=== PATIENT | male | born 1960 | race Caucasian/White ===

== ENCOUNTER → 2023-12-20 12:34 | Outpatient (REF) | payer OTHER, SELFPAY | LOC: WOUND 12:34 | PROVIDERS: ATTENDING PHYSICIAN Surgery | DX: S71.102A Unspecified open wound, left thigh, initial encounter (principal); T81.41XA Infection following a procedure, superficial incisional surgical site, initial encounter; E11.9 Type 2 diabetes mellitus without complications; I73.9 Peripheral vascular disease, unspecified; I25.10 Atherosclerotic heart disease of native coronary artery without angina pectoris; I50.9 Heart failure, unspecified; I42.9 Cardiomyopathy, unspecified; K75.81 Nonalcoholic steatohepatitis (NASH); Z95.1 Presence of aortocoronary bypass graft; Z79.4 Long term (current) use of insulin; X58.XXXA Exposure to other specified factors, initial encounter | CPT/HCPCS: 99204 ==

== ENCOUNTER → 2023-12-23 11:30 | Outpatient (REF) | payer OTHER, SELFPAY | LOC: WOUND 11:30 | PROVIDERS: ATTENDING PHYSICIAN Surgery; REFERRING PHYSICIAN Nurse Practitioner Family | DX: S71.102A Unspecified open wound, left thigh, initial encounter (principal); T81.41XA Infection following a procedure, superficial incisional surgical site, initial encounter; E11.9 Type 2 diabetes mellitus without complications; I73.9 Peripheral vascular disease, unspecified; I25.10 Atherosclerotic heart disease of native coronary artery without angina pectoris; I50.9 Heart failure, unspecified; I42.9 Cardiomyopathy, unspecified; K75.81 Nonalcoholic steatohepatitis (NASH); Z95.1 Presence of aortocoronary bypass graft; Z79.4 Long term (current) use of insulin; Z95.5 Presence of coronary angioplasty implant and graft; X58.XXXA Exposure to other specified factors, initial encounter | CPT/HCPCS: 97605 ==

== ENCOUNTER → 2023-12-25 12:41 | Outpatient (REF) | payer OTHER, SELFPAY ==
[2023-12-25 15:37] LABS: % Basophils 0.4 % (0-2); % Eosinophils 4.1 % (0-6); % Immature Granulocytes 0.7 % (0-0.5); % Lymphocytes 23.4 % (20.5-51.1); % Neutrophils 63.4 % (42.2-75.2); Absolute Eosinophils 0.4 10^3/uL (0-0.7); Absolute Immature Granulocytes 0.1 10^3/uL (0-0.05); Absolute Lymphocytes 2.2 10^3/uL (1.2-3.4); Absolute Monocytes 0.8 10^3/uL (0.1-0.6); Absolute Neutrophils 6.1 10^3/uL (1.4-6.5); Hematocrit 31.5 % (39.0-52.0); Hemoglobin 10.1 g/dL (13.0-18.0); Mean Corp Hgb Conc. 32.1 g/dL (33.0-37.0); Mean Corpuscular Hgb 28.9 pg (27.0-31.0); Nucleated Red Blood Cells % 0 % (-); Platelet Count 231 10^3/uL (130-400); Red Cell Dist. Width 13.9 % (11.5-14.5); White Blood Cell Count 9.6 10^3/uL (4.8-10.8)
[2023-12-25 15:39] LABS: ALT (SGPT) 18 U/L (0-50); AST (SGOT) 28 U/L (17-59); Albumin 4.4 g/dl (3.5-5.0); Alkaline Phosphatase 57 U/L (38-126); Blood Urea Nitrogen 29 mg/dl (9-20); Calcium 9.8 mg/dl (8.4-10.2); Carbon Dioxide 28 mmol/L (22-30); Chloride 98 mmol/L (98-107); Glucose 137 mg/dl (70-99); Magnesium 1.7 mg/dl (1.6-2.3); Potassium 3.9 mmol/L (3.5-5.1); Sodium 136 mmol/L (135-145); Total Bilirubin 0.7 mg/dl (0.2-1.3); Total Protein 7.2 g/dl (6.3-8.2)
== END ==
LOC: HWLAB 12:41
PROVIDERS: ATTENDING PHYSICIAN Nurse Practitioner; FAMILY PHYSICIAN Nurse Practitioner Family; REFERRING PHYSICIAN Specialist
DX: T81.41XA Infection following a procedure, superficial incisional surgical site, initial encounter (principal); I50.20 Unspecified systolic (congestive) heart failure; Y83.8 Other surgical procedures as the cause of abnormal reaction of the patient, or of later complication, without mention of misadventure at the time of the procedure; S71.102A Unspecified open wound, left thigh, initial encounter
CPT/HCPCS: 36415; 80053; 83735; 85025; 97605

== ENCOUNTER → 2023-12-27 10:57 | Outpatient (REF) | payer OTHER, SELFPAY | LOC: WOUND 10:57 | PROVIDERS: ATTENDING PHYSICIAN Surgery; REFERRING PHYSICIAN Nurse Practitioner Family | DX: T81.41XA Infection following a procedure, superficial incisional surgical site, initial encounter (principal); S71.102A Unspecified open wound, left thigh, initial encounter; Z95.5 Presence of coronary angioplasty implant and graft; E11.9 Type 2 diabetes mellitus without complications; I73.9 Peripheral vascular disease, unspecified; I25.10 Atherosclerotic heart disease of native coronary artery without angina pectoris; I50.9 Heart failure, unspecified; I42.9 Cardiomyopathy, unspecified; K75.81 Nonalcoholic steatohepatitis (NASH); Z95.1 Presence of aortocoronary bypass graft; Z79.4 Long term (current) use of insulin; X58.XXXA Exposure to other specified factors, initial encounter | CPT/HCPCS: 97605; 99213 ==

== ENCOUNTER → 2023-12-30 11:13 | Outpatient (REF) | payer OTHER, SELFPAY | LOC: WOUND 11:13 | PROVIDERS: ATTENDING PHYSICIAN Surgery; FAMILY PHYSICIAN Nurse Practitioner Family | DX: S71.102A Unspecified open wound, left thigh, initial encounter (principal); Z95.5 Presence of coronary angioplasty implant and graft; E11.9 Type 2 diabetes mellitus without complications; I73.9 Peripheral vascular disease, unspecified; I25.10 Atherosclerotic heart disease of native coronary artery without angina pectoris; T81.41XA Infection following a procedure, superficial incisional surgical site, initial encounter; I50.9 Heart failure, unspecified; I42.9 Cardiomyopathy, unspecified; K75.81 Nonalcoholic steatohepatitis (NASH); Z79.4 Long term (current) use of insulin; Z95.1 Presence of aortocoronary bypass graft; X58.XXXA Exposure to other specified factors, initial encounter | CPT/HCPCS: 97605; 99213 ==

== ENCOUNTER → 2024-01-01 11:59 | Outpatient (REF) | payer OTHER, SELFPAY | LOC: WOUND 11:59 | PROVIDERS: ATTENDING PHYSICIAN Surgery; FAMILY PHYSICIAN Nurse Practitioner Family | DX: T81.41XA Infection following a procedure, superficial incisional surgical site, initial encounter (principal); S71.102A Unspecified open wound, left thigh, initial encounter; Z95.5 Presence of coronary angioplasty implant and graft; E11.9 Type 2 diabetes mellitus without complications; I73.9 Peripheral vascular disease, unspecified; I25.10 Atherosclerotic heart disease of native coronary artery without angina pectoris; I50.9 Heart failure, unspecified; I42.9 Cardiomyopathy, unspecified; K75.81 Nonalcoholic steatohepatitis (NASH); Z95.1 Presence of aortocoronary bypass graft; Z79.4 Long term (current) use of insulin; X58.XXXA Exposure to other specified factors, initial encounter | CPT/HCPCS: 97605 ==

== ENCOUNTER → 2024-01-03 11:21 | Outpatient (REF) | payer OTHER, SELFPAY | LOC: WOUND 11:21 | PROVIDERS: ATTENDING PHYSICIAN Surgery; FAMILY PHYSICIAN Nurse Practitioner Family | DX: S71.102A Unspecified open wound, left thigh, initial encounter (principal); T81.41XA Infection following a procedure, superficial incisional surgical site, initial encounter; Z95.5 Presence of coronary angioplasty implant and graft; E11.9 Type 2 diabetes mellitus without complications; I73.9 Peripheral vascular disease, unspecified; I25.10 Atherosclerotic heart disease of native coronary artery without angina pectoris; I50.9 Heart failure, unspecified; I42.9 Cardiomyopathy, unspecified; K75.81 Nonalcoholic steatohepatitis (NASH); Z95.1 Presence of aortocoronary bypass graft; Z79.4 Long term (current) use of insulin; X58.XXXA Exposure to other specified factors, initial encounter | CPT/HCPCS: 99213 ==

== ENCOUNTER → 2024-01-07 10:11 | Outpatient (REF) | payer OTHER, SELFPAY | LOC: RAD 10:11 | PROVIDERS: ATTENDING PHYSICIAN Physician Assistant; FAMILY PHYSICIAN Nurse Practitioner Family; REFERRING PHYSICIAN Internal Medicine Cardiovascular Disease | DX: I77.9 Disorder of arteries and arterioles, unspecified (principal) | CPT/HCPCS: 93922; 93925; 93978 ==

== ENCOUNTER → 2024-01-10 11:16 | Outpatient (REF) | payer OTHER, SELFPAY | LOC: WOUND 11:16 | PROVIDERS: ATTENDING PHYSICIAN Surgery; FAMILY PHYSICIAN Nurse Practitioner Family | DX: T81.41XA Infection following a procedure, superficial incisional surgical site, initial encounter (principal); S71.102A Unspecified open wound, left thigh, initial encounter; Z95.5 Presence of coronary angioplasty implant and graft; E11.9 Type 2 diabetes mellitus without complications; I73.9 Peripheral vascular disease, unspecified; I25.10 Atherosclerotic heart disease of native coronary artery without angina pectoris; I50.9 Heart failure, unspecified; I42.9 Cardiomyopathy, unspecified; K75.81 Nonalcoholic steatohepatitis (NASH); Z95.1 Presence of aortocoronary bypass graft; Z79.4 Long term (current) use of insulin; X58.XXXA Exposure to other specified factors, initial encounter | CPT/HCPCS: 99213 ==

== ENCOUNTER → 2024-01-13 14:06 | Outpatient (REF) | payer OTHER, SELFPAY ==
[2024-01-13 15:18] LABS: Blood Urea Nitrogen 23 mg/dl (9-20); Calcium 9.7 mg/dl (8.4-10.2); Carbon Dioxide 25 mmol/L (22-30); Chloride 99 mmol/L (98-107); Glucose 149 mg/dl (70-99); Potassium 3.4 mmol/L (3.5-5.1); Sodium 136 mmol/L (135-145); eGFR 57.18
[2024-01-13 16:14] LABS: Urine Albumin Trace (Neg - Trace); Urine Bilirubin Negative (Negative); Urine Character Slightly Cloudy (Clear); Urine Color Yellow; Urine Glucose Negative (Negative); Urine Ketone Negative (Negative); Urine Leukocyte Trace (Negative); Urine Nitrite Negative (Negative); Urine Occult Blood Negative (Negative); Urine Specific Gravity 1.015 (<1.030); Urine Urobilinogen Negative (Neg - 1+)
[2024-01-13 16:54] LABS: Urine Red Blood Cell None Seen /HPF (0-2)
== END ==
LOC: REG 14:06
PROVIDERS: ATTENDING PHYSICIAN Specialist; FAMILY PHYSICIAN Nurse Practitioner Family
DX: I10 Essential (primary) hypertension (principal); E87.1 Hypo-osmolality and hyponatremia; N17.9 Acute kidney failure, unspecified
CPT/HCPCS: 36415; 80048; 81003; 81015

== ENCOUNTER 2024-01-13 14:39 | Outpatient (RCR) | payer OTHER, SELFPAY | END 2024-01-13 23:59 | disposition home or self-care (01) | LOC: RST 14:39 | PROVIDERS: ATTENDING PHYSICIAN Physical Medicine & Rehabilitation; FAMILY PHYSICIAN Nurse Practitioner Family | DX: G93.1 Anoxic brain damage, not elsewhere classified (principal); I46.9 Cardiac arrest, cause unspecified; N17.9 Acute kidney failure, unspecified; R41.841 Cognitive communication deficit; R41.89 Other symptoms and signs involving cognitive functions and awareness | CPT/HCPCS: 96125; 97110; 97112; 97129; 97130; 97163; 97167; 97530 ==

== ENCOUNTER → 2024-01-17 11:11 | Outpatient (REF) | payer OTHER, SELFPAY | LOC: WOUND 11:11 | PROVIDERS: ATTENDING PHYSICIAN Surgery; FAMILY PHYSICIAN Nurse Practitioner Family | DX: T81.41XA Infection following a procedure, superficial incisional surgical site, initial encounter (principal); S71.102A Unspecified open wound, left thigh, initial encounter; Z95.5 Presence of coronary angioplasty implant and graft; E11.9 Type 2 diabetes mellitus without complications; I73.9 Peripheral vascular disease, unspecified; I25.10 Atherosclerotic heart disease of native coronary artery without angina pectoris; I50.9 Heart failure, unspecified; I42.9 Cardiomyopathy, unspecified; K75.81 Nonalcoholic steatohepatitis (NASH); Z95.1 Presence of aortocoronary bypass graft; Z79.4 Long term (current) use of insulin; X58.XXXA Exposure to other specified factors, initial encounter | CPT/HCPCS: 99213 ==

== ENCOUNTER → 2024-01-31 11:05 | Outpatient (REF) | payer OTHER, SELFPAY | LOC: WOUND 11:05 | PROVIDERS: ATTENDING PHYSICIAN Surgery; FAMILY PHYSICIAN Nurse Practitioner Family | DX: T81.41XA Infection following a procedure, superficial incisional surgical site, initial encounter (principal); S71.102A Unspecified open wound, left thigh, initial encounter; Z95.5 Presence of coronary angioplasty implant and graft; E11.9 Type 2 diabetes mellitus without complications; I73.9 Peripheral vascular disease, unspecified; I25.10 Atherosclerotic heart disease of native coronary artery without angina pectoris; I50.9 Heart failure, unspecified; I42.9 Cardiomyopathy, unspecified; K75.81 Nonalcoholic steatohepatitis (NASH); Z95.1 Presence of aortocoronary bypass graft; Z79.4 Long term (current) use of insulin; X58.XXXA Exposure to other specified factors, initial encounter | CPT/HCPCS: 99212 ==

== ENCOUNTER → 2024-01-31 11:25 | Outpatient (REF) | payer OTHER, SELFPAY ==
[2024-01-31 12:36] LABS: Urine Protein 51 mg/dl (0-12)
[2024-01-31 12:46] LABS: Blood Urea Nitrogen 11 mg/dl (9-20); Calcium 9.4 mg/dl (8.4-10.2); Carbon Dioxide 26 mmol/L (22-30); Chloride 102 mmol/L (98-107); Glucose 117 mg/dl (70-99); Magnesium 1.4 mg/dl (1.6-2.3); Phosphorus 4.6 mg/dl (2.5-4.5); Potassium 3.7 mmol/L (3.5-5.1); Sodium 139 mmol/L (135-145); eGFR > 60.00
[2024-01-31 12:56] LABS: NT-proBNP 5070 pg/ml
== END ==
LOC: REG 11:25
PROVIDERS: ATTENDING PHYSICIAN Specialist; FAMILY PHYSICIAN Nurse Practitioner Family
DX: I10 Essential (primary) hypertension (principal); E87.1 Hypo-osmolality and hyponatremia; N17.9 Acute kidney failure, unspecified; I25.5 Ischemic cardiomyopathy
CPT/HCPCS: 36415; 80048; 82570; 83735; 83880; 84100; 84156

== ENCOUNTER 2024-02-05 13:50 | Outpatient (RCR) | payer OTHER, SELFPAY | END 2024-02-05 23:59 | disposition home or self-care (01) | LOC: RST 13:50 | PROVIDERS: ATTENDING PHYSICIAN Physical Medicine & Rehabilitation; FAMILY PHYSICIAN Nurse Practitioner Family | DX: I46.9 Cardiac arrest, cause unspecified (principal); N17.9 Acute kidney failure, unspecified; G93.1 Anoxic brain damage, not elsewhere classified; R41.841 Cognitive communication deficit; R41.89 Other symptoms and signs involving cognitive functions and awareness | CPT/HCPCS: 97110; 97112; 97116; 97129; 97130; 97530; 97535 ==

== ENCOUNTER → 2024-02-10 10:17 | Outpatient (REF) | payer OTHER, SELFPAY | LOC: HWRAD 10:17 | PROVIDERS: ATTENDING PHYSICIAN Internal Medicine Gastroenterology; FAMILY PHYSICIAN Nurse Practitioner Family | DX: K74.60 Unspecified cirrhosis of liver (principal) | CPT/HCPCS: 76700 ==

== ENCOUNTER 2024-02-10 17:27 | Inpatient (IN) | payer OTHER, SELFPAY ==
[2024-02-10] VITALS (10 sets, daily range): BP systolic 101–130; BP diastolic 50–82; BMI 42.6
[2024-02-10 14:03] LABS: % Basophils 0.5 % (0-2); % Eosinophils 3.4 % (0-6); % Immature Granulocytes 0.5 % (0-0.5); % Neutrophils 61.6 % (42.2-75.2); Absolute Eosinophils 0.3 10^3/uL (0-0.7); Absolute Neutrophils 5.4 10^3/uL (1.4-6.5); Hematocrit 31.2 % (39.0-52.0); Hemoglobin 9.7 g/dL (13.0-18.0); Mean Corp Hgb Conc. 31.1 g/dL (33.0-37.0); Mean Corpuscular Hgb 25.5 pg (27.0-31.0); Mean Corpuscular Volume 82.1 fL (80.0-94.0); Mean Platelet Volume 10.7 fL (7.4-10.4); Nucleated Red Blood Cells % 0 % (-); Platelet Count 205 10^3/uL (130-400); White Blood Cell Count 8.8 10^3/uL (4.8-10.8)
[2024-02-10 14:14] LABS: ALT (SGPT) < 10 U/L (0-50); AST (SGOT) 16 U/L (17-59); Alkaline Phosphatase 51 U/L (38-126); Blood Urea Nitrogen 25 mg/dl (9-20); Calcium 9.6 mg/dl (8.4-10.2); Carbon Dioxide 29 mmol/L (22-30); Chloride 100 mmol/L (98-107); Glucose 107 mg/dl (70-99); Potassium 3.5 mmol/L (3.5-5.1); Sodium 141 mmol/L (135-145); Total Bilirubin 0.7 mg/dl (0.2-1.3); Total Protein 6.7 g/dl (6.3-8.2); eGFR > 60.00
--- NOTE | 2024-02-10 14:17 | ED.GENMED ---
History of Present Illness
<Yong Gaines PA-C - Last Filed: 02/10/24 16:11>
General
Chief Complaint: Breathing Problem
Source: patient, records and spouse
Time Seen by Provider: 02/10/24 13:53
Travel History
Have you had any contact with someone who has COVID-19?: No
Do you have any symptoms of coronavirus? Fever > 100 degrees, chills, cough, shortness of breath, sore throat, loss of taste or smell, muscle aches, or headache?: No
History of Present Illness
History of Present Illness:
63-year-old male with extensive past medical history including admission to this facility in September for severe sepsis resulting in very complicated extended hospital stay with patient going into cardiac arrest and needing continuous dialysis,
continues with his outpatient physical therapy and Occupational Therapy, presenting to the emergency department today with an approximate 16 pound weight gain and gradually worsening shortness of breath at rest as well as with exertion and generally
feeling unwell since this past Saturday. In consultation with his elevator repair mechanic and limited radiology technician patient was advised to increase his Lasix from 80 mg once daily to twice daily and potassium supplements from 10 mEq to 20 mill equivalents but he states
he has not had any relief. Patient states that he was advised to come to the hospital earlier but given his extended and complicated state the last time he was hesitant to do so as he is fearful with getting sicker. At rest, patient states he only
has the shortness of breath but denies any chest pain, palpitations, diaphoresis, nausea, vomiting. Patient states that he followed up with his guitar instructor about 3 weeks ago for his follow-up visit postoperatively and patient and spouse note that
they were very happy with how the wound was healing. They also note patient has a wound to his left upper thigh that they have been following with the wound care center for and will hopefully be getting the wound VAC off in a short period of time.
Past History
<Yong Gaines PA-C - Last Filed: 02/10/24 16:11>
Past History
ED Past Medical History: CAD, CHF, GERD, HTN, Hypercholesterolemia, IDDM, Renal failure and Hypothyroidism
ED Past Surgical History: Cardiac (CABG, pericardial window)
Social History
Tobacco: Non-smoker
Alcohol: None
Drug: None
Personal:
Living: with family
Employment: Employed
Family History
Family History: CAD
Review of Systems
<Yong Gaines PA-C - Last Filed: 02/10/24 16:11>
Review of Systems
All Other Systems: ROS reviewed and negative except as documented in HPI and ROS
Phy Exam
<LEANNE Padilla Last Filed: 02/10/24 16:11>
Physical Exam
Physical Exam:
GENERAL: Alert , in no apparent distress
EYE: Clear conjunctiva
NECK: Supple
ENT: o/p clr, mmm.
CARDIAC: Regular rate and rhythm, occasional ectopic beats seen on telemetry.
LUNGS: Clear breath sounds bilaterally, no acute respiratory distress, no wheezes/rales/rhonchi
ABDOMEN: Soft, without focal tenderness, no r/g, no cvat 3 small areas of ecchymosis to the left flank are nontender and measure approximately 1 cm in size
NEUROLOGICAL: Alert and oriented, no focal neuro deficits
SKIN: Warm and dry, well-healed surgical incision to the distal first metatarsal without any overlying erythema or skin changes
MUSCULOSKELETAL: 1+ pitting edema bilateral lower extremities to the mid tibia, well perfused.
PSYCH: Normal and appropriate interaction.
Scores
<Yong Gaines PA-C - Last Filed: 02/10/24 16:11>
Heart Failure Risk
Heart Failure Risk Score: Yes
History of Stroke or TIA: No
History of intubation for respiratory distress: Yes
Heart rate on ED arrival >/= 110: No
SaO2 <90% on arrival on room air: No
HR >/=110 during 3min walk test (or too ill to perform test): Yes
ECG has acute ischemic changes: No
Urea >/=12mmol/L (BUN 33.6mg/dL): No
Serum CO2>/=35mmol/L: No
Troponin I or T elevated to NE Level (0.4mg/dL): No
NT-proBNP >/=5,000ng/L (5,000pg/ml): No
HF Risk Score: 4
Admission Status: HIGH RISK 26.1% Consider SNF treatment or admission to hospital
Heart Score for Chest Pain Patients
STEMI patient?: Not applicable
Withdrawal Assessment of Alcohol
Withdrawal Assessment Completed?: Not applicable
<Hossein Smith MD - Last Filed: 02/10/24 21:13>
Heart Failure Risk
HF Risk Score: 4
Admission Status: HIGH RISK 26.1% Consider SNF treatment or admission to hospital
Course
<Yong Gaines PA-C - Last Filed: 02/10/24 16:11>
Orders/Labs/Results
Orders:
Orders
02/10/24 13:42
IV Insert/Care/Rem.- Treatment PRN
Chest [CR Chest - 2 Views ] Urgent
Comment:
Reason For Exam: GERBER
02/10/24 13:50
BNP [NT-proBNP] Urgent
Complete Blood Count/With Diff Urgent
Comprehensive Metabolic Panel Urgent
Troponin I Urgent
Comment: ADD ON
02/10/24 14:08
Add On- LAB Urgent
Tests Added?: troponin I
Electrocardiogram (*1) Urgent
Reason for Study: Shortness of Breath
EKG- Treatment ONCE
02/10/24 14:33
Furosemide [Lasix] 80 mg IV NOW STA
02/10/24 14:41
Furosemide [Lasix] 40 mg .ROUTE .STK-MED ONE
Furosemide [Lasix] 40 mg IV NOW STA
02/10/24 14:57
Furosemide [Lasix] 40 mg IV NOW STA
02/10/24 Dinner
Cholesterol Lowering
At Your Request: Full Participation
Fluid Restriction: 1500 mL/day (50 oz)
Cholesterol Lowering: Sodium, 2 Gram
02/10/24 16:36
Admit/Transfer Patient As Directed
Co-Sign Provider:
Level of Care: Inpatient admission
Assign to:: Telemetry
Physician / Group: eleazar gonzalez
Diagnosis: acute on chronic chf , cardiomyopathy
Reason for Telemetry: Subacute Heart Failure
Date to Stop Telemetry: 02/12/24
Time to Stop Telemetry: 11:00
Reason for Hospitalization: acute on chronic chf , cardiomyopathy
Expected length of stay greater than two midnights?: Yes
ELOS- Estimated Length of Stay in days: 4
I certify the patient meets the requirements for IP care: Yes
Code Status As Directed
Resuscitation Status: Full Code
02/10/24 16:41
CARDIOLOGY CONSULT Routine
Consulting Provider: Jono Yadav
Was physician already notified: Yes
Reason for consult: acute on chronic chf
02/10/24 18:21
Bisacodyl [Dulcolax] 10 mg PO DAILYPRN PRN
Rosuvastatin Calcium [Crestor] 20 mg PO QPM
02/10/24 18:21
WOUND/OSTOMY CONSULT Routine
Reason for Consult: left upper groin open wound
Activity As Directed
Activity Level: As Tolerated
Intake/ Output As Directed
Frequency: Per unit guidelines
Vital Signs As Directed
Frequency: Per unit guidelines
Weight As Directed
Frequency: Daily
Cpap [RESP] Routine
Patient to use own unit?: No
Set Pressure (cm H2O): 4
Instructions: variable nasal cpap
Pulse Ox/spot Check [RESP] Routine
Quantity: 1
Ot Eval And Treat Routine
Pt Eval And Treat Routine
Activity Level: With Assistance
DX Deep Vein Thrombosis Video Routine
02/10/24 19:00
Metoprolol Xl [Toprol Xl] 25 mg PO QPM
02/10/24 20:00
Docusate Sodium [Colace] 100 mg PO BID
Gabapentin [Neurontin] 100 mg PO BID
Heparin 5,000 units SC Q12
Pantoprazole [Protonix] 40 mg PO BID
02/10/24 22:00
Melatonin 5 mg PO HS
Oxycodone/Acetaminophen [Percocet 5/325] 1 tablet PO Q8H
02/11/24 06:00
Complete Blood Count/With Diff IN AM
Comprehensive Metabolic Panel IN AM
02/11/24 07:00
Levothyroxine [Synthroid] 300 mcg PO DAILY AT 0700
02/11/24 08:00
Aspirin Low Dose EC [Aspir Low (Enteric Coated)] 81 mg PO DAILY
Clopidogrel Bisulfate [Plavix] 75 mg PO DAILY
Potassium Chloride [KCl] 10 meq PO DAILY
methylnaltrexone [Relistor] 0 mg PO DAILY
02/12/24 06:00
Complete Blood Count/With Diff IN AM
Comprehensive Metabolic Panel IN AM
02/12/24 11:00
DC Protocol for Telemetry ONCE
02/13/24 06:00
Complete Blood Count/With Diff IN AM
Comprehensive Metabolic Panel IN AM
02/14/24 06:00
Complete Blood Count/With Diff IN AM
Comprehensive Metabolic Panel IN AM
Abnormal Lab Results
02/10/24
13:50
RBC 3.80 L 10^6/uL
(4.70-6.10)
Hgb 9.7 L g/dL
(13.0-18.0)
Hct 31.2 L %
(39.0-52.0)
MCH 25.5 L pg
(27.0-31.0)
MCHC 31.1 L g/dL
(33.0-37.0)
RDW 15.0 H %
(11.5-14.5)
MPV 10.7 H fL
(7.4-10.4)
Absolute Monos (auto) 1.0 H 10^3/uL
(0.1-0.6)
Monocytes % 11.0 H %
(1.7-9.3)
BUN 25 H mg/dl
(9-20)
Glucose 107 H mg/dl
(70-99)
AST 16 L U/L
(17-59)
02/10/24 13:50
02/10/24 13:50
Vital Signs
Initial and Last Documented VS:
Initial Vital Signs
Temp Pulse Resp BP Pulse Ox
37.1 C 82 18 109/66 95
02/10/24 13:18 02/10/24 13:18 02/10/24 13:18 02/10/24 13:18 02/10/24 13:18
Last Documented Vital Signs
Temp Pulse Resp BP Pulse Ox
37.2 C 96 16 130/77 94
02/10/24 19:17 02/10/24 19:17 02/10/24 19:17 02/10/24 19:17 02/10/24 19:17
Gun Stock Checker consulted with Physician
Gun Stock Checker consulted with physician?: Yes
Name of Physician Consulted: Sarah
<Hossein Smith MD - Last Filed: 02/10/24 21:13>
Orders/Labs/Results
Orders:
Orders
02/10/24 13:42
IV Insert/Care/Rem.- Treatment PRN
Chest [CR Chest - 2 Views ] Urgent
Comment:
Reason For Exam: GERBER
02/10/24 13:50
BNP [NT-proBNP] Urgent
Complete Blood Count/With Diff Urgent
Comprehensive Metabolic Panel Urgent
Troponin I Urgent
Comment: ADD ON
02/10/24 14:08
Add On- LAB Urgent
Tests Added?: troponin I
Electrocardiogram (*1) Urgent
Reason for Study: Shortness of Breath
EKG- Treatment ONCE
02/10/24 14:33
Furosemide [Lasix] 80 mg IV NOW STA
02/10/24 14:41
Furosemide [Lasix] 40 mg .ROUTE .STK-MED ONE
Furosemide [Lasix] 40 mg IV NOW STA
02/10/24 14:57
Furosemide [Lasix] 40 mg IV NOW STA
02/10/24 Dinner
Cholesterol Lowering
At Your Request: Full Participation
Fluid Restriction: 1500 mL/day (50 oz)
Cholesterol Lowering: Sodium, 2 Gram
02/10/24 16:36
Admit/Transfer Patient As Directed
Co-Sign Provider:
Level of Care: Inpatient admission
Assign to:: Telemetry
Physician / Group: eleazar gonzalez
Diagnosis: acute on chronic chf , cardiomyopathy
Reason for Telemetry: Subacute Heart Failure
Date to Stop Telemetry: 02/12/24
Time to Stop Telemetry: 11:00
Reason for Hospitalization: acute on chronic chf , cardiomyopathy
Expected length of stay greater than two midnights?: Yes
ELOS- Estimated Length of Stay in days: 4
I certify the patient meets the requirements for IP care: Yes
Code Status As Directed
Resuscitation Status: Full Code
02/10/24 16:41
CARDIOLOGY CONSULT Routine
Consulting Provider: Jono Yadav
Was physician already notified: Yes
Reason for consult: acute on chronic chf
02/10/24 18:21
Bisacodyl [Dulcolax] 10 mg PO DAILYPRN PRN
Rosuvastatin Calcium [Crestor] 20 mg PO QPM
02/10/24 18:21
WOUND/OSTOMY CONSULT Routine
Reason for Consult: left upper groin open wound
Activity As Directed
Activity Level: As Tolerated
Intake/ Output As Directed
Frequency: Per unit guidelines
Vital Signs As Directed
Frequency: Per unit guidelines
Weight As Directed
Frequency: Daily
Cpap [RESP] Routine
Patient to use own unit?: No
Set Pressure (cm H2O): 4
Instructions: variable nasal cpap
Pulse Ox/spot Check [RESP] Routine
Quantity: 1
Ot Eval And Treat Routine
Pt Eval And Treat Routine
Activity Level: With Assistance
DX Deep Vein Thrombosis Video Routine
02/10/24 19:00
Metoprolol Xl [Toprol Xl] 25 mg PO QPM
02/10/24 20:00
Docusate Sodium [Colace] 100 mg PO BID
Gabapentin [Neurontin] 100 mg PO BID
Heparin 5,000 units SC Q12
Pantoprazole [Protonix] 40 mg PO BID
02/10/24 22:00
Melatonin 5 mg PO HS
Oxycodone/Acetaminophen [Percocet 5/325] 1 tablet PO Q8H
02/11/24 06:00
Complete Blood Count/With Diff IN AM
Comprehensive Metabolic Panel IN AM
02/11/24 07:00
Levothyroxine [Synthroid] 300 mcg PO DAILY AT 0700
02/11/24 08:00
Aspirin Low Dose EC [Aspir Low (Enteric Coated)] 81 mg PO DAILY
Clopidogrel Bisulfate [Plavix] 75 mg PO DAILY
Potassium Chloride [KCl] 10 meq PO DAILY
methylnaltrexone [Relistor] 0 mg PO DAILY
02/12/24 06:00
Complete Blood Count/With Diff IN AM
Comprehensive Metabolic Panel IN AM
02/12/24 11:00
DC Protocol for Telemetry ONCE
02/13/24 06:00
Complete Blood Count/With Diff IN AM
Comprehensive Metabolic Panel IN AM
02/14/24 06:00
Complete Blood Count/With Diff IN AM
Comprehensive Metabolic Panel IN AM
Abnormal Lab Results
02/10/24
13:50
RBC 3.80 L 10^6/uL
(4.70-6.10)
Hgb 9.7 L g/dL
(13.0-18.0)
Hct 31.2 L %
(39.0-52.0)
MCH 25.5 L pg
(27.0-31.0)
MCHC 31.1 L g/dL
(33.0-37.0)
RDW 15.0 H %
(11.5-14.5)
MPV 10.7 H fL
(7.4-10.4)
Absolute Monos (auto) 1.0 H 10^3/uL
(0.1-0.6)
Monocytes % 11.0 H %
(1.7-9.3)
BUN 25 H mg/dl
(9-20)
Glucose 107 H mg/dl
(70-99)
AST 16 L U/L
(17-59)
02/10/24 13:50
02/10/24 13:50
Vital Signs
Initial and Last Documented VS:
Initial Vital Signs
Temp Pulse Resp BP Pulse Ox
37.1 C 82 18 109/66 95
02/10/24 13:18 02/10/24 13:18 02/10/24 13:18 02/10/24 13:18 02/10/24 13:18
Last Documented Vital Signs
Temp Pulse Resp BP Pulse Ox
37.2 C 96 16 130/77 94
02/10/24 19:17 02/10/24 19:17 02/10/24 19:17 02/10/24 19:17 02/10/24 19:17
<Yogn Gaines PA-C - Last Filed: 02/10/24 16:11>
MDM/Problems Addressed
Differential Diagnosis Includes:
CHF exacerbation, anemia, acute kidney injury, question retroperitoneal bleed given the flank ecchymosis
MDM/Problems Addressed:
63-year-old male presenting the emergency department for evaluation at the request of his elevator repair mechanic and limited radiology technician for gradually worsening shortness of breath despite doubling up on his Lasix. He has had an approximate 16 pound weight gain in
about a week and a half with no clear etiology given his inability to eat larger quantities as well as his fluid restriction. No signs of hemodynamic instability on exam today. No clear signs of infection either. Lab work had been initiated in
triage. I did add on an EKG and troponin to patient's workup. Considering CT imaging. Case was discussed with Dr. Smith who will evaluate the patient and help determine imaging with plan for ultimately to admit patient.
Chronic conditions affecting care: Cardiomyopathy and Kidney disease
Acute Exacerbation and/or Progression of Chronic Illness: Cardiomyopathy and Kidney disease
<Yong Gaines PA-C - Last Filed: 02/10/24 16:11>
*Radiology
Radiology exam reviewed: preliminary read by ED provider (cardiomegaly)
*Pulse Oximetry
Patient hypoxic: no
*EKG
Interpreted by ED Provider?: Yes
Comparison EKG: no changes
Heart Rate: 82
Rate: normal
Rhythm: av sequential
*Key Ringer Interpretation
Rate: normal
Rhythm: PVC's and av sequential
*Critical Care Note
Total Time (30-74mins, 75-104mins- exclusive of procedures): Not Applicable
Data Reviewed
Review of Other/Old Records Reveals: Labs, Records, Radiology Studies and Discharge Summary
Source: patient, records and spouse
<Yong Gaines PA-C - Last Filed: 02/10/24 16:11>
Patient Management
Discussion with other providers: Hospitalist and Manufacturing Quality Technician
Escalation/DeEscalation of care consider admission/obs:
Patient's cardiology team as well as hospitalist team were notified. Hospitalist accepts for continued evaluation and treatment. Initially I did order 80 mg of Lasix IV however given patient's soft blood pressure will treat with 40 mg of IV and
reassess and if blood pressure is maintained we will add on an additional 40mg IV
ED Attending Note
<Yong Gaines PA-C - Last Filed: 02/10/24 16:11>
-
Portions of this chart may have been created with voice recognition software.� Occasional wrong word or��sound alike� substitutions may have occurred due to the inherent limitations of voice recognition software.
<Hossein Smith MD - Last Filed: 02/10/24 21:13>
ED Attending Note
Patient seen and examined by attending physician: Yes
ED Attending Note:
I have seen and evaluated the patient with a [id number] encounter. I have spoken to the advance practicer provider and involved in the medical history, the physical exam, medical decision making.
Evaluation and management service: agree unless noted differently below.
Results interpretation: agree unless noted differently below.
Focused HPI: 63-year-old male with extensive medical history as documented including CHF, recent complicated hospitalization and poor renal function�previously on dialysis but fortunately has been weaned off�presents with his for evaluation of
20 pound weight gain in the past month and a half, increasing lower extremity edema, increasing dyspnea despite increase Lasix to 80 mg twice daily. He is known to Dr. Yadav as well as the Dr. Agudelo.
Physical exam: Awake and alert not in distress. Vital signs normal. He has crackles on auscultation of the lungs at the bases. He has bilateral +3 pitting edema in the lower extremities.
Medical Decision Makin-year-old male with history as above presents with symptoms of worsening heart failure despite increased outpatient diuretic. Will admit for IV diuresis. PA discussed with cardiology for consultation.
Discharge Plan
Departure
Patient Disposition: Admit
Date of Disposition: 02/10/24
Time of Disposition: 14:36
Presentation/result/management discussed w/ accepting MD/DO: Hospitalist
Discharge Problem:
Acute exacerbation of congestive heart failure, Anemia
Interventions
Interventions:
*Risk Screen - Suicide Last Done: 02/10/24 13:39
*General Assessment Last Done: 02/10/24 13:39
*Neglect/Abuse Screening Last Done: 02/10/24 13:39
ED- Fall Risk Assessment Last Done: 02/10/24 13:39
*ED COVID-19 Vaccine History Last Done: 02/10/24 13:39
*Nursing Disposition Last Done: 02/10/24 18:08
ED- Cardiac Assessment Last Done: 02/10/24 13:39
ED- Pulmonary Assessment Last Done: 02/10/24 13:39
ED-Skin Assessment Last Done: 02/10/24 13:39
Discharge Date and Time
Discharge Date/Time: 02/10/24 18:09
[2024-02-10 14:23] LABS: NT-proBNP 4360 pg/ml
--- NOTE | 2024-02-10 14:38 | CON.CAR ---
Addendum entered and electronically signed by Jono Yadav MD 02/10/24 16:26:
I saw and examined the patient.
The BRIDAL GOWN FITTER's note was reviewed and I agree with the note.
63-year-old male with complex cardiac history coronary artery disease/coronary artery bypass grafting prior history of PCI, distant history of recurrent pericarditis and pericardial window revealed severely reduced left ventricular function
peripheral arterial disease and diabetes who recent complex and prolonged hospitalization at [place] issues including sepsis. He underwent lower extremity revascularization Left femoral endarterectomy, left TECHNICAL SALES SPECIALIST to TP trunk and bypass of
sartorius flap 10/21/23. Course was complicated by PEA arrest, AMILCAR requiring HD and GI bleeding. Despite all those issues recovered and was discharged to rehab and is now home. He is no longer requiring dialysis. He was just seen in the office
and was noted to have increased lower extremity edema as an outpatient last week's visit twice daily has had some exertional shortness of breath the weekend he had no further improvement in his edema. Due to increasing edema despite outpatient
medical therapy went to the ER.
-Diuresis with IV Lasix
-Close monitoring of renal function
-Monitor weights and blood pressures
-Previously additional guideline directed medical therapy for cardiomyopathy was limited due to low blood pressure as well as AMILCAR. May reconsider medical therapy options depending on stability of blood pressure with diuresis
Original Note:
Consultation
Consultation Request
Date/Time Consultation Requested: 02/10/24 14:20
Date/Time Consultation Performed: 02/10/24 14:35
Requesting Provider: Yong High PA-C
Performing Provider: MARQUIS Hooper for Dr. Yadav
Reason for Consultation: Acute heart failure
Medical History
-
Chief Complaint: Shortness of breath
History of Present Illness:
Oliver Rodriguez is a 63 year old male (known to Dr. Yadav, his primary enrollment specialist) with a complex cardiac history including, CAD, CABG, history PCI, pericarditis/recurrent pericardial effusion/pericardial window, ischemic cardiomyopathy, BiVICD,
PAD, right lower extremity revascularization surgery, DM, neuropathy, elevated LFT, Hyponatremia, ETOH abuse and obesity who presented to the ER with a chief complaint of shortness of breath. He has associated weight gain. He endorses worsening
lower extremity edema. He believes he has gained around 15-20 pounds. He has been following his weight on different providers scales. He reports medication and dietary adherance.
Mr. Rodriguez had a complex/prolonged hospitalization 10/15/2023 through 12/04/2023 then stayed at [facility] until 12/17/2023. Those records were reviewed.
Past Medical History
Past Medical History: CAD, CHF, Hypercholesterolemia, NIDDM and Renal Failure
Past Surgical History: Cardiac
Social History
Tobacco: Former Smoker
Alcohol: None
Drug: None
Personal: (Catrina [])
Living: With Family
Family History
Family History: Reviewed & Not Pertinent
Allergies / Home Medications
Allergy/AdvReac Type Severity Reaction Status Date / Time
clarithromycin [From Biaxin] Allergy Rash Verified 02/10/24 13:17
doxycycline Allergy severe Verified 02/10/24 13:17
diarrhea
and
vomiting
lisinopril Allergy Itching/jeronimo Verified 02/10/24 13:17
h
pregabalin [From Lyrica] Allergy Hives Verified 02/10/24 13:17
Medication Instructions Recorded Confirmed Type
aspirin 81 mg tablet,delayed 81 mg PO DAILY Blood clot 03/08/17 12/04/23 History
release prevention/tx
acetaminophen 325 mg tablet 650 mg PO Q4HPRN PRN mild pain, 11/29/23 12/04/23 Rx
CARRERA, fever #10 tabs
magnesium L-lactate 84 mg 84 mg PO BID #10 tabs 11/29/23 12/04/23 Rx
tablet,extended release
bisacodyl 5 mg tablet,delayed 10 mg PO DAILY #60 tabs 12/16/23 Rx
release
clopidogrel 75 mg tablet 75 mg PO DAILY Blood clot 12/16/23 Rx
prevention/tx #30 tabs
furosemide 40 mg tablet 40 mg PO DAILY #30 tabs 12/16/23 Rx
levothyroxine 300 mcg tablet 300 mcg PO DAILY Thyroid #30 tabs 12/16/23 Rx
(Synthroid)
lorazepam 0.5 mg tablet (Ativan) 0.5 mg PO BID PRN anxiety #15 tabs 12/16/23 Rx
melatonin 5 mg tablet 5 mg PO HS #30 tabs 12/16/23 Rx
metoprolol succinate 25 mg 25 mg PO DAILY blood pressure #30 12/16/23 12/04/23 Rx
tablet,extended release 24 hr tabs
ondansetron HCl 4 mg tablet 4 mg PO Q8HPRN PRN nausea #30 tabs 12/16/23 Rx
oxycodone 5 mg tablet 10 mg PO Q4HPRN PRN mod sev pain 12/16/23 Rx
#45 tabs
pantoprazole 40 mg tablet,delayed 40 mg PO BID #60 tabs 12/16/23 Rx
release (Protonix)
Non-Formulary Item 18 unit SC HS Diabetes #1 applic 12/17/23 Rx
rosuvastatin 10 mg tablet 10 mg PO QPM cholesterol #30 tabs 12/17/23 Rx
Review of Systems
-
History Source: Patient
All other systems: Negative unless noted
Constitutional: Weight Gain and Fatigue
Respiratory: Trouble Breathing
Musculoskeletal: Edema
Physical Exam
Vital Signs
Temp Pulse Resp BP Pulse Ox
98.7 F 79 16 110/70 97
02/10/24 13:18 02/10/24 14:15 02/10/24 14:15 02/10/24 14:00 02/10/24 14:15
Lab Results
02/10/24 13:50
02/10/24 13:50
Wff-M-Xxxdadlzqis Pept 4360 pg/ml 03/25/24 13:50
Physical Exam
General: Well Developed, Well Nourished, No Apparent Distress and Comfortable
HEENT: Normocephalic, Anicteric and Moist Mucous Membranes
Respiratory: Crackles and Non Labored Respirations
Cardiac: S1/S2, Regular Rhythm and Peripheral Edema (+3 pitting edema)
Breast: Deferred by me
GI: Soft, Non Tender, Non Distended and Normal Bowel Sounds
Genito-urinary: No Costovertebral Tender
Musculoskeletal: No Clubbing and No Cyanosis
Skin: Warm and Dry
Neuro: AO x 3
Hematologic/Lymphatic: No Lymphadenopathy
Psych: Calm
Impression / Plan
-
HFrEF (30-35%), acute on chronic, severe requiring hospitalization
-Weight gain, LE, edema, orthopnea, and GERBER
-Diuresis with furosemide 80mg IV BID
-He may need to transition to torsemide after he has been diuresed
-GDMT is limited by blood pressure & renal function
-Heart failure education
-Trend daily weight, I/Os, and BMP with diuresis
Coronary artery disease
-Stable without chest pain
-CABG (2016)
-Continue medical mgmt with aspirin, BB and statin.
CKD, briefly on HD, follows with Dr. Agudelo
Gastroparesis, decrease in caloric intake recently
�
MDT BiV ICD implant 08/03/2019
Left femoral endarterectomy, left TECHNICAL SALES SPECIALIST to TP trunk and bypass of sartorius flap 10/21/23
Bilat iliac stents 10/18/2023
PAD s/p endovascular procedure, primary repair of left brachial artery 10/18/23
History of pericarditis/recurrent pericardial effusion and pericardial window (2015)
Type II DM, controlled, Hgba1c 5.5% 09/2023
Obesity, he would benefit from weight loss
History of alcohol use
Data Reviewed
-
EKG: Report Reviewed by me (Atrial sensed ventricular paced, rate 82)
Radiology: Report Reviewed by me (CXR: Mild cardiomegaly. Pulmonary vascularity at least top normal. Cannot exclude mild CHF.)
Medical Tests (Nuc Med, Echo etc): Report Reviewed by me (Echo as above)
Labs: Labs Reviewed by me
Old Records: Reviewed
[2024-02-10] MEDS: LASIX 40 MG IV ×2 (14:42→15:21)
--- NOTE | 2024-02-10 14:46 | EDRN ---
Confirmed with PA Jorje regarding lasix dose. Dose changed and pt medicated per MAR. pt updated on POC.
[2024-02-10 14:49] LABS: Troponin I 0.022 ng/ml
--- NOTE | 2024-02-10 15:28 | EDRN ---
cards [email or web address]. per cards ok to give 2nd dose of 40 mg IV lasix. pt medicated per jan. remains on monitor.aware to inform this rn of output.
--- NOTE | 2024-02-10 15:40 | HPS.HSE ---
Addendum entered and electronically signed by Saul Aceves MD 02/10/24 21:06:
I saw and examined the patient.
The ONLINE ADVERTISING ANALYST's note was reviewed and I agree with the note.
Comment:
63-year-old male with past medical history of sepsis in September with PEA arrest 11/03/2023, needing intubation, continuous dialysis (his dialysis catheter was removed on December 09, 2023 when his creat improved to 2.3), CHF, CAD/CABG, pericardial
window, chronic systolic heart failure GERD/GI bleed/peptic ulcer disease requiring clipping, hemorrhoids, COVID-19 infection October 2023 HTN, HLD, DM2/diabetic neuropathy, hypothyroidism, ischemic left lower limb requiring stent, angioplasty and
wound VAC 10/21/2023, MSSA bacteremia with Enterococcus faecalis /MSSA thigh wound, chronic normocytic anemia, epistaxis secondary to heparin, Plavix October 2023, insomnia, alcohol abuse, hepatic steatosis, anxiety, morbid obesity, TRISTA/CPAP, gout
who reports being in 20 pounds from December 17 -02/03/24. He reports he was seen on January 15, 2024 by nephrology then Lasix increased from 40 to 80 mg had been on that until this past 02/07/2024 where it was increased to 80 mg twice daily
by cardiology. He reports his main symptoms are increased shortness of breath and GERBER along with increase in his leg edema bilaterally. He was advised to come to the hospital by his cloth piecer and research pharmacist but was fearful. He has a chronic
wound to his left upper thigh and has been following with podiatry whom he saw 3 weeks ago and his wound VAC to his left upper groin was removed.
Vital Signs Stable
Physical Exam
General: Comfortable, Conversant and Morbidly Obese
HEENT: Normocephalic
Respiratory: Clear and Wheezes; No Rales or Rhonchi
Cardiac: S1/S2, Regular Rhythm, Peripheral Edema (+2 bilateral lower legs) and JVD
GI: Soft, Non Tender, Non Distended, Normal Bowel Sounds
Musculoskeletal: Edema, Left Lower Extremity (+2) and Edema, Right Lower Extremity (+2); No Edema, Left Upper Extremity or Edema, Right Upper Extremity
Skin: Warm, Dry and Other (+2 edema below knees, open left groin wound healing well, longitudinal incision left medial aspect leg intact)
Neuro: AO x 3
Psych: Calm
Assessment/Plan
#Acute on chronic systolic heart failure/ EF 30% cardiomyopathy/PEA arrest September 2023 EF 30%
BNP 4360
I/O, daily weights
-IV Lasix 80 mg twice daily
-Continue 50 ounce fluid restrict diet
- Consult cardiology� CBC cards, recommendations appreciated
-Echocardiogram
�� � ���� CXR:�Mild cardiomegaly.� Pulmonary vascularity top normal cannot exclude mild CHF
�� � � ��EKG:�Atrial sensed ventricular paced rhythm, 82 bpm, QTc 532 MS
#Coronary artery disease status post CABG s/p ICD
#History of pericardial effusion
-Continue aspirin 81 mg daily, Plavix 75 mg daily, metoprolol succinate 25 mg every afternoon
#AMILCAR needing dialysis 10/24/2023 from sepsis
#Status post HD placement 11/19/2023 with removal 12/09/2023
Recent appointment with nephrology 01/15/2024
Creat 1.1 currently
-Follow BMP
-Patient requested medical team to notify nephrology
#DM2/diabetic neuropathy
-Accu-Cheks with SSI
-Continue Tresiba 18 units subcu daily
-Continue gabapentin 100 mg twice daily
#Essential HTN
-Continue metoprolol succinate 25 mg every afternoon
#Chronic anemia-normocytic
Hgb 9.7 appears near baseline
#GERD/gastroparesis(new Dx 01/22/2024)
#Hx GI bleed secondary to bleeding gastric ulcer required clipping 11/15/2023 and 2 units of PRBC
#Hx GI bleed through rectal pouch October 2023 required additional blood transfusion with octreotide drip PPI drip
-Continue Protonix 40 mg twice daily
#Hx hemorrhoids
#PAD status post left lower extremity bypass due to critical limb ischemia
#Hx critical limb ischemia left lower extremity
#Hx angioplasty with common iliac artery stent
#Hx MSSA bacturemia secondary to gangrene/left lower extremity cellulitis MSSA�E faecalis 11/06/2023(blood culture grew MSSA, wound culture grew MSSA and Enterococcus faecalis)
#10/21/2023 status post left common femoral artery endarterectomy with patch angioplasty using bovine pericardium, left common femoral artery to tibioperoneal trunk bypass with 6 mm ringed reinforced graft and left groin rotational muscle flap using
sartorius muscle
-Follows with wound care
-Wound VAC to left upper thigh removed approximately 1 month ago in December 2023
-Continue Plavix
-Consult wound care
-Continue Percocet 1 tab p.o. every 8 hours
#Alcohol use disorder
-Patient drinks 3-4 drinks every day stopped September 2024
#Obstructive sleep apnea
-Uses nasal pillow at HS
#Hyperlipidemia
Hepatic steatosis
-Continue Crestor 20 mg every afternoon
#Insomnia
-Continue melatonin 5 mg at bedtime
#Anxiety
No meds reported
#Hypothyroidism
-Continue Synthroid 300 mcg p.o. daily
#Chronic constipation
-Continue Relistor 150 mg daily
#Morbid obesity due to excess calorie consumption�BMI
Healthy heart, low-fat diabetic diet
Other PMH:
Acute Balanitis -resolved , Got single dose of fluconazole 150mg in ER October 2023
COVID-19 infection October 2023�resolved
History of epistaxis exacerbated by heparin and Plavix October 2023-Resolved with nasal packing
Gout
DVT prophylaxis
Subcu heparin
FULL CODE
Original Note:
Family Physician
-
Family Physician:
Chief Complaint
-
sob gerber
History of Present Illness
63-year-old male who reports being in 20 pounds from December 17 -02/03/24. He reports he was seen on January 15 by nephrology hide Lasix increased from 40 to 80 mg had been on that until this past 02/07/2024 where it was increased to 80 mg
twice daily by cardiology. He reports his main symptoms are increased shortness of breath and GERBER along with a 30% increase in his leg edema bilaterally. He was advised to come to the hospital by his cloth piecer and research pharmacist but was fearful.
He has a chronic wound to his left upper thigh and has been following with podiatry whom he saw 3 weeks ago and his wound VAC to his left upper groin was removed.. He has extensive past medical history including sepsis in September with PEA arrest
11/03/2023, needing intubation, continuous dialysis. His dialysis catheter was removed on December 09 when his creat normalized to 2.3. His states it was 1.3 approximately 1 week ago other past medical history includes CHF, CAD/CABG,
pericardial window, chronic systolic heart failure GERD/GI bleed/peptic ulcer disease requiring clipping, hemorrhoids, COVID-19 infection October 2023 HTN, HLD, DM2/diabetic neuropathy, hypothyroidism, ischemic left lower limb requiring stent,
angioplasty and wound VAC 10/21/2023, MSSA bacteremia with Enterococcus faecalis /MSSA thigh wound, chronic normocytic anemia, epistaxis secondary to heparin, Plavix October 2023, insomnia, alcohol abuse, hepatic steatosis, anxiety, morbid obesity,
TRISTA/CPAP, gout
Medical History
Past Medical History
Past Medical History: Reports Other
Additional Past Medical History:
September with PEA arrest 11/03/2023,- needing intubation
AMILCAR sepsis needing continuous dialysis
Ischemic left lower limb requiring stent, angioplasty and wound VAC 10/21/2023 with removal December 2023, MSSA bacteremia with Enterococcus faecalis /MSSA thigh wound
Chronic systolic CHF
CAD/CABG
pericardial window
GERD/GI bleed/peptic ulcer disease requiring clipping, hemorrhoids
gastroparesis(new Dx 01/22/2024)
Alcohol abuse
Hepatic steatosis
COVID-19 infection October 2023
HTN
HLD
DM2/diabetic neuropathy
hypothyroidism
chronic normocytic anemia
epistaxis secondary to heparin, Plavix October 2023
insomnia
anxiety
morbid obesity
TRISTA/CPAP gout
Past Surgical History: Reports Other
Additional Past Surgical History:
CABG
Ischemic left lower limb requiring stent, angioplasty and wound VAC 10/21/2023, MSSA bacteremia with Enterococcus faecalis /MSSA thigh wound
MDT BiV ICD implant 08/03/2019
Left femoral endarterectomy, left ICE CREAM SHOP ASSOCIATE to TP trunk and bypass of sartorius flap 10/21/23
Bilat iliac stents 10/18/2023
PAD s/p endovascular procedure, primary repair of left brachial artery 10/18/23
History of pericarditis/recurrent pericardial effusion and pericardial window (2015)
Social History
Tobacco: Non-smoker
Alcohol: Former (3-4 drinks a day stopped September 2023)
Drug: None
Personal:
Living: With Family ()
Employment: Disabled
Family History
Family History: Not pertinent
Allergies / Home Medications
Allergies reflects when Allergies were last updated in [facility].
Home Medications with original date entered in [facility]
Allergy/Medication List:
Allergies
Allergy/AdvReac Type Severity Reaction Status Date / Time
clarithromycin [From Biaxin] Allergy Rash Verified 02/10/24 13:17
doxycycline Allergy severe Verified 02/10/24 13:17
diarrhea
and
vomiting
lisinopril Allergy Itching/jeronimo Verified 02/10/24 13:17
h
pregabalin [From Lyrica] Allergy Hives Verified 02/10/24 13:17
Home Medications
aspirin 81 mg tablet,delayed release 81 mg PO DAILY Blood clot prevention/tx 03/08/17
clopidogrel 75 mg tablet 75 mg PO DAILY Blood clot prevention/tx #30 tabs 12/16/23
levothyroxine 300 mcg tablet (Synthroid) 300 mcg PO DAILY Thyroid #30 tabs 12/16/23
melatonin 5 mg tablet 5 mg PO HS #30 tabs 12/16/23
pantoprazole 40 mg tablet,delayed release (Protonix) 40 mg PO BID #60 tabs 12/16/23
bisacodyl 5 mg tablet,delayed release 10 mg PO DAILY PRN constipation 02/10/24
docusate sodium 100 mg capsule (Colace) 100 mg PO BID 02/10/24
furosemide 40 mg tablet 80 mg PO BID 02/10/24
gabapentin 100 mg capsule 100 mg PO BID 02/10/24
insulin degludec 200 unit/mL (3 mL) subcutaneous pen (Tresiba FlexTouch U-200 insulin) 18 unit SC DAILY 02/10/24
methylnaltrexone 150 mg tablet (Relistor) 150 mg PO DAILY 02/10/24
metoprolol succinate 50 mg tablet,extended release 24 hr 25 mg PO QPM 02/10/24
oxycodone-acetaminophen 5 mg-325 mg tablet 1 tab PO Q8H 02/10/24
potassium chloride 10 mEq tablet,extended release 10 meq PO BID 02/10/24
rosuvastatin 20 mg tablet 20 mg PO QPM 02/10/24
Review of Systems
-
History Source: Patient and Family ()
A 12 point ROS was completed and negative except as noted: Yes
Constitutional: Reports Weight Gain (20 pounds past 2 months); Denies Fever
EENT: Denies Sore Throat or Runny Nose
Respiratory: Reports Trouble Breathing (gerber); Denies Cough
Cardiac: Denies Chest Pain, Diaphoresis, Palpitations or Syncope
Abdomen/GI: Denies Abdominal Pain, Nausea, Vomiting, Diarrhea or Constipated
: Denies Dysuria, Frequency, Flank Pain, Incontinence or Difficulty Voiding
Musculoskeletal: Reports Edema (+2 edema below knees, open left groin wound healing well, longitudinal incision left medial aspect leg intact); Denies Joint Pain
Skin: Denies Itching or Rash
Neurological: Denies Dizzy, Headache or Weakness
Endocrine: Reports No Symptoms
Hematologic/Lymphatic: Reports No Symptoms
Psych: Reports Calm
Physical Exam
Vital Signs
Vital Signs
Temp Pulse Resp BP Pulse Ox
98.7 F 83 20 115/82 97
02/10/24 13:18 02/10/24 15:00 02/10/24 15:00 02/10/24 15:00 02/10/24 15:00
Physical Exam
General: Comfortable, Conversant and Morbidly Obese
HEENT: NormoCephalic, Anicteric, [place] Conjunctivae and No Ptosis
Respiratory: Clear and Wheezes; No Rales or Rhonchi
Cardiac: S1/S2, Regular Rhythm, Peripheral Edema (+2 bilateral lower legs) and JVD; No Murmur, Rub or Gallop
Breast: Deferred by me
GI: Soft, Non Tender, Non Distended, Normal Bowel Sounds and No Hepatosplenomegaly
Rectal: Deferred by Provider
Genito-urinary: Deferred by me
Musculoskeletal: Edema, Left Lower Extremity (+2) and Edema, Right Lower Extremity (+2); No Edema, Left Upper Extremity or Edema, Right Upper Extremity
Skin: Warm, Dry and Other (+2 edema below knees, open left groin wound healing well, longitudinal incision left medial aspect leg intact); No Rash
Neuro: AO x 3
Psych: Calm
Laboratory Results
-
02/10/24 13:50
02/10/24 13:50
Laboratory Results
Total Bilirubin 0.7 mg/dl (0.2-1.3) 02/10/24 13:50
AST 16 U/L (17-59) L 02/10/24 13:50
ALT < 10 U/L (0-50) 02/10/24 13:50
Alkaline Phosphatase 51 U/L (38-126) 02/10/24 13:50
Troponin I 0.022 ng/ml 02/10/24 13:50
Impression/Plan
-
Impression/plan:
Admit to telemetry
#Acute on chronic systolic heart failure/ EF 30% cardiomyopathy/PEA arrest September 2023 EF 30%
BNP 4360
I/O, daily weights
-IV Lasix 80 mg twice daily
-Continue 50 ounce fluid restrict diet
- Consult cardiology CBC cards
-Will need echo cardiology once to eval post diuresis
CXR: Mild cardiomegaly. Pulmonary vascularity top normal cannot exclude mild CHF
EKG: Atrial sensed ventricular paced rhythm, 82 bpm, QTc 532 MS
#Coronary artery disease status post CABG s/p ICD
#History of pericardial effusion
-Continue aspirin 81 mg daily, Plavix 75 mg daily, metoprolol succinate 25 mg every afternoon
#AMILCAR needing dialysis 10/24/2023 from sepsis
#Status post HD placement 11/19/2023 with removal 12/09/2023
Recent appointment with nephrology 01/15/2024
Creat 1.1 currently
-Follow BMP
#DM2/diabetic neuropathy
-Accu-Cheks with SSI
-Continue Tresiba 18 units subcu daily
-Continue gabapentin 100 mg twice daily
#Essential HTN
-Continue metoprolol succinate 25 mg every afternoon
#Chronic anemia-normocytic
Hgb 9.7 appears near baseline
#GERD/gastroparesis(new Dx 01/22/2024)
#Hx GI bleed secondary to bleeding gastric ulcer required clipping 11/15/2023 and 2 units of PRBC
#Hx GI bleed through rectal pouch October 2023 required additional blood transfusion with octreotide drip PPI drip
-Continue Protonix 40 mg twice daily
#Hx hemorrhoids
#PAD status post left lower extremity bypass due to critical limb ischemia
#Hx critical limb ischemia left lower extremity
#Hx angioplasty with common iliac artery stent
#Hx MSSA bacturemia secondary to gangrene/left lower extremity cellulitis MSSA�E faecalis 11/06/2023(blood culture grew MSSA, wound culture grew MSSA and Enterococcus faecalis)
#10/21/2023 status post left common femoral artery endarterectomy with patch angioplasty using bovine pericardium, left common femoral artery to tibioperoneal trunk bypass with 6 mm ringed reinforced graft and left groin rotational muscle flap using
sartorius muscle
-Follows with wound care
-Wound VAC to left upper thigh removed approximately 1 month ago in December
-Continue Plavix
-Consult wound care
-Continue Percocet 1 tab p.o. every 8 hours
#Alcohol use disorder
-Patient drinks 3-4 drinks every day stopped September 2024
#Obstructive sleep apnea
-Uses nasal pillow at HS
#Hyperlipidemia
Hepatic steatosis
-Continue Crestor 20 mg every afternoon
#Insomnia
-Continue melatonin 5 mg at bedtime
#Anxiety
No meds reported
#Hypothyroidism
-Continue Synthroid 300 mcg p.o. daily
#Chronic constipation
-Continue Relistor 150 mg daily
#Morbid obesity due to excess calorie consumption�BMI
Healthy heart, low-fat diabetic diet
Other PMH:
Acute Balanitis -resolved , Got single dose of fluconazole 150mg in ER October 2023
COVID-19 infection October 2023�resolved
History of epistaxis exacerbated by heparin and Plavix October 2023-Resolved with nasal packing
Gout
DVT prophylaxis
Subcu heparin
Full code
--- NOTE | 2024-02-10 17:29 | EDRN ---
pt and very anxious regarding pts hospital stay. and pt want senior oracle soa developer consulted during their stay as well as the pts Echo to be ordered with '[facility]inity' as they state that is the only way to get an accurate EF on this pt. This RN went
over the plan for admission as noted in both cards and hospitalist note and reached out to Sayda Cho in regards to pt and wifes concerns. pt voided 510ml into urinal. documented in chart.
[2024-02-10 18:22] LABS: Glucose - Point of Care 106 mg/dl (70-99)
[2024-02-10] MEDS: MELATONIN 5 MG PO (21:08)
[2024-02-10] MEDS: TOPROL XL 25 MG PO (21:09)
[2024-02-10] MEDS: COLACE 100 MG PO (21:09)
[2024-02-10] MEDS: PROTONIX 40 MG PO (21:09)
[2024-02-10] MEDS: PERCOCET 5/325 1 TABLET PO (21:09)
[2024-02-10] MEDS: NEURONTIN 100 MG PO (21:09)
[2024-02-10] MEDS: CRESTOR 20 MG PO (21:10)
[2024-02-10 22:11] LABS: Glucose - Point of Care 185 mg/dl (70-99)
[2024-02-11] VITALS (7 sets, daily range): BP systolic 107–149; BP diastolic 54–76; PULSE 78; O2SAT 96–97; BMI 42.4
--- NOTE | 2024-02-11 04:59 | PTCARENOTE ---
Pt complained of increased shortness of breathe, pulse ox=93-94% on room air. FREQUENCY CHECKER made aware, FREQUENCY CHECKER instructed this RN to administer morning dose of IV lasix. Will continue to monitor.
[2024-02-11] MEDS: LASIX 80 MG IV ×2 (05:05→15:34)
[2024-02-11] MEDS: SYNTHROID 300 MCG PO (05:05)
[2024-02-11] MEDS: PERCOCET 5/325 1 TABLET PO ×3 (05:05→21:28)
[2024-02-11] MEDS: FLUSH (NSS) 2 FLUSH IV (05:07)
[2024-02-11 05:47] LABS: % Basophils 0.6 % (0-2); % Eosinophils 3.6 % (0-6); % Immature Granulocytes 0.4 % (0-0.5); % Lymphocytes 20.4 % (20.5-51.1); % Monocytes 10.8 % (1.7-9.3); % Neutrophils 64.2 % (42.2-75.2); Absolute Eosinophils 0.3 10^3/uL (0-0.7); Absolute Lymphocytes 1.5 10^3/uL (1.2-3.4); Absolute Monocytes 0.8 10^3/uL (0.1-0.6); Absolute Neutrophils 4.6 10^3/uL (1.4-6.5); Hematocrit 30.2 % (39.0-52.0); Hemoglobin 9.5 g/dL (13.0-18.0); Mean Corp Hgb Conc. 31.5 g/dL (33.0-37.0); Mean Corpuscular Volume 82.7 fL (80.0-94.0); Mean Platelet Volume 10.9 fL (7.4-10.4); Nucleated Red Blood Cells % 0 % (-); Platelet Count 186 10^3/uL (130-400); Red Blood Cell Count 3.65 10^6/uL (4.70-6.10); Red Cell Dist. Width 15.2 % (11.5-14.5); White Blood Cell Count 7.2 10^3/uL (4.8-10.8)
[2024-02-11 06:04] LABS: ALT (SGPT) < 10 U/L (0-50); AST (SGOT) 19 U/L (17-59); Albumin 4.1 g/dl (3.5-5.0); Alkaline Phosphatase 48 U/L (38-126); Blood Urea Nitrogen 23 mg/dl (9-20); Calcium 9.3 mg/dl (8.4-10.2); Carbon Dioxide 26 mmol/L (22-30); Chloride 106 mmol/L (98-107); Estimated Creatinine Clearance 98 ml/min; Glucose 130 mg/dl (70-99); Potassium 3.2 mmol/L (3.5-5.1); Sodium 140 mmol/L (135-145); Total Bilirubin 0.8 mg/dl (0.2-1.3); Total Protein 6.7 g/dl (6.3-8.2); eGFR > 60.00
[2024-02-11 07:38] LABS: Glucose - Point of Care 136 mg/dl (70-99)
[2024-02-11] MEDS: PROTONIX 40 MG PO ×2 (08:34→21:28)
[2024-02-11] MEDS: KCL 10 MEQ PO (08:34)
[2024-02-11] MEDS: COLACE 100 MG PO ×2 (08:34→21:28)
[2024-02-11] MEDS: NEURONTIN 100 MG PO ×2 (08:34→21:28)
[2024-02-11] MEDS: ASPIR LOW (ENTERIC COATED) 81 MG PO (08:34)
[2024-02-11] MEDS: PLAVIX 75 MG PO (08:34)
[2024-02-11] MEDS: LANTUS 0.179999999999999993 UNITS SC (08:39)
[2024-02-11] MEDS: DESENEX/MITRAZOL/ZEASORB 1 APPLIC TOPICAL ×2 (08:44→21:25)
--- NOTE | 2024-02-11 08:56 | W.PN.CD ---
Addendum entered and electronically signed by Jono Yadav MD 02/11/24 10:58:
Patient had been on Entresto prior to his last hospitalization. He developed AMILCAR and transient need for hemodialysis. Creatinine has now normalized. Unclear that his blood pressure will tolerate Entresto. Will start out by resuming low-dose
valsartan
Addendum entered and electronically signed by Jono Yadav MD 02/11/24 10:50:
I saw and examined the patient.
The [facility] MANAGER's note was reviewed and I agree with the note.
Patient had some issues with shortness of breath currently feels better. Patient says he feels better after additional diuresis. Will continue with IV Lasix with close monitoring of renal function. Patient was on Lasix 80 mg a day at discharge
and then was put on Lasix 80 mg twice daily over the weekend. May consider trying torsemide when transitioning to oral diuretic.
Original Note:
Today's Communication / Plan
-
Continue diuresis
Impression / Plan
-
BACKGROUND: 63M (known to Dr. Yadav, his primary registered nurse midwife) with a complex cardiac history including, CAD, CABG, history PCI, pericarditis/recurrent pericardial effusion/pericardial window, ischemic cardiomyopathy, BiVICD, PAD, right lower
extremity revascularization surgery, DM, neuropathy, elevated LFT, Hyponatremia, ETOH abuse and obesity who presented to the ER with a chief complaint of shortness of breath.
HFrEF (30-35%), acute on chronic, severe requiring hospitalization
-Weight gain, LE, edema, orthopnea, and GERBER -- improving
-Diuresis with furosemide 80mg IV BID
-He may need to transition to torsemide after he has been diuresed
-GDMT is limited by blood pressure & renal function
-Heart failure education
-Trend daily weight, I/Os, and BMP with diuresis
-TTE tomorrow with Definity if his orthopnea improves
Coronary artery disease
-Stable without chest pain
-CABG (2017)
-Continue medical mgmt with aspirin, BB and statin.
CKD, briefly on HD, follows with Dr. Agudelo
Gastroparesis, decrease in caloric intake recently, per primary
�
MDT BiV ICD implant 08/03/2019
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
Bilat iliac stents 10/18/2023
PAD s/p endovascular procedure, primary repair of left brachial artery 10/18/23
History of pericarditis/recurrent pericardial effusion and pericardial window (2015)
Type II DM, controlled, Hgba1c 5.5% 09/2023
Obesity, BMI 42, he would benefit from weight loss
History of alcohol use
SUBJECTIVE:
Shortness of breath improving
Physical Exam
Vital Signs/Labs
Vital Signs
Temp Pulse Resp BP Pulse Ox
98.5 F 85 19 114/76 93
02/11/24 07:25 02/11/24 07:25 02/11/24 07:25 02/11/24 07:25 02/11/24 07:25
02/10/24 02/11/24 02/12/24
06:59 06:59 06:59
Actual Weight 122.725 kg
02/11/24 05:25
02/11/24 05:25
02/10/24
13:50
Gbg-P-Iteczkydrcl Pept 4360
LAB Results
02/10/24
13:50
Troponin I 0.022
Physical Exam
Constitutional: No acute distress and Comfortable
EENT: Anicteric and Moist mucous membranes
Cardiovascular: Rhythm & rate is regular, Pedal edema present and S1S2 is normal
Respiratory: Respiratory effort normal and Lungs clear to auscul.
GI: Soft, Distention absent, Flat, Non tender and Normal bowel sounds
Neuro/Psych: AO x 3
Other: Skin (warm and dry)
Data Reviewed
-
Date of Service: February 11, 2024
Medical Decision Making: Tests Ordered
Labs: Labs Reviewed by me
Old Records: Reviewed
[2024-02-11 09:53] LABS: Magnesium 1.5 mg/dl (1.6-2.3)
--- NOTE | 2024-02-11 10:05 | WOUNDNOTE ---
L GREAT TOE AMP SITE
--- NOTE | 2024-02-11 10:06 | WOUNDNOTE ---
MARGAUX RN note: Patient admitted with exacerbation of CHF and anemia.
See H&P for complete history.
PMH: IDDM,Obesity, CAD,CHF,HTN,RI,CABG 2012,Pericardial effusion,PM,L great toe amputation 10/2023, L groin washout/vac by vascular 11/22/23,follows regularly at [facility] for L groin healing wound.
Wound Location and type/assessment: Patient admitted with: L groin with healing surgical site, pink base, shallow, has infante stain in center suspect from silver alginate use. Reviewed current wound care being done at wound center, patient states
changes dressing twice a day. Using fungal powder to lateral groin creases for mild MASD. L great toe amp site with stable scab at closed suture line. Heels and sacrum are intact.
Appetite: good.
Pressure redistribution devices in place: On versa care air, can be on Accumax, is ad vincenzo.
Plan: Will continue silver alginate dressing to groin wound twice a day, fungal powder to creases.
Will confirm orders with hospitalist and update nurse. Updated care plan and will follow as needed.
Note to case management of equipment requested for discharge: None.
Recommend follow up at wound care center upon discharge.
[2024-02-11] MEDS: KCL 40 MEQ PO (10:11)
[2024-02-11] MEDS: MAGNESIUM SULFATE 100 IV (11:50)
[2024-02-11 12:11] LABS: Glucose - Point of Care 125 mg/dl (70-99)
[2024-02-11] MEDS: DIOVAN 20 MG PO (12:58)
[2024-02-11] MEDS: NON-FORMULARY ITEM 150 MG PO (13:51)
--- NOTE | 2024-02-11 15:51 | CM ---
Alert awake oriented patient who lives with his Catrina who lives in a 2 story home with 2 step to enter and 18 steps to bed and bathroom.. He is assisted in all activities of daily living.He was offered VN he declined need.He said he will
resume out pt PT and wound care center visits.
[facility] and [place]
Pharmacy Elieser Robles
PCP Shellie Honeycutt
PLAN Home he will set up out pt PT and resume seeing wound care center
--- NOTE | 2024-02-11 16:08 | W.PN.HOSP.TC ---
Today's Communication/Plan
-
Continue IV diuresis
Monitor response to Valsartan
Monitor hypokalemia and hypomagnesemia
Continue to monitor on cardiac telemetry monitoring
Assessment / Plan
Assessment / Plan
Physical Exam
General: Comfortable, Conversant and Morbidly Obese
HEENT: Normocephalic
Respiratory: Clear to Auscultation Bilaterally
Cardiac: S1/S2, Regular Rhythm, Peripheral Edema (+2 bilateral lower legs) and JVD
GI: Soft, Non Tender, Non Distended, Normal Bowel Sounds
Musculoskeletal: Edema, Left Lower Extremity (+2) and Edema, Right Lower Extremity (+2)
Skin: Warm, Dry and Other (+2 edema below knees, open left groin wound healing well, longitudinal incision left medial aspect leg intact)
Neuro: AO x 3
Psych: Calm
Assessment/Plan
#Acute on chronic systolic heart failure/ EF 30% cardiomyopathy/PEA arrest September 2023 EF 30%
#Heart Failure with Reduced Ejection Fraction
-I/O and daily weights
-Continue IV Lasix 80 mg twice daily
-Continue 50 ounce fluid restrict diet
- Consult cardiology� CBC cards, recommendations appreciated
-Echocardiogram
-May need to transition to torsemide after he has been diuresed
-Goal-directed medical therapy is limited by blood pressure & renal function -- ARB being started by cardiology to see how well patient can tolerate this
#Coronary artery disease status post CABG s/p ICD
#History of pericardial effusion
-Continue aspirin 81 mg daily, Plavix 75 mg daily, metoprolol succinate 25 mg every afternoon
#AMILCAR needing dialysis 10/24/2023 from sepsis
#Status post HD placement 11/19/2023 with removal 12/09/2023
Recent appointment with nephrology 01/15/2024
Creat 1.1 currently
-Follow BMP
-Patient requested medical team to notify nephrology
#Hypokalemia
#Hypomagnesemia
-Replaced
-Recheck labs
#DM2/diabetic neuropathy
-Accu-Cheks with SSI
-Continue Tresiba 18 units subcu daily
-Continue gabapentin 100 mg twice daily
#Essential HTN
-Continue metoprolol succinate 25 mg every afternoon
#Chronic anemia-normocytic
Hgb stable
#GERD/gastroparesis(new Dx 01/22/2024)
#Hx GI bleed secondary to bleeding gastric ulcer required clipping 11/15/2023 and 2 units of PRBC
#Hx GI bleed through rectal pouch October 2023 required additional blood transfusion with octreotide drip PPI drip
-Continue Protonix 40 mg twice daily
#Hx hemorrhoids
#PAD status post left lower extremity bypass due to critical limb ischemia
#Hx critical limb ischemia left lower extremity
#Hx angioplasty with common iliac artery stent
#Hx MSSA bacturemia secondary to gangrene/left lower extremity cellulitis MSSA�E faecalis 11/06/2023(blood culture grew MSSA, wound culture grew MSSA and Enterococcus faecalis)
#10/21/2023 status post left common femoral artery endarterectomy with patch angioplasty using bovine pericardium, left common femoral artery to tibioperoneal trunk bypass with 6 mm ringed reinforced graft and left groin rotational muscle flap using
sartorius muscle
-Follows with wound care
-Wound VAC to left upper thigh removed approximately 1 month ago in December 2023
-Continue Plavix
-Consult wound care
-Continue Percocet 1 tab p.o. every 8 hours
#Alcohol use disorder
-Patient drinks 3-4 drinks every day stopped September 2024
#Obstructive sleep apnea
-Uses nasal pillow at HS
#Hyperlipidemia
Hepatic steatosis
-Continue Crestor 20 mg every afternoon
#Insomnia
-Continue melatonin 5 mg at bedtime
#Anxiety
No meds reported
#Hypothyroidism
-Continue Synthroid 300 mcg p.o. daily
#Chronic constipation
-Continue Relistor 150 mg daily
#Morbid obesity due to excess calorie consumption�BMI
Healthy heart, low-fat diabetic diet
Other Past Medical History:
Acute Balanitis -resolved , Got single dose of fluconazole 150mg in ER October 2023
COVID-19 infection October 2023�resolved
History of epistaxis exacerbated by heparin and Plavix October 2023-Resolved with nasal packing
Gout
DVT prophylaxis
Subcu heparin
FULL CODE
Anticipated Discharge: > 48 hours
Subjective/Interval History
-
Date of Service: February 11, 2024
Patient was seen and examined. He reported that he had shortness of breath early this morning, intravenous Lasix was given earlier than his normal scheduled morning time, and he felt much better.
Objective Data
-
Labs:
Laboratory Results
02/11/24
05:25
WBC 7.2
Hgb 9.5 L
Hct 30.2 L
Plt Count 186
Sodium 140
Potassium 3.2 L
Chloride 106
Carbon Dioxide 26
BUN 23 H
Creatinine 1.0
Glucose 130 H
Calcium 9.3
Total Bilirubin 0.8
AST 19
ALT < 10
Alkaline Phosphatase 48
Vital Signs:
Vital Signs
Temp Pulse Resp BP Pulse Ox
98.8 F 83 19 110/76 93
02/11/24 11:22 02/11/24 15:34 02/11/24 11:22 02/11/24 15:34 02/11/24 11:22
I&O
02/10/24 02/11/24 02/12/24
06:59 06:59 06:59
Output Total 975 / 975 500 / 500
Balance -975 / -975 -500 / -500
[2024-02-11] MEDS: CRESTOR 20 MG PO (17:02)
[2024-02-11] MEDS: TOPROL XL 25 MG PO (17:02)
[2024-02-11 17:12] LABS: Glucose - Point of Care 127 mg/dl (70-99)
[2024-02-11 20:33] LABS: Blood Urea Nitrogen 20 mg/dl (9-20); Calcium 9.3 mg/dl (8.4-10.2); Carbon Dioxide 29 mmol/L (22-30); Chloride 101 mmol/L (98-107); Estimated Creatinine Clearance 89 ml/min; Glucose 176 mg/dl (70-99); Magnesium 1.7 mg/dl (1.6-2.3); Sodium 140 mmol/L (135-145); eGFR > 60.00
[2024-02-11] MEDS: MELATONIN 5 MG PO (21:28)
[2024-02-11 21:34] LABS: Glucose - Point of Care 164 mg/dl (70-99)
[2024-02-12] VITALS (7 sets, daily range): BP systolic 95–118; BP diastolic 53–70; BMI 42.5
--- NOTE | 2024-02-12 02:35 | PTCARENOTE ---
cardiac monitor alarmed and displayed 12 beat run of VTACH. Pt resting comfortably in bed, asymptomatic. TIPPLE BOSS made aware, no new orders provided. Will continue to monitor.
--- NOTE | 2024-02-12 04:03 | DOWNTIME ---
There was a [employer] Client [employer] Downtime on 02/12/2024 from 0100 to 02/12/2024 at 0322. Downtime documentation of patient's care, including medication administrations, has been reconciled in the electronic record per guidelines. Refer to the
patient's paper chart under the miscellaneous tab to see printed paper medication records and downtime forms.
[2024-02-12] MEDS: SYNTHROID 300 MCG PO (05:56)
[2024-02-12] MEDS: PERCOCET 5/325 1 TABLET PO ×3 (05:56→21:48)
[2024-02-12 05:58] LABS: % Basophils 0.4 % (0-2); % Eosinophils 4.1 % (0-6); % Immature Granulocytes 0.4 % (0-0.5); % Lymphocytes 24.1 % (20.5-51.1); % Monocytes 10.6 % (1.7-9.3); % Neutrophils 60.4 % (42.2-75.2); Absolute Eosinophils 0.3 10^3/uL (0-0.7); Absolute Lymphocytes 1.7 10^3/uL (1.2-3.4); Absolute Monocytes 0.7 10^3/uL (0.1-0.6); Absolute Neutrophils 4.2 10^3/uL (1.4-6.5); Hematocrit 30.4 % (39.0-52.0); Hemoglobin 9.6 g/dL (13.0-18.0); Mean Corp Hgb Conc. 31.6 g/dL (33.0-37.0); Mean Corpuscular Hgb 25.7 pg (27.0-31.0); Mean Corpuscular Volume 81.5 fL (80.0-94.0); Mean Platelet Volume 11.1 fL (7.4-10.4); Nucleated Red Blood Cells % 0 % (-); Platelet Count 187 10^3/uL (130-400); Red Blood Cell Count 3.73 10^6/uL (4.70-6.10); Red Cell Dist. Width 15.2 % (11.5-14.5); White Blood Cell Count 6.9 10^3/uL (4.8-10.8)
[2024-02-12 06:25] LABS: ALT (SGPT) < 10 U/L (0-50); AST (SGOT) 18 U/L (17-59); Alkaline Phosphatase 53 U/L (38-126); Blood Urea Nitrogen 19 mg/dl (9-20); Calcium 9.5 mg/dl (8.4-10.2); Carbon Dioxide 28 mmol/L (22-30); Chloride 106 mmol/L (98-107); Estimated Creatinine Clearance 97 ml/min; Glucose 100 mg/dl (70-99); Magnesium 1.7 mg/dl (1.6-2.3); Potassium 3.2 mmol/L (3.5-5.1); Sodium 140 mmol/L (135-145); Total Bilirubin 0.8 mg/dl (0.2-1.3); Total Protein 6.7 g/dl (6.3-8.2); eGFR > 60.00
[2024-02-12] MEDS: KCL 10 MEQ PO (07:31)
[2024-02-12] MEDS: DIOVAN 20 MG PO ×2 (07:31→21:51)
[2024-02-12] MEDS: COLACE 100 MG PO ×2 (07:31→21:47)
[2024-02-12] MEDS: ASPIR LOW (ENTERIC COATED) 81 MG PO (07:31)
[2024-02-12] MEDS: PROTONIX 40 MG PO ×2 (07:31→21:49)
[2024-02-12] MEDS: LASIX 80 MG IV ×2 (07:33→17:06)
[2024-02-12] MEDS: LANTUS 0.179999999999999993 UNITS SC (07:33)
[2024-02-12] MEDS: PLAVIX 75 MG PO (07:34)
[2024-02-12] MEDS: NEURONTIN 100 MG PO ×2 (07:34→21:50)
[2024-02-12] MEDS: NON-FORMULARY ITEM 150 MG PO (07:34)
[2024-02-12] MEDS: DESENEX/MITRAZOL/ZEASORB 1 APPLIC TOPICAL ×2 (07:36→21:46)
[2024-02-12] MEDS: MAGNESIUM SULFATE 50 IV (07:49)
--- NOTE | 2024-02-12 08:25 | W.PN.CD ---
Today's Communication / Plan
-
- continue diuresis
- for NSVT: replete K more aggressively. Replete Mag
Impression / Plan
-
BACKGROUND: 63M (known to Dr. Yadav, his primary fowl blood tester) with a complex cardiac history including, CAD, CABG, history PCI, pericarditis/recurrent pericardial effusion/pericardial window, ischemic cardiomyopathy, BiVICD, PAD, right lower
extremity revascularization surgery, DM, neuropathy, elevated LFT, Hyponatremia, ETOH abuse and obesity who presented to the ER with a chief complaint of shortness of breath.
HFrEF (30-35%), acute on chronic, severe requiring hospitalization
-Weight gain, LE, edema, orthopnea, and GERBER
-Diuresis with furosemide 80mg IV BID -> weight is unchanged but he reports diuresis. Will continue and recheck weight in AM
-He may need to transition to torsemide after he has been diuresed
-GDMT is limited by blood pressure & renal function
-Heart failure education
-Trend daily weight, I/Os, and BMP with diuresis
-TTE now
NSVT
- replete K more aggressively. Replete Mag
- BB & ICD on board
Coronary artery disease
-Stable without chest pain
-CABG (2016)
-Continue medical mgmt with aspirin, BB and statin.
CKD, briefly on HD, follows with Dr. Agudelo
Gastroparesis, decrease in caloric intake recently, per primary
�
MDT BiV ICD implant 08/03/2019
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
Bilat iliac stents 10/18/2023
PAD s/p endovascular procedure, primary repair of left brachial artery 10/18/23
History of pericarditis/recurrent pericardial effusion and pericardial window (2015)
Type II DM, controlled, Hgba1c 5.5% 09/2023
Obesity, BMI 42, he would benefit from weight loss
History of alcohol use
SUBJECTIVE:
Shortness of breath improved. He is laying relatively flat at echo, which he couldn't do before.
Laboratory Data
11/06/23 11/08/23 02/11/24
03:41 04:21 05:25
Hgb 9.1 L 9.1 L
Potassium 3.2 L
Creatinine 4.5 H* 3.5 H
Magnesium
02/11/24 02/12/24
20:06 05:35
Hgb 9.6 L
Potassium 3.0 L 3.2 L
Creatinine
Magnesium 1.7
Selected Entries
12/16/23
05:54 02/10/24
13:39 02/12/24
06:00
Actual Weight 265 lb 10.512
oz 274 lb 14.663
oz 271 lb 2 oz
Generic Name Dose Route Start Last Admin
Trade Name Freq PRN Reason Stop Dose Admin
Vasopressin 20 units in 100 mls @ 0 mls/hr 11/04/23 13:00
Pitressin IV
PER PROTOCOL NOEMÍ
Protocol
Per Protocol
Norepinephrine Bitartrate 8 mg 258 mls @ 0 mls/hr 11/04/23 13:00
/ Dextrose IV
PER PROTOCOL NOEMÍ
Protocol
Per Protocol
Metoprolol Succinate 25 mg 10/15/23 22:00
Metoprolol 25 Mg Extended Release Tablet PO 11/12/23 21:59
HS NOEMÍ
Rosuvastatin Calcium 20 mg 10/16/23 08:00
Rosuvastatin (Crestor) 20 Mg Tablet PO 11/13/23 07:59
DAILY NOEMÍ
Sacubitril/Valsartan 1 tab 10/15/23 20:00
Sacubitril 49 Mg/Valsartan 51 Mg (Entresto) Tab PO 11/12/23 19:59
BID NOEMÍ
Aspirin 81 mg 10/16/23 08:00
Aspirin 81 Mg (Enteric Coated) Tablet PO 11/13/23 07:59
DAILY NOEMÍ
Clopidogrel Bisulfate 75 mg 10/16/23 08:00
Clopidogrel 75 Mg Tablet PO 11/13/23 07:59
DAILY NOEMÍ
Heparin Sodium 25,000 units in 250 mls @ 5 mls/hr 11/06/23 16:00
Heparin 83992 Units/250 Ml CRRT-ART
ORDERED RATE NOEMÍ
500 UNITS/HR
Norepinephrine Bitartrate 8 mg 258 mls @ 0 mls/hr 11/04/23 13:00
/ Dextrose IV
PER PROTOCOL NOEMÍ
Protocol
Per Protocol
Aspirin 81 mg 11/07/23 08:00
Aspirin 81 Mg Chewable Tablet TUBE 12/05/23 07:59
DAILY NOEMÍ
Clopidogrel Bisulfate 75 mg 11/07/23 11:00
Clopidogrel 75 Mg Tablet TUBE 12/05/23 10:59
DAILY NOEMÍ
Aspirin 81 mg 11/07/23 08:00
Aspirin 81 Mg Chewable Tablet TUBE 12/05/23 07:59
DAILY NOEMÍ
Rosuvastatin Calcium 10 mg 11/08/23 18:00
Rosuvastatin (Crestor) 10 Mg Tablet PO 12/06/23 17:59
QPM NOEMÍ
Clopidogrel Bisulfate 75 mg 02/11/24 08:00 02/12/24 07:34
Clopidogrel 75 Mg Tablet PO 03/10/24 07:59 75 mg
DAILY NOEMÍ
Metoprolol Succinate 25 mg 02/10/24 19:00 02/11/24 17:02
Metoprolol 25 Mg Extended Release Tablet PO 03/09/24 18:59 25 mg
QPM NOEMÍ
Valsartan 20 mg 02/12/24 08:00 02/12/24 07:31
Valsartan 40 Mg Tablet PO 03/11/24 07:59 20 mg
BID NOEMÍ
Potassium Chloride 20 meq 02/12/24 20:00
Potassium Chloride 20 Meq Extended Release Tablet PO 03/11/24 19:59
BID NOEMÍ
Rosuvastatin Calcium 20 mg 02/10/24 18:21 02/11/24 17:02
Rosuvastatin (Crestor) 20 Mg Tablet PO 03/09/24 18:20 20 mg
QPM NOEMÍ
Aspirin 81 mg 02/11/24 08:00 02/12/24 07:31
Aspirin 81 Mg (Enteric Coated) Tablet PO 03/10/24 07:59 81 mg
DAILY NOEMÍ
Furosemide 80 mg 02/11/24 08:00 02/12/24 07:33
Furosemide 100 Mg (10 Mg/Ml) 10 Ml Vial IV 03/10/24 07:59 80 mg
BID AT 0800,1600 NOEMÍ
Physical Exam
Vital Signs/Labs
Vital Signs
Temp Pulse Resp BP Pulse Ox
36.9 C 85 20 112/63 98
02/12/24 04:02 02/12/24 04:02 02/12/24 04:02 02/12/24 04:02 02/12/24 04:02
02/11/24 02/12/24 02/13/24
06:59 06:59 06:59
Actual Weight 270 lb 9 oz 271 lb 2 oz
02/12/24 05:35
02/12/24 05:35
Magnesium 1.7 mg/dl (1.6-2.3) 02/12/24 05:35
02/10/24
13:50
Cid-Z-Ncmmbaivgfd Pept 4360
LAB Results
02/10/24
13:50
Troponin I 0.022
Physical Exam
Constitutional: No acute distress and Comfortable
EENT: Anicteric and Moist mucous membranes
Cardiovascular: Rhythm & rate is regular, Systolic murmur absent, Diastolic murmur absent and Pedal edema present
Respiratory: Respiratory effort normal and Lungs clear to auscul.
GI: Soft, Distention absent and Normal bowel sounds
Neuro/Psych: Alert
Data Reviewed
-
Date of Service: February 12, 2024
EKG: Other (NSVT)
[2024-02-12] MEDS: KCL 40 MEQ PO ×3 (09:12→21:49)
[2024-02-12] MEDS: MAGNESIUM OXIDE 500 MG PO ×2 (09:14→21:49)
[2024-02-12 09:18] LABS: Glucose - Point of Care 119 mg/dl (70-99)
[2024-02-12 14:08] LABS: Glucose - Point of Care 144 mg/dl (70-99)
--- NOTE | 2024-02-12 16:10 | W.PN.HOSP.TC ---
Today's Communication/Plan
-
Continue IV diuresis
Monitor K and Mag and replace K more aggressively and replace mag
Assessment / Plan
Assessment / Plan
Physical Exam
General: Comfortable, Conversant and Morbidly Obese
HEENT: Normocephalic
Respiratory: Clear to Auscultation Bilaterally
Cardiac: S1/S2, Regular Rhythm, Peripheral Edema (+2 bilateral lower legs) and JVD
GI: Soft, Non Tender, Non Distended, Normal Bowel Sounds
Musculoskeletal: Edema, Left Lower Extremity (+2) and Edema, Right Lower Extremity (+2)
Skin: Warm, Dry and Other (+2 edema below knees, open left groin wound healing well, longitudinal incision left medial aspect leg intact)
Neuro: AO x 3
Psych: Calm
Assessment/Plan
#Acute on chronic systolic heart failure/ EF 30% cardiomyopathy/PEA arrest September 2023 EF 30%
#Heart Failure with Reduced Ejection Fraction
-I/O and daily weights
-Continue IV Lasix 80 mg twice daily
-Continue 50 ounce fluid restrict diet
-Consulted cardiology, recommendations appreciated
-Echocardiogram
-May need to transition to torsemide after he has been diuresed
-Goal-directed medical therapy is limited by blood pressure & renal function -- ARB started by cardiology to see how well patient can tolerate this
#Non-Sustained Ventricular tachycardia
-Monitor potassium and magnesium
-Replace more aggressively as per cards
#Coronary artery disease status post CABG s/p ICD
#History of pericardial effusion
-Continue aspirin 81 mg daily, Plavix 75 mg daily, metoprolol succinate 25 mg every evening
#AMILCAR needing dialysis 10/24/2023 from sepsis
#Status post HD placement 11/19/2023 with removal 12/09/2023
Recent appointment with nephrology 01/15/2024
Creat 1.1 currently
-Follow BMP
-Patient requested medical team to notify nephrology
#Hypokalemia
#Hypomagnesemia
-Replaced
-Recheck labs and replace as above
#DM2/diabetic neuropathy
-Accu-Cheks with SSI
-Continue Tresiba 18 units subcu daily
-Continue gabapentin 100 mg twice daily
#Essential Hypertension
-Continue metoprolol succinate 25 mg evenings
#Chronic anemia-normocytic
Hgb stable
#GERD/gastroparesis(new Dx 01/22/2024)
#Hx GI bleed secondary to bleeding gastric ulcer required clipping 11/15/2023 and 2 units of PRBC
#Hx GI bleed through rectal pouch October 2023 required additional blood transfusion with octreotide drip PPI drip
-Continue Protonix 40 mg twice daily
#Hx hemorrhoids
#PAD status post left lower extremity bypass due to critical limb ischemia
#Hx critical limb ischemia left lower extremity
#Hx angioplasty with common iliac artery stent
#Hx MSSA bacturemia secondary to gangrene/left lower extremity cellulitis MSSA�E faecalis 11/06/2023(blood culture grew MSSA, wound culture grew MSSA and Enterococcus faecalis)
#10/21/2023 status post left common femoral artery endarterectomy with patch angioplasty using bovine pericardium, left common femoral artery to tibioperoneal trunk bypass with 6 mm ringed reinforced graft and left groin rotational muscle flap using
sartorius muscle
-Follows with wound care
-Wound VAC to left upper thigh removed approximately 1 month ago in December 2023
-Continue Plavix
-Consult wound care
-Continue Percocet 1 tab p.o. every 8 hours
#Alcohol use disorder
-Patient drinks 3-4 drinks every day stopped September 2024
#Obstructive sleep apnea
-Uses nasal pillow at HS
#Hyperlipidemia
Hepatic steatosis
-Continue Crestor 20 mg every afternoon
#Insomnia
-Continue melatonin 5 mg at bedtime
#Anxiety
No meds reported
#Hypothyroidism
-Continue Synthroid 300 mcg p.o. daily
#Chronic constipation
-Continue Relistor 150 mg daily
#Morbid obesity due to excess calorie consumption�BMI
Healthy heart, low-fat diabetic diet
Other Past Medical History:
Acute Balanitis -resolved , Got single dose of fluconazole 150mg in ER October 2023
COVID-19 infection October 2023�resolved
History of epistaxis exacerbated by heparin and Plavix October 2023-Resolved with nasal packing
Gout
DVT prophylaxis
Subcu heparin
FULL CODE
Anticipated Discharge: 24 - 48 hours
Subjective/Interval History
-
Date of Service: February 12, 2024
Patient was seen and examined. He reports no shortness of breath overnight, he walked yesterday in the unit and had some exertional shortness of breath.
Objective Data
-
Labs:
Laboratory Results
02/12/24
05:35
WBC 6.9
Hgb 9.6 L
Hct 30.4 L
Plt Count 187
Sodium 140
Potassium 3.2 L
Chloride 106
Carbon Dioxide 28
BUN 19
Creatinine 1.0
Glucose 100 H
Calcium 9.5
Total Bilirubin 0.8
AST 18
ALT < 10
Alkaline Phosphatase 53
Vital Signs:
Vital Signs
Temp Pulse Resp BP Pulse Ox
99.3 F 79 18 95/59 96
02/12/24 11:00 02/12/24 11:00 02/12/24 11:00 02/12/24 11:00 02/12/24 11:00
I&O
02/11/24 02/12/24 02/13/24
06:59 06:59 06:59
Intake Total 1380 / 1380
Output Total 975 / 975 1600 / 1600
Balance -975 / -975 -220 / -220
[2024-02-12] MEDS: TOPROL XL 25 MG PO (17:07)
[2024-02-12] MEDS: CRESTOR 20 MG PO (17:07)
[2024-02-12 17:14] LABS: Glucose - Point of Care 131 mg/dl (70-99)
[2024-02-12 21:43] LABS: Glucose - Point of Care 169 mg/dl (70-99)
[2024-02-12] MEDS: MELATONIN 5 MG PO (21:48)
[2024-02-13] VITALS (7 sets, daily range): BP systolic 100–115; BP diastolic 57–71; PULSE 91; BMI 43.3; BMI 42.8
[2024-02-13 05:53] LABS: % Basophils 0.8 % (0-2); % Eosinophils 4.1 % (0-6); % Immature Granulocytes 1.1 % (0-0.5); % Lymphocytes 25.5 % (20.5-51.1); % Monocytes 9.7 % (1.7-9.3); % Neutrophils 58.8 % (42.2-75.2); Absolute Basophils 0.1 10^3/uL (0-0.2); Absolute Eosinophils 0.3 10^3/uL (0-0.7); Absolute Immature Granulocytes 0.1 10^3/uL (0-0.05); Absolute Lymphocytes 1.7 10^3/uL (1.2-3.4); Absolute Monocytes 0.6 10^3/uL (0.1-0.6); Absolute Neutrophils 3.9 10^3/uL (1.4-6.5); Hematocrit 31.2 % (39.0-52.0); Hemoglobin 9.9 g/dL (13.0-18.0); Mean Corp Hgb Conc. 31.7 g/dL (33.0-37.0); Mean Corpuscular Hgb 25.4 pg (27.0-31.0); Mean Platelet Volume 10.6 fL (7.4-10.4); Nucleated Red Blood Cells % 0 % (-); Platelet Count 159 10^3/uL (130-400); Red Cell Dist. Width 15.3 % (11.5-14.5); White Blood Cell Count 6.6 10^3/uL (4.8-10.8)
[2024-02-13 06:01] LABS: ALT (SGPT) < 10 U/L (0-50); AST (SGOT) 20 U/L (17-59); Alkaline Phosphatase 50 U/L (38-126); Blood Urea Nitrogen 18 mg/dl (9-20); Calcium 9.5 mg/dl (8.4-10.2); Carbon Dioxide 27 mmol/L (22-30); Chloride 106 mmol/L (98-107); Estimated Creatinine Clearance 97 ml/min; Glucose 106 mg/dl (70-99); Magnesium 2.1 mg/dl (1.6-2.3); Potassium 4.1 mmol/L (3.5-5.1); Sodium 140 mmol/L (135-145); Total Bilirubin 0.8 mg/dl (0.2-1.3); Total Protein 6.8 g/dl (6.3-8.2); eGFR > 60.00
[2024-02-13] MEDS: SYNTHROID 300 MCG PO (06:26)
[2024-02-13] MEDS: PERCOCET 5/325 1 TABLET PO ×3 (06:27→21:23)
[2024-02-13] MEDS: MAGNESIUM OXIDE 500 MG PO ×2 (08:36→21:22)
[2024-02-13] MEDS: COLACE 100 MG PO ×2 (08:36→21:23)
[2024-02-13] MEDS: PLAVIX 75 MG PO (08:36)
[2024-02-13] MEDS: ASPIR LOW (ENTERIC COATED) 81 MG PO (08:36)
[2024-02-13] MEDS: PROTONIX 40 MG PO (08:36)
[2024-02-13] MEDS: NEURONTIN 100 MG PO ×2 (08:37→21:23)
[2024-02-13] MEDS: DIOVAN 20 MG PO ×2 (08:37→21:23)
[2024-02-13] MEDS: KCL 40 MEQ PO (08:37)
[2024-02-13] MEDS: LASIX 80 MG IV ×2 (08:38→17:16)
[2024-02-13] MEDS: NON-FORMULARY ITEM 150 MG PO (08:38)
[2024-02-13 08:44] LABS: Glucose - Point of Care 122 mg/dl (70-99)
[2024-02-13] MEDS: LANTUS 0.179999999999999993 UNITS SC (08:44)
[2024-02-13] MEDS: DESENEX/MITRAZOL/ZEASORB 1 APPLIC TOPICAL ×2 (08:47→21:19)
--- NOTE | 2024-02-13 09:53 | W.PN.CD ---
Addendum entered and electronically signed by Jono Yadav MD 02/13/24 10:19:
Patient would like to go home for [facility]. Will work to try and transition back to oral diuretic soon. May consider trying torsemide 40 mg twice daily rather than Lasix.
Original Note:
Today's Communication / Plan
-
Continue diuresis with IV Lasix. I suspect there is an issue with the accuracy of today's weight unlikely he is gained 3 kg with ongoing diuresis.
Valsartan low-dose was added this admission.
Start Jardiance which she had tolerated in the past before his admission with AMILCAR
Start spironolactone 12.5 mg today
Impression / Plan
-
BACKGROUND: 63M (known to Dr. Yadav, his primary bushler) with a complex cardiac history including, CAD, CABG, history PCI, pericarditis/recurrent pericardial effusion/pericardial window, ischemic cardiomyopathy, BiVICD, PAD, right lower
extremity revascularization surgery, DM, neuropathy, elevated LFT, Hyponatremia, ETOH abuse and obesity who presented to the ER with a chief complaint of shortness of breath.
HFrEF (30-35%), acute on chronic, severe requiring hospitalization
-Weight gain, LE, edema, orthopnea, and GERBER
-Diuresis with furosemide 80mg IV BID -> weight is unchanged but he reports diuresis.
-He may need to transition to torsemide after he has been diuresed
-GDMT is limited by blood pressure & renal function
-Heart failure education
-Trend daily weight, I/Os, and BMP with diuresis
-Valsartan restarted at low-dose this admission. Prior to last admission he had been on Entresto but due to blood pressure issues restarted with low-dose losartan
Resume Jardiance which he also had been in the past
Spironolactone 12.5 mg a day
NSVT
- replete K more aggressively. Replete Mag
- BB & ICD on board
Coronary artery disease
-Stable without chest pain
-CABG (2017)
-Continue medical mgmt with aspirin, BB and statin.
CKD, briefly on HD, follows with Dr. Agudelo
Gastroparesis, decrease in caloric intake recently, per primary
�
MDT BiV ICD implant 08/03/2019
Left femoral endarterectomy, left WORD PROCESSING SPECIALIST to TP trunk and bypass of sartorius flap 10/21/23
Bilat iliac stents 10/18/2023
PAD s/p endovascular procedure, primary repair of left brachial artery 10/18/23
History of pericarditis/recurrent pericardial effusion and pericardial window (2015)
Type II DM, controlled, Hgba1c 5.5% 09/2023
Obesity, BMI 42, he would benefit from weight loss
History of alcohol use
SUBJECTIVE:
Feels well. Edema has decreased but he feels diuresis has decreased as well
Laboratory Data
11/06/23 11/08/23 02/11/24
03:41 04:21 05:25
Hgb 9.1 L 9.1 L
Potassium 3.2 L
Creatinine 4.5 H* 3.5 H
Magnesium
02/11/24 02/12/24
20:06 05:35
Hgb 9.6 L
Potassium 3.0 L 3.2 L
Creatinine
Magnesium 1.7
Selected Entries
12/16/23
05:54 02/10/24
13:39 02/12/24
06:00
Actual Weight 265 lb 10.512
oz 274 lb 14.663
oz 271 lb 2 oz
Generic Name Dose Route Start Last Admin
Trade Name Freq PRN Reason Stop Dose Admin
Vasopressin 20 units in 100 mls @ 0 mls/hr 11/04/23 13:00
Pitressin IV
PER PROTOCOL NOEMÍ
Protocol
Per Protocol
Norepinephrine Bitartrate 8 mg 258 mls @ 0 mls/hr 11/04/23 13:00
/ Dextrose IV
PER PROTOCOL NOEMÍ
Protocol
Per Protocol
Metoprolol Succinate 25 mg 10/15/23 22:00
Metoprolol 25 Mg Extended Release Tablet PO 11/12/23 21:59
HS NOEMÍ
Rosuvastatin Calcium 20 mg 10/16/23 08:00
Rosuvastatin (Crestor) 20 Mg Tablet PO 11/13/23 07:59
DAILY NOEMÍ
Sacubitril/Valsartan 1 tab 10/15/23 20:00
Sacubitril 49 Mg/Valsartan 51 Mg (Entresto) Tab PO 11/12/23 19:59
BID NOEMÍ
Aspirin 81 mg 10/16/23 08:00
Aspirin 81 Mg (Enteric Coated) Tablet PO 11/13/23 07:59
DAILY NOEMÍ
Clopidogrel Bisulfate 75 mg 10/16/23 08:00
Clopidogrel 75 Mg Tablet PO 11/13/23 07:59
DAILY NOEMÍ
Heparin Sodium 25,000 units in 250 mls @ 5 mls/hr 11/06/23 16:00
Heparin 69397 Units/250 Ml CRRT-ART
ORDERED RATE NOEMÍ
500 UNITS/HR
Norepinephrine Bitartrate 8 mg 258 mls @ 0 mls/hr 11/04/23 13:00
/ Dextrose IV
PER PROTOCOL NOEMÍ
Protocol
Per Protocol
Aspirin 81 mg 11/07/23 08:00
Aspirin 81 Mg Chewable Tablet TUBE 12/05/23 07:59
DAILY NOEMÍ
Clopidogrel Bisulfate 75 mg 11/07/23 11:00
Clopidogrel 75 Mg Tablet TUBE 12/05/23 10:59
DAILY NOEMÍ
Aspirin 81 mg 11/07/23 08:00
Aspirin 81 Mg Chewable Tablet TUBE 12/05/23 07:59
DAILY NOEMÍ
Rosuvastatin Calcium 10 mg 11/08/23 18:00
Rosuvastatin (Crestor) 10 Mg Tablet PO 12/06/23 17:59
QPM NOEMÍ
Clopidogrel Bisulfate 75 mg 02/11/24 08:00 02/12/24 07:34
Clopidogrel 75 Mg Tablet PO 03/10/24 07:59 75 mg
DAILY NOEMÍ
Metoprolol Succinate 25 mg 02/10/24 19:00 02/11/24 17:02
Metoprolol 25 Mg Extended Release Tablet PO 03/09/24 18:59 25 mg
QPM NOEMÍ
Valsartan 20 mg 02/12/24 08:00 02/12/24 07:31
Valsartan 40 Mg Tablet PO 03/11/24 07:59 20 mg
BID NOEMÍ
Potassium Chloride 20 meq 02/12/24 20:00
Potassium Chloride 20 Meq Extended Release Tablet PO 03/11/24 19:59
BID NOEMÍ
Rosuvastatin Calcium 20 mg 02/10/24 18:21 02/11/24 17:02
Rosuvastatin (Crestor) 20 Mg Tablet PO 03/09/24 18:20 20 mg
QPM NOEMÍ
Aspirin 81 mg 02/11/24 08:00 02/12/24 07:31
Aspirin 81 Mg (Enteric Coated) Tablet PO 03/10/24 07:59 81 mg
DAILY NOEMÍ
Furosemide 80 mg 02/11/24 08:00 02/12/24 07:33
Furosemide 100 Mg (10 Mg/Ml) 10 Ml Vial IV 03/10/24 07:59 80 mg
BID AT 0800,1600 NOEMÍ
Physical Exam
Vital Signs/Labs
Vital Signs
Temp Pulse Resp BP Pulse Ox
98.8 F 79 19 114/68 99
02/13/24 07:00 02/13/24 08:37 02/13/24 07:00 02/13/24 08:37 02/13/24 07:00
02/12/24 02/13/24 02/14/24
06:59 06:59 06:59
Actual Weight 122.98 kg 125.277 kg
02/13/24 05:29
02/13/24 05:29
Magnesium 2.1 mg/dl (1.6-2.3) 02/13/24 05:29
02/10/24
13:50
[id number] Pept 4360
LAB Results
02/10/24
13:50
Troponin I 0.022
Physical Exam
Constitutional: No acute distress
Cardiovascular: Rhythm & rate is regular
Respiratory: Respiratory effort normal
GI: Soft
Neuro/Psych: Alert
Other: Other (Mild edema bilaterally)
Data Reviewed
-
Date of Service: February 13, 2024
Medical Tests (PFT, Pathology etc): Image Personally Visualized and interpreted
Labs: Labs Reviewed by me
[2024-02-13] MEDS: ALDACTONE 12.5 MG PO (12:17)
[2024-02-13] MEDS: JARDIANCE 10 MG PO (12:17)
[2024-02-13 13:07] LABS: Glucose - Point of Care 122 mg/dl (70-99)
[2024-02-13 16:50] LABS: Glucose - Point of Care 121 mg/dl (70-99)
[2024-02-13] MEDS: TOPROL XL 25 MG PO (17:16)
[2024-02-13] MEDS: CRESTOR 20 MG PO (17:17)
--- NOTE | 2024-02-13 17:30 | W.PN.HOSP.TC ---
Today's Communication/Plan
-
Great weight today may have been an error
Continue IV diuresis
Hopefully can transition to PO diuresis soon
Assessment / Plan
Assessment / Plan
Physical Exam
General: Comfortable, Conversant and Morbidly Obese
HEENT: Normocephalic
Respiratory: Clear to Auscultation Bilaterally
Cardiac: S1/S2, Regular Rhythm, Peripheral Edema (+2 bilateral lower legs) and JVD
GI: Soft, Non Tender, Non Distended, Normal Bowel Sounds
Musculoskeletal: Edema, Left Lower Extremity (+2) and Edema, Right Lower Extremity (+2)
Skin: Warm, Dry and Other (+2 edema below knees, open left groin wound healing well, longitudinal incision left medial aspect leg intact)
Neuro: AO x 3
Psych: Calm
Assessment/Plan
#Acute on chronic systolic heart failure/ EF 30% cardiomyopathy/PEA arrest September 2023 EF 30%
#Heart Failure with Reduced Ejection Fraction
-I/O and daily weights
-Continue IV Lasix 80 mg twice daily
-Continue 50 ounce fluid restrict diet
-Consulted cardiology, recommendations appreciated
-Echocardiogram
-May need to transition to torsemide after he has been diuresed
-Continue Jardiance
-Goal-directed medical therapy is limited by blood pressure & renal function -- ARB started by cardiology to see how well patient can tolerate this
#Non-Sustained Ventricular tachycardia
-Monitor potassium and magnesium
-Replace more aggressively as per cards
#Coronary artery disease status post CABG s/p ICD
#History of pericardial effusion
-Continue aspirin 81 mg daily, Plavix 75 mg daily, metoprolol succinate 25 mg every evening
#AMILCAR needing dialysis 10/24/2023 from sepsis
#Status post HD placement 11/19/2023 with removal 12/09/2023
Recent appointment with nephrology 01/15/2024
Creat 1.1 currently
-Follow BMP
-Patient requested medical team to notify nephrology
#Hypokalemia
#Hypomagnesemia
-Replaced
-Recheck labs and replace as above
#DM2/diabetic neuropathy
-Accu-Cheks with SSI
-Continue Tresiba 18 units subcu daily
-Continue gabapentin 100 mg twice daily
#Essential Hypertension
-Continue metoprolol succinate 25 mg evenings
#Chronic anemia-normocytic
Hgb stable
#GERD/gastroparesis(new Dx 01/22/2024)
#Hx GI bleed secondary to bleeding gastric ulcer required clipping 11/15/2023 and 2 units of PRBC
#Hx GI bleed through rectal pouch October 2023 required additional blood transfusion with octreotide drip PPI drip
-Continue Protonix 40 mg twice daily
#History of hemorrhoids
#PAD status post left lower extremity bypass due to critical limb ischemia
#Hx critical limb ischemia left lower extremity
#Hx angioplasty with common iliac artery stent
#Hx MSSA bacturemia secondary to gangrene/left lower extremity cellulitis MSSA�E faecalis 11/06/2023(blood culture grew MSSA, wound culture grew MSSA and Enterococcus faecalis)
#10/21/2023 status post left common femoral artery endarterectomy with patch angioplasty using bovine pericardium, left common femoral artery to tibioperoneal trunk bypass with 6 mm ringed reinforced graft and left groin rotational muscle flap using
sartorius muscle
-Follows with wound care
-Wound VAC to left upper thigh removed approximately 1 month ago in December 2023
-Continue Plavix
-Consult wound care
-Continue Percocet 1 tab p.o. every 8 hours
#Alcohol use disorder
-Patient drinks 3-4 drinks every day stopped September 2024
#Obstructive sleep apnea
-Uses nasal pillow at HS
#Hyperlipidemia
Hepatic steatosis
-Continue Crestor 20 mg every evening
#Insomnia
-Continue melatonin 5 mg at bedtime
#Anxiety
No meds reported
#Hypothyroidism
-Continue Synthroid 300 mcg p.o. daily
#Chronic constipation
-Continue Relistor 150 mg daily
#Morbid obesity due to excess calorie consumption�BMI
Healthy heart, low-fat diabetic diet
Other Past Medical History:
Acute Balanitis -resolved , Got single dose of fluconazole 150mg in ER October 2023
COVID-19 infection October 2023�resolved
History of epistaxis exacerbated by heparin and Plavix October 2023-Resolved with nasal packing
Gout
DVT prophylaxis: None - Patient on February 13, 2024 clearly refused SCDs (due to his old wounds on his legs) and he refused Lovenox/Heparin due to concerns over possible bleeding
FULL CODE
Anticipated Discharge: 24 - 48 hours
Subjective/Interval History
-
Date of Service: February 13, 2024
Patient was seen and examined. he denied any shortness of breath, chest pain or any other complaints. He insisted that his SCDs and Heparin/Lovenox for DVT prophylaxis all be held.
Objective Data
-
Labs:
Laboratory Results
02/13/24
05:29
WBC 6.6
Hgb 9.9 L
Hct 31.2 L
Plt Count 159
Sodium 140
Potassium 4.1 D
Chloride 106
Carbon Dioxide 27
BUN 18
Creatinine 1.0
Glucose 106 H
Calcium 9.5
Total Bilirubin 0.8
AST 20
ALT < 10
Alkaline Phosphatase 50
Vital Signs:
Vital Signs
Temp Pulse Resp BP Pulse Ox
98.4 F 84 18 103/58 95
02/13/24 15:00 02/13/24 17:16 02/13/24 15:00 02/13/24 17:16 02/13/24 15:00
I&O
02/12/24 02/13/24 02/14/24
06:59 06:59 06:59
Intake Total 1380 / 1380 480 / 480
Output Total 1600 / 1600 1400 / 1400
Balance -220 / -220 -920 / -920
[2024-02-13] MEDS: MELATONIN 5 MG PO (21:22)
[2024-02-13 21:23] LABS: Glucose - Point of Care 159 mg/dl (70-99)
[2024-02-14] MEDS: LASIX 20 MG IV (02:34)
--- NOTE | 2024-02-14 02:38 | PTCARENOTE ---
Pt ambulated to BR, complained of GERBER. Pt stated, 'I feel like I can't catch my breathe'. Respirations=22-24, pulse ox 96-98% on CPAP. CPAP removed, 96% on room air. Shallow breathing, pt hunched over in chair. Fine scattered crackles auscultated at
L base. WAREHOUSE SHIPPING SUPERVISOR made aware, new order provided, lasix provided, see MAR. Will reassess.
[2024-02-14 03:25] VITALS: BP 110/67
--- NOTE | 2024-02-14 04:32 | PTCARENOTE ---
roller operator displayed 11 beat run of VTACH. Pt resting comfortably in bed. RN CRITICAL CARE made aware, no new orders provided. Will continue to monitor.
[2024-02-14 06:00] VITALS: BMI 42.7
[2024-02-14] MEDS: SYNTHROID 300 MCG PO (06:29)
[2024-02-14] MEDS: PERCOCET 5/325 1 TABLET PO ×3 (06:29→21:39)
[2024-02-14 07:13] VITALS: BP 123/67
[2024-02-14 07:18] LABS: Glucose - Point of Care 126 mg/dl (70-99)
[2024-02-14 07:46] LABS: % Basophils 0.5 % (0-2); % Eosinophils 4.6 % (0-6); % Immature Granulocytes 0.7 % (0-0.5); % Lymphocytes 23.5 % (20.5-51.1); % Monocytes 9.8 % (1.7-9.3); % Neutrophils 60.9 % (42.2-75.2); Absolute Eosinophils 0.4 10^3/uL (0-0.7); Absolute Immature Granulocytes 0.1 10^3/uL (0-0.05); Absolute Lymphocytes 1.8 10^3/uL (1.2-3.4); Absolute Monocytes 0.8 10^3/uL (0.1-0.6); Absolute Neutrophils 4.7 10^3/uL (1.4-6.5); Hematocrit 30.8 % (39.0-52.0); Hemoglobin 9.8 g/dL (13.0-18.0); Mean Corp Hgb Conc. 31.8 g/dL (33.0-37.0); Mean Corpuscular Hgb 25.7 pg (27.0-31.0); Mean Corpuscular Volume 80.6 fL (80.0-94.0); Nucleated Red Blood Cells % 0 % (-); Platelet Count 192 10^3/uL (130-400); Red Blood Cell Count 3.82 10^6/uL (4.70-6.10); Red Cell Dist. Width 15.4 % (11.5-14.5); White Blood Cell Count 7.7 10^3/uL (4.8-10.8)
[2024-02-14 08:16] LABS: ALT (SGPT) < 10 U/L (0-50); AST (SGOT) 17 U/L (17-59); Albumin 4.4 g/dl (3.5-5.0); Alkaline Phosphatase 54 U/L (38-126); Blood Urea Nitrogen 16 mg/dl (9-20); Carbon Dioxide 26 mmol/L (22-30); Chloride 100 mmol/L (98-107); Estimated Creatinine Clearance 98 ml/min; Glucose 110 mg/dl (70-99); Potassium 4.2 mmol/L (3.5-5.1); Sodium 138 mmol/L (135-145); Total Bilirubin 0.8 mg/dl (0.2-1.3); Total Protein 7.1 g/dl (6.3-8.2); eGFR > 60.00
--- NOTE | 2024-02-14 08:58 | W.HF.CON ---
Heart Failure
- LV Function
Left ventricular function study result: LV Ejection fraction >35% - 40%
Ejection Fraction Percentage: 35-40
- ARNI
Patient already on ARNI: No
Heart Failure ARNI Contraindication: Hypotension
- ACEI/ARB
Patient already on ACEI/ARB: Yes
- Beta Bassem
Patient already on Evidence Based Beta Bassem: Yes
- Mineralocorticord Receptor Antagonist
Patient already on MRA: Yes
- SGLT-2 Inhibitor
Patient already on SGLT-2 Inhibitor: Yes
- NYHA CHF Classification
NYHA CHF Classification Level: Class III - Symptoms w/ min exertion, interferes w/ nml daily activity
- ACC/AHA Stage
ACC/AHA Stage: Stage C: Symptomatic Heart Failure
--- NOTE | 2024-02-14 09:02 | W.PN.CD ---
Today's Communication / Plan
-
increased SOB returing from bathroom last night
he had been feeling better. edema appears less and I/O negative but with only small reduction since admit
- continue IV lasix
-will give metolazone thismorning for addtional diuresis
- proBNP
Impression / Plan
-
BACKGROUND: 63M (known to Dr. Yadav, his primary microsoft exchange administrator) with a complex cardiac history including, CAD, CABG, history PCI, pericarditis/recurrent pericardial effusion/pericardial window, ischemic cardiomyopathy, BiVICD, PAD, right lower
extremity revascularization surgery, DM, neuropathy, elevated LFT, Hyponatremia, ETOH abuse and obesity who presented to the ER with a chief complaint of shortness of breath.
HFrEF (30-35%), acute on chronic, severe requiring hospitalization
-Weight gain, LE, edema, orthopnea, and GERBER
-Diuresis with furosemide 80mg IV BID - he appeared to be negative everyday and was feeling better but there did not appear to be much chage in weight. He deines drinking extra fluid. Increased SOB returing from bathroom last night.
- Will give metolazone this morning to achieve additonal diuresis
-He may need to transition to torsemide ( 40mg BID) after he has been diuresed
-GDMT is limited by blood pressure & renal function
-Heart failure education
-Trend daily weight, I/Os, and BMP with diuresis
-Valsartan restarted at low-dose this admission. Prior to last admission he had been on Entresto but due to blood pressure issues restarted with low-dose losartan
Resume Jardiance which he also had been in the past
Spironolactone 12.5 mg a day restarted this admit
NSVT
- replete K more aggressively. Replete Mag
- BB & ICD on board
- patietn with short asymptomat run inearly morning 02/14/24- titrate BB
Coronary artery disease
-Stable without chest pain
-CABG (2017)
-Continue medical mgmt with aspirin, BB and statin.
CKD, briefly on HD, follows with Dr. Agudelo
Gastroparesis, decrease in caloric intake recently, per primary
�
MDT BiV ICD implant 08/03/2019
Left femoral endarterectomy, left SPECIAL EDUCATION SUPERINTENDENT to TP trunk and bypass of sartorius flap 10/21/23
Bilat iliac stents 10/18/2023
PAD s/p endovascular procedure, primary repair of left brachial artery 10/18/23
History of pericarditis/recurrent pericardial effusion and pericardial window (2015)
Type II DM, controlled, Hgba1c 5.5% 09/2023
Obesity, BMI 42, he would benefit from weight loss
History of alcohol use
SUBJECTIVE:
no sob at rest. sob walking back from the bathroom
Laboratory Data
11/06/23 11/08/23 02/11/24
03:41 04:21 05:25
Hgb 9.1 L 9.1 L
Potassium 3.2 L
Creatinine 4.5 H* 3.5 H
Magnesium
02/11/24 02/12/24
20:06 05:35
Hgb 9.6 L
Potassium 3.0 L 3.2 L
Creatinine
Magnesium 1.7
Selected Entries
12/16/23
05:54 02/10/24
13:39 02/12/24
06:00
Actual Weight 265 lb 10.512
oz 274 lb 14.663
oz 271 lb 2 oz
Generic Name Dose Route Start Last Admin
Trade Name Freq PRN Reason Stop Dose Admin
Vasopressin 20 units in 100 mls @ 0 mls/hr 11/04/23 13:00
Pitressin IV
PER PROTOCOL NOEMÍ
Protocol
Per Protocol
Norepinephrine Bitartrate 8 mg 258 mls @ 0 mls/hr 11/04/23 13:00
/ Dextrose IV
PER PROTOCOL NOEMÍ
Protocol
Per Protocol
Metoprolol Succinate 25 mg 10/15/23 22:00
Metoprolol 25 Mg Extended Release Tablet PO 11/12/23 21:59
HS NOEMÍ
Rosuvastatin Calcium 20 mg 10/16/23 08:00
Rosuvastatin (Crestor) 20 Mg Tablet PO 11/13/23 07:59
DAILY NOEMÍ
Sacubitril/Valsartan 1 tab 10/15/23 20:00
Sacubitril 49 Mg/Valsartan 51 Mg (Entresto) Tab PO 11/12/23 19:59
BID NOEMÍ
Aspirin 81 mg 10/16/23 08:00
Aspirin 81 Mg (Enteric Coated) Tablet PO 11/13/23 07:59
DAILY NOEMÍ
Clopidogrel Bisulfate 75 mg 10/16/23 08:00
Clopidogrel 75 Mg Tablet PO 11/13/23 07:59
DAILY NOEMÍ
Heparin Sodium 25,000 units in 250 mls @ 5 mls/hr 11/06/23 16:00
Heparin 38416 Units/250 Ml CRRT-ART
ORDERED RATE NOEMÍ
500 UNITS/HR
Norepinephrine Bitartrate 8 mg 258 mls @ 0 mls/hr 11/04/23 13:00
/ Dextrose IV
PER PROTOCOL NOEMÍ
Protocol
Per Protocol
Aspirin 81 mg 11/07/23 08:00
Aspirin 81 Mg Chewable Tablet TUBE 12/05/23 07:59
DAILY NOEMÍ
Clopidogrel Bisulfate 75 mg 11/07/23 11:00
Clopidogrel 75 Mg Tablet TUBE 12/05/23 10:59
DAILY NOEMÍ
Aspirin 81 mg 11/07/23 08:00
Aspirin 81 Mg Chewable Tablet TUBE 12/05/23 07:59
DAILY NOEMÍ
Rosuvastatin Calcium 10 mg 11/08/23 18:00
Rosuvastatin (Crestor) 10 Mg Tablet PO 12/06/23 17:59
QPM NOEMÍ
Clopidogrel Bisulfate 75 mg 02/11/24 08:00 02/12/24 07:34
Clopidogrel 75 Mg Tablet PO 03/10/24 07:59 75 mg
DAILY NOEMÍ
Metoprolol Succinate 25 mg 02/10/24 19:00 02/11/24 17:02
Metoprolol 25 Mg Extended Release Tablet PO 03/09/24 18:59 25 mg
QPM NOEMÍ
Valsartan 20 mg 02/12/24 08:00 02/12/24 07:31
Valsartan 40 Mg Tablet PO 03/11/24 07:59 20 mg
BID NOEMÍ
Potassium Chloride 20 meq 02/12/24 20:00
Potassium Chloride 20 Meq Extended Release Tablet PO 03/11/24 19:59
BID NOEMÍ
Rosuvastatin Calcium 20 mg 02/10/24 18:21 02/11/24 17:02
Rosuvastatin (Crestor) 20 Mg Tablet PO 03/09/24 18:20 20 mg
QPM NOEMÍ
Aspirin 81 mg 02/11/24 08:00 02/12/24 07:31
Aspirin 81 Mg (Enteric Coated) Tablet PO 03/10/24 07:59 81 mg
DAILY NOEMÍ
Furosemide 80 mg 02/11/24 08:00 02/12/24 07:33
Furosemide 100 Mg (10 Mg/Ml) 10 Ml Vial IV 03/10/24 07:59 80 mg
BID AT 0800,1600 NOEMÍ
Physical Exam
Vital Signs/Labs
Vital Signs
Temp Pulse Resp BP Pulse Ox
97.6 F 87 18 123/67 97
02/14/24 07:13 02/14/24 07:13 02/14/24 07:13 02/14/24 07:13 02/14/24 07:13
02/13/24 02/14/24 02/15/24
06:59 06:59 06:59
Actual Weight 125.277 kg 123.632 kg
02/14/24 07:01
02/14/24 07:01
Magnesium 2.0 mg/dl (1.6-2.3) 02/14/24 07:01
02/10/24
13:50
[id number] Pept 4360
Physical Exam
Constitutional: Comfortable
Cardiovascular: Pedal edema is absent
Respiratory: Lungs clear to auscul.
GI: Soft
Neuro/Psych: Alert and Oriented
Other: Other (edema of extremties)
Data Reviewed
-
Date of Service: February 14, 2024
Medical Tests (PFT, Pathology etc): Report Reviewed by me
Labs: Labs Reviewed by me
[2024-02-14] MEDS: ZAROXOLYN 2.5 MG PO (09:24)
[2024-02-14] MEDS: LANTUS 0.179999999999999993 UNITS SC (09:24)
[2024-02-14] MEDS: NEURONTIN 100 MG PO ×2 (09:25→20:46)
[2024-02-14] MEDS: ALDACTONE 12.5 MG PO (09:25)
[2024-02-14] MEDS: ASPIR LOW (ENTERIC COATED) 81 MG PO (09:25)
[2024-02-14] MEDS: PROTONIX 40 MG PO (09:25)
[2024-02-14] MEDS: JARDIANCE 10 MG PO (09:25)
[2024-02-14] MEDS: MAGNESIUM OXIDE 500 MG PO ×2 (09:25→20:46)
[2024-02-14] MEDS: PLAVIX 75 MG PO (09:26)
[2024-02-14] MEDS: COLACE 100 MG PO ×2 (09:26→20:48)
[2024-02-14] MEDS: NON-FORMULARY ITEM 150 MG PO (09:27)
[2024-02-14] MEDS: DESENEX/MITRAZOL/ZEASORB 1 APPLIC TOPICAL ×2 (09:28→20:48)
[2024-02-14] MEDS: DIOVAN PO (09:37)
[2024-02-14 10:01] LABS: NT-proBNP 4070 pg/ml
[2024-02-14] MEDS: LASIX 80 MG IV ×2 (10:48→17:05)
[2024-02-14 10:53] VITALS: BP 118/61
[2024-02-14 11:42] LABS: Glucose - Point of Care 111 mg/dl (70-99)
--- NOTE | 2024-02-14 15:01 | W.PN.HOSP.TC ---
Today's Communication/Plan
-
Metolazone added
Beta rafael increased
Spoke with cardiology
Assessment / Plan
Assessment / Plan
Physical Exam
General: Comfortable, Conversant and Morbidly Obese
HEENT: Normocephalic
Respiratory: Clear to Auscultation Bilaterally
Cardiac: S1/S2, Regular Rhythm, Peripheral Edema (+2 bilateral lower legs)
GI: Soft, Non Tender, Non Distended, Normal Bowel Sounds
Musculoskeletal: Edema, Left Lower Extremity (+2) and Edema, Right Lower Extremity (+2)
Skin: Warm, Dry and Other (+2 edema below knees, open left groin wound healing well, longitudinal incision left medial aspect leg intact)
Neuro: AO x 3
Psych: Calm
Assessment/Plan
#Acute on chronic systolic heart failure/ EF 30% cardiomyopathy/PEA arrest September 2023 EF 30%
#Heart Failure with Reduced Ejection Fraction
-I/O and daily weights
-Continue IV Lasix 80 mg twice daily
-Continue 50 ounce fluid restrict diet
-Consulted cardiology, recommendations appreciated
-Echocardiogram
-May need to transition to torsemide after he has been diuresed
-Continue Jardiance
-Goal-directed medical therapy is limited by blood pressure & renal function -- ARB started by cardiology to see how well patient can tolerate this -- ARB dose reduced due to hypotension from 20 mg BID to 20 mg QPM
-Continue increased dose Metoprolol Succinate from 25 mg QPM to 37.5 QPM in the setting of VTach episodes
-Metolazone added with increased weight and episode of SOB overnight
#Non-Sustained Ventricular tachycardia
-Monitor potassium and magnesium
-Replace more aggressively as per cards
#Coronary artery disease status post CABG s/p ICD
#History of pericardial effusion
-Continue aspirin 81 mg daily, Plavix 75 mg daily, metoprolol succinate 25 mg every evening
#AMILCAR needing dialysis 10/24/2023 from sepsis
#Status post HD placement 11/19/2023 with removal 12/09/2023
Recent appointment with nephrology 01/15/2024
-Follow BMP
-Patient requested medical team to notify nephrology
#Hypokalemia
#Hypomagnesemia
-Replaced
-Recheck labs and replace as above
#DM2/diabetic neuropathy
-Accu-Cheks with SSI
-Continue Tresiba 18 units subcu daily
-Continue gabapentin 100 mg twice daily
#Essential Hypertension
-Continue metoprolol succinate 25 mg evenings
#Chronic anemia-normocytic
Hgb stable
#GERD/gastroparesis(new Dx 01/22/2024)
#Hx GI bleed secondary to bleeding gastric ulcer required clipping 11/15/2023 and 2 units of PRBC
#Hx GI bleed through rectal pouch October 2023 required additional blood transfusion with octreotide drip PPI drip
-Continue Protonix 40 mg twice daily
#History of hemorrhoids
#PAD status post left lower extremity bypass due to critical limb ischemia
#Hx critical limb ischemia left lower extremity
#Hx angioplasty with common iliac artery stent
#Hx MSSA bacturemia secondary to gangrene/left lower extremity cellulitis MSSA�E faecalis 11/06/2023(blood culture grew MSSA, wound culture grew MSSA and Enterococcus faecalis)
#10/21/2023 status post left common femoral artery endarterectomy with patch angioplasty using bovine pericardium, left common femoral artery to tibioperoneal trunk bypass with 6 mm ringed reinforced graft and left groin rotational muscle flap using
sartorius muscle
-Follows with wound care
-Wound VAC to left upper thigh removed approximately 1 month ago in December 2023
-Continue Plavix
-Consult wound care
-Continue Percocet 1 tab p.o. every 8 hours
#Alcohol use disorder
-Patient drinks 3-4 drinks every day stopped September 2024
#Obstructive sleep apnea
-Uses nasal pillow at HS
#Hyperlipidemia
Hepatic steatosis
-Continue Crestor 20 mg every evening
#Insomnia
-Continue melatonin 5 mg at bedtime
#Anxiety
No meds reported
#Hypothyroidism
-Continue Synthroid 300 mcg p.o. daily
#Chronic constipation
-Continue Relistor 150 mg daily
#Morbid obesity due to excess calorie consumption�BMI
Healthy heart, low-fat diabetic diet
Other Past Medical History:
Acute Balanitis -resolved , Got single dose of fluconazole 150mg in ER October 2023
COVID-19 infection October 2023�resolved
History of epistaxis exacerbated by heparin and Plavix October 2023-Resolved with nasal packing
Gout
DVT prophylaxis: None - Patient on February 13, 2024 clearly refused SCDs (due to his old wounds on his legs) and he refused Lovenox/Heparin due to concerns over possible bleeding
FULL CODE
Anticipated Discharge: > 48 hours
Subjective/Interval History
-
Date of Service: February 14, 2024
Patient was seen and examined. He reported an episode of shortness of breath overnight.
Objective Data
-
Labs:
Laboratory Results
02/14/24
07:01
WBC 7.7
Hgb 9.8 L
Hct 30.8 L
Plt Count 192 D
Sodium 138
Potassium 4.2
Chloride 100
Carbon Dioxide 26
BUN 16
Creatinine 1.0
Glucose 110 H
Calcium 10.0
Total Bilirubin 0.8
AST 17
ALT < 10
Alkaline Phosphatase 54
Vital Signs:
Vital Signs
Temp Pulse Resp BP Pulse Ox
98.4 F 80 17 118/61 95
02/14/24 10:53 02/14/24 10:53 02/14/24 10:53 02/14/24 10:53 02/14/24 10:53
I&O
02/13/24 02/14/24 02/15/24
06:59 06:59 06:59
Intake Total 480 / 480 1200 / 1200
Output Total 1400 / 1400 1550 / 1550
Balance -920 / -920 -350 / -350
[2024-02-14 15:03] VITALS: BP 128/69
--- NOTE | 2024-02-14 15:49 | CM ---
PT OT recommended out pt PT.
told patient he would write script for out pt PT . Pt will set up out pt PT at dc.
will drive him home at dc.
On IV Lasix.
PLAN Home with out pt PT
[2024-02-14 16:41] LABS: Glucose - Point of Care 138 mg/dl (70-99)
[2024-02-14] MEDS: CRESTOR 20 MG PO (17:03)
[2024-02-14] MEDS: TOPROL XL 37.5 MG PO (17:04)
[2024-02-14 19:40] VITALS: BP 99/53
[2024-02-14] MEDS: MELATONIN 5 MG PO (21:39)
[2024-02-14 21:53] LABS: Glucose - Point of Care 177 mg/dl (70-99)
[2024-02-14 22:25] VITALS: BP 110/61
[2024-02-15] VITALS (7 sets, daily range): BP systolic 109–126; BP diastolic 61–79; O2SAT 95; BMI 42.2
[2024-02-15] MEDS: PERCOCET 5/325 1 TABLET PO ×3 (05:29→21:24)
[2024-02-15] MEDS: SYNTHROID 300 MCG PO (05:32)
[2024-02-15 08:13] LABS: Glucose - Point of Care 133 mg/dl (70-99)
[2024-02-15] MEDS: ALDACTONE 12.5 MG PO (08:52)
[2024-02-15] MEDS: PROTONIX 40 MG PO ×2 (08:52→21:59)
[2024-02-15] MEDS: COLACE 100 MG PO ×2 (08:52→21:24)
[2024-02-15] MEDS: ASPIR LOW (ENTERIC COATED) 81 MG PO (08:52)
[2024-02-15] MEDS: NEURONTIN 100 MG PO ×2 (08:52→21:24)
[2024-02-15] MEDS: JARDIANCE 10 MG PO (08:53)
[2024-02-15] MEDS: DESENEX/MITRAZOL/ZEASORB 1 APPLIC TOPICAL ×2 (08:53→21:25)
[2024-02-15] MEDS: PLAVIX 75 MG PO (08:53)
[2024-02-15] MEDS: LASIX 80 MG IV ×2 (08:54→15:59)
[2024-02-15] MEDS: NON-FORMULARY ITEM 150 MG PO (08:54)
[2024-02-15] MEDS: MAGNESIUM OXIDE 500 MG PO (08:54)
[2024-02-15] MEDS: LANTUS 0.179999999999999993 UNITS SC (09:02)
[2024-02-15 09:07] LABS: Hematocrit 29.4 % (39.0-52.0); Mean Corp Hgb Conc. 30.6 g/dL (33.0-37.0); Mean Corpuscular Hgb 25.1 pg (27.0-31.0); Mean Corpuscular Volume 82.1 fL (80.0-94.0); Mean Platelet Volume 10.6 fL (7.4-10.4); Platelet Count 182 10^3/uL (130-400); Red Blood Cell Count 3.58 10^6/uL (4.70-6.10); Red Cell Dist. Width 15.2 % (11.5-14.5); White Blood Cell Count 6.8 10^3/uL (4.8-10.8)
[2024-02-15 09:24] LABS: Blood Urea Nitrogen 16 mg/dl (9-20); Calcium 9.6 mg/dl (8.4-10.2); Carbon Dioxide 31 mmol/L (22-30); Chloride 100 mmol/L (98-107); Estimated Creatinine Clearance 88 ml/min; Glucose 118 mg/dl (70-99); Potassium 3.3 mmol/L (3.5-5.1); Sodium 136 mmol/L (135-145); eGFR > 60.00
[2024-02-15 12:26] LABS: Glucose - Point of Care 179 mg/dl (70-99)
--- NOTE | 2024-02-15 13:14 | W.PN.HOSP.TC ---
Today's Communication/Plan
-
Metolazone was given yesterday with good response
Continue to aggressively replace potassium and magnesium as needed
Appreciate cardiology
Assessment / Plan
Assessment / Plan
Physical Exam
General: Comfortable, Conversant and Morbidly Obese
HEENT: Normocephalic
Respiratory: Clear to Auscultation Bilaterally
Cardiac: S1/S2, Regular Rhythm, Peripheral Edema (+2 bilateral lower legs)
GI: Soft, Non Tender, Non Distended, Normal Bowel Sounds
Musculoskeletal: Edema, Left Lower Extremity (+2) and Edema, Right Lower Extremity (+2)
Skin: Warm, Dry and Other (+2 edema below knees, open left groin wound healing well, longitudinal incision left medial aspect leg intact)
Neuro: AO x 3
Psych: Calm
Assessment/Plan
#Acute on chronic systolic heart failure/ EF 30% cardiomyopathy/PEA arrest September 2023 EF 30%
#Heart Failure with Reduced Ejection Fraction
-I/O and daily weights
-Continue IV Lasix 80 mg twice daily
-Continue 50 ounce fluid restrict diet
-Consulted cardiology, recommendations appreciated
-Echocardiogram
-May need to transition to torsemide after he has been diuresed
-Continue Jardiance
-Goal-directed medical therapy is limited by blood pressure & renal function -- ARB started by cardiology to see how well patient can tolerate this -- ARB dose reduced due to hypotension from 20 mg BID to 20 mg QPM
-Continue increased dose Metoprolol Succinate from 25 mg QPM to 37.5 QPM in the setting of VTach episodes
-Metolazone was given once on February 14, 2024 -- with good response
#Non-Sustained Ventricular tachycardia
-Monitor potassium and magnesium
-Replace more aggressively
#Coronary artery disease status post CABG s/p ICD
#History of pericardial effusion
-Continue aspirin 81 mg daily, Plavix 75 mg daily, metoprolol succinate 37.5 mg every evening
#AMILCAR needing dialysis 10/24/2023 from sepsis
#Status post HD placement 11/19/2023 with removal 12/09/2023
Recent appointment with nephrology 01/15/2024
-Follow BMP
-Patient requested medical team to notify nephrology
#Hypokalemia
#Hypomagnesemia
-Replaced
-Recheck labs and replace as above
#DM2/diabetic neuropathy
-Accu-Cheks with SSI
-Continue Tresiba 18 units subcu daily
-Continue gabapentin 100 mg twice daily
#Essential Hypertension
-Continue metoprolol succinate 37.5 mg evenings
#Chronic anemia-normocytic
Hgb stable
#GERD/gastroparesis(new Dx 01/22/2024)
#Hx GI bleed secondary to bleeding gastric ulcer required clipping 11/15/2023 and 2 units of PRBC
#Hx GI bleed through rectal pouch October 2023 required additional blood transfusion with octreotide drip PPI drip
-Continue Protonix 40 mg twice daily
#History of hemorrhoids
#PAD status post left lower extremity bypass due to critical limb ischemia
#Hx critical limb ischemia left lower extremity
#Hx angioplasty with common iliac artery stent
#Hx MSSA bacturemia secondary to gangrene/left lower extremity cellulitis MSSA�E faecalis 11/06/2023(blood culture grew MSSA, wound culture grew MSSA and Enterococcus faecalis)
#10/21/2023 status post left common femoral artery endarterectomy with patch angioplasty using bovine pericardium, left common femoral artery to tibioperoneal trunk bypass with 6 mm ringed reinforced graft and left groin rotational muscle flap using
sartorius muscle
-Follows with wound care
-Wound VAC to left upper thigh removed approximately 1 month ago in December 2023
-Continue Plavix
-Consult wound care
-Continue Percocet 1 tab p.o. every 8 hours
#Alcohol use disorder
-Patient drinks 3-4 drinks every day stopped September 2024
#Obstructive sleep apnea
-Uses nasal pillow at HS
#Hyperlipidemia
Hepatic steatosis
-Continue Crestor 20 mg every evening
#Insomnia
-Continue melatonin 5 mg at bedtime
#Anxiety
No meds reported
#Hypothyroidism
-Continue Synthroid 300 mcg p.o. daily
#Chronic constipation
-Continue Relistor 150 mg daily
#Morbid obesity due to excess calorie consumption�BMI
Healthy heart, low-fat diabetic diet
Other Past Medical History:
Acute Balanitis -resolved , Got single dose of fluconazole 150mg in ER October 2023
COVID-19 infection October 2023�resolved
History of epistaxis exacerbated by heparin and Plavix October 2023-Resolved with nasal packing
Gout
DVT prophylaxis: None - Patient on February 13, 2024 clearly refused SCDs (due to his old wounds on his legs) and he refused Lovenox/Heparin due to concerns over possible bleeding
FULL CODE
Anticipated Discharge: 24 - 48 hours
Subjective/Interval History
-
Date of Service: February 15, 2024
Patient was seen and examined. He reports urinating a lot more today, and weight is down.
Objective Data
-
Labs:
Laboratory Results
02/15/24 02/15/24
08:26 08:27
WBC 6.8
Hgb 9.0 L
Hct 29.4 L
Plt Count 182
Sodium 136 Cancelled
Potassium 3.3 L Cancelled
Chloride 100 Cancelled
Carbon Dioxide 31 H Cancelled
BUN 16 Cancelled
Creatinine 1.1 Cancelled
Glucose 118 H Cancelled
Calcium 9.6 Cancelled
Vital Signs:
Vital Signs
Temp Pulse Resp BP Pulse Ox
98.9 F 90 16 116/69 93
02/15/24 11:00 02/15/24 11:00 02/15/24 11:00 02/15/24 11:00 02/15/24 11:00
I&O
02/14/24 02/15/24 02/16/24
06:59 06:59 06:59
Intake Total 1200 / 1200 1600 / 1600
Output Total 1550 / 1550 3925 / 3925
Balance -350 / -350 -2325 / -2325
[2024-02-15] MEDS: KCL 40 MEQ PO ×2 (13:32→21:22)
--- NOTE | 2024-02-15 16:10 | W.PN.CD ---
Today's Communication / Plan
-
One more dose of metolazone today
Continue IV BID Lasix
Increase Aldactone from 12.5 to 25 daily
Increase Valsartan from 20 one time daily to 20 mg BID
When move to PO diuretic Dr. Yadav thinking he will try Torsemide 40 mg BID; may well need PRN metolazone at home
with change in meds and recent hx of severe AMILCAR will need BMP in 2 and 4 weeks and then at least q3 months
Impression / Plan
-
Background: 63M (Card Dr. Yadav,) with a complex cardiac history including, CAD, CABG, history PCI, pericarditis/recurrent pericardial effusion/pericardial window, ischemic cardiomyopathy, BiVICD, PAD, right lower extremity revascularization
surgery, DM, neuropathy, elevated LFT, Hyponatremia, ETOH abuse and obesity who presented to the ER with a chief complaint of shortness of breath.
HFrEF (30-35%), acute on chronic, severe requiring hospitalization
- A bit better
- Still with lots of edema
NSVT => ICD is in place
- Keep K+ up
Coronary artery disease, CABG 2016, no angina
CKD, (Dr. Agudelo)
- Has has had AMILCAR requiring HD Nov 2023
Gastroparesis, decrease in caloric intake recently, per primary
MDT BiV ICD implant 08/03/2019
PAD
-Left femoral endarterectomy, left BRAID FOLDER to TP trunk and bypass of sartorius flap 10/21/23
- Bilat iliac stents 10/18/2023
- s/p endovascular procedure, primary repair of left brachial artery 10/18/23
History of pericarditis/recurrent pericardial effusion and pericardial window (2015)
Type II DM, controlled, Hgba1c 5.5% 09/2023
Obesity, BMI 42, he would benefit from weight loss
History of alcohol use
Subjective:
Feels OK
Data:
Echo 02/12/2024: (echos are usually TDS in this patinet): LVEF 35-405, stage III diastolic dysfxn, global hypo, est PASP 54, est RA 15, no pericardial effusion, no signif valve disease, RV OK
Nuc Stress 12/2021: LVEF 28%,LV dilated, large fixed defects, extensive inf, apical
Cath 2018: LVEF 31%, LVEDP 31%, Inferobasal akinesis/aneurysm, Severe [place] triple-vessel CAD/all [place] vessels are occluded, atent LYNNE-LAD, SVG-D2, and SVG-RCA
Physical Exam
Vital Signs/Labs
Vital Signs
Temp Pulse Resp BP Pulse Ox
98.9 F 90 16 116/69 93
02/15/24 11:00 02/15/24 11:00 02/15/24 11:00 02/15/24 15:59 02/15/24 11:00
02/14/24 02/15/24 02/16/24
06:59 06:59 06:59
Actual Weight 123.632 kg 122.107 kg
02/15/24 08:27
02/15/24 08:27
Magnesium 2.0 mg/dl (1.6-2.3) 02/15/24 08:26
02/10/24 02/14/24
13:50 07:01
Khl-N-Kgceblmvztu Pept [id number]
Physical Exam
Constitutional: No acute distress
EENT: Anicteric
Cardiovascular: Rhythm & rate is regular, Pedal edema present (3+), S1S2 is normal and Murmur/rub/gallop absent
Respiratory: Respiratory effort normal and Lungs clear to auscul.
GI: Soft
Neuro/Psych: AO x 3
Data Reviewed
-
Date of Service: February 15, 2024
[2024-02-15] MEDS: TOPROL XL 37.5 MG PO (17:29)
[2024-02-15] MEDS: CRESTOR 20 MG PO (17:29)
[2024-02-15 18:03] LABS: Glucose - Point of Care 139 mg/dl (70-99)
[2024-02-15] MEDS: DIOVAN 20 MG PO (21:23)
[2024-02-15 21:25] LABS: Glucose - Point of Care 142 mg/dl (70-99)
[2024-02-15] MEDS: MELATONIN 5 MG PO (21:25)
[2024-02-16 03:25] VITALS: BP 107/61
[2024-02-16 06:00] VITALS: BMI 41.4
[2024-02-16] MEDS: PERCOCET 5/325 1 TABLET PO ×3 (06:35→21:41)
[2024-02-16] MEDS: SYNTHROID 300 MCG PO (06:36)
[2024-02-16 07:00] VITALS: BP 116/59
[2024-02-16 07:37] LABS: Blood Urea Nitrogen 19 mg/dl (9-20); Calcium 9.4 mg/dl (8.4-10.2); Carbon Dioxide 32 mmol/L (22-30); Chloride 97 mmol/L (98-107); Estimated Creatinine Clearance 74 ml/min; Glucose 120 mg/dl (70-99); Magnesium 1.9 mg/dl (1.6-2.3); Potassium 3.5 mmol/L (3.5-5.1); Sodium 136 mmol/L (135-145); eGFR > 60.00
[2024-02-16 08:37] LABS: Glucose - Point of Care 118 mg/dl (70-99)
[2024-02-16] MEDS: NEURONTIN 100 MG PO ×2 (09:51→20:58)
[2024-02-16] MEDS: COLACE 100 MG PO ×2 (09:51→20:58)
[2024-02-16] MEDS: ALDACTONE 25 MG PO (09:52)
[2024-02-16] MEDS: KCL 40 MEQ PO ×2 (09:52→20:58)
[2024-02-16] MEDS: JARDIANCE 10 MG PO (09:52)
[2024-02-16] MEDS: PROTONIX 40 MG PO ×2 (09:53→20:58)
[2024-02-16] MEDS: PLAVIX 75 MG PO (09:53)
[2024-02-16] MEDS: ASPIR LOW (ENTERIC COATED) 81 MG PO (09:53)
[2024-02-16] MEDS: DIOVAN 20 MG PO ×2 (09:53→20:58)
[2024-02-16] MEDS: LANTUS 0.179999999999999993 UNITS SC (09:54)
[2024-02-16] MEDS: NON-FORMULARY ITEM 150 MG PO (09:55)
[2024-02-16] MEDS: DESENEX/MITRAZOL/ZEASORB 1 APPLIC TOPICAL ×2 (09:56→21:01)
--- NOTE | 2024-02-16 10:00 | W.PN.CD ---
Today's Communication / Plan
-
He did not get the metolazone yesterday
Will give one dose of metolazone today
Continue IV BID Lasix
Continue the increased Aldactone 25 daily
Continue the increased Valsartan from 20 mg BID
Perhaps move to PO after tomorrow mornings IV Lasix
Will need to determine Dry/goal weight at discharge
When move to PO diuretic Dr. Yadav thinking he will try Torsemide 40 mg BID; may well need PRN metolazone at home
With change in meds and recent hx of severe AMILCAR will need BMP in 2 and 4 weeks and then at least q3 months
Impression / Plan
-
Background: 63M (Card Dr. Yadav,) with a complex cardiac history including, CAD, CABG, history PCI, pericarditis/recurrent pericardial effusion/pericardial window, ischemic cardiomyopathy, BiVICD, PAD, right lower extremity revascularization
surgery, DM, neuropathy, elevated LFT, Hyponatremia, ETOH abuse and obesity who presented to the ER with a chief complaint of shortness of breath.
HFrEF (30-35%), acute on chronic, severe requiring hospitalization and IV diuresis
- A bit better
- Still with lots of edema
NSVT => ICD is in place
- Keep K+ up
Coronary artery disease, CABG 2016, no angina
CKD, (Dr. Agudelo)
- Has has had AMILCAR requiring HD Nov 2023
Gastroparesis, decrease in caloric intake recently, per primary
MDT BiV ICD implanted 08/03/2019
PAD
- Left femoral endarterectomy, left SENIOR SVP to TP trunk and bypass of sartorius flap 10/21/23
- Bilat iliac stents 10/18/2023
- s/p endovascular procedure, primary repair of left brachial artery 10/18/23
History of pericarditis/recurrent pericardial effusion and pericardial window (2015). No pericardial effusion on echo 02/12/2024
Type II DM, controlled, Hgba1c 5.5% 09/2023
Obesity, BMI 42, he would benefit from weight loss
History of alcohol use
Subjective:
Feels OK
Data:
Echo 02/12/2024: (echos are usually TDS in this patinet): LVEF 35-405, stage III diastolic dysfxn, global hypo, est PASP 54, est RA 15, no pericardial effusion, no signif valve disease, RV OK
Nuc Stress 12/2021: LVEF 28%,LV dilated, large fixed defects, extensive inf, apical
Cath 2019: LVEF 31%, LVEDP 31%, Inferobasal akinesis/aneurysm, Severe [place] triple-vessel CAD/all [place] vessels are occluded, atent LYNNE-LAD, SVG-D2, and SVG-RCA
Physical Exam
Vital Signs/Labs
Vital Signs
Temp Pulse Resp BP Pulse Ox
98.3 F 83 16 116/59 96
02/16/24 07:00 02/16/24 07:00 02/16/24 07:00 02/16/24 07:00 02/16/24 07:00
02/15/24 02/16/24 02/17/24
06:59 06:59 06:59
Actual Weight 122.107 kg 119.833 kg
02/15/24 08:27
02/16/24 05:53
Magnesium 1.9 mg/dl (1.6-2.3) 02/16/24 05:53
02/10/24 02/14/24
13:50 07:01
Ony-U-Epjtqsyxlgt Pept [id number]
Physical Exam
Constitutional: No acute distress
EENT: Anicteric
Cardiovascular: Rhythm & rate is regular and Pedal edema present (improved, 1-2+ on right and 2-3+ on left (surgery side))
Respiratory: Respiratory effort normal and Crackles Present
GI: Soft and Distention absent
Neuro/Psych: AO x 3
Data Reviewed
-
Date of Service: February 16, 2024
[2024-02-16] MEDS: ZAROXOLYN 5 MG PO (10:05)
[2024-02-16] MEDS: LASIX 80 MG IV (10:48)
[2024-02-16 10:59] VITALS: BP 110/56
[2024-02-16 11:54] LABS: Glucose - Point of Care 179 mg/dl (70-99)
[2024-02-16 15:00] VITALS: BP 104/64
--- NOTE | 2024-02-16 15:09 | W.PN.HOSP.TC ---
Today's Communication/Plan
-
Hold IV Lasix 80 mg twice daily starting February 16, 2024 afternoon due to soft blood pressures -- re-evaluate for restart on a day to day basis
Metolazone is being given with good response
Keep K>4 and Mag>2
Assessment / Plan
Assessment / Plan
Physical Exam
General: Comfortable, Conversant and Morbidly Obese
HEENT: Normocephalic
Respiratory: Clear to Auscultation Bilaterally
Cardiac: S1/S2, Regular Rhythm, Peripheral Edema (+2 bilateral lower legs)
GI: Soft, Non Tender, Non Distended, Normal Bowel Sounds
Musculoskeletal: Edema, Left Lower Extremity (+2) and Edema, Right Lower Extremity (+2)
Skin: Warm, Dry and Other (+2 edema below knees, open left groin wound healing well, longitudinal incision left medial aspect leg intact)
Neuro: AO x 3
Psych: Calm
Assessment/Plan
#Acute on chronic systolic heart failure/ EF 30% cardiomyopathy/PEA arrest September 2023 EF 30%
#Heart Failure with Reduced Ejection Fraction
-I/O and daily weights
-Hold IV Lasix 80 mg twice daily starting February 16, 2024 afternoon due to soft blood pressures -- re-evaluate for restart on a day to day basis
-Continue 50 ounce fluid restrict diet
-Consulted cardiology, recommendations appreciated
-Echocardiogram
-May need to transition to torsemide after he has been diuresed
-Continue Jardiance
-Goal-directed medical therapy is limited by blood pressure & renal function -- ARB started by cardiology to see how well patient can tolerate this -- ARB dose reduced due to hypotension from 20 mg BID to 20 mg QPM
-Continue increased dose Metoprolol Succinate from 25 mg QPM to 37.5 QPM in the setting of VTach episodes
-Metolazone was given once on February 14, 2024 -- with good response -- additional Metolazone was given in the days after that -- with good response
#Non-Sustained Ventricular tachycardia
-Monitor potassium and magnesium
-Replace more aggressively
#Coronary artery disease status post CABG s/p ICD
#History of pericardial effusion
-Continue aspirin 81 mg daily, Plavix 75 mg daily, metoprolol succinate 37.5 mg every evening
#AMILCAR needing dialysis 10/24/2023 from sepsis
#Status post HD placement 11/19/2023 with removal 12/09/2023
Recent appointment with nephrology 01/15/2024
-Follow BMP
-Patient's requested medical team to notify nephrology --> Dr. Agudelo notified via [employer]
#Hypokalemia
#Hypomagnesemia
-Replaced
-Recheck labs and replace as above
#DM2/diabetic neuropathy
-Accu-Cheks with SSI
-Continue Tresiba 18 units subcu daily
-Continue gabapentin 100 mg twice daily
#Essential Hypertension
-Continue metoprolol succinate 37.5 mg evenings
#Chronic anemia-normocytic
Hgb stable
#GERD/gastroparesis(new Dx 01/22/2024)
#Hx GI bleed secondary to bleeding gastric ulcer required clipping 11/15/2023 and 2 units of PRBC
#Hx GI bleed through rectal pouch October 2023 required additional blood transfusion with octreotide drip PPI drip
-Continue Protonix 40 mg twice daily
#History of hemorrhoids
#PAD status post left lower extremity bypass due to critical limb ischemia
#Hx critical limb ischemia left lower extremity
#Hx angioplasty with common iliac artery stent
#Hx MSSA bacturemia secondary to gangrene/left lower extremity cellulitis MSSA�E faecalis 11/06/2023(blood culture grew MSSA, wound culture grew MSSA and Enterococcus faecalis)
#10/21/2023 status post left common femoral artery endarterectomy with patch angioplasty using bovine pericardium, left common femoral artery to tibioperoneal trunk bypass with 6 mm ringed reinforced graft and left groin rotational muscle flap using
sartorius muscle
-Follows with wound care
-Wound VAC to left upper thigh removed approximately 1 month ago in December 2023
-Continue Plavix
-Consult wound care
-Continue Percocet 1 tab p.o. every 8 hours
#Alcohol use disorder
-Patient drank 3-4 drinks every day stopped September 2024
#Obstructive sleep apnea
-Uses nasal pillow at HS
#Hyperlipidemia
Hepatic steatosis
-Continue Crestor 20 mg every evening
#Insomnia
-Continue melatonin 5 mg at bedtime
#Anxiety
No meds reported
#Hypothyroidism
-Continue Synthroid 300 mcg p.o. daily
#Chronic constipation
-Continue Relistor 150 mg daily
#Morbid obesity due to excess calorie consumption�BMI
Healthy heart, low-fat diabetic diet
Other Past Medical History:
Acute Balanitis -resolved , Got single dose of fluconazole 150mg in ER October 2023
COVID-19 infection October 2023�resolved
History of epistaxis exacerbated by heparin and Plavix October 2023-Resolved with nasal packing
Gout
DVT prophylaxis: None - Patient on February 13, 2024 clearly refused SCDs (due to his old wounds on his legs) and he refused Lovenox/Heparin due to concerns over possible bleeding
FULL CODE
Anticipated Discharge: > 48 hours
Subjective/Interval History
-
Date of Service: February 16, 2024
Patient was seen and examined. He reported no new complaints overnight, his weight has come down.
Objective Data
-
Labs:
Laboratory Results
02/16/24
05:53
Sodium 136
Potassium 3.5
Chloride 97 L
Carbon Dioxide 32 H
BUN 19
Creatinine 1.3
Glucose 120 H
Calcium 9.4
Vital Signs:
Vital Signs
Temp Pulse Resp BP Pulse Ox
97.6 F 60 16 110/56 100
02/16/24 10:59 02/16/24 10:59 02/16/24 10:59 02/16/24 10:59 02/16/24 10:59
I&O
02/15/24 02/16/24 02/17/24
06:59 06:59 06:59
Intake Total 1600 / 1600 800 / 800
Output Total 3925 / 3925 3300 / 3300
Balance -2325 / -2325 -2500 / -2500
[2024-02-16] MEDS: LASIX IV (15:10)
[2024-02-16 16:52] LABS: Glucose - Point of Care 166 mg/dl (70-99)
[2024-02-16] MEDS: CRESTOR 20 MG PO (17:15)
[2024-02-16] MEDS: TOPROL XL 37.5 MG PO (17:17)
[2024-02-16] MEDS: MELATONIN 5 MG PO (21:41)
[2024-02-16 22:15] LABS: Glucose - Point of Care 183 mg/dl (70-99)
[2024-02-16 23:51] VITALS: BP 108/60
[2024-02-17 06:00] VITALS: BMI 41.2
[2024-02-17] MEDS: PERCOCET 5/325 1 TABLET PO ×2 (06:06→14:27)
[2024-02-17] MEDS: SYNTHROID 300 MCG PO (06:06)
[2024-02-17 07:00] VITALS: BP 108/68
[2024-02-17 08:03] LABS: Glucose - Point of Care 147 mg/dl (70-99)
[2024-02-17] MEDS: DIOVAN 20 MG PO (08:16)
[2024-02-17] MEDS: NEURONTIN 100 MG PO (08:16)
[2024-02-17] MEDS: JARDIANCE 10 MG PO (08:16)
[2024-02-17] MEDS: ASPIR LOW (ENTERIC COATED) 81 MG PO (08:16)
[2024-02-17] MEDS: ALDACTONE 25 MG PO (08:16)
[2024-02-17] MEDS: COLACE 100 MG PO (08:16)
[2024-02-17] MEDS: PLAVIX 75 MG PO (08:16)
[2024-02-17] MEDS: PROTONIX 40 MG PO (08:16)
[2024-02-17] MEDS: LANTUS 0.179999999999999993 UNITS SC (08:17)
[2024-02-17] MEDS: NON-FORMULARY ITEM 150 MG PO (08:22)
[2024-02-17] MEDS: DESENEX/MITRAZOL/ZEASORB 1 APPLIC TOPICAL (08:24)
--- NOTE | 2024-02-17 08:47 | W.PN.CD ---
Today's Communication / Plan
-
stop IV lasix and transition to oral if renal function stable ( labs pending)
if Creatinine stable then would consider discharge
Plan will be for torsemide 40mg BId
Metolazone 2.5mg PO qday PRN ( weight gain greater than 5 lbs in a week)
will need weekly BMP for the next 3 weeks after discharge
Impression / Plan
-
Background: 63M (Card Dr. Yadav,) with a complex cardiac history including, CAD, CABG, history PCI, pericarditis/recurrent pericardial effusion/pericardial window, ischemic cardiomyopathy, BiVICD, PAD, right lower extremity revascularization
surgery, DM, neuropathy, elevated LFT, Hyponatremia, ETOH abuse and obesity who presented to the ER with a chief complaint of shortness of breath.
HFrEF (30-35%), acute on chronic, severe requiring hospitalization and IV diuresis
- resp status improved.
- crreatinine 1.3 yesterday.
- Still with some edema'
- comprssion
- stop IV lasix and transition to oral if renal function stable ( labs pendng)
NSVT => ICD is in place
- Keep K+ up
Coronary artery disease, CABG 2016, no angina
CKD, (Dr. Agudelo)
- Has has had AMILCAR requiring HD Nov 2023
Gastroparesis, decrease in caloric intake recently, per primary
MDT BiV ICD implanted 08/03/2019
PAD
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
- Bilat iliac stents 10/18/2023
- s/p endovascular procedure, primary repair of left brachial artery 10/18/23
History of pericarditis/recurrent pericardial effusion and pericardial window (2015). No pericardial effusion on echo 02/12/2024
Type II DM, controlled, Hgba1c 5.5% 09/2023
Obesity, BMI 42, he would benefit from weight loss
History of alcohol use
Subjective:
Feels OK
Data:
Echo 02/12/2024: (echos are usually TDS in this patinet): LVEF 35-405, stage III diastolic dysfxn, global hypo, est PASP 54, est RA 15, no pericardial effusion, no signif valve disease, RV OK
Nuc Stress 12/2021: LVEF 28%,LV dilated, large fixed defects, extensive inf, apical
Cath 2019: LVEF 31%, LVEDP 31%, Inferobasal akinesis/aneurysm, Severe [place] triple-vessel CAD/all [place] vessels are occluded, atent LYNNE-LAD, SVG-D2, and SVG-RCA
Physical Exam
Vital Signs/Labs
Vital Signs
Temp Pulse Resp BP Pulse Ox
97.8 F 87 16 108/68 95
02/17/24 07:00 02/17/24 08:16 02/17/24 07:00 02/17/24 08:16 02/17/24 07:00
02/16/24 02/17/24 02/18/24
06:59 06:59 06:59
Actual Weight 119.833 kg 119.113 kg
02/15/24 08:27
Magnesium 1.9 mg/dl (1.6-2.3) 02/16/24 05:53
02/10/24 02/14/24
13:50 07:01
Bxa-R-Odjmkyzlpys Pept [id number]
Physical Exam
Constitutional: No acute distress
Cardiovascular: Rhythm & rate is regular
Respiratory: Respiratory effort normal
Neuro/Psych: Alert
Data Reviewed
-
Date of Service: February 17, 2024
Medical Decision Making: Reviewed Test Results
[2024-02-17 09:48] LABS: Blood Urea Nitrogen 18 mg/dl (9-20); Calcium 10.2 mg/dl (8.4-10.2); Carbon Dioxide 31 mmol/L (22-30); Chloride 98 mmol/L (98-107); Estimated Creatinine Clearance 80 ml/min; Glucose 128 mg/dl (70-99); Magnesium 1.9 mg/dl (1.6-2.3); Potassium 3.8 mmol/L (3.5-5.1); Sodium 137 mmol/L (135-145); eGFR > 60.00
--- NOTE | 2024-02-17 10:47 | W.DS.TRANS ---
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
-
Discharge Instructions:
Discharge Diagnosis/Procedures HFr EF
Diet 2 Gram Sodium,Restrict fluids to 48 oz
Activity As tolerated
Blood Work BMP weekly for the next 3 weeks
Instructions: *CBC Heart Failure Instructions
Stand-Alone Forms:
Changes to Home Medications: No
Discharge Medications:
DC Medications w/original date entered in [employer]
aspirin 81 mg tablet,delayed release 81 mg PO DAILY Blood clot prevention/tx 03/08/17
clopidogrel 75 mg tablet 75 mg PO DAILY Blood clot prevention/tx #30 tabs 12/16/23
levothyroxine 300 mcg tablet (Synthroid) 300 mcg PO DAILY Thyroid #30 tabs 12/16/23
bisacodyl 5 mg tablet,delayed release 10 mg PO DAILY PRN constipation 02/10/24
docusate sodium 100 mg capsule (Colace) 100 mg PO BID Constipation 02/10/24
furosemide 40 mg tablet 80 mg PO BID Fluid Retention/Swelling 02/10/24
gabapentin 100 mg capsule 100 mg PO BID Pain 02/10/24
insulin degludec 200 unit/mL (3 mL) subcutaneous pen (Tresiba FlexTouch U-200 insulin) 18 unit SC DAILY Diabetes 02/10/24
melatonin 5 mg tablet 5 mg PO HS Sleep 02/10/24
methylnaltrexone 150 mg tablet (Relistor) 150 mg PO DAILY constipation 02/10/24
metoprolol succinate 50 mg tablet,extended release 24 hr 25 mg PO QPM Blood Pressure 02/10/24
oxycodone-acetaminophen 5 mg-325 mg tablet 1 tab PO Q8H pain 02/10/24
pantoprazole 40 mg tablet,delayed release (Protonix) 40 mg PO BID Gastrointestinal Issue 02/10/24
potassium chloride 10 mEq tablet,extended release 10 meq PO BID Electrolyte Repletion 02/10/24
rosuvastatin 20 mg tablet 20 mg PO QPM High Cholesterol 02/10/24
empagliflozin 10 mg tablet (Jardiance) 10 mg PO DAILY #30 tabs 02/17/24
metoprolol succinate 25 mg tablet,extended release 24 hr 37.5 mg (1.5 x 25 mg) PO QPM #30 tabs 02/17/24
spironolactone 25 mg tablet 25 mg PO DAILY #30 tabs 02/17/24
torsemide 40 mg tablet 40 mg PO BID AT 0800,1600 Heart disease/condition #60 tabs 02/17/24
valsartan 40 mg tablet 20 mg (1/2 x 40 mg) PO BID #60 tabs 02/17/24
Home Medication Changes
empagliflozin 10 mg tablet (Jardiance) 10 mg PO DAILY #30 tabs 02/17/24
metoprolol succinate 25 mg tablet,extended release 24 hr 37.5 mg (1.5 x 25 mg) PO QPM #30 tabs 02/17/24
spironolactone 25 mg tablet 25 mg PO DAILY #30 tabs 02/17/24
torsemide 40 mg tablet 40 mg PO BID AT 0800,1600 Heart disease/condition #60 tabs 02/17/24
valsartan 40 mg tablet 20 mg (1/2 x 40 mg) PO BID #60 tabs 02/17/24
Pending Results: No
Total time spent discharging patient (in min): 48
--- NOTE | 2024-02-17 11:25 | CM ---
entered order for discharge.
PT OT recommended out pt PT.
MD told patient he would write script for out pt PT . Pt will set up out pt PT at dc.
Catrina [place] drive him [place] at [place].
PLAN Home No needs (He will set up out pt PT )
[2024-02-17 12:10] LABS: Glucose - Point of Care 178 mg/dl (70-99)
--- NOTE | 2024-02-17 13:01 | W.DCSUMMARY ---
Discharge Summary
Discharge Data
Date of Admission: 02/10/24
Date of Discharge: 02/17/24
-
Pending Results: No
Hospital Course
63-year-old male with a complex medical history including coronary artery disease CABG history of pericarditis and recurrent pericardial effusions and a pericardial window in the past. With a history of ischemic cardiomyopathy with a biventricular
ICD also has peripheral vascular disease with revascularization to right lower extremity he is diabetic with underlying neuropathy and also documented prior EtOH abuse presented to the ED on date of admission with shortness of breath found to be in
significant acute on chronic reduced ejection fraction heart failure he thusly required significant dosages of IV diuresis with furosemide initially treating weight gain and peripheral edema. He was seen by the cardiology service Dr. Yadav. He
required intermittent dosing of metolazone with his IV diuresis and Aldactone was increased from 12.5 to 25 mg daily with low valsartan being increased from 20 to 20 mg twice daily aggressive replacement of potassium and magnesium losses throughout
hospitalization he was maintained on a 50 ounce fluid restriction and low-sodium diet
Goal-directed medical therapy was limited by blood pressure and renal function and ARB started by cardiology with increasing of his prior dosing of metoprolol succinate from 25 to 37-1/2 mg daily in the setting of some V. tach episodes that were
noted.
Eventually reaching a goal directed weight of 119 kg patient was transition to oral torsemide 40 mg twice a day and he will take metolazone as needed with his renal status stabilizing and reaching his goal directed weight is felt that the patient
could be discharged he was given a prescription for a basic metabolic profile to be taken once weekly for the next 3 weeks with the results forwarded Dr. Yadav is also given a prescription for outpatient physical therapy for usage of his rolling
walker
Data:
Echo 02/12/2024: (echos are usually TDS in this patinet): LVEF 35-405, stage III diastolic dysfxn, global hypo, est PASP 54, est RA 15, no pericardial effusion, no signif valve disease, RV OK
Nuc Stress 12/2021: LVEF 28%,LV dilated, large fixed defects, extensive inf, apical
Cath 2019: LVEF 31%, LVEDP 31%, Inferobasal akinesis/aneurysm, Severe [place] triple-vessel CAD/all [place] vessels are occluded, atent LYNNE-LAD, SVG-D2, and SVG-RCA
Discharge Plan
-
Patient Disposition: Home (Routine Discharge)
Discharge Diagnosis/Procedures: HFr EF
Diet: 2 Gram Sodium and Restrict fluids to 48 oz
Activity: As tolerated
Blood Work: BMP weekly for the next 3 weeks
Activity Restrictions/Additional Instructions:
Wound Care Instructions
L groin: clean with saline, skin prep periwound, piece of silver alginate to wound, folded ABD pad and secure with paper tape, change bid
fungal powder to lateral groin creases bid
Cotton underwear daily
increase protein in diet to help in wound healing.
Follow up at wound care center call for an appointment.
Instructions: *CBC Heart Failure Instructions
Referrals:
René Guido CRNP [Family Provider] -
Prescriptions:
New
spironolactone 25 mg Tablet
25 mg PO DAILY Qty: 30 0RF
valsartan 40 mg Tablet
20 mg PO BID Qty: 60 0RF
Jardiance 10 mg Tablet
10 mg PO DAILY Qty: 30 0RF
metoprolol succinate 25 mg Tablet Extended Release 24 Hr
37.5 mg PO QPM Qty: 30 0RF
torsemide 40 mg tablet
40 mg PO BID AT 0800,1600 Qty: 60 0RF
Continued
aspirin 81 MG tablet,delayed release (DR/EC)
81 mg PO DAILY
oxycodone-acetaminophen 5-325 mg Tablet
1 tab PO Q8H
docusate sodium [Colace] 100 mg Capsule
100 mg PO BID
gabapentin 100 mg Capsule
100 mg PO BID
rosuvastatin 20 mg Tablet
20 mg PO QPM
insulin degludec [Tresiba FlexTouch U-200] 200 unit/mL (3 mL) Insulin Pen
18 unit SC DAILY
Relistor 150 mg Tablet
150 mg PO DAILY
bisacodyl 5 mg tablet,delayed release (DR/EC)
10 mg PO DAILY PRN (Reason: constipation)
pantoprazole [Protonix] 40 mg tablet,delayed release (DR/EC)
40 mg PO BID
melatonin 5 mg tablet
5 mg PO HS
levothyroxine [Synthroid] 300 mcg tablet
300 mcg PO DAILY Qty: 30 0RF
clopidogrel 75 MG tablet
75 mg PO DAILY Qty: 30 0RF
Discontinued
metoprolol succinate 50 mg Tablet Extended Release 24 Hr
25 mg PO QPM
potassium chloride 10 mEq tablet extended release
10 meq PO BID
Patient Comments:
02/10/2024, per spouse, this dose was recently changed from 10 meq daily to 10 meq BID on Saturday (02/07/2024).
furosemide 40 mg tablet
80 mg PO BID
Patient Comments:
02/10/2024, per spouse, this dose was recently changed from 80 mg daily to 80 mg BID on Saturday (02/07/2024).
Discharge Orders:
Discharge Patient (As Directed); Ordered 02/17/24
Ordered By: Jonathan Morgan
Discharge Date and Time
Print Language: UKRAINIAN
--- NOTE | 2024-03-09 09:26 | HFEDUCATE ---
Pt had F/U appt scheduled for 02/21/24 at 9:[address] Nette Cole.
== END 2024-02-17 15:36 | disposition home or self-care (01) | DRG 291 ==
LOC: 3 WEST ACU 17:27
PROVIDERS: Clinical Nurse Specialist Family Health; ADMITTING PHYSICIAN Hospitalist; ATTENDING PHYSICIAN Internal Medicine; CONSULT PHYSICIAN Internal Medicine Cardiovascular Disease; EMERGENCY PHYSICIAN Emergency Medicine; FAMILY PHYSICIAN Nurse Practitioner Family
PROC: 5A09357 Assistance with Respiratory Ventilation, Less than 24 Consecutive Hours, Continuous Positive Airway Pressure (ICD-10-PCS; 2024-02-16)
DX: I11.0 Hypertensive heart disease with heart failure (principal); I50.23 Acute on chronic systolic (congestive) heart failure; I47.20 Ventricular tachycardia, unspecified; Z68.41 Body mass index [BMI] 40.0-44.9, adult; E03.9 Hypothyroidism, unspecified; E11.43 Type 2 diabetes mellitus with diabetic autonomic (poly)neuropathy; E11.51 Type 2 diabetes mellitus with diabetic peripheral angiopathy without gangrene; E78.00 Pure hypercholesterolemia, unspecified; I25.10 Atherosclerotic heart disease of native coronary artery without angina pectoris; D64.9 Anemia, unspecified; K21.9 Gastro-esophageal reflux disease without esophagitis; I25.5 Ischemic cardiomyopathy; K64.9 Unspecified hemorrhoids; G47.00 Insomnia, unspecified; K76.0 Fatty (change of) liver, not elsewhere classified; G47.33 Obstructive sleep apnea (adult) (pediatric); M10.9 Gout, unspecified; F10.11 Alcohol abuse, in remission; K59.00 Constipation, unspecified; E87.6 Hypokalemia; E83.42 Hypomagnesemia; F41.9 Anxiety disorder, unspecified; E66.01 Morbid (severe) obesity due to excess calories; Z79.02 Long term (current) use of antithrombotics/antiplatelets; Z79.82 Long term (current) use of aspirin; Z86.74 Personal history of sudden cardiac arrest; Z95.1 Presence of aortocoronary bypass graft; Z87.11 Personal history of peptic ulcer disease; Z86.16 Personal history of COVID-19; Z87.19 Personal history of other diseases of the digestive system; Z88.1 Allergy status to other antibiotic agents; Z88.8 Allergy status to other drugs, medicaments and biological substances; Z87.891 Personal history of nicotine dependence; Z95.820 Peripheral vascular angioplasty status with implants and grafts; Z79.4 Long term (current) use of insulin; Z79.890 Hormone replacement therapy
CPT/HCPCS: 71046; 80048; 80053; 82962; 83735; 83880; 84484; 85025; 85027; 93005; 93307; 96374; 96376; 97116; 97163; 97166; 99285; Q9957

== ENCOUNTER 2024-02-19 13:53 | Outpatient (RCR) | payer OTHER, SELFPAY | END 2024-02-19 18:00 | disposition home or self-care (01) | LOC: RST 13:53 | PROVIDERS: ATTENDING PHYSICIAN Physical Medicine & Rehabilitation; FAMILY PHYSICIAN Nurse Practitioner Family | DX: I46.9 Cardiac arrest, cause unspecified (principal); N17.9 Acute kidney failure, unspecified; G93.1 Anoxic brain damage, not elsewhere classified; R41.841 Cognitive communication deficit; R41.89 Other symptoms and signs involving cognitive functions and awareness | CPT/HCPCS: 97110; 97129; 97130; 97164; 97168; 97535 ==

== ENCOUNTER 2024-02-20 20:12 | Inpatient (IN) | payer OTHER, SELFPAY ==
[2024-02-20] VITALS (21 sets, daily range): BP systolic 59–102; BP diastolic 17–63; BMI 42.3; BMI 41.6
[2024-02-20 15:36] LABS: % Basophils 0.3 % (0-2); % Eosinophils 3.2 % (0-6); % Immature Granulocytes 0.5 % (0-0.5); % Lymphocytes 19.5 % (20.5-51.1); % Monocytes 10.8 % (1.7-9.3); % Neutrophils 65.7 % (42.2-75.2); Absolute Eosinophils 0.3 10^3/uL (0-0.7); Absolute Immature Granulocytes 0.1 10^3/uL (0-0.05); Absolute Lymphocytes 1.8 10^3/uL (1.2-3.4); Absolute Neutrophils 6.2 10^3/uL (1.4-6.5); Hematocrit 30.4 % (39.0-52.0); Hemoglobin 9.6 g/dL (13.0-18.0); Mean Corp Hgb Conc. 31.6 g/dL (33.0-37.0); Mean Corpuscular Hgb 25.3 pg (27.0-31.0); Nucleated Red Blood Cells % 0 % (-); Platelet Count 212 10^3/uL (130-400); Red Cell Dist. Width 15.7 % (11.5-14.5); White Blood Cell Count 9.5 10^3/uL (4.8-10.8)
--- NOTE | 2024-02-20 15:36 | ED.GENMED ---
History of Present Illness
General
Chief Complaint: Blood Pressure Problem
Source: patient
Exam Limitations: none
Time Seen by Provider: 02/20/24 15:26
Nursing documentation reviewed up to this point in time: agreed with
Travel History
Have you had any contact with someone who has COVID-19?: No
Do you have any symptoms of coronavirus? Fever > 100 degrees, chills, cough, shortness of breath, sore throat, loss of taste or smell, muscle aches, or headache?: No
History of Present Illness
History of Present Illness:
Patient with history of congestive heart failure on torsemide, discharged in the hospital 3 days ago after being treated for acute CHF exacerbation, presents to ED secondary to increased generalized weakness along with low blood pressure noted at
home. Upon arrival, patient found to be hypotensive with blood pressure below 80 systolic. However, patient denies dizziness or chest pain. Denies nausea. Denies shortness of breath. Patient has had fluid restriction upon discharge from
hospital.
Past History
Past History
ED Past Medical History: CAD, CHF, GERD, HTN, Hypercholesterolemia, IDDM, Renal failure and Hypothyroidism
ED Past Surgical History: Cardiac (CABG, pericardial window)
Social History
Tobacco: Non-smoker
Alcohol: None
Drug: None
Personal:
Living: with family
Employment: Employed
Family History
Family History: CAD
Review of Systems
Review of Systems
Allergies reviewed?: Yes
All Other Systems: ROS reviewed and negative except as documented in HPI and ROS
Constitutional: Reports no symptoms
EENT: Reports no symptoms
Respiratory: Reports no symptoms
Cardiac: Reports no symptoms
ABD/GI: Reports no symptoms
: Reports no symptoms
Musculoskeletal: Reports no symptoms
Skin: Reports no symptoms
Neurological: Reports weakness
Phy Exam
Physical Exam
Physical Exam:
Physical Exam
General: no apparent distress, not acutely ill. afebrile. hypotensive
Head: nc/at. eomi
Neck: supple. no meningeal signs.
Heart: s1/s2 regular rate and rhythm, no murmur. equal radial pulses.
Lungs: no acute respiratory distress. clear bilaterally
Abdomen: normal bowel sounds. not tender.
Neuro: alert and oriented. no focal neurological deficits
Skin: no rash
Psychiatric: well kept. interactive and cooperative
Extremities: no edema. no calf tenderness.
Course
Orders/Labs/Results
Orders:
Orders
02/20/24 Dinner
Sodium, 4 Gram (VANI)
At Your Request: Full Participation
Does patient need a safe tray?: No
Fluid Restriction: 1800 mL/day (60 oz)
02/20/24 15:23
CMP [Comprehensive Metabolic Panel] Urgent
Complete Blood Count/With Diff Urgent
Magnesium Urgent
Comment: ADD
TSH Urgent
Comment: ADD
02/20/24 15:26
Electrocardiogram (*1) Urgent
Reason for Study: Fatigue / Weakness
02/20/24 15:27
EKG- Treatment ONCE
02/20/24 15:28
PT/INR [Prothrombin Time] Urgent
PTT Urgent
Troponin I Urgent
02/20/24 15:34
Add On- LAB Stat
Tests Added?: magnesium, TSH
02/20/24 15:35
0.9% Sodium Chloride 500 ml [Nss] 500 ml IV BOLUS
02/20/24 18:03
0.9% Sodium Chloride 250 ml [Nss] 250 ml IV BOLUS
02/20/24 19:15
Admit/Transfer Patient As Directed
Co-Sign Provider:
Level of Care: Inpatient admission
Assign to:: IMU- Intermediate Care
Physician / Group: [facility]/Hospitalist
Diagnosis: Prerenal Azotemia
Reason for Hospitalization: Prerenal Azotemia
Hypotension
Expected length of stay greater than two midnights?: Yes
ELOS- Estimated Length of Stay in days: 5
I certify the patient meets the requirements for IP care: Yes
02/20/24 19:18
Code Status As Directed
Resuscitation Status: Full Code
02/20/24 20:08
0.9% Sodium Chloride 1000 ml [Nss] 1,000 ml IV 40 mls/hr
02/20/24 20:55
Bisacodyl [Dulcolax] 10 mg PO DAILYPRN PRN
Docusate Sodium [Colace] 100 mg PO BID
Gabapentin [Neurontin] 100 mg PO BID
Heparin 5,000 units SC Q12
Pantoprazole [Protonix] 40 mg PO BID
02/20/24 20:55
Consult Cardiology [CARDIOLOGY CONSULT] Routine
Consulting Provider: Bayron Gardner
Was physician already notified: Yes
Consult Nephrology [NEPHROLOGY CONSULT] Routine
Consulting Provider: Arias Agudelo V.
Was physician already notified: Yes
Accucheck Once [Bedside Glucose Monitoring-ONCE] As Directed
Accucheck [Bedside Glucose Monitoring] As Directed
Frequency: AC&HS
Activity As Directed
Activity Level: Bedrest
Bathroom Privileges
With Assistance
Vital Signs As Directed
Frequency: Per unit guidelines
O2 Therapy [RESP] Routine
Nasal Cannula Liter Flow: 2 LPM
Titrate/Wean O2 to maintain O2 sat greater than (%): 92
DX Deep Vein Thrombosis Video Routine
02/20/24 22:00
Insulin Glargine Lantus [Lantus] 10 units Subcutaneous Insulin Syringe [Syringe-Insulin] 0 unit SC HS
Melatonin 5 mg PO HS
02/21/24 00:00
Oxycodone/Acetaminophen [Percocet 5/325] 1 tablet PO Q8
02/21/24 05:14
Basic Metabolic Panel IN AM
Complete Blood Count/No Diff IN AM
Magnesium IN AM
Troponin I IN AM
02/21/24 06:00
Levothyroxine [Synthroid] 300 mcg PO DAILY @ 0600
02/21/24 06:23
Urinalysis Reflex To Culture IN AM
Date Specimen was Collected: 02/21/24
Time Specimen was Collected: 06:19
02/21/24 07:30
Insulin Aspart Corrective Low [Novolog Flexpen-Low Resistance] See Protocol SC AC
02/21/24 08:00
Aspirin Low Dose EC [Aspir Low (Enteric Coated)] 81 mg PO DAILY
Clopidogrel Bisulfate [Plavix] 75 mg PO DAILY
methylnaltrexone [Relistor] See Dose Instructions PO DAILY
02/21/24 18:00
Metoprolol Xl [Toprol Xl] 37.5 mg PO QPM
Rosuvastatin Calcium [Crestor] 20 mg PO QPM
Abnormal Lab Results
02/20/24 02/20/24
15:23 15:28
RBC 3.80 L 10^6/uL
(4.70-6.10)
Hgb 9.6 L g/dL
(13.0-18.0)
Hct 30.4 L %
(39.0-52.0)
MCH 25.3 L pg
(27.0-31.0)
MCHC 31.6 L g/dL
(33.0-37.0)
RDW 15.7 H %
(11.5-14.5)
MPV 11.0 H fL
(7.4-10.4)
Abs Immat Gran (auto) 0.1 H 10^3/uL
(0-0.05)
Absolute Monos (auto) 1.0 H 10^3/uL
(0.1-0.6)
Lymphocytes % 19.5 L %
(20.5-51.1)
Monocytes % 10.8 H %
(1.7-9.3)
PT 14.7 H Sec
(11.4-14.6)
Sodium 132 L mmol/L
(135-145)
Potassium 3.4 L mmol/L
(3.5-5.1)
Chloride 90 L mmol/L
(98-107)
Carbon Dioxide 33 H mmol/L
(22-30)
BUN 53 H mg/dl
(9-20)
Creatinine 2.1 H mg/dL
(0.7-1.3)
Glucose 162 H mg/dl
(70-99)
TSH < 0.02 L uIU/ml
(0.47-4.68)
02/20/24 15:23
02/20/24 15:23
Vital Signs
Initial and Last Documented VS:
Initial Vital Signs
Temp Pulse Resp BP Pulse Ox
99.4 F 89 16 97/55 93
02/20/24 14:36 02/20/24 14:36 02/20/24 14:36 02/20/24 14:36 02/20/24 14:36
Last Documented Vital Signs
Temp Pulse Resp BP Pulse Ox
98.6 F 73 16 99/60 95
02/21/24 07:42 02/21/24 03:45 02/21/24 03:45 02/21/24 03:00 02/21/24 03:45
MDM/Problems Addressed
MDM/Problems Addressed:
Initial hypotension mildly improved with IV fluid administration in ED. Blood work concerning for acute renal failure, likely secondary to potential overdiuresis. Patient will be admitted for further evaluation and treatment.
Pt remains persistently hypotensive, although with normal mental mentation without any acute distress. May need to start presser support
*Critical Care Note
Total Time (30-74mins, 75-104mins- exclusive of procedures): Not Applicable
ED Attending Note
-
Portions of this chart may have been created with voice recognition software.� Occasional wrong word or��sound alike� substitutions may have occurred due to the inherent limitations of voice recognition software.
Discharge Plan
Departure
Patient Disposition: Admit
Date of Disposition: 02/20/24
Time of Disposition: 17:55
Admit to: Telemetry
Presentation/result/management discussed w/ accepting MD/DO: Hospitalist
Discharge Problem:
Hypotension, Acute renal failure (ARF)
Interventions
Interventions:
*Risk Screen - Suicide Last Done: 02/20/24 14:36
*General Assessment Last Done: 02/20/24 14:36
*Neglect/Abuse Screening Last Done: 02/20/24 14:36
ED- Fall Risk Assessment Last Done: 02/20/24 15:10
*ED COVID-19 Vaccine History Last Done: 02/20/24 14:36
*Nursing Disposition Last Done: 02/20/24 20:58
ED- Cardiac Assessment Last Done: 02/20/24 15:10
ED- Neurological Assessment Last Done: 02/20/24 15:10
ED- Pulmonary Assessment Last Done: 02/20/24 15:10
Discharge Date and Time
Discharge Date/Time: 02/20/24 20:58
[2024-02-20] MEDS: NSS 500 IV (15:38)
[2024-02-20 15:47] LABS: INR 1.15; PT 14.7 Sec (11.4-14.6)
[2024-02-20 15:48] LABS: APTT 28.8 Sec (23.4-35.0)
[2024-02-20 15:57] LABS: ALT (SGPT) 11 U/L (0-50); AST (SGOT) 22 U/L (17-59); Albumin 4.5 g/dl (3.5-5.0); Alkaline Phosphatase 50 U/L (38-126); Blood Urea Nitrogen 53 mg/dl (9-20); Calcium 9.7 mg/dl (8.4-10.2); Carbon Dioxide 33 mmol/L (22-30); Chloride 90 mmol/L (98-107); Estimated Creatinine Clearance 46 ml/min; Glucose 162 mg/dl (70-99); Potassium 3.4 mmol/L (3.5-5.1); Sodium 132 mmol/L (135-145); Total Bilirubin 0.8 mg/dl (0.2-1.3); Total Protein 7.2 g/dl (6.3-8.2); eGFR 35.15
[2024-02-20 16:09] LABS: Troponin I 0.028 ng/ml
[2024-02-20 16:23] LABS: Magnesium 1.6 mg/dl (1.6-2.3)
[2024-02-20 16:59] LABS: TSH < 0.02 uIU/ml (0.47-4.68)
[2024-02-20] MEDS: NSS 250 IV (18:06)
--- NOTE | 2024-02-20 19:23 | W.PN.HOSP.TC ---
Today's Communication/Plan
-
gentle IVF
admit IMU
Assessment / Plan
Assessment / Plan
Prerenal azotemia
Pt received 750 cc IVF, will continue IVF supplement at very cautious, low rate. Hold diuretics. Discussed with Dr Gardner
Ischemic Cardiomyopathy
HFrEF, Echo 02/11 EF 35-40%. s/p biventricular AICD implantation
Hx of dialysis dependent
no longer on dialysis, will consult Dr. Agudelo
Hypokalemia
cautious supplementation
Hyponatremia
IDDM
Hx of Cardiac Arrest
s/p left hallux amputation
P:IVF
hold diuretics
Cardio and Nephro consults
full code
Anticipated Discharge: > 48 hours
Subjective/Interval History
-
Date of Service: February 20, 2024
Denies dizziness, no chest pain
Objective Data
-
Labs:
Laboratory Results
02/20/24 02/20/24
15:23 15:28
WBC 9.5
Hgb 9.6 L
Hct 30.4 L
Plt Count 212
PT 14.7 H
INR 1.15
APTT 28.8
Sodium 132 L
Potassium 3.4 L
Chloride 90 L
Carbon Dioxide 33 H
BUN 53 H
Creatinine 2.1 H
Glucose 162 H
Calcium 9.7
Total Bilirubin 0.8
AST 22
ALT 11
Alkaline Phosphatase 50
Vital Signs:
Vital Signs
Temp Pulse Resp BP Pulse Ox
99.4 F 78 10 90/55 93
02/20/24 14:36 02/20/24 19:00 02/20/24 16:30 02/20/24 19:00 02/20/24 19:00
Review of Systems
-
History Source: Patient and Family ( at bedside)
Constitutional: Denies Fever
Respiratory: Reports No Symptoms; Denies Cough or Trouble Breathing
Cardiac: Reports No Symptoms; Denies Chest Pain
Genitourinary: Reports No Symptoms
Musculoskeletal: Reports No Symptoms; Denies Joint Pain
Neuro: Denies Dizzy or Headache
Physical Exam
-
General: Well Developed, Well Nourished and No Apparent Distress
HEENT: Normocephalic, Atraumatic and Moist Mucous Membranes
Respiratory: Clear to Auscultation; Negative Wheezes, Rales or Rhonchi
Cardiac: Regular Rhythm and S1/S2
GI: Soft, Nontender and Nondistended
Musculoskeletal: No Clubbing, No Cyanosis and No Edema
[2024-02-20] MEDS: NSS 1000 IV (20:12)
[2024-02-20] MEDS: KCL 20 MEQ PO (20:43)
--- NOTE | 2024-02-20 21:24 | PTCARENOTE ---
no delay received. aaox3. v paced. vss. bp 93/63. nss @ 40cc/hr. pt updated on plan of care. call gonzalez within reach. will monitor.
[2024-02-20 22:17] LABS: Glucose - Point of Care 142 mg/dl (70-99)
[2024-02-20] MEDS: COLACE 100 MG PO (22:20)
[2024-02-20] MEDS: MELATONIN 5 MG PO (22:20)
[2024-02-20] MEDS: NEURONTIN 100 MG PO (22:21)
[2024-02-20] MEDS: PROTONIX 40 MG PO (22:21)
[2024-02-20] MEDS: LANTUS 0.100000000000000006 UNITS SC (22:21)
[2024-02-20] MEDS: PERCOCET 5/325 1 TABLET PO (23:16)
[2024-02-21] VITALS (23 sets, daily range): BP systolic 78–112; BP diastolic 48–75; BMI 41.5
--- NOTE | 2024-02-21 | PTCARENOTE ---
pulse ox decreased to 85% while sleeping w/ cpap. 4lc nc applied. pulse ox >92% at this time.
[2024-02-21] MEDS: SYNTHROID 300 MCG PO (05:16)
[2024-02-21 05:29] LABS: Hematocrit 27.9 % (39.0-52.0); Hemoglobin 8.7 g/dL (13.0-18.0); Mean Corp Hgb Conc. 31.2 g/dL (33.0-37.0); Mean Corpuscular Hgb 25.1 pg (27.0-31.0); Mean Corpuscular Volume 80.6 fL (80.0-94.0); Mean Platelet Volume 11.2 fL (7.4-10.4); Platelet Count 172 10^3/uL (130-400); Red Blood Cell Count 3.46 10^6/uL (4.70-6.10); Red Cell Dist. Width 15.7 % (11.5-14.5); White Blood Cell Count 8.3 10^3/uL (4.8-10.8)
[2024-02-21 05:57] LABS: Blood Urea Nitrogen 53 mg/dl (9-20); Calcium 9.4 mg/dl (8.4-10.2); Carbon Dioxide 31 mmol/L (22-30); Chloride 95 mmol/L (98-107); Estimated Creatinine Clearance 48 ml/min; Glucose 111 mg/dl (70-99); Magnesium 1.7 mg/dl (1.6-2.3); Potassium 3.3 mmol/L (3.5-5.1); Sodium 136 mmol/L (135-145); eGFR 37.27
--- NOTE | 2024-02-21 06:05 | RESPNOTE ---
PT has his own home CPAP present in the room and the waiver was signed and scanned. PT is now requiring oxygen @ 4L (36%) and an O2 adapter was added to his BIPAP circuit. Vital are stable and PT is resting comfortably on his CPAP, will continue
to monitor resp status.
[2024-02-21 06:33] LABS: Troponin I 0.036 ng/ml
--- NOTE | 2024-02-21 06:33 | PTCARENOTE ---
pt ambulated from bed to chair w/ assistance. no complaints. vss. o2 decreased to 2lnc. Will monitor.
[2024-02-21 06:36] LABS: Urine Albumin Negative (Neg - Trace); Urine Bilirubin Negative (Negative); Urine Character Clear (Clear); Urine Color Yellow; Urine Glucose Negative (Negative); Urine Ketone Negative (Negative); Urine Leukocyte 1+ (Negative); Urine Nitrite Negative (Negative); Urine Occult Blood Negative (Negative); Urine Urobilinogen Negative (Neg - 1+)
[2024-02-21 06:49] LABS: Urine Bacteria Few (Negative); Urine Red Blood Cell 0-2 /HPF (0-2)
[2024-02-21 07:28] LABS: Glucose - Point of Care 136 mg/dl (70-99)
[2024-02-21] MEDS: NOVOLOG FLEXPEN-LOW RESISTANCE SC ×2 (08:47→18:26)
[2024-02-21] MEDS: PLAVIX 75 MG PO (08:49)
[2024-02-21] MEDS: ASPIR LOW (ENTERIC COATED) 81 MG PO (08:49)
[2024-02-21] MEDS: PERCOCET 5/325 1 TABLET PO ×3 (08:49→22:49)
[2024-02-21] MEDS: PROTONIX 40 MG PO ×2 (08:50→21:12)
[2024-02-21] MEDS: COLACE 100 MG PO ×2 (08:50→21:12)
[2024-02-21] MEDS: NEURONTIN 100 MG PO ×2 (08:50→21:12)
[2024-02-21] MEDS: NON-FORMULARY ITEM 150 MG PO (08:53)
--- NOTE | 2024-02-21 09:35 | CON.CAR ---
Addendum entered and electronically signed by Elmira Vick MD 02/21/24 14:56:
I saw and examined the patient.
The COMMUNICATION MANAGER's note was reviewed and I agree with the note.
Comment: 63 yo male (well known to Dr. Yadav) with a complex cardiac history including, CAD s/p CABG 2017, history PCI, pericarditis/recurrent pericardial effusion/pericardial window 2016, ischemic cardiomyopathy 30-35%, CKD3 (Dr. Agudelo, AMILCAR
required HD 11/2023), MDT BiVICD 2018, PAD with b/l iliac stents 10/2023 and left CSF endarterectomy, left SALON/SPA MANAGER to tibio peroneal trunk bypass and sartorius flat 10/2023, DM, neuropathy, elevated LFT, hyponatremia, ETOH abuse and obesity presents with
hypotension, fatigue and his report being 'slurry'. He is feeling better now. On exam he is clear to auscultation b.l, rrr, legs with 1+ pitting edema bl. Assessment: Acute Kidney Injury in the setting of new GDMT and diuresis. Will hold and
a resume as able. Meanwhile continue DAPT. Nonischemic myocardial injury in the setting of hypotension.
Will follow .
Original Note:
Consultation
Consultation Request
Date/Time Consultation Requested: 02/20/24 9p
Date/Time Consultation Performed: 02/21/24 9:30a
Requesting Provider: Dr. Estrada
Performing Provider: MARQUIS Paulino for Dr. Vick
Reason for Consultation: weakness/hypotension
Medical History
-
Chief Complaint: weakness and hypotension
History of Present Illness:
Mr. Rodriguez is a 63 yo male (well known to Dr. Yadav) with a complex cardiac history including, CAD s/p CABG 2017, history PCI, pericarditis/recurrent pericardial effusion/pericardial window 2016, ischemic cardiomyopathy 30-35%, CKD3 (Dr. Agudelo,
AMILCAR required HD 11/2023), MDT BiVICD 2018, PAD with b/l iliac stents 10/2023 and left CSF endarterectomy, left SALON/SPA MANAGER to tibio peroneal trunk bypass and sartorius flat 10/2023, DM, neuropathy, elevated LFT, hyponatremia, ETOH abuse and obesity who
presented with complaints of weakness and hypotension at home. He was discharged from 02/17/24, admitted for HFrEF exacerbation and GDMT was re-initiated at discharge. Now noted to have creatinine 2.1 on admit. He states low bp at home, 76/53.
Past Medical History
Past Medical History: Other (as above)
Past Surgical History: Other (as above)
Social History
Tobacco: Former Smoker
Alcohol: Former
Living: With Family
Family History
Family History: Reviewed & Not Pertinent
Allergies / Home Medications
Allergy/AdvReac Type Severity Reaction Status Date / Time
clarithromycin [From Biaxin] Allergy Rash Verified 02/10/24 13:17
doxycycline Allergy severe Verified 02/10/24 13:17
diarrhea
and
vomiting
lisinopril Allergy Itching/jeronimo Verified 02/10/24 13:17
h
pregabalin [From Lyrica] Allergy Hives Verified 02/10/24 13:17
�Medication �Instructions �Recorded �Confirmed �Type
aspirin 81 mg tablet,delayed 81 mg PO DAILY Blood clot 03/08/17 02/20/24 History
release prevention/tx
clopidogrel 75 mg tablet 75 mg PO DAILY Blood clot 12/16/23 02/20/24 Rx
prevention/tx #30 tabs
levothyroxine 300 mcg tablet 300 mcg PO DAILY Thyroid #30 tabs 12/16/23 02/20/24 Rx
(Synthroid)
bisacodyl 5 mg tablet,delayed 10 mg PO DAILY PRN constipation 02/10/24 02/20/24 History
release
docusate sodium 100 mg capsule 100 mg PO BID Constipation 02/10/24 02/20/24 History
(Colace)
gabapentin 100 mg capsule 100 mg PO BID Pain 02/10/24 02/20/24 History
insulin degludec 200 unit/mL (3 18 unit SC DAILY Diabetes 02/10/24 02/20/24 History
mL) subcutaneous pen (Tresiba
FlexTouch U-200 insulin)
melatonin 5 mg tablet 5 mg PO HS Sleep 02/10/24 02/20/24 History
methylnaltrexone 150 mg tablet 150 mg PO DAILY constipation 02/10/24 02/20/24 History
(Relistor)
oxycodone-acetaminophen 5 mg-325 1 tab PO Q8H pain 02/10/24 02/20/24 History
mg tablet
pantoprazole 40 mg tablet,delayed 40 mg PO BID Gastrointestinal Issue 02/10/24 02/20/24 History
release (Protonix)
rosuvastatin 20 mg tablet 20 mg PO QPM High Cholesterol 02/10/24 02/20/24 History
metoprolol succinate 25 mg 37.5 mg (1.5 x 25 mg) PO QPM #30 02/17/24 02/20/24 Rx
tablet,extended release 24 hr tabs
spironolactone 25 mg tablet 25 mg PO DAILY #30 tabs 02/17/24 02/20/24 Rx
valsartan 40 mg tablet 20 mg (1/2 x 40 mg) PO BID #60 tabs 02/17/24 02/20/24 Rx
empagliflozin 25 mg tablet 25 mg PO DAILY Diabetes 02/20/24 02/20/24 History
(Jardiance)
torsemide 20 mg tablet 40 mg PO BID Fluid 02/20/24 02/20/24 History
Retention/Swelling
Review of Systems
-
History Source: Patient
All other systems: Negative unless noted
Physical Exam
Vital Signs
Temp Pulse Resp BP Pulse Ox
98.6 F 73 16 99/60 95
02/21/24 07:42 02/21/24 03:45 02/21/24 03:45 02/21/24 03:00 02/21/24 03:45
Lab Results
02/21/24 05:14
02/21/24 05:14
Troponin I 0.036 ng/ml H* 02/21/24 05:14
Physical Exam
General: Well Developed, No Apparent Distress and Other (obese)
HEENT: Normocephalic and Moist Mucous Membranes
Respiratory: Clear
Cardiac: S1/S2 and Regular Rhythm
Breast: Deferred by me
GI: Soft, Non Distended and Normal Bowel Sounds
Rectal: Deferred by Provider
Genito-urinary: No Costovertebral Tender
Musculoskeletal: No Clubbing, No Cyanosis and No Edema
Skin: Warm and Dry
Neuro: AO x 3
Hematologic/Lymphatic: No Lymphadenopathy
Psych: Calm
Impression / Plan
-
63 yo male (well known to Dr. Yadav) with a complex cardiac history including, CAD, CABG, history PCI, pericarditis/recurrent pericardial effusion/pericardial window, ischemic cardiomyopathy, BiVICD, PAD, right lower extremity revascularization
surgery, DM, neuropathy, elevated LFT, Hyponatremia, ETOH abuse and obesity who presented complaints lightheadedness and hypotension at home.
Hypotension - acute.
- symptomatic with lightheadedness.
- gentle IVF and holding meds.
AMILCAR - acute.
- creatinine 2.1 on admit, now 2.0 after IVF.
- holding meds and monitor.
ICM/HFrEF (30-35%) - chronic.
- not overloaded on exam, hypotensive with likely overdiuresis.
- just d/c 02/17/24 with IV diuresis.
CAD - s/p CABG 2016.
- no angina.
CKD - acute AMILCAR now.
- followed Dr. Agudelo.
- had AMILCAR requiring HD Nov 2023, no longer on HD.
MDT BiV ICD implanted 08/03/2019 - stable with normal function.
PAD - chronic, stable.
- b/l iliac stents 10/2023 and left CSF endarterectomy, left SALON/SPA MANAGER to tibio peroneal trunk bypass and sartorius flat 10/2023.
- s/p endovascular procedure, primary repair of left brachial artery 10/18/2023.
History of pericarditis/recurrent pericardial effusion and pericardial window (2016). No pericardial effusion on echo 02/12/2024.
Type II DM - stable, controlled.
- Hgba1c 5.5% 09/2023.
Obesity - BMI 42, he would benefit from weight loss.
History of alcohol use.
Data Reviewed
-
EKG: Tracing Personally Visualized and interpreted (V paced with PVCs)
Medical Tests (Nuc Med, Echo etc): Report Reviewed by me (echo 02/12/24: 35-40%, stage III DD, global hypokinesis, PASP 54 mmHg. )
Labs: Labs Reviewed by me
Old Records: Reviewed
[2024-02-21 11:49] LABS: Glucose - Point of Care 251 mg/dl (70-99)
[2024-02-21] MEDS: KLOR-CON 20 MEQ PO (11:57)
[2024-02-21] MEDS: NOVOLOG FLEXPEN-LOW RESISTANCE 3 UNITS SC (13:21)
--- NOTE | 2024-02-21 13:22 | W.CON.NEPH ---
Consultation
-
Date/Time Consultation Requested: 02/20/242054
Date/Time Consultation Performed: 02/21/24 1300
Requesting Provider: Paul Yadav
Performing Provider: Heather Hoyt
Reason for Consultation: AMILCAR
Medical History
-
Chief Complaint: hypotension
History of Present Illness:
63 yo male (well known to Dr. Yadav) with a complex cardiac history including, CAD s/p CABG 2016, history PCI, pericarditis/recurrent pericardial effusion/pericardial window 2015, ischemic cardiomyopathy 30-35%, CKD3 (Dr. Agudelo, AMILCAR required HD
11/[address] Agudelo), MDT BiVICD 2018, PAD with b/l iliac stents 10/2023 and left CSF endarterectomy, left GAS CHARGER to tibio peroneal trunk bypass and sartorius flat 10/2023, IDDM, neuropathy, elevated LFT, hyponatremia, ETOH abuse and obesity who
was recently d/c from after treating CHF flare on 02/16. At d/c his meds were adjusted Torsemide, Aldactone and Valsartan were added. He noted to gen weakness and hypotension and presented to yesterday. His cr 2.1 form baseline 1. He now on
gentle IVF with NS. He noted to have more LE edema today, denies any sob or cp. No other compalints.
Past Medical History
September with PEA arrest 11/03/2023,- needing intubation
AMILCAR sepsis needing dialysis
Ischemic left lower limb requiring stent, angioplasty and wound VAC 10/21/2023 with removal December 2023, MSSA bacteremia with Enterococcus faecalis /MSSA thigh wound
Chronic systolic CHF
CAD/CABG
pericardial window
GERD/GI bleed/peptic ulcer disease requiring clipping, hemorrhoids
gastroparesis(new Dx 01/22/2024)
Alcohol abuse
Hepatic steatosis
COVID-19 infection October 2023
HTN
HLD
DM2/diabetic neuropathy
hypothyroidism
chronic normocytic anemia
epistaxis secondary to heparin, Plavix October 2023
insomnia
anxiety
morbid obesity
TRISTA/CPAP gout
Past Surgical History: Other (CABG Ischemic left lower limb requiring stent, angioplasty and wound VAC 10/21/2023, MSSA bacteremia with Enterococcus faecalis /MSSA thigh wound MDT BiV ICD implant 08/03/2019 Left femoral endarterectomy, left GAS CHARGER to TP
trunk and bypass of sartorius flap 10/21/23 Bilat iliac stents 10/18/2023 PAD s/p )
Social History
Tobacco: Former Smoker
Alcohol: Daily
Personal:
Living: With Family
Employment: Disabled
Family History
CAD
Allergies / Home Medications
Allergy/AdvReac Type Severity Reaction Status Date / Time
clarithromycin [From Biaxin] Allergy Rash Verified 02/10/24 13:17
doxycycline Allergy severe Verified 02/10/24 13:17
diarrhea
and
vomiting
lisinopril Allergy Itching/jeronimo Verified 02/10/24 13:17
h
pregabalin [From Lyrica] Allergy Hives Verified 02/10/24 13:17
�Medication �Instructions �Recorded �Confirmed �Type
aspirin 81 mg tablet,delayed 81 mg PO DAILY Blood clot 03/08/17 02/20/24 History
release prevention/tx
clopidogrel 75 mg tablet 75 mg PO DAILY Blood clot 12/16/23 02/20/24 Rx
prevention/tx #30 tabs
levothyroxine 300 mcg tablet 300 mcg PO DAILY Thyroid #30 tabs 12/16/23 02/20/24 Rx
(Synthroid)
bisacodyl 5 mg tablet,delayed 10 mg PO DAILY PRN constipation 02/10/24 02/20/24 History
release
docusate sodium 100 mg capsule 100 mg PO BID Constipation 02/10/24 02/20/24 History
(Colace)
gabapentin 100 mg capsule 100 mg PO BID Pain 02/10/24 02/20/24 History
insulin degludec 200 unit/mL (3 18 unit SC DAILY Diabetes 02/10/24 02/20/24 History
mL) subcutaneous pen (Tresiba
FlexTouch U-200 insulin)
melatonin 5 mg tablet 5 mg PO HS Sleep 02/10/24 02/20/24 History
methylnaltrexone 150 mg tablet 150 mg PO DAILY constipation 02/10/24 02/20/24 History
(Relistor)
oxycodone-acetaminophen 5 mg-325 1 tab PO Q8H pain 02/10/24 02/20/24 History
mg tablet
pantoprazole 40 mg tablet,delayed 40 mg PO BID Gastrointestinal Issue 02/10/24 02/20/24 History
release (Protonix)
rosuvastatin 20 mg tablet 20 mg PO QPM High Cholesterol 02/10/24 02/20/24 History
metoprolol succinate 25 mg 37.5 mg (1.5 x 25 mg) PO QPM #30 02/17/24 02/20/24 Rx
tablet,extended release 24 hr tabs
spironolactone 25 mg tablet 25 mg PO DAILY #30 tabs 02/17/24 02/20/24 Rx
valsartan 40 mg tablet 20 mg (1/2 x 40 mg) PO BID #60 tabs 02/17/24 02/20/24 Rx
empagliflozin 25 mg tablet 25 mg PO DAILY Diabetes 02/20/24 02/20/24 History
(Jardiance)
torsemide 20 mg tablet 40 mg PO BID Fluid 02/20/24 02/20/24 History
Retention/Swelling
Review of Systems
-
all complete 12 point ROS have been inquired and found negative other than stated in HPI
Physical Exam
Vital Signs
Vital Signs
Temp Pulse Resp BP Pulse Ox
98.4 F 73 16 99/60 95
02/21/24 11:46 02/21/24 03:45 02/21/24 03:45 02/21/24 03:00 02/21/24 03:45
Lab Results
WBC 8.3 10^3/uL (4.8-10.8) 02/21/24 05:14
RBC 3.46 10^6/uL (4.70-6.10) L 02/21/24 05:14
Hgb 8.7 g/dL (13.0-18.0) L 02/21/24 05:14
Hct 27.9 % (39.0-52.0) L 02/21/24 05:14
Plt Count 172 10^3/uL (130-400) 02/21/24 05:14
Sodium 136 mmol/L (135-145) 02/21/24 05:14
Potassium 3.3 mmol/L (3.5-5.1) L 02/21/24 05:14
Chloride 95 mmol/L (98-107) L 02/21/24 05:14
Carbon Dioxide 31 mmol/L (22-30) H 02/21/24 05:14
BUN 53 mg/dl (9-20) H 02/21/24 05:14
Creatinine 2.0 mg/dL (0.7-1.3) H 02/21/24 05:14
eGFR 37.27 02/21/24 05:14
Glucose 111 mg/dl (70-99) H 02/21/24 05:14
Calcium 9.4 mg/dl (8.4-10.2) 02/21/24 05:14
Albumin 4.5 g/dl (3.5-5.0) 02/20/24 15:23
US 02/10/24
TECHNIQUE: Upper abdominal ultrasound examination.
COMPARISON: 08/01/2020.
FINDINGS:
Liver: Slightly coarse hypoechoic echotexture with diminished sound through transmission, suggesting fibrofatty changes.
Spleen: Enlarged, 14.6 x 5.7 x 14.5 cm.
Gallbladder: No gallstones identified. Mild gallbladder wall thickening, which appears to progress towards the fundal region, associated with an 8 mm hypoechoic region associated with the fundal wall. This could represent focal adenomyosis. Negative
sonographic Robison sign.
Common bile duct: Normal, 4 mm.
Pancreas: Unremarkable sonographic appearance of the pancreas. However, superior to the pancreatic neck region, there is a hypoechoic mass measuring 3 x 1.4 x 2.1 cm, likely mild adenopathy.
Kidneys: No hydronephrosis. Superimposed on the lower pole cortex of left kidney is a 1.3 cm no shadowing echogenic focus. This could represent a small echogenic mass or focal cortical scarring occupied by a perinephric fat.
IVC/aorta: Unremarkable
Ascites: Minimal perihepatic ascites and Morison's pouch.
IMPRESSION:
Splenomegaly has increased slightly.
Hepatic sonographic features suggesting diffuse fibrofatty changes.
Progressive gallbladder wall thickening extending towards the fundal region associated with 8 mm hypoechoic region, as described. This could represent progressive focal adenomyosis.
Findings suggest mild rizwana hepatis adenopathy.
Minimal ascites.
1.3 cm nonshadowing echogenic focus associated with lower pole cortex of left kidney, possibly echogenic mass or focal cortical scarring occupied by perinephric fat.
Recommend further evaluation/follow-up CT.
In accordance with Act 112, known as the Patient Test Results Information Act, a letter will be sent to the patient which notifies the patient that a significant abnormality may exist. The letter will be sent within approximately 20 days of the
date the results were sent to the ordering health care practitioner.
Physical Exam
General: Awake, Alert, Oriented and AOx3
HEENT: EOMI and Anicteric
Respiratory: Clear
Cardiac: S1/S2 and Regular Rate/Rhythm
Abdomen: Soft, Nontender and Nondistended
Musculoskeletal: Edema (2+chronic)
Skin: No Rash
Neuro: Nonfocal/Grossly Intact
Psych: Mood/afflect pleasant, Insight/judgement good and Appropriate
Assessment/Plan
-
IMP:
AMILCAR-baseline cr 1,
h/o AMILCAR with HD in 11/2023
Hypotension
History of alcohol use.
Ischemic Cardiomyopathy s/p CABG 2016
HFrEF, Echo 02/11 EF 35-40%.
s/p biventricular AICD implantation
Hypokalemia
Hyponatremia
Chr anemia
IDDM
Hx of Cardiac Arrest
s/p left hallux amputation
PAD
- b/l iliac stents 10/2023 and left CSF endarterectomy, left GAS CHARGER to tibio peroneal trunk bypass and sartorius flat 10/2023.
- s/p endovascular procedure, primary repair of left brachial artery 10/18/2023.
Obesity
History of pericarditis/recurrent pericardial effusion and pericardial window (2015). No pericardial effusion on echo 02/12/2024.
Obstructive sleep apnea
Diabetic neuropathy
Hyperlipidemia
Hypothyroidism
Hepatic steatosis
GERD
Insomnia
Anxiety
Gout
Plan:
REcent d/c after treating acute CHF and med uptitrated Aldactone, ARB on d/c 02/16
returns with hypotension
AMILCAR-suspect prerenal and med effect , UA relatively bland, non oliguric, check Fena
recent US abd shows left kidney 1.3echogenic focus-mass vs scarring need CT at later time
follow bladder scan
holding all diuretics, Jardiance and ARB
BP remains soft, d/c IVF since increasing edema
may add midodrine prn
reaplce k
chr anemia, follow h/h
labs in am
d/w pt and
Data Reviewed
-
Radiology: Report Reviewed by me
Labs: Labs Reviewed by me, Discussed with Patient and Discussed with Family
--- NOTE | 2024-02-21 13:31 | CM ---
Patient seen at bedside. Patient states that he lives with his in a 2 story home with a first floor set up. Patient has no DME at home and 2 steps to enter. Patient again declined VN and requested Outpatient PT/OT/Speech and wound care center
referral. Patient has worked with [facility] in the past as well as Pharmacy with [facility] in [place]. Patient PCP is Shellie Honeycutt. Patient indicated that he did not need anything other than outpatient therapy. CM will continue to follow
for discharge planning needs.
Plan; home with outpatient therapy prescription.
--- NOTE | 2024-02-21 14:15 | W.PN.HOSP.TC ---
Today's Communication/Plan
-
see outlined plan
Assessment / Plan
Assessment / Plan
Assessment:
AMILCAR, likely pre-renal
h/o AMILCAR with HD in 11/2023
- Likely related to hypotension from overdiuresis, meds (pre-renal)
- check FENA
- hold all nephrotoxins such as lasix, ARB, Jardiance
- cap IVF to prevent overload. can use Prn Midodrine for BP support
- follow bladder scans
- recent US abd shows left kidney 1.3echogenic focus-mass vs scarring - may need CT at a later time
- follow daily BMP
ICM/HFrEF (30-35%) - chronic.
HX of CABG
s/p biventricular AICD implantation
- continue ASA/Plavix/Statin
- monitor non-AK trop elevation, no chest pain currently
History of alcohol use.
Hypokalemia
- replete prn cautiously
Hyponatremia
- Na improved
Chr anemia
- follow Hb
IDDM
Diabetic neuropathy
- continue Lantus
- continue SSI
- continue Gabapentin
Hx of Cardiac Arrest
s/p left hallux amputation
PAD
- b/l iliac stents 10/2023 and left CSF endarterectomy, left SOFTWARE PROJECT MANAGER to tibio peroneal trunk bypass and sartorius flat 10/2023.
- s/p endovascular procedure, primary repair of left brachial artery 10/18/2023.
Obesity d/t excess calores
- affects all aspects of care
- encourage weight reduction
History of pericarditis/recurrent pericardial effusion and pericardial window (2016). No pericardial effusion on echo 02/12/2024.
Obstructive sleep apnea
Diabetic neuropathy
Hyperlipidemia
Hypothyroidism
- continue replacement
Hepatic steatosis
GERD - PPI
Insomnia
Anxiety
Gout
DVT ppx: SC Heparin
Code: Full
Anticipated Discharge: > 48 hours
Subjective/Interval History
-
Date of Service: February 21, 2024
no cp or Sob
Objective Data
-
Labs:
Laboratory Results
02/21/24
05:14
WBC 8.3
Hgb 8.7 L
Hct 27.9 L
Plt Count 172
Sodium 136
Potassium 3.3 L
Chloride 95 L
Carbon Dioxide 31 H
BUN 53 H
Creatinine 2.0 H
Glucose 111 H
Calcium 9.4
Vital Signs:
Vital Signs
Temp Pulse Resp BP Pulse Ox
98.4 F 73 16 99/60 95
02/21/24 11:46 02/21/24 03:45 02/21/24 03:45 02/21/24 03:00 02/21/24 03:45
I&O
02/20/24 02/21/24 02/22/24
06:59 06:59 06:59
Intake Total 600 / 600
Output Total 800 / 800
Balance -200 / -200
Physical Exam
-
General: No Apparent Distress
HEENT: Normocephalic and Atraumatic
Respiratory: Clear to Auscultation
Cardiac: Regular Rhythm and S1/S2
Musculoskeletal: Edema, Right Lower Extrem and Edema, Left Lower Extrem
Neuro: AO x 3
Psych: Calm
Data Reviewed
-
Total Time Spent with Patient (in minutes): 47
Labs: Labs Reviewed by me
[2024-02-21] MEDS: ProAmatine 5 MG PO (16:37)
[2024-02-21 17:42] LABS: Glucose - Point of Care 143 mg/dl (70-99)
[2024-02-21] MEDS: CRESTOR 20 MG PO (18:27)
[2024-02-21] MEDS: TOPROL XL 37.5 MG PO (18:27)
[2024-02-21 20:40] LABS: Urine Sodium 20 mmol/L (30-90)
[2024-02-21] MEDS: MELATONIN 5 MG PO (21:12)
[2024-02-21 21:57] LABS: Glucose - Point of Care 184 mg/dl (70-99)
[2024-02-21] MEDS: LANTUS 0.100000000000000006 UNITS SC (22:11)
[2024-02-22] VITALS (25 sets, daily range): BP systolic 85–113; BP diastolic 45–77; BMI 41.8
[2024-02-22] MEDS: ProAmatine 5 MG PO ×2 (00:13→09:17)
--- NOTE | 2024-02-22 04:44 | PTCARENOTE ---
Patient compliant with CPAP, RT was able to add O2 2L to home CPAP unit. SPO2 above 92%.
[2024-02-22 05:15] LABS: Hematocrit 30.4 % (39.0-52.0); Hemoglobin 9.6 g/dL (13.0-18.0); Mean Corp Hgb Conc. 31.6 g/dL (33.0-37.0); Mean Corpuscular Hgb 25.5 pg (27.0-31.0); Mean Corpuscular Volume 80.9 fL (80.0-94.0); Mean Platelet Volume 11.4 fL (7.4-10.4); Platelet Count 202 10^3/uL (130-400); Red Blood Cell Count 3.76 10^6/uL (4.70-6.10); Red Cell Dist. Width 15.6 % (11.5-14.5); White Blood Cell Count 9.4 10^3/uL (4.8-10.8)
[2024-02-22] MEDS: SYNTHROID 300 MCG PO (05:35)
[2024-02-22 06:22] LABS: Blood Urea Nitrogen 55 mg/dl (9-20); Carbon Dioxide 28 mmol/L (22-30); Chloride 93 mmol/L (98-107); Estimated Creatinine Clearance 51 ml/min; Glucose 136 mg/dl (70-99); Potassium 3.7 mmol/L (3.5-5.1); Sodium 136 mmol/L (135-145); eGFR 39.64
[2024-02-22 08:34] LABS: Glucose - Point of Care 135 mg/dl (70-99)
[2024-02-22] MEDS: PLAVIX 75 MG PO (09:16)
[2024-02-22] MEDS: NOVOLOG FLEXPEN-LOW RESISTANCE SC (09:16)
[2024-02-22] MEDS: PERCOCET 5/325 1 TABLET PO ×2 (09:17→16:29)
[2024-02-22] MEDS: ASPIR LOW (ENTERIC COATED) 81 MG PO (09:17)
[2024-02-22] MEDS: COLACE 100 MG PO ×2 (09:17→21:50)
[2024-02-22] MEDS: NEURONTIN 100 MG PO ×2 (09:17→21:51)
[2024-02-22] MEDS: PROTONIX 40 MG PO ×2 (09:17→21:51)
[2024-02-22] MEDS: NON-FORMULARY ITEM 150 MG PO (09:18)
--- NOTE | 2024-02-22 11:10 | W.PN.HOSP.TC ---
Today's Communication/Plan
-
follow Cards/Renal recs
Assessment / Plan
Assessment / Plan
Assessment:
AMILCAR, likely pre-renal
h/o AMILCAR with HD in 11/2023
- Likely related to hypotension from overdiuresis, meds (pre-renal)
- hold all nephrotoxins such as lasix, ARB, Jardiance
- cap IVF to prevent overload. can use Prn Midodrine for BP support
- follow bladder scans
- recent US abd shows left kidney 1.3echogenic focus-mass vs scarring - may need CT at a later time
- follow daily BMP
ICM/HFrEF (30-35%) - chronic.
HX of CABG
s/p biventricular AICD implantation
- continue ASA/Plavix/Statin
- monitor non-OK trop elevation, no chest pain currently
History of alcohol use.
Hypokalemia
- replete prn cautiously
Hyponatremia
- Na improved
Chr anemia
- follow Hb
IDDM
Diabetic neuropathy
- continue Lantus
- continue SSI
- continue Gabapentin
Hx of Cardiac Arrest
s/p left hallux amputation
PAD
- b/l iliac stents 10/2023 and left CSF endarterectomy, left PETROGRAPHY TEACHER to tibio peroneal trunk bypass and sartorius flat 10/2023.
- s/p endovascular procedure, primary repair of left brachial artery 10/18/2023.
Obesity d/t excess calores
- affects all aspects of care
- encourage weight reduction
History of pericarditis/recurrent pericardial effusion and pericardial window (2016). No pericardial effusion on echo 02/12/2024.
Obstructive sleep apnea
Diabetic neuropathy
Hyperlipidemia
Hypothyroidism
- continue replacement
Hepatic steatosis
GERD - PPI
Insomnia
Anxiety
Gout
DVT ppx: SC Heparin
Code: Full
Anticipated Discharge: 24 - 48 hours
Subjective/Interval History
-
Date of Service: February 22, 2024
feels improving
Cr 1.9
Objective Data
-
Labs:
Laboratory Results
02/22/24
04:39
WBC 9.4
Hgb 9.6 L
Hct 30.4 L
Plt Count 202
Sodium 136
Potassium 3.7
Chloride 93 L
Carbon Dioxide 28
BUN 55 H
Creatinine 1.9 H
Glucose 136 H
Calcium 10.0
Vital Signs:
Vital Signs
Temp Pulse Resp BP Pulse Ox
97.6 F 69 13 105/77 97
02/22/24 08:00 02/22/24 08:00 02/22/24 08:00 02/22/24 08:00 02/22/24 08:00
I&O
02/21/24 02/22/24 02/23/24
06:59 06:59 06:59
Intake Total 600 / 600 1750 / 1750
Output Total 800 / 800 1700 / 1700
Balance -200 / -200 50 / 50
Physical Exam
-
General: No Apparent Distress
HEENT: Normocephalic and Atraumatic
Respiratory: Negative Wheezes or Rales
Cardiac: Regular Rhythm and S1/S2
GI: Soft and Nontender
Genito-urinary: No Costovertebral Tender
Musculoskeletal: No Edema
Neuro: AO x 3
Hematologic / Lymphatic: No Lymphadenopathy
Psych: Calm
Data Reviewed
-
Total Time Spent with Patient (in minutes): 45
Labs: Labs Reviewed by me
[2024-02-22 13:41] LABS: Glucose - Point of Care 162 mg/dl (70-99)
[2024-02-22] MEDS: NOVOLOG FLEXPEN-LOW RESISTANCE 1 UNITS SC ×2 (14:14→17:57)
--- NOTE | 2024-02-22 15:42 | W.PN.CD ---
Today's Communication / Plan
-
Continue to assess the ability to add back GDMT
Midodrine as needed MAP less than 65
Of asked him to ambulate more so we can get a sense of what his blood pressure is like with activity
Impression / Plan
-
63 yo male (well known to Dr. Yadav) with a complex cardiac history including, CAD, CABG, history PCI, pericarditis/recurrent pericardial effusion/pericardial window, ischemic cardiomyopathy, BiVICD, PAD, right lower extremity revascularization
surgery, DM, neuropathy, elevated LFT, Hyponatremia, ETOH abuse and obesity who presented complaints lightheadedness and hypotension at home.
Hypotension - acute.
- symptomatic with lightheadedness.
-Still low mid morning
-Started on midodrine, would give for MAP less than 65.
AMILCAR - acute.
- creatinine 2.1 on admit, now 1.9
- holding meds and monitor.
ICM/HFrEF (30-35%) - chronic.
- not overloaded on exam, hypotensive with likely overdiuresis.
- just d/c 02/17/24 with IV diuresis.
-GDMT limited by hypotension currently
CAD - s/p CABG 2016.
- no angina.
CKD - acute AMILCAR now.
-Cr improved today to 1.9(was 1/2 on d/c 02/17/24)
- followed Dr. Agudelo. Dr. Shah following
- had AMILCAR requiring HD Nov 2023, no longer on HD.
MDT BiV ICD implanted 08/03/2019 - stable with normal function.
PAD - chronic, stable.
- b/l iliac stents 10/2023 and left CSF endarterectomy, left AUTOMATION TECHNICIAN to tibio peroneal trunk bypass and sartorius flat 10/2023.
- s/p endovascular procedure, primary repair of left brachial artery 10/18/2023.
History of pericarditis/recurrent pericardial effusion and pericardial window (2015). No pericardial effusion on echo 02/12/2024.
Type II DM - stable, controlled.
- Hgba1c 5.5% 09/2023.
Obesity - BMI 42, he would benefit from weight loss.
History of alcohol use.
Subjective: No lightheadedness no chest pain or shortness of breath left foot a little puffy
Physical Exam
Vital Signs/Labs
Vital Signs
Temp Pulse Resp BP Pulse Ox
98.0 F 76 15 106/69 93
02/22/24 12:00 02/22/24 14:00 02/22/24 14:00 02/22/24 14:00 02/22/24 14:50
02/21/24 02/22/24 02/23/24
06:59 06:59 06:59
Actual Weight 120.2 kg 120.9 kg
02/22/24 04:39
02/22/24 04:39
PT 14.7 Sec (11.4-14.6) H 02/20/24 15:28
INR 1.15 02/20/24 15:28
APTT 28.8 Sec (23.4-35.0) 02/20/24 15:28
Magnesium 1.7 mg/dl (1.6-2.3) 02/21/24 05:14
TSH < 0.02 uIU/ml (0.47-4.68) L 02/20/24 15:23
LAB Results
02/20/24 02/21/24
15:28 05:14
Troponin I 0.028 0.036 H*
Physical Exam
Constitutional: No acute distress
Cardiovascular: Rhythm & rate is regular, JVD pressure is normal, Systolic murmur absent and Pedal edema present (Left foot trace pitting edema bilateral legs trace pitting edema)
Respiratory: Respiratory effort normal, Lungs clear to auscul., Wheeze Absent and Crackles Absent
Neuro/Psych: AO x 3
Data Reviewed
-
Date of Service: February 22, 2024
Medical Tests (PFT, Pathology etc): Discussed with Nurse (Will add holding parameters midodrine), Discussed with Patient (Needs to ambulate more) and Discussed with Family ( at the bedside and added to the history)
--- NOTE | 2024-02-22 16:38 | W.PN.NEPH.PH ---
Today's Communication / Plan
-
labs in am
Assessment/Plan
-
IMP:
AMILCAR-baseline cr 1,
h/o AMILCAR with HD in 11/2023
Hypotension
History of alcohol use.
Ischemic Cardiomyopathy s/p CABG 2016
HFrEF, Echo 02/11 EF 35-40%.
s/p biventricular AICD implantation
Hypokalemia
Hyponatremia
Chr anemia
IDDM
Hx of Cardiac Arrest
s/p left hallux amputation
PAD
- b/l iliac stents 10/2023 and left CSF endarterectomy, left DIPLOMATIC OFFICER to tibio peroneal trunk bypass and sartorius flat 10/2023.
- s/p endovascular procedure, primary repair of left brachial artery 10/18/2023.
Obesity
History of pericarditis/recurrent pericardial effusion and pericardial window (2016). No pericardial effusion on echo 02/12/2024.
Obstructive sleep apnea
Diabetic neuropathy
Hyperlipidemia
Hypothyroidism
Hepatic steatosis
GERD
Insomnia
Anxiety
Gout
Plan:
REcent d/c after treating acute CHF and med uptitrated Aldactone, ARB on d/c 02/16
returns with hypotension
AMILCAR-suspect prerenal and med effect , UA relatively bland, non oliguric, U na low
recent US abd shows left kidney 1.3echogenic focus-mass vs scarring need CT at later time
follow bladder scan 200cc
cr slightly better, cont to hol all diuretics, Jardiance and ARB
BP remains soft, monitor for now, midodrine prn
chr anemia, follow h/h
labs in am
d/w pt
-
-
Date of Service: February 22, 2024
CC / HPI / ROS
-
Chief Complaint:
AMILCAR
History of Present Illness:
cr slightly better at 1.9, k normal 3.7
non oliguric with out singleton
wt no sig change
Review of Systems:
no cp or sob at rest
chr LE edema
Labs
-
Labs:
WBC 9.4 10^3/uL (4.8-10.8) 02/22/24 04:39
RBC 3.76 10^6/uL (4.70-6.10) L 02/22/24 04:39
Hgb 9.6 g/dL (13.0-18.0) L 02/22/24 04:39
Hct 30.4 % (39.0-52.0) L 02/22/24 04:39
Plt Count 202 10^3/uL (130-400) 02/22/24 04:39
Sodium 136 mmol/L (135-145) 02/22/24 04:39
Potassium 3.7 mmol/L (3.5-5.1) 02/22/24 04:39
Chloride 93 mmol/L (98-107) L 02/22/24 04:39
Carbon Dioxide 28 mmol/L (22-30) 02/22/24 04:39
BUN 55 mg/dl (9-20) H 02/22/24 04:39
Creatinine 1.9 mg/dL (0.7-1.3) H 02/22/24 04:39
eGFR 39.64 02/22/24 04:39
Glucose 136 mg/dl (70-99) H 02/22/24 04:39
Calcium 10.0 mg/dl (8.4-10.2) 02/22/24 04:39
Albumin 4.5 g/dl (3.5-5.0) 02/20/24 15:23
Physical Exam
-
Vital Signs:
Vital Signs
Temp Pulse Resp BP Pulse Ox
98.0 F 76 15 106/69 93
02/22/24 12:00 02/22/24 14:00 02/22/24 14:00 02/22/24 14:00 02/22/24 14:50
Cardiovascular:: Regular rate and rhythm
Respiratory:: Bilateral: CTA
Lung Excursion:: Normal
Abdomen:: Nontender and Soft
Extremity Edema:: +2: Bilateral: (chronic)
Singleton Catheter: No
[2024-02-22] MEDS: CRESTOR 20 MG PO (17:19)
[2024-02-22] MEDS: TOPROL XL 37.5 MG PO (17:19)
[2024-02-22 17:42] LABS: Glucose - Point of Care 173 mg/dl (70-99)
[2024-02-22] MEDS: LANTUS 0.100000000000000006 UNITS SC (21:52)
[2024-02-22] MEDS: MELATONIN 5 MG PO (21:52)
[2024-02-22 21:55] LABS: Glucose - Point of Care 144 mg/dl (70-99)
[2024-02-23] VITALS (10 sets, daily range): BP systolic 94–121; BP diastolic 50–75; BMI 42.1
[2024-02-23] MEDS: PERCOCET 5/325 1 TABLET PO ×3 (00:11→15:54)
--- NOTE | 2024-02-23 04:12 | PTCARENOTE ---
Pt has been without complaints throughout the night. Wearing his bipap and needed O2 added at 2 liters to maintain his O2 sat above 90%. Rhythm has been sinus p-waves with V-paced ventricular response 60's to 70's. No tachypnea and BP has been
stable.
--- NOTE | 2024-02-23 04:31 | PTCARENOTE ---
Pt continues to refuse heparin SQ saying he had a GI bleed in the past from heparin.
[2024-02-23] MEDS: SYNTHROID 300 MCG PO (05:49)
[2024-02-23] MEDS: PROTONIX 40 MG PO (08:42)
[2024-02-23] MEDS: ASPIR LOW (ENTERIC COATED) 81 MG PO (08:42)
[2024-02-23] MEDS: NEURONTIN 100 MG PO (08:43)
[2024-02-23] MEDS: PLAVIX 75 MG PO (08:43)
[2024-02-23] MEDS: COLACE 100 MG PO (08:44)
[2024-02-23 08:45] LABS: Glucose - Point of Care 148 mg/dl (70-99)
[2024-02-23] MEDS: NON-FORMULARY ITEM 1 MG PO (08:45)
[2024-02-23] MEDS: NOVOLOG FLEXPEN-LOW RESISTANCE SC (08:50)
[2024-02-23 09:12] LABS: Hematocrit 30.4 % (39.0-52.0); Hemoglobin 9.4 g/dL (13.0-18.0); Mean Corp Hgb Conc. 30.9 g/dL (33.0-37.0); Mean Corpuscular Hgb 25.7 pg (27.0-31.0); Mean Corpuscular Volume 83.1 fL (80.0-94.0); Mean Platelet Volume 11.2 fL (7.4-10.4); Platelet Count 177 10^3/uL (130-400); Red Blood Cell Count 3.66 10^6/uL (4.70-6.10); Red Cell Dist. Width 15.6 % (11.5-14.5); White Blood Cell Count 7.2 10^3/uL (4.8-10.8)
[2024-02-23 09:16] LABS: Blood Urea Nitrogen 43 mg/dl (9-20); Calcium 10.2 mg/dl (8.4-10.2); Carbon Dioxide 33 mmol/L (22-30); Chloride 94 mmol/L (98-107); Estimated Creatinine Clearance 65 ml/min; Glucose 141 mg/dl (70-99); Potassium 3.6 mmol/L (3.5-5.1); Sodium 136 mmol/L (135-145); eGFR 52.64
[2024-02-23 13:14] LABS: Glucose - Point of Care 177 mg/dl (70-99)
[2024-02-23] MEDS: NOVOLOG FLEXPEN-LOW RESISTANCE 1 UNITS SC ×2 (13:35→17:13)
--- NOTE | 2024-02-23 15:48 | W.PN.CD ---
Today's Communication / Plan
-
home on bb
hold remaining GDMT until op follow up
Office will call with appt
diuresis as per Dr Hahn
Impression / Plan
-
63 yo male (well known to Dr. Yadav) with a complex cardiac history including, CAD, CABG, history PCI, pericarditis/recurrent pericardial effusion/pericardial window, ischemic cardiomyopathy, BiVICD, PAD, right lower extremity revascularization
surgery, DM, neuropathy, elevated LFT, Hyponatremia, ETOH abuse and obesity who presented complaints lightheadedness and hypotension at home.
Hypotension - acute.
- symptomatic with lightheadedness.
-improving, midodrine today
-tolerating pm bb
--Continue n midodrine, would give for MAP less than 65 or sbp<90
AMILCAR - acute.
- creatinine 2.1 on admit, now 1.5
- holding meds(SGLT2, MRA and ACEI, diuretic)
-would recommend prn diuretic dose at home,will defer amount and type to Dr Hahn
ICM/HFrEF (30-35%) - chronic.
- not overloaded on exam, hypotensive with likely overdiuresis.
- just d/c 02/17/24 with IV diuresis.
-GDMT limited by hypotension currently, home on bb and add back GDMT gradually as oupatient
CAD - s/p CABG 2016.
- no angina.
CKD - acute AMILCAR now.
- followed Dr. Agudelo. Dr. Hahn following
- had AMILCAR requiring HD Nov 2023, no longer on HD.
MDT BiV ICD implanted 08/03/2019 - stable with normal function.
PAD - chronic, stable.
- b/l iliac stents 10/2023 and left CSF endarterectomy, left GRADE FOREMAN to tibio peroneal trunk bypass and sartorius flat 10/2023.
- s/p endovascular procedure, primary repair of left brachial artery 10/18/2023.
History of pericarditis/recurrent pericardial effusion and pericardial window (2016). No pericardial effusion on echo 02/12/2024.
Type II DM - stable, controlled.
- Hgba1c 5.5% 09/2023.
Obesity - BMI 42, he would benefit from weight loss.
History of alcohol use.
Subjective: No lightheadedness, walked around today without an issue.
- no chest pain or shortness of breath left foot is stable
Physical Exam
Vital Signs/Labs
Vital Signs
Temp Pulse Resp BP Pulse Ox
98.8 F 80 14 112/75 98
02/23/24 14:03 02/23/24 15:00 02/23/24 15:00 02/23/24 14:00 02/23/24 15:00
02/22/24 02/23/24 02/24/24
06:59 06:59 06:59
Actual Weight 120.9 kg 121.9 kg
02/23/24 08:54
02/23/24 08:54
PT 14.7 Sec (11.4-14.6) H 02/20/24 15:28
INR 1.15 02/20/24 15:28
APTT 28.8 Sec (23.4-35.0) 02/20/24 15:28
Magnesium 1.7 mg/dl (1.6-2.3) 02/21/24 05:14
TSH < 0.02 uIU/ml (0.47-4.68) L 02/20/24 15:23
LAB Results
02/20/24 02/21/24
15:28 05:14
Troponin I 0.028 0.036 H*
Physical Exam
Constitutional: No acute distress
Cardiovascular: Rhythm & rate is regular, JVD pressure is normal, Systolic murmur absent and Pedal edema present (left foot puffy)
Respiratory: Respiratory effort normal, Lungs clear to auscul., Wheeze Absent and Crackles Absent
Neuro/Psych: AO x 3
Data Reviewed
-
Date of Service: February 23, 2024
Medical Tests (PFT, Pathology etc): Discussed with Physician (Discussed d/c meds with Dr Johns and Dr Hahn)
--- NOTE | 2024-02-23 16:26 | W.PN.HOSP.TC ---
Today's Communication/Plan
-
dc home
Assessment / Plan
Assessment / Plan
Assessment:
AMILCAR, likely pre-renal
h/o AMILCAR with HD in 11/2023
- Likely related to hypotension from overdiuresis, meds (pre-renal)
- hold all nephrotoxins such as ARB, Jardiance, aldactone
- resume Torsemide to 20mg BID
- follow bladder scans
- recent US abd shows left kidney 1.3 echogenic focus-mass vs scarring - may need CT at a later time
- follow daily BMP
ICM/HFrEF (30-35%) - chronic.
HX of CABG
s/p biventricular AICD implantation
- continue ASA/Plavix/Statin
- monitor non-OK trop elevation, no chest pain currently
History of alcohol use.
Hypokalemia
- replete prn cautiously
Hyponatremia
- Na improved
Chr anemia
- follow Hb
IDDM
Diabetic neuropathy
- continue Lantus
- continue SSI
- continue Gabapentin
Hx of Cardiac Arrest
s/p left hallux amputation
PAD
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
- s/p endovascular procedure, primary repair of left brachial artery 10/18/2023.
Obesity d/t excess calores
- affects all aspects of care
- encourage weight reduction
History of pericarditis/recurrent pericardial effusion and pericardial window (2016). No pericardial effusion on echo 02/12/2024.
Obstructive sleep apnea
Diabetic neuropathy
Hyperlipidemia
Hypothyroidism
- continue replacement
Hepatic steatosis
GERD - PPI
Insomnia
Anxiety
Gout
DVT ppx: SC Heparin
Code: Full
Anticipated Discharge: Within 24 hours
Subjective/Interval History
-
Date of Service: February 23, 2024
no complaints doing well
Objective Data
-
Labs:
Laboratory Results
02/23/24
08:54
WBC 7.2
Hgb 9.4 L
Hct 30.4 L
Plt Count 177
Sodium 136
Potassium 3.6
Chloride 94 L
Carbon Dioxide 33 H
BUN 43 H
Creatinine 1.5 H
Glucose 141 H
Calcium 10.2
Vital Signs:
Vital Signs
Temp Pulse Resp BP Pulse Ox
98.8 F 80 14 112/75 98
02/23/24 14:03 02/23/24 15:00 02/23/24 15:00 02/23/24 14:00 02/23/24 15:00
I&O
02/22/24 02/23/24 02/24/24
06:59 06:59 06:59
Intake Total 1750 / 1750 995 / 995
Output Total 1700 / 1700 520 / 520
Balance 50 / 50 475 / 475
Physical Exam
-
General: No Apparent Distress
HEENT: Normocephalic and Atraumatic
Respiratory: Negative Wheezes or Rales
Cardiac: Regular Rhythm and S1/S2
GI: Soft and Nontender
Genito-urinary: No Costovertebral Tender
Neuro: AO x 3
Psych: Calm
Data Reviewed
-
Total Time Spent with Patient (in minutes): 42
Labs: Labs Reviewed by me
--- NOTE | 2024-02-23 16:32 | W.DS.TRANS ---
DC Summary - Case Management Specialist
-
Discharge Instructions:
Discharge Diagnosis/Procedures AMILCAR from recent med changes
Diet 2 Gram Sodium,Restrict fluids to 48 oz
Activity As tolerated
Bathing Restrictions None
Blood Work BMP this week - you have a script
Instructions:
Stand-Alone Forms:
Changes to Home Medications: Yes
Discharge Medications:
DC Medications w/original date entered in [facility]
aspirin 81 mg tablet,delayed release 81 mg PO DAILY Blood clot prevention/tx 03/08/17
clopidogrel 75 mg tablet 75 mg PO DAILY Blood clot prevention/tx #30 tabs 12/16/23
levothyroxine 300 mcg tablet (Synthroid) 300 mcg PO DAILY Thyroid #30 tabs 12/16/23
bisacodyl 5 mg tablet,delayed release 10 mg PO DAILY PRN constipation 02/10/24
docusate sodium 100 mg capsule (Colace) 100 mg PO BID Constipation 02/10/24
gabapentin 100 mg capsule 100 mg PO BID Pain 02/10/24
insulin degludec 200 unit/mL (3 mL) subcutaneous pen (Tresiba FlexTouch U-200 insulin) 18 unit SC DAILY Diabetes 02/10/24
melatonin 5 mg tablet 5 mg PO HS Sleep 02/10/24
methylnaltrexone 150 mg tablet (Relistor) 150 mg PO DAILY constipation 02/10/24
oxycodone-acetaminophen 5 mg-325 mg tablet 1 tab PO Q8H pain 02/10/24
pantoprazole 40 mg tablet,delayed release (Protonix) 40 mg PO BID Gastrointestinal Issue 02/10/24
rosuvastatin 20 mg tablet 20 mg PO QPM High Cholesterol 02/10/24
metoprolol succinate 25 mg tablet,extended release 24 hr 37.5 mg (1.5 x 25 mg) PO QPM #30 tabs 02/17/24
torsemide 20 mg tablet 20 mg PO BID Fluid Retention/Swelling #0 tabs 02/23/24
Home Medication Changes
Arb, Aldactone, Jardiance stopped
Torsemide decreased
Pending Results: No
Total time spent discharging patient (in min): 41
--- NOTE | 2024-02-23 17:09 | W.PN.NEPH.PH ---
Today's Communication / Plan
-
ok to d/c
Assessment/Plan
-
IMP:
AMILCAR-baseline cr 1,
h/o AMILCAR with HD in 11/2023
Hypotension
History of alcohol use.
Ischemic Cardiomyopathy s/p CABG 2016
HFrEF, Echo 02/11 EF 35-40%.
s/p biventricular AICD implantation
Hypokalemia
Hyponatremia
Chr anemia
IDDM
Hx of Cardiac Arrest
s/p left hallux amputation
PAD
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
- s/p endovascular procedure, primary repair of left brachial artery 10/18/2023.
Obesity
History of pericarditis/recurrent pericardial effusion and pericardial window (2015). No pericardial effusion on echo 02/12/2024.
Obstructive sleep apnea
Diabetic neuropathy
Hyperlipidemia
Hypothyroidism
Hepatic steatosis
GERD
Insomnia
Anxiety
Gout
Plan:
REcent d/c after treating acute CHF and med uptitrated Aldactone, ARB on d/c 02/16
returns with hypotension
AMILCAR-suspect prerenal and med effect , UA relatively bland, non oliguric, U na low
recent US abd shows left kidney 1.3echogenic focus-mass vs scarring need CT at later time
follow bladder scan 200cc
cr slightly better 1.5, hold Jardiance and ARB
BP improving
chr anemia, follow h/h-stable
ok to d/c and resume TOrsemide 20mg BID(home 40BID), pt should titrate dose up as needed for symp and wt gain
BMP in 3-4days
d/w pt and family
d/ cards and [rimary
-
-
Date of Service: February 23, 2024
CC / HPI / ROS
-
Chief Complaint:
AMILCAR
History of Present Illness:
cr slightly better at 1.5, k normal 3.6
non oliguric with out singleton
wt is up
Review of Systems:
no cp or sob at rest
chr LE edema
Labs
-
Labs:
WBC 7.2 10^3/uL (4.8-10.8) 02/23/24 08:54
RBC 3.66 10^6/uL (4.70-6.10) L 02/23/24 08:54
Hgb 9.4 g/dL (13.0-18.0) L 02/23/24 08:54
Hct 30.4 % (39.0-52.0) L 02/23/24 08:54
Plt Count 177 10^3/uL (130-400) 02/23/24 08:54
Sodium 136 mmol/L (135-145) 02/23/24 08:54
Potassium 3.6 mmol/L (3.5-5.1) 02/23/24 08:54
Chloride 94 mmol/L (98-107) L 02/23/24 08:54
Carbon Dioxide 33 mmol/L (22-30) H 02/23/24 08:54
BUN 43 mg/dl (9-20) H 02/23/24 08:54
Creatinine 1.5 mg/dL (0.7-1.3) H 02/23/24 08:54
eGFR 52.64 02/23/24 08:54
Glucose 141 mg/dl (70-99) H 02/23/24 08:54
Calcium 10.2 mg/dl (8.4-10.2) 02/23/24 08:54
Albumin 4.5 g/dl (3.5-5.0) 02/20/24 15:23
Physical Exam
-
Vital Signs:
Vital Signs
Temp Pulse Resp BP Pulse Ox
98.8 F 80 16 113/64 99
02/23/24 14:03 02/23/24 16:01 02/23/24 16:01 02/23/24 16:01 02/23/24 16:01
Cardiovascular:: Regular rate and rhythm
Respiratory:: Bilateral: CTA
Lung Excursion:: Normal
Abdomen:: Nontender and Soft
Extremity Edema:: +2: Bilateral:
Singleton Catheter: No
[2024-02-23 17:17] LABS: Glucose - Point of Care 175 mg/dl (70-99)
[2024-02-23] MEDS: TOPROL XL 37.5 MG PO (17:23)
[2024-02-23] MEDS: CRESTOR 20 MG PO (17:24)
--- NOTE | 2024-02-23 19:01 | PTCARENOTE ---
Pt left hospital with , dc instructions, rx, med from home.
== END 2024-02-23 18:46 | disposition home or self-care (01) | DRG 683 ==
LOC: IMU 20:12
PROVIDERS: ADMITTING PHYSICIAN Internal Medicine; ATTENDING PHYSICIAN Internal Medicine; EMERGENCY PHYSICIAN Emergency Medicine; FAMILY PHYSICIAN Nurse Practitioner Family; OTHER PHYSICIAN Internal Medicine; OTHER PHYSICIAN Internal Medicine Cardiovascular Disease
DX: N17.9 Acute kidney failure, unspecified (principal); E87.1 Hypo-osmolality and hyponatremia; I13.0 Hypertensive heart and chronic kidney disease with heart failure and stage 1 through stage 4 chronic kidney disease, or unspecified chronic kidney disease; I50.22 Chronic systolic (congestive) heart failure; Z68.41 Body mass index [BMI] 40.0-44.9, adult; I5A Non-ischemic myocardial injury (non-traumatic); I95.9 Hypotension, unspecified; E03.9 Hypothyroidism, unspecified; K31.84 Gastroparesis; E11.43 Type 2 diabetes mellitus with diabetic autonomic (poly)neuropathy; E78.00 Pure hypercholesterolemia, unspecified; N18.30 Chronic kidney disease, stage 3 unspecified; E11.22 Type 2 diabetes mellitus with diabetic chronic kidney disease; E87.6 Hypokalemia; E66.01 Morbid (severe) obesity due to excess calories; F10.91 Alcohol use, unspecified, in remission; I25.5 Ischemic cardiomyopathy; F41.9 Anxiety disorder, unspecified; G47.00 Insomnia, unspecified; G47.33 Obstructive sleep apnea (adult) (pediatric); M10.9 Gout, unspecified; D64.9 Anemia, unspecified; K76.0 Fatty (change of) liver, not elsewhere classified; R16.1 Splenomegaly, not elsewhere classified; I25.10 Atherosclerotic heart disease of native coronary artery without angina pectoris; E11.51 Type 2 diabetes mellitus with diabetic peripheral angiopathy without gangrene; K21.9 Gastro-esophageal reflux disease without esophagitis; Z95.1 Presence of aortocoronary bypass graft; Z79.82 Long term (current) use of aspirin; Z79.84 Long term (current) use of oral hypoglycemic drugs; Z79.890 Hormone replacement therapy; Z79.891 Long term (current) use of opiate analgesic; Z86.74 Personal history of sudden cardiac arrest; Z79.4 Long term (current) use of insulin; Z82.49 Family history of ischemic heart disease and other diseases of the circulatory system; Z89.412 Acquired absence of left great toe; Z87.891 Personal history of nicotine dependence; Z88.1 Allergy status to other antibiotic agents; Z88.8 Allergy status to other drugs, medicaments and biological substances; Z79.02 Long term (current) use of antithrombotics/antiplatelets; Z86.16 Personal history of COVID-19; Z95.810 Presence of automatic (implantable) cardiac defibrillator
CPT/HCPCS: 80048; 80053; 81003; 81015; 82570; 82962; 83735; 84300; 84443; 84484; 85025; 85027; 85610; 85730; 87086; 93005; 96360; 99285

== ENCOUNTER → 2024-02-28 10:32 | Outpatient (REF) | payer OTHER, SELFPAY | LOC: WOUND 10:32 | PROVIDERS: ATTENDING PHYSICIAN Surgery; FAMILY PHYSICIAN Nurse Practitioner Family | DX: T81.41XA Infection following a procedure, superficial incisional surgical site, initial encounter (principal); Y83.8 Other surgical procedures as the cause of abnormal reaction of the patient, or of later complication, without mention of misadventure at the time of the procedure; E11.9 Type 2 diabetes mellitus without complications; I73.9 Peripheral vascular disease, unspecified; I25.10 Atherosclerotic heart disease of native coronary artery without angina pectoris; I50.9 Heart failure, unspecified; I42.9 Cardiomyopathy, unspecified; K75.81 Nonalcoholic steatohepatitis (NASH); Z95.1 Presence of aortocoronary bypass graft; Z79.4 Long term (current) use of insulin | CPT/HCPCS: 99212 ==

== ENCOUNTER → 2024-02-28 12:00 | Outpatient (REF) | payer OTHER, SELFPAY ==
[2024-02-28 13:32] LABS: Blood Urea Nitrogen 42 mg/dl (9-20); Calcium 9.9 mg/dl (8.4-10.2); Carbon Dioxide 32 mmol/L (22-30); Chloride 99 mmol/L (98-107); Glucose 132 mg/dl (70-99); Potassium 3.2 mmol/L (3.5-5.1); Sodium 140 mmol/L (135-145); eGFR 48.72
== END ==
LOC: REG 12:00
PROVIDERS: ATTENDING PHYSICIAN Internal Medicine Cardiovascular Disease; FAMILY PHYSICIAN Nurse Practitioner Family; OTHER PHYSICIAN Internal Medicine; OTHER PHYSICIAN Specialist
DX: R06.09 Other forms of dyspnea (principal); I50.9 Heart failure, unspecified; I10 Essential (primary) hypertension
CPT/HCPCS: 36415; 80048

== ENCOUNTER → 2024-03-06 13:22 | Outpatient (REF) | payer OTHER, SELFPAY ==
[2024-03-06 15:20] LABS: Blood Urea Nitrogen 46 mg/dl (9-20); Calcium 10.2 mg/dl (8.4-10.2); Carbon Dioxide 30 mmol/L (22-30); Chloride 99 mmol/L (98-107); Glucose 121 mg/dl (70-99); Potassium 3.4 mmol/L (3.5-5.1); Sodium 141 mmol/L (135-145); eGFR 52.64
== END ==
LOC: REG 13:22
PROVIDERS: ATTENDING PHYSICIAN Internal Medicine Cardiovascular Disease; FAMILY PHYSICIAN Nurse Practitioner Family; OTHER PHYSICIAN Specialist
DX: R06.09 Other forms of dyspnea (principal)
CPT/HCPCS: 36415; 80048

== ENCOUNTER → 2024-03-13 11:41 | Outpatient (REF) | payer OTHER, SELFPAY ==
[2024-03-13 15:50] LABS: Blood Urea Nitrogen 42 mg/dl (9-20); Carbon Dioxide 30 mmol/L (22-30); Chloride 102 mmol/L (98-107); Glucose 118 mg/dl (70-99); Potassium 3.5 mmol/L (3.5-5.1); Sodium 140 mmol/L (135-145); eGFR 52.64
== END ==
LOC: HWLAB 11:41
PROVIDERS: ATTENDING PHYSICIAN Internal Medicine Cardiovascular Disease; FAMILY PHYSICIAN Nurse Practitioner Family; REFERRING PHYSICIAN Specialist
DX: R06.09 Other forms of dyspnea (principal)
CPT/HCPCS: 36415; 80048

== ENCOUNTER 2024-03-16 14:32 | Outpatient (RCR) | payer OTHER, SELFPAY | END 2024-03-16 23:59 | disposition home or self-care (01) | LOC: RST 14:32 | PROVIDERS: ATTENDING PHYSICIAN Physical Medicine & Rehabilitation; FAMILY PHYSICIAN Nurse Practitioner Family | DX: I46.9 Cardiac arrest, cause unspecified (principal); N17.9 Acute kidney failure, unspecified; G93.1 Anoxic brain damage, not elsewhere classified; R41.841 Cognitive communication deficit; R41.89 Other symptoms and signs involving cognitive functions and awareness | CPT/HCPCS: 97110; 97112; 97129; 97130; 97164; 97168; 97530; 97535 ==

== ENCOUNTER → 2024-03-20 11:40 | Outpatient (REF) | payer OTHER, SELFPAY ==
[2024-03-20 15:27] LABS: Blood Urea Nitrogen 36 mg/dl (9-20); Calcium 10.1 mg/dl (8.4-10.2); Carbon Dioxide 27 mmol/L (22-30); Chloride 102 mmol/L (98-107); Glucose 165 mg/dl (70-99); Potassium 3.5 mmol/L (3.5-5.1); Sodium 140 mmol/L (135-145); eGFR > 60.00
== END ==
LOC: HWLAB 11:40
PROVIDERS: ATTENDING PHYSICIAN Internal Medicine Cardiovascular Disease; FAMILY PHYSICIAN Nurse Practitioner Family; REFERRING PHYSICIAN Specialist
DX: R06.09 Other forms of dyspnea (principal)
CPT/HCPCS: 36415; 80048

== ENCOUNTER → 2024-03-25 11:34 | Outpatient (REF) | payer OTHER, SELFPAY ==
[2024-03-25 13:17] LABS: % Basophils 0.4 % (0-2); % Eosinophils 3.7 % (0-6); % Immature Granulocytes 0.5 % (0-0.5); % Monocytes 9.4 % (1.7-9.3); Absolute Eosinophils 0.4 10^3/uL (0-0.7); Absolute Immature Granulocytes 0.1 10^3/uL (0-0.05); Absolute Lymphocytes 1.6 10^3/uL (1.2-3.4); Absolute Monocytes 0.9 10^3/uL (0.1-0.6); Absolute Neutrophils 6.8 10^3/uL (1.4-6.5); Hematocrit 32.5 % (39.0-52.0); Hemoglobin 9.7 g/dL (13.0-18.0); Mean Corp Hgb Conc. 29.8 g/dL (33.0-37.0); Mean Corpuscular Hgb 24.3 pg (27.0-31.0); Mean Corpuscular Volume 81.5 fL (80.0-94.0); Mean Platelet Volume 10.8 fL (7.4-10.4); Nucleated Red Blood Cells % 0 % (-); Platelet Count 189 10^3/uL (130-400); Red Blood Cell Count 3.99 10^6/uL (4.70-6.10); Red Cell Dist. Width 16.7 % (11.5-14.5); White Blood Cell Count 9.7 10^3/uL (4.8-10.8)
[2024-03-25 13:26] LABS: NT-proBNP 4630 pg/ml
[2024-03-25 13:49] LABS: ALT (SGPT) < 10 U/L (0-50); AST (SGOT) 18 U/L (17-59); Albumin 4.5 g/dl (3.5-5.0); Alkaline Phosphatase 59 U/L (38-126); Blood Urea Nitrogen 32 mg/dl (9-20); Calcium 9.8 mg/dl (8.4-10.2); Carbon Dioxide 29 mmol/L (22-30); Chloride 100 mmol/L (98-107); Glucose 121 mg/dl (70-99); HDL Cholesterol 40 mg/dl; LDL Cholesterol, Calculated 30 mg/dl; Phosphorus 4.3 mg/dl (2.5-4.5); Potassium 3.5 mmol/L (3.5-5.1); Sodium 139 mmol/L (135-145); Total Bilirubin 0.8 mg/dl (0.2-1.3); Total Cholesterol 94 mg/dl (50-199); Total Protein 7.3 g/dl (6.3-8.2); Triglyceride 121 mg/dl (10-149); Very Low Density Lipoprotein 24 mg/dl (0-30); eGFR > 60.00
[2024-03-25 13:54] LABS: Free T4 2.85 ng/dl (0.78-2.19)
[2024-03-25 13:55] LABS: Glycohemoglobin (HgbA1c) 6.5 % (4.0-5.6)
[2024-03-25 15:11] LABS: TSH 0.02 uIU/ml (0.47-4.68)
== END ==
LOC: REG 11:34
PROVIDERS: ATTENDING PHYSICIAN Physician Assistant; FAMILY PHYSICIAN Nurse Practitioner Family; OTHER PHYSICIAN Internal Medicine Cardiovascular Disease; OTHER PHYSICIAN Specialist
DX: E11.9 Type 2 diabetes mellitus without complications (principal); E03.9 Hypothyroidism, unspecified; N18.31 Chronic kidney disease, stage 3a; I42.9 Cardiomyopathy, unspecified; I73.9 Peripheral vascular disease, unspecified; E87.1 Hypo-osmolality and hyponatremia
CPT/HCPCS: 36415; 80053; 80061; 83036; 83880; 84100; 84439; 84443; 85025

== ENCOUNTER → 2024-03-26 12:25 | Outpatient (REF) | payer OTHER, SELFPAY | LOC: RAD 12:25 | PROVIDERS: ATTENDING PHYSICIAN Surgery Vascular Surgery; FAMILY PHYSICIAN Nurse Practitioner Family | DX: I73.9 Peripheral vascular disease, unspecified (principal) | CPT/HCPCS: 93922; 93925 ==

== ENCOUNTER → 2024-03-27 13:23 | Outpatient (REF) | payer OTHER, SELFPAY | LOC: WOUND 13:23 | PROVIDERS: ATTENDING PHYSICIAN Surgery; FAMILY PHYSICIAN Nurse Practitioner Family | DX: T81.41XA Infection following a procedure, superficial incisional surgical site, initial encounter (principal); Y83.8 Other surgical procedures as the cause of abnormal reaction of the patient, or of later complication, without mention of misadventure at the time of the procedure; S71.102A Unspecified open wound, left thigh, initial encounter; X58.XXXA Exposure to other specified factors, initial encounter; E11.9 Type 2 diabetes mellitus without complications; I73.9 Peripheral vascular disease, unspecified; I25.10 Atherosclerotic heart disease of native coronary artery without angina pectoris; I50.9 Heart failure, unspecified; I42.9 Cardiomyopathy, unspecified; K75.81 Nonalcoholic steatohepatitis (NASH); Z95.1 Presence of aortocoronary bypass graft; Z95.5 Presence of coronary angioplasty implant and graft | CPT/HCPCS: 99212 ==

== ENCOUNTER → 2024-04-09 10:02 | Outpatient (REF) | payer OTHER, SELFPAY ==
[2024-04-09 15:53] LABS: ALT (SGPT) < 10 U/L (0-50); AST (SGOT) 18 U/L (17-59); Albumin 4.5 g/dl (3.5-5.0); Alkaline Phosphatase 61 U/L (38-126); Blood Urea Nitrogen 29 mg/dl (9-20); Calcium 9.9 mg/dl (8.4-10.2); Carbon Dioxide 31 mmol/L (22-30); Chloride 101 mmol/L (98-107); Glucose 127 mg/dl (70-99); Potassium 3.6 mmol/L (3.5-5.1); Sodium 142 mmol/L (135-145); Total Protein 7.3 g/dl (6.3-8.2); eGFR > 60.00
[2024-04-09 15:56] LABS: % Basophils 0.5 % (0-2); % Eosinophils 3.2 % (0-6); % Immature Granulocytes 0.5 % (0-0.5); % Lymphocytes 11.9 % (20.5-51.1); % Monocytes 10.1 % (1.7-9.3); % Neutrophils 73.8 % (42.2-75.2); Absolute Basophils 0.1 10^3/uL (0-0.2); Absolute Eosinophils 0.3 10^3/uL (0-0.7); Absolute Immature Granulocytes 0.1 10^3/uL (0-0.05); Absolute Lymphocytes 1.1 10^3/uL (1.2-3.4); Hematocrit 32.9 % (39.0-52.0); Hemoglobin 9.9 g/dL (13.0-18.0); Mean Corp Hgb Conc. 30.1 g/dL (33.0-37.0); Mean Corpuscular Hgb 24.1 pg (27.0-31.0); Mean Corpuscular Volume 80.2 fL (80.0-94.0); Mean Platelet Volume 11.1 fL (7.4-10.4); Nucleated Red Blood Cells % 0 % (-); Platelet Count 187 10^3/uL (130-400); White Blood Cell Count 9.5 10^3/uL (4.8-10.8)
== END ==
LOC: HWLAB 10:02
PROVIDERS: ATTENDING PHYSICIAN Internal Medicine Cardiovascular Disease; FAMILY PHYSICIAN Nurse Practitioner Family; REFERRING PHYSICIAN Specialist
DX: I50.9 Heart failure, unspecified (principal); E11.9 Type 2 diabetes mellitus without complications; I42.9 Cardiomyopathy, unspecified
CPT/HCPCS: 36415; 80053; 85025

== ENCOUNTER 2024-04-17 12:54 | Outpatient (RCR) | payer OTHER, SELFPAY | END 2024-04-17 23:59 | disposition home or self-care (01) | LOC: RST 12:54 | PROVIDERS: ATTENDING PHYSICIAN Physical Medicine & Rehabilitation; FAMILY PHYSICIAN Nurse Practitioner Family | DX: G93.1 Anoxic brain damage, not elsewhere classified (principal); R41.841 Cognitive communication deficit; R41.89 Other symptoms and signs involving cognitive functions and awareness; Z74.09 Other reduced mobility; Z89.412 Acquired absence of left great toe; Z73.6 Limitation of activities due to disability | CPT/HCPCS: 97110; 97116; 97129; 97130; 97530; 97535 ==

== ENCOUNTER → 2024-04-17 15:32 | Outpatient (REF) | payer OTHER, SELFPAY ==
[2024-04-17 16:40] LABS: % Basophils 0.3 % (0-2); % Eosinophils 3.3 % (0-6); % Immature Granulocytes 0.7 % (0-0.5); % Neutrophils 73.7 % (42.2-75.2); Absolute Eosinophils 0.3 10^3/uL (0-0.7); Absolute Immature Granulocytes 0.1 10^3/uL (0-0.05); Absolute Lymphocytes 1.3 10^3/uL (1.2-3.4); Absolute Monocytes 0.9 10^3/uL (0.1-0.6); Absolute Neutrophils 7.4 10^3/uL (1.4-6.5); Hemoglobin 9.8 g/dL (13.0-18.0); Mean Corp Hgb Conc. 30.6 g/dL (33.0-37.0); Mean Corpuscular Hgb 24.3 pg (27.0-31.0); Mean Corpuscular Volume 79.4 fL (80.0-94.0); Mean Platelet Volume 10.9 fL (7.4-10.4); Nucleated Red Blood Cells % 0 % (-); Platelet Count 214 10^3/uL (130-400); Red Blood Cell Count 4.03 10^6/uL (4.70-6.10); Red Cell Dist. Width 17.1 % (11.5-14.5)
[2024-04-17 17:14] LABS: ALT (SGPT) < 10 U/L (0-50); AST (SGOT) 18 U/L (17-59); Albumin 4.4 g/dl (3.5-5.0); Alkaline Phosphatase 59 U/L (38-126); Blood Urea Nitrogen 31 mg/dl (9-20); Carbon Dioxide 29 mmol/L (22-30); Chloride 102 mmol/L (98-107); Glucose 101 mg/dl (70-99); Phosphorus 3.7 mg/dl (2.5-4.5); Potassium 3.9 mmol/L (3.5-5.1); Sodium 140 mmol/L (135-145); Total Protein 7.2 g/dl (6.3-8.2); eGFR > 60.00
== END ==
LOC: REG 15:32
PROVIDERS: ATTENDING PHYSICIAN Internal Medicine Cardiovascular Disease; FAMILY PHYSICIAN Nurse Practitioner Family; OTHER PHYSICIAN Specialist
DX: I50.1 Left ventricular failure, unspecified (principal); D64.9 Anemia, unspecified; I50.9 Heart failure, unspecified; E11.9 Type 2 diabetes mellitus without complications; I42.9 Cardiomyopathy, unspecified
CPT/HCPCS: 36415; 80053; 80069; 85025

== ENCOUNTER → 2024-04-24 11:32 | Outpatient (REF) | payer OTHER, SELFPAY | LOC: WOUND 11:32 | PROVIDERS: ATTENDING PHYSICIAN Surgery; FAMILY PHYSICIAN Nurse Practitioner Family | DX: T81.41XA Infection following a procedure, superficial incisional surgical site, initial encounter (principal); I87.312 Chronic venous hypertension (idiopathic) with ulcer of left lower extremity; L97.821 Non-pressure chronic ulcer of other part of left lower leg limited to breakdown of skin; E11.9 Type 2 diabetes mellitus without complications; I73.9 Peripheral vascular disease, unspecified; K75.81 Nonalcoholic steatohepatitis (NASH); I25.10 Atherosclerotic heart disease of native coronary artery without angina pectoris; I50.9 Heart failure, unspecified; Z79.4 Long term (current) use of insulin; Z95.1 Presence of aortocoronary bypass graft; Z95.5 Presence of coronary angioplasty implant and graft; I42.9 Cardiomyopathy, unspecified; Y83.8 Other surgical procedures as the cause of abnormal reaction of the patient, or of later complication, without mention of misadventure at the time of the procedure | CPT/HCPCS: 99214 ==

== ENCOUNTER 2024-04-24 14:39 | Outpatient (RCR) | payer OTHER, SELFPAY | END 2024-04-24 15:49 | disposition home or self-care (01) | LOC: RST 14:39 | PROVIDERS: ATTENDING PHYSICIAN Physical Medicine & Rehabilitation; FAMILY PHYSICIAN Nurse Practitioner Family | DX: R26.2 Difficulty in walking, not elsewhere classified (principal); I46.9 Cardiac arrest, cause unspecified (principal); N17.9 Acute kidney failure, unspecified; Z89.412 Acquired absence of left great toe; G93.1 Anoxic brain damage, not elsewhere classified; Z74.09 Other reduced mobility; R41.841 Cognitive communication deficit; R41.89 Other symptoms and signs involving cognitive functions and awareness | CPT/HCPCS: 97110; 97112; 97530; 97535 ==

== ENCOUNTER → 2024-05-01 15:02 | Outpatient (REF) | payer OTHER, SELFPAY | LOC: WOUND 15:02 | PROVIDERS: ATTENDING PHYSICIAN Surgery; FAMILY PHYSICIAN Nurse Practitioner Family | DX: T81.41XA Infection following a procedure, superficial incisional surgical site, initial encounter (principal); S71.102A Unspecified open wound, left thigh, initial encounter; I87.312 Chronic venous hypertension (idiopathic) with ulcer of left lower extremity; L97.821 Non-pressure chronic ulcer of other part of left lower leg limited to breakdown of skin; E11.9 Type 2 diabetes mellitus without complications; I73.9 Peripheral vascular disease, unspecified; I25.10 Atherosclerotic heart disease of native coronary artery without angina pectoris; I50.9 Heart failure, unspecified; I42.9 Cardiomyopathy, unspecified; K75.81 Nonalcoholic steatohepatitis (NASH); Z95.1 Presence of aortocoronary bypass graft; Z79.4 Long term (current) use of insulin; Z95.5 Presence of coronary angioplasty implant and graft; X58.XXXA Exposure to other specified factors, initial encounter | CPT/HCPCS: 99213 ==

== ENCOUNTER 2024-05-07 06:18 | Day surgery (SDC) | payer OTHER, SELFPAY ==
[2024-05-07 07:00] VITALS: BMI 41.5
[2024-05-07 07:07] VITALS: BP 121/82; BMI 41.5
[2024-05-07 07:22] LABS: Glucose - Point of Care 108 mg/dl (70-99)
[2024-05-07 08:19] VITALS: BP 97/66
[2024-05-07 08:26] LABS: Glucose - Point of Care 119 mg/dl (70-99)
[2024-05-07 08:30] VITALS: BP 102/71
[2024-05-07 08:45] VITALS: BP 115/82
== END 2024-05-07 09:05 | disposition home or self-care (01) ==
LOC: GI 06:18
PROVIDERS: ATTENDING PHYSICIAN Internal Medicine Gastroenterology
DX: K57.30 Diverticulosis of large intestine without perforation or abscess without bleeding (principal); K64.8 Other hemorrhoids; R19.4 Change in bowel habit; R19.7 Diarrhea, unspecified; K59.00 Constipation, unspecified; K22.89 Other specified disease of esophagus; K31.89 Other diseases of stomach and duodenum; R12 Heartburn; K74.60 Unspecified cirrhosis of liver; Z87.11 Personal history of peptic ulcer disease
CPT/HCPCS: 45380; 43239; 88305; 82962; 88342

== ENCOUNTER → 2024-05-15 11:08 | Outpatient (REF) | payer OTHER, SELFPAY | LOC: WOUND 11:08 | PROVIDERS: ATTENDING PHYSICIAN Surgery; FAMILY PHYSICIAN Nurse Practitioner Family | DX: T81.41XA Infection following a procedure, superficial incisional surgical site, initial encounter (principal); S71.102A Unspecified open wound, left thigh, initial encounter; I87.312 Chronic venous hypertension (idiopathic) with ulcer of left lower extremity; L97.821 Non-pressure chronic ulcer of other part of left lower leg limited to breakdown of skin; E11.9 Type 2 diabetes mellitus without complications; I73.9 Peripheral vascular disease, unspecified; I25.10 Atherosclerotic heart disease of native coronary artery without angina pectoris; I50.9 Heart failure, unspecified; I42.9 Cardiomyopathy, unspecified; K75.81 Nonalcoholic steatohepatitis (NASH); Z95.1 Presence of aortocoronary bypass graft; Z79.4 Long term (current) use of insulin; Z95.5 Presence of coronary angioplasty implant and graft; X58.XXXA Exposure to other specified factors, initial encounter | CPT/HCPCS: 99213 ==

== ENCOUNTER → 2024-05-25 16:19 | Outpatient (REF) | payer OTHER, SELFPAY ==
[2024-05-25 17:38] LABS: Hematocrit 31.5 % (39.0-52.0); Hemoglobin 9.7 g/dL (13.0-18.0); Mean Corp Hgb Conc. 30.8 g/dL (33.0-37.0); Mean Corpuscular Hgb 23.6 pg (27.0-31.0); Mean Corpuscular Volume 76.6 fL (80.0-94.0); Mean Platelet Volume 10.6 fL (7.4-10.4); Platelet Count 190 10^3/uL (130-400); Red Blood Cell Count 4.11 10^6/uL (4.70-6.10); Red Cell Dist. Width 17.3 % (11.5-14.5); White Blood Cell Count 9.5 10^3/uL (4.8-10.8)
[2024-05-25 17:55] LABS: Blood Urea Nitrogen 33 mg/dl (9-20); Calcium 10.1 mg/dl (8.4-10.2); Carbon Dioxide 27 mmol/L (22-30); Chloride 101 mmol/L (98-107); Glucose 93 mg/dl (70-99); Iron 39 ug/dl (49-181); Sodium 142 mmol/L (135-145); eGFR > 60.00
[2024-05-25 18:00] LABS: APTT 32.5 Sec (23.4-35.0)
[2024-05-25 18:02] LABS: IgA 315 mg/dl (70-400)
[2024-05-25 18:09] LABS: Free T4 2.57 ng/dl (0.78-2.19)
[2024-05-25 18:23] LABS: TSH 0.02 uIU/ml (0.47-4.68)
[2024-05-25 18:28] LABS: Ferritin 31.5 ng/ml (17.9-464.0)
[2024-05-25 19:00] LABS: Folate 4.2 ng/ml (2.76-20); Vitamin B12 496 pg/ml (239-931)
[2024-05-25 20:14] LABS: AFP Male/Tumor Marker 1.64 ng/ml
[2024-05-27 16:09] LABS: tTG IgA Antibody 9.4 EU/ml (0-19); tTG IgG Antibody 15.2 EU/ml (0-19)
[2024-05-27 23:28] LABS: Endomysial IgA Antibody Titer <1:10 (<1:10)
== END ==
LOC: REG 16:19
PROVIDERS: ATTENDING PHYSICIAN Physician Assistant; FAMILY PHYSICIAN Nurse Practitioner Family; OTHER PHYSICIAN Internal Medicine Cardiovascular Disease; OTHER PHYSICIAN Internal Medicine Gastroenterology; OTHER PHYSICIAN Specialist
DX: E03.9 Hypothyroidism, unspecified (principal); N18.31 Chronic kidney disease, stage 3a; I10 Essential (primary) hypertension; I42.9 Cardiomyopathy, unspecified; E87.1 Hypo-osmolality and hyponatremia; R19.4 Change in bowel habit; K74.60 Unspecified cirrhosis of liver
CPT/HCPCS: 36415; 80048; 82105; 82607; 82728; 82746; 82784; 83516; 83540; 84439; 84443; 85027; 85610; 85730; 86231

== ENCOUNTER → 2024-06-08 11:41 | Outpatient (REF) | payer OTHER, SELFPAY | LOC: HWRAD 11:41 | PROVIDERS: ATTENDING PHYSICIAN Nurse Practitioner Family | DX: M53.3 Sacrococcygeal disorders, not elsewhere classified (principal) | CPT/HCPCS: 72220 ==

== ENCOUNTER 2024-06-16 10:55 | Outpatient (RCR) | payer OTHER, SELFPAY ==
[2024-05-25 14:45] LABS: Glucose - Point of Care 116 mg/dl (70-99)
[2024-05-25 15:39] LABS: Glucose - Point of Care 122 mg/dl (70-99)
[2024-05-28 10:29] LABS: Glucose - Point of Care 129 mg/dl (70-99)
[2024-05-28 11:35] LABS: Glucose - Point of Care 135 mg/dl (70-99)
[2024-06-02 10:41] LABS: Glucose - Point of Care 122 mg/dl (70-99)
[2024-06-02 11:43] LABS: Glucose - Point of Care 140 mg/dl (70-99)
[2024-06-04 10:31] LABS: Glucose - Point of Care 132 mg/dl (70-99)
[2024-06-04 11:29] LABS: Glucose - Point of Care 126 mg/dl (70-99)
[2024-06-09 10:42] LABS: Glucose - Point of Care 114 mg/dl (70-99)
[2024-06-09 11:41] LABS: Glucose - Point of Care 120 mg/dl (70-99)
[2024-06-11 10:38] LABS: Glucose - Point of Care 150 mg/dl (70-99)
[2024-06-11 11:36] LABS: Glucose - Point of Care 149 mg/dl (70-99)
== END 2024-06-16 23:59 | disposition home or self-care (01) ==
LOC: CRHB 10:55
PROVIDERS: ATTENDING PHYSICIAN Internal Medicine Cardiovascular Disease; FAMILY PHYSICIAN Nurse Practitioner Family
DX: I25.10 Atherosclerotic heart disease of native coronary artery without angina pectoris (principal); I25.2 Old myocardial infarction; Z95.1 Presence of aortocoronary bypass graft
CPT/HCPCS: 82962; 93797; 93798

== ENCOUNTER → 2024-06-16 13:15 | Outpatient (REF) | payer OTHER, SELFPAY | LOC: WOUND 13:15 | PROVIDERS: ATTENDING PHYSICIAN Surgery | DX: T81.41XA Infection following a procedure, superficial incisional surgical site, initial encounter (principal); S71.102A Unspecified open wound, left thigh, initial encounter; I87.312 Chronic venous hypertension (idiopathic) with ulcer of left lower extremity; L97.821 Non-pressure chronic ulcer of other part of left lower leg limited to breakdown of skin; E11.9 Type 2 diabetes mellitus without complications; I73.9 Peripheral vascular disease, unspecified; I25.10 Atherosclerotic heart disease of native coronary artery without angina pectoris; I50.9 Heart failure, unspecified; I42.9 Cardiomyopathy, unspecified; K75.81 Nonalcoholic steatohepatitis (NASH); Z95.1 Presence of aortocoronary bypass graft; Z79.4 Long term (current) use of insulin; Z95.5 Presence of coronary angioplasty implant and graft; Y83.8 Other surgical procedures as the cause of abnormal reaction of the patient, or of later complication, without mention of misadventure at the time of the procedure; X58.XXXA Exposure to other specified factors, initial encounter | CPT/HCPCS: 99212 ==

== ENCOUNTER → 2024-07-14 12:29 | Outpatient (REF) | payer OTHER, SELFPAY ==
[2024-07-14 13:32] LABS: % Basophils 0.5 % (0-2); % Eosinophils 2.6 % (0-6); % Immature Granulocytes 0.5 % (0-0.5); % Lymphocytes 14.4 % (20.5-51.1); Absolute Basophils 0.1 10^3/uL (0-0.2); Absolute Eosinophils 0.2 10^3/uL (0-0.7); Absolute Immature Granulocytes 0.1 10^3/uL (0-0.05); Absolute Lymphocytes 1.3 10^3/uL (1.2-3.4); Absolute Monocytes 0.8 10^3/uL (0.1-0.6); Absolute Neutrophils 6.8 10^3/uL (1.4-6.5); Hemoglobin 10.6 g/dL (13.0-18.0); Mean Corp Hgb Conc. 31.2 g/dL (33.0-37.0); Mean Corpuscular Hgb 24.1 pg (27.0-31.0); Mean Corpuscular Volume 77.3 fL (80.0-94.0); Mean Platelet Volume 10.3 fL (7.4-10.4); Nucleated Red Blood Cells % 0 % (-); Platelet Count 199 10^3/uL (130-400); Red Cell Dist. Width 17.9 % (11.5-14.5); White Blood Cell Count 9.3 10^3/uL (4.8-10.8)
[2024-07-14 13:49] LABS: NT-proBNP 6430 pg/ml
[2024-07-14 15:06] LABS: ALT (SGPT) < 10 U/L (0-50); AST (SGOT) 23 U/L (17-59); Albumin 4.6 g/dl (3.5-5.0); Alkaline Phosphatase 78 U/L (38-126); Blood Urea Nitrogen 32 mg/dl (9-20); Calcium 9.9 mg/dl (8.4-10.2); Carbon Dioxide 30 mmol/L (22-30); Chloride 100 mmol/L (98-107); Glucose 72 mg/dl (70-99); Potassium 4.4 mmol/L (3.5-5.1); Sodium 144 mmol/L (135-145); Total Bilirubin 1.1 mg/dl (0.2-1.3); Total Protein 7.5 g/dl (6.3-8.2); eGFR 57.18
== END ==
LOC: REG 12:29
PROVIDERS: ATTENDING PHYSICIAN Nurse Practitioner; FAMILY PHYSICIAN Nurse Practitioner Family
DX: I25.10 Atherosclerotic heart disease of native coronary artery without angina pectoris (principal); Z95.810 Presence of automatic (implantable) cardiac defibrillator; I48.0 Paroxysmal atrial fibrillation; I50.20 Unspecified systolic (congestive) heart failure
CPT/HCPCS: 36415; 80053; 83880; 85025

== ENCOUNTER → 2024-07-14 13:09 | Outpatient (REF) | payer OTHER, SELFPAY | LOC: WOUND 13:09 | PROVIDERS: ATTENDING PHYSICIAN Surgery; FAMILY PHYSICIAN Nurse Practitioner Family | DX: T81.41XA Infection following a procedure, superficial incisional surgical site, initial encounter (principal); Y83.8 Other surgical procedures as the cause of abnormal reaction of the patient, or of later complication, without mention of misadventure at the time of the procedure; I87.312 Chronic venous hypertension (idiopathic) with ulcer of left lower extremity; L97.821 Non-pressure chronic ulcer of other part of left lower leg limited to breakdown of skin; E11.9 Type 2 diabetes mellitus without complications; I73.9 Peripheral vascular disease, unspecified; I25.10 Atherosclerotic heart disease of native coronary artery without angina pectoris; I50.9 Heart failure, unspecified; I42.9 Cardiomyopathy, unspecified; K75.81 Nonalcoholic steatohepatitis (NASH); Z95.1 Presence of aortocoronary bypass graft; Z79.4 Long term (current) use of insulin; Z95.5 Presence of coronary angioplasty implant and graft | CPT/HCPCS: 99212 ==

== ENCOUNTER 2024-07-16 10:35 | Outpatient (RCR) | payer OTHER, SELFPAY | END 2024-07-16 23:59 | disposition home or self-care (01) | LOC: CRHB 10:35 | PROVIDERS: ATTENDING PHYSICIAN Internal Medicine Cardiovascular Disease; FAMILY PHYSICIAN Nurse Practitioner Family | DX: I25.10 Atherosclerotic heart disease of native coronary artery without angina pectoris (principal); I25.2 Old myocardial infarction | CPT/HCPCS: 93797; 93798 ==

== ENCOUNTER 2024-07-16 11:01 | Emergency (ER) | payer OTHER, SELFPAY ==
[2024-07-16 11:10] VITALS: BP 116/71
--- NOTE | 2024-07-16 11:16 | ED.PDOC.TRB ---
ED Provider Triage
-
63-year-old male presents from cardiac rehab with chest pain intermittent since last evening. Currently pain is resolved. History of insulin-dependent diabetes. history of CAD, requiring CABG. Follows with [facility]. EKG, CHest xray, labs
ordered. Has medrtonic pacer/defib that was interrogated in triage.
[2024-07-16 11:43] LABS: % Basophils 0.3 % (0-2); % Eosinophils 2.7 % (0-6); % Immature Granulocytes 0.3 % (0-0.5); % Lymphocytes 10.4 % (20.5-51.1); % Monocytes 9.2 % (1.7-9.3); % Neutrophils 77.1 % (42.2-75.2); Absolute Eosinophils 0.2 10^3/uL (0-0.7); Absolute Lymphocytes 0.9 10^3/uL (1.2-3.4); Absolute Monocytes 0.8 10^3/uL (0.1-0.6); Hematocrit 33.2 % (39.0-52.0); Hemoglobin 10.7 g/dL (13.0-18.0); Mean Corp Hgb Conc. 32.2 g/dL (33.0-37.0); Mean Corpuscular Hgb 23.6 pg (27.0-31.0); Mean Corpuscular Volume 73.1 fL (80.0-94.0); Mean Platelet Volume 10.3 fL (7.4-10.4); Nucleated Red Blood Cells % 0 % (-); Platelet Count 187 10^3/uL (130-400); Red Blood Cell Count 4.54 10^6/uL (4.70-6.10); Red Cell Dist. Width 17.9 % (11.5-14.5); White Blood Cell Count 9.1 10^3/uL (4.8-10.8)
[2024-07-16 11:49] LABS: ALT (SGPT) 10 U/L (0-50); AST (SGOT) 23 U/L (17-59); Albumin 4.9 g/dl (3.5-5.0); Alkaline Phosphatase 81 U/L (38-126); Blood Urea Nitrogen 30 mg/dl (9-20); Carbon Dioxide 25 mmol/L (22-30); Chloride 103 mmol/L (98-107); Glucose 100 mg/dl (70-99); Potassium 3.8 mmol/L (3.5-5.1); Sodium 143 mmol/L (135-145); Total Bilirubin 1.2 mg/dl (0.2-1.3); Total Protein 7.7 g/dl (6.3-8.2); eGFR > 60.00
[2024-07-16 11:59] LABS: Troponin I < 0.012 ng/ml
[2024-07-16 12:10] VITALS: BP 100/66
[2024-07-16 12:11] VITALS: BMI 39.5
--- NOTE | 2024-07-16 12:40 | ED.GENMED ---
History of Present Illness
General
Chief Complaint: Chest Pain
Time Seen by Provider: 07/16/24 12:10
History of Present Illness
History of Present Illness:
Patient is a 63-year-old male extensive cardiac history notable for CAD with stents bypass, CHF with ICD, pacemaker, pericardial window, PEA arrest in October, hypertension, hyperlipidemia, diabetes presenting to the emergency department with chest
pain. Patient states that he was at cardiac rehab this morning and told them that he had chest pain yesterday so they sent him here for further evaluation. Patient states at 10 PM yesterday he was sitting on a nosebleed occurred and then developed
left-sided chest pain. It was pressure about 3 out of 10. It resolved by this morning at 845. He states that he occasionally has this type of pain. No exertional chest pain. No positional pain. He is on aspirin and Plavix. No pleuritic pain.
No leg swelling. He also states that he has been having intermittent episodes of getting lightheaded dizzy. His states that this week multiple times while he is sitting he became lightheaded dizzy. He has not had a syncopal event. No fevers
or chills. No nausea vomiting or diarrhea. No abdominal pain. He is compliant with his medications. He does see Dr. Yadav.
Past History
Past History
ED Past Medical History: CAD, CHF, GERD, HTN, Hypercholesterolemia, IDDM, Renal failure and Hypothyroidism
ED Past Surgical History: Cardiac (CABG, pericardial window)
Social History
Tobacco: Non-smoker
Alcohol: None
Drug: None
Personal:
Living: with family
Employment: Employed
Family History
Family History: CAD
Phy Exam
Physical Exam
Physical Exam:
GENERAL: in no acute distress
HEENT: normocephalic, extraocular movements intact, moist oral mucosa
NECK: normal inspection
RESPIRATORY: no respiratory distress, clear to auscultation bilaterally
CARDIOVASCULAR: regular rate and rhythm
ABDOMEN/: soft, non-distended, non-tender to palpation, no rebound or guarding
EXTREMITIES: non-tender, no edema/swelling
NEUROLOGIC: awake and alert, moves all extremities
SKIN: warm
Scores
Heart Score for Chest Pain Patients
STEMI patient?: Not applicable
Course
Orders/Labs/Results
Orders:
Orders
07/16/24 11:05
EKG [Electrocardiogram (*1)] Urgent
Reason for Study: Chest Pain
EKG- Treatment ONCE
07/16/24 11:15
CR Chest - 2 Views Urgent
Comment:
Reason For Exam: chest pain
07/16/24 11:25
Complete Blood Count/With Diff Urgent
Comprehensive Metabolic Panel Urgent
Troponin I Urgent
Abnormal Lab Results
07/16/24
11:25
RBC 4.54 L 10^6/uL
(4.70-6.10)
Hgb 10.7 L g/dL
(13.0-18.0)
Hct 33.2 L %
(39.0-52.0)
MCV 73.1 L fL
(80.0-94.0)
MCH 23.6 L pg
(27.0-31.0)
MCHC 32.2 L g/dL
(33.0-37.0)
RDW 17.9 H %
(11.5-14.5)
Absolute Neuts (auto) 7.0 H 10^3/uL
(1.4-6.5)
Absolute Lymphs (auto) 0.9 L 10^3/uL
(1.2-3.4)
Absolute Monos (auto) 0.8 H 10^3/uL
(0.1-0.6)
Neutrophils % 77.1 H %
(42.2-75.2)
Lymphocytes % 10.4 L %
(20.5-51.1)
BUN 30 H mg/dl
(9-20)
Glucose 100 H mg/dl
(70-99)
07/16/24 11:25
07/16/24 11:25
Vital Signs
Initial and Last Documented VS:
Initial Vital Signs
Temp Pulse Resp BP Pulse Ox
98.7 F 77 18 116/71 99
07/16/24 11:10 07/16/24 11:10 07/16/24 11:10 07/16/24 11:10 07/16/24 11:10
Last Documented Vital Signs
Temp Pulse Resp BP Pulse Ox
98.7 F 66 17 110/68 99
07/16/24 11:10 07/16/24 14:00 07/16/24 12:10 07/16/24 14:00 07/16/24 14:00
MDM/Problems Addressed
Differential Diagnosis Includes:
Patient is a 63-year-old male with extensive past medical history most notable for CAD with stents and bypass, CHF with ICD placement, pacemaker presenting to the emergency department with chest pain that is now resolved and episodes of
lightheadedness dizziness. Vitals here notable for paced rhythm in the 60s. Exam is otherwise reassuring. Chest pain could be ACS in nature versus costochondritis. Considered PE though less likely. Unclear etiology of near syncope. Could be
arrhythmia. They did check his blood sugar and blood pressure during these episodes which were normal. Pacemaker was interrogated. Colleague received a call stating possible lack of LV capture on leads it does show PERFORMANCE IMPROVEMENT SPECIALIST pacing is effective less
than 90% of the time. Delayed LV activation has been identified to consider changing LV pacing cathode or increasing the V-Vpaced delay. There is possible OptiVol fluid accumulation.
There certainly could explain the episodes of lightheadedness dizziness. Will touch base with cardiology. Troponin is negative. Given that has been ongoing since yesterday do not need to obtain a delta.
*Critical Care Note
Total Time (30-74mins, 75-104mins- exclusive of procedures): Not Applicable
Update Note
Update Note:
Discussed with cardiology who discussed with EP. [employer] rep came down to emergency department and made adjustments. Discussed with cardiology as patient is stable for discharge. Discussed these findings with patient. He has been pain-free.
He does state that he an MRI done regarding his liver. I did evaluate it and it does show cirrhosis with ascites. He is following up with cardiology about the results of this as he might start getting paracentesis. No urgent need at this time.
Will discharge with cardiology follow-up.
ED Attending Note
-
Portions of this chart may have been created with voice recognition software.� Occasional wrong word or��sound alike� substitutions may have occurred due to the inherent limitations of voice recognition software.
Discharge Plan
Departure
Patient Disposition: Home (Routine Discharge)
Date of Disposition: 07/16/24
Time of Disposition: 14:50
Patient with high blood pressure during this ER visit?: No
Discharge Problem:
Chest pain, Pacemaker
Instructions: Chest Pain CBC Follow Up
Prescriptions:
No Action
aspirin 81 MG tablet,delayed release (DR/EC)
81 mg PO DAILY
potassium citrate 10 mEq (1,080 mg) Tablet Extended Release
10 meq PO BID
simethicone 80 mg Tablet,Chewable
80 mg PO HS
oxycodone-acetaminophen 5-325 mg Tablet
1 tab PO Q8H
docusate sodium [Colace] 100 mg Capsule
100 mg PO BID
gabapentin 100 mg Capsule
100 mg PO BID
rosuvastatin 20 mg Tablet
20 mg PO QPM
insulin degludec [Tresiba FlexTouch U-200] 200 unit/mL (3 mL) Insulin Pen
18 unit SC DAILY
Relistor 150 mg Tablet
150 mg PO DAILY
bisacodyl 5 mg tablet,delayed release (DR/EC)
10 mg PO DAILY PRN (Reason: constipation)
pantoprazole [Protonix] 40 mg tablet,delayed release (DR/EC)
40 mg PO BID
melatonin 5 mg tablet
5 mg PO HS
metoprolol succinate 25 mg Tablet Extended Release 24 Hr
37.5 mg PO QPM Qty: 30 0RF
torsemide 20 mg Tablet
20 mg PO BID Qty: 0 0RF
levothyroxine [Synthroid] 300 mcg tablet
300 mcg PO DAILY Qty: 30 0RF
clopidogrel 75 MG tablet
75 mg PO DAILY Qty: 30 0RF
Referrals:
René Guido CRNP [Family Provider] -
Activity Restrictions/Additional Instructions:
You were evaluated in the Emergency Department today for chest pain. Your evaluation has shown no signs of medical conditions requiring emergent intervention at this time, however we recommend that you follow up with your primary care physician or
your pearl glue drier as soon as possible for further testing as an outpatient.
Your pacemaker was adjusted. Next time you have the episodes of lightheadedness dizziness please check your heart rate in addition to the other vital signs.
Please schedule an appointment for follow up with your primary care physician as soon as possible.
Return to the Emergency Department if you experience worsening or uncontrolled chest pain, shortness of breath, light headedness, feeling faint, nausea, vomiting, or any other concerning symptoms.
Thank you for choosing us for your care.
Interventions
Interventions:
*Risk Screen - Suicide Last Done: 07/16/24 12:15
*General Assessment Last Done: 07/16/24 12:15
*Neglect/Abuse Screening Last Done: 07/16/24 12:15
ED- Cardiac Assessment Last Done: 07/16/24 12:15
Discharge Date and Time
Print Language: YAKUT
[2024-07-16 13:00] VITALS: BP 112/68
[2024-07-16 14:00] VITALS: BP 110/68
== END 2024-07-16 15:16 | disposition home or self-care (01) ==
LOC: EMR 11:01
PROVIDERS: Physician Assistant; EMERGENCY PHYSICIAN Student in an Organized Health Care Education/Training Program; FAMILY PHYSICIAN Nurse Practitioner Family
DX: R07.89 Other chest pain (principal); I25.10 Atherosclerotic heart disease of native coronary artery without angina pectoris; Z95.5 Presence of coronary angioplasty implant and graft; E11.9 Type 2 diabetes mellitus without complications; I11.0 Hypertensive heart disease with heart failure; I50.9 Heart failure, unspecified; E78.5 Hyperlipidemia, unspecified; Z79.4 Long term (current) use of insulin; Z79.02 Long term (current) use of antithrombotics/antiplatelets; Z95.810 Presence of automatic (implantable) cardiac defibrillator; Z86.74 Personal history of sudden cardiac arrest
CPT/HCPCS: 99284; 71046; 80053; 84484; 85025; 93005

== ENCOUNTER → 2024-07-31 06:51 | Outpatient (REF) | payer OTHER, SELFPAY ==
[2024-07-31] MEDS: LEXISCAN 0.4 MG IV (08:44)
== END ==
LOC: RCS 06:51
PROVIDERS: ATTENDING PHYSICIAN Internal Medicine Cardiovascular Disease; FAMILY PHYSICIAN Nurse Practitioner Family
DX: I25.10 Atherosclerotic heart disease of native coronary artery without angina pectoris (principal)
CPT/HCPCS: 78452; 93017; A9500; J2785

== ENCOUNTER → 2024-08-04 06:57 | Outpatient (REF) | payer OTHER, SELFPAY ==
[2024-08-04 07:35] VITALS: BP 112/73; BP_SYST 67
[2024-08-04 08:30] VITALS: BP 107/71; BP_SYST 67
[2024-08-04 09:05] VITALS: BP 107/71
[2024-08-04 09:27] LABS: Body Fluid Mononuclear 84.5 %; Body Fluid Polymorphonuclear 15.5 %; Body Fluid WBC 348 /CUMM
[2024-08-04 09:38] LABS: Body Fluid Second Tech EF
== END ==
LOC: RADI 06:57
PROVIDERS: ATTENDING PHYSICIAN Nurse Practitioner Family; FAMILY PHYSICIAN Nurse Practitioner Family
DX: R18.8 Other ascites (principal)
CPT/HCPCS: 88305; 49083; 87015; 87070; 87205; 88112; 88341; 88342; 89051

== ENCOUNTER 2024-08-04 09:17 | Outpatient (RCR) | payer OTHER, SELFPAY ==
[2024-08-04 09:48] VITALS: BP 96/62
[2024-08-04 09:55] VITALS: BP 96/62
[2024-08-04] MEDS: FLEXBUMIN 50 IV (09:58)
[2024-08-04] MEDS: FLEXBUMIN 100 IV ×2 (11:01→12:49)
[2024-08-04 11:05] VITALS: BP 95/55
[2024-08-04 11:45] VITALS: BP 105/60
[2024-08-04 12:30] VITALS: BP 116/60
== END 2024-08-17 23:59 | disposition home or self-care (01) ==
LOC: OID 09:17
PROVIDERS: ATTENDING PHYSICIAN Nurse Practitioner Family; FAMILY PHYSICIAN Nurse Practitioner Family
DX: K74.60 Unspecified cirrhosis of liver (principal); N18.9 Chronic kidney disease, unspecified; I25.10 Atherosclerotic heart disease of native coronary artery without angina pectoris; Z87.19 Personal history of other diseases of the digestive system; Z95.1 Presence of aortocoronary bypass graft
CPT/HCPCS: 96365; 96366; P9047

== ENCOUNTER → 2024-08-07 12:26 | Outpatient (REF) | payer OTHER, SELFPAY ==
[2024-08-07 15:52] LABS: Hematocrit 33.5 % (39.0-52.0); Hemoglobin 10.4 g/dL (13.0-18.0); Mean Corpuscular Hgb 23.5 pg (27.0-31.0); Mean Corpuscular Volume 75.8 fL (80.0-94.0); Mean Platelet Volume 10.6 fL (7.4-10.4); Platelet Count 204 10^3/uL (130-400); Red Blood Cell Count 4.42 10^6/uL (4.70-6.10); Red Cell Dist. Width 17.9 % (11.5-14.5); White Blood Cell Count 9.7 10^3/uL (4.8-10.8)
[2024-08-07 16:02] LABS: ALT (SGPT) 11 U/L (0-50); AST (SGOT) 24 U/L (17-59); Alkaline Phosphatase 67 U/L (38-126); Blood Urea Nitrogen 29 mg/dl (9-20); Calcium 9.2 mg/dl (8.4-10.2); Carbon Dioxide 28 mmol/L (22-30); Chloride 102 mmol/L (98-107); Glucose 95 mg/dl (70-99); HDL Cholesterol 28 mg/dl; LDL Cholesterol, Calculated 36 mg/dl; Potassium 3.8 mmol/L (3.5-5.1); Sodium 143 mmol/L (135-145); Total Bilirubin 0.8 mg/dl (0.2-1.3); Total Cholesterol 82 mg/dl (50-199); Total Protein 6.5 g/dl (6.3-8.2); Triglyceride 91 mg/dl (10-149); Very Low Density Lipoprotein 18 mg/dl (0-30); eGFR > 60.00
[2024-08-07 16:17] LABS: Free T4 2.19 ng/dl (0.78-2.19)
[2024-08-07 16:31] LABS: TSH 0.42 uIU/ml (0.47-4.68)
[2024-08-08 10:01] LABS: Glycohemoglobin (HgbA1c) 5.5 % (4.0-5.6)
== END ==
LOC: HWLAB 12:26
PROVIDERS: ATTENDING PHYSICIAN Physician Assistant; FAMILY PHYSICIAN Nurse Practitioner Family; REFERRING PHYSICIAN Specialist
DX: E11.65 Type 2 diabetes mellitus with hyperglycemia (principal); E03.9 Hypothyroidism, unspecified
CPT/HCPCS: 36415; 80053; 80061; 83036; 84439; 84443; 85027

== ENCOUNTER → 2024-08-24 07:54 | Outpatient (REF) | payer OTHER, SELFPAY ==
[2024-08-24 10:06] LABS: Hematocrit 34.8 % (39.0-52.0); Hemoglobin 10.5 g/dL (13.0-18.0); Mean Corp Hgb Conc. 30.2 g/dL (33.0-37.0); Mean Corpuscular Hgb 23.6 pg (27.0-31.0); Mean Corpuscular Volume 78.2 fL (80.0-94.0); Mean Platelet Volume 10.2 fL (7.4-10.4); Platelet Count 201 10^3/uL (130-400); Red Blood Cell Count 4.45 10^6/uL (4.70-6.10); Red Cell Dist. Width 18.9 % (11.5-14.5)
[2024-08-24 10:22] LABS: INR 1.39; PT 16.9 Sec (11.4-14.6)
[2024-08-24 10:23] LABS: APTT 31.6 Sec (23.4-35.0)
[2024-08-24 10:51] LABS: ALT (SGPT) 13 U/L (0-50); AST (SGOT) 24 U/L (17-59); Albumin 2.8 g/dl (3.5-5.0); Alkaline Phosphatase 75 U/L (38-126); Blood Urea Nitrogen 32 mg/dl (9-20); Calcium 9.6 mg/dl (8.4-10.2); Carbon Dioxide 32 mmol/L (22-30); Chloride 104 mmol/L (98-107); Direct Bilirubin 0.1 mg/dl (0.0-0.4); Glucose 99 mg/dl (70-99); Iron 41 ug/dl (49-181); Potassium 4.5 mmol/L (3.5-5.1); Sodium 148 mmol/L (135-145); Total Bilirubin 0.8 mg/dl (0.2-1.3); Total Protein 6.7 g/dl (6.3-8.2); eGFR > 60.00
[2024-08-24 11:03] LABS: Percent Saturation 11 % (20-50); Total Iron Binding Capacity 345 ug/dl (261-462)
[2024-08-24 11:20] LABS: Ferritin 44.5 ng/ml (17.9-464.0)
[2024-08-24 18:38] LABS: AFP Male/Tumor Marker 1.57 ng/ml
== END ==
LOC: RAD 07:54
PROVIDERS: ATTENDING PHYSICIAN Nurse Practitioner Family; FAMILY PHYSICIAN Nurse Practitioner Family
DX: K74.60 Unspecified cirrhosis of liver (principal)
CPT/HCPCS: 36415; 76700; 80053; 82105; 82248; 82728; 83540; 83550; 85027; 85610; 85730

== ENCOUNTER → 2024-08-25 07:26 | Outpatient (REF) | payer OTHER, SELFPAY ==
[2024-08-25 07:55] VITALS: BP 104/71; BP_SYST 70
[2024-08-25 08:45] VITALS: BP 105/70
[2024-08-25 09:10] LABS: Body Fluid Mononuclear 83.7 %; Body Fluid Polymorphonuclear 16.3 %; Body Fluid WBC 343 /CUMM
[2024-08-25 09:13] LABS: Body Fluid Second Tech JMK
== END ==
LOC: RADI 07:26
PROVIDERS: ATTENDING PHYSICIAN Nurse Practitioner Family; FAMILY PHYSICIAN Nurse Practitioner Family
DX: R18.8 Other ascites (principal)
CPT/HCPCS: 49083; 87015; 87070; 87205; 89051

== ENCOUNTER → 2024-09-09 11:46 | Outpatient (REF) | payer OTHER, SELFPAY ==
[2024-09-09 15:36] LABS: Blood Urea Nitrogen 30 mg/dl (9-20); Calcium 9.1 mg/dl (8.4-10.2); Carbon Dioxide 29 mmol/L (22-30); Chloride 102 mmol/L (98-107); Glucose 103 mg/dl (70-99); Phosphorus 3.8 mg/dl (2.5-4.5); Potassium 3.8 mmol/L (3.5-5.1); Sodium 144 mmol/L (135-145); eGFR > 60.00
== END ==
LOC: HWLAB 11:46
PROVIDERS: ATTENDING PHYSICIAN Internal Medicine Cardiovascular Disease; FAMILY PHYSICIAN Nurse Practitioner Family
DX: I50.9 Heart failure, unspecified (principal)
CPT/HCPCS: 36415; 80069

== ENCOUNTER → 2024-09-15 07:13 | Outpatient (REF) | payer OTHER, SELFPAY ==
[2024-09-15 07:27] VITALS: BP 111/73; BP_SYST 69
[2024-09-15 08:18] VITALS: BP 114/76
[2024-09-15 08:59] LABS: Body Fluid Mononuclear 86.1 %; Body Fluid Polymorphonuclear 13.9 %; Body Fluid WBC 302 /CUMM
[2024-09-15 09:00] LABS: Body Fluid Second Tech ASW
== END ==
LOC: RADI 07:13
PROVIDERS: ATTENDING PHYSICIAN Nurse Practitioner Family; FAMILY PHYSICIAN Nurse Practitioner Family
DX: R18.8 Other ascites (principal)
CPT/HCPCS: 49083; 87015; 87070; 87205; 89051

== ENCOUNTER 2024-09-15 08:56 | Outpatient (RCR) | payer OTHER, SELFPAY ==
[2024-08-25 09:20] VITALS: BP 113/60
[2024-08-25] MEDS: FLEXBUMIN 50 IV (09:26)
[2024-08-25 10:20] VITALS: BP 116/54
[2024-08-25] MEDS: FLEXBUMIN 100 IV (10:21)
[2024-08-25 11:59] VITALS: BP 107/65
[2024-09-15] MEDS: FLEXBUMIN 50 IV (09:44)
[2024-09-15 09:46] VITALS: BP 113/60
[2024-09-15] MEDS: FLEXBUMIN 100 IV (10:42)
[2024-09-15 10:44] VITALS: BP 102/64
[2024-09-15 12:25] VITALS: BP 103/56
== END 2024-09-16 10:02 | disposition home or self-care (01) ==
LOC: OID 08:56
PROVIDERS: ATTENDING PHYSICIAN Nurse Practitioner Family; FAMILY PHYSICIAN Nurse Practitioner Family
DX: K74.60 Unspecified cirrhosis of liver (principal); N18.9 Chronic kidney disease, unspecified; I25.10 Atherosclerotic heart disease of native coronary artery without angina pectoris; Z87.19 Personal history of other diseases of the digestive system; Z95.1 Presence of aortocoronary bypass graft
CPT/HCPCS: 96365; 96366; P9047

== ENCOUNTER → 2024-09-16 14:46 | Outpatient (REF) | payer OTHER, SELFPAY ==
[2024-09-16 16:29] LABS: Albumin 3.9 g/dl (3.5-5.0); Blood Urea Nitrogen 26 mg/dl (9-20); Calcium 9.2 mg/dl (8.4-10.2); Carbon Dioxide 32 mmol/L (22-30); Chloride 101 mmol/L (98-107); Glucose 93 mg/dl (70-99); Phosphorus 3.7 mg/dl (2.5-4.5); Sodium 142 mmol/L (135-145); eGFR > 60.00
== END ==
LOC: REG 14:46
PROVIDERS: ATTENDING PHYSICIAN Internal Medicine Cardiovascular Disease; FAMILY PHYSICIAN Nurse Practitioner Family; OTHER PHYSICIAN Specialist
DX: I50.9 Heart failure, unspecified (principal)
CPT/HCPCS: 36415; 80069

== ENCOUNTER 2024-09-18 10:53 | Day surgery (SDC) | payer OTHER, SELFPAY ==
[2024-09-18] VITALS (10 sets, daily range): BP systolic 94–113; BP diastolic 56–77; BMI 43.5
[2024-09-18 11:37] LABS: Glucose - Point of Care 108 mg/dl (70-99)
[2024-09-18] MEDS: PLAVIX 75 MG PO (11:48)
[2024-09-18] MEDS: LOW STRENGTH ASPIRIN 81 MG PO (11:48)
[2024-09-18] MEDS: NSS 500 IV (11:48)
[2024-09-18 13:18] LABS: ACT-LR - POC 326 Seconds (116-155)
--- NOTE | 2024-09-18 14:01 | ITS.CL.CATH ---
[employer] - Catheterization
Cardiac Catheterization
Procedure Report:
CARDIAC CATHETERIZATION REPORT
Date of Procedure: 09/18/2024
Referring: Jono Yadav MD
Indication: Progressive exertional dyspnea with known ischemic cardiomyopathy
�
HEMODYNAMIC DATA
AO: 99/73
LV: 99/31
�
LEFT VENTRICULOGRAPHY: Severe apical hypokinesis with EF 34%
�
CORONARY ANGIOGRAPHY
Dominance: Right
Left Main: 80% ostia/proximal stenosis. There is the angiographic appearance of thrombus in the terminal left main coronary artery
LAD: The LAD is occluded proximally. A patent LYNNE graft touches down into the mid LAD with brisk distal runoff. There is a 80% LAD stenosis distal to the ROSARIO graft touchdown site. This is a new lesion compared with the prior study from 2019. A
diagonal branch fills via a severely diseased saphenous vein graft
Circumflex: The circumflex is occluded just distal to its origin. A small obtuse marginal branch fills incompletely via left to left collaterals. 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 That vessel
is now occluded.
RCA: The RCA is occluded at its origin. There is a patent vein graft touchdown in the mid PDA with diffuse moderate to severe disease in the PDA distal to the touchdown site and backfilling to supply a small segment of proximal PDA only
Bypass grafts:
1. The left internal mammary graft to the LAD is widely patent
2. The vein graft to the mid RPDA is widely patent
3. The vein graft to the diagonal branch is severely diseased with VELVET grade II flow to the target vessel. There is high-grade disease focally within the previously placed stent and in the mid body of the graft distal to the proximal stented
segment and proximal to the more distal stented segment.
At the conclusion the diagnostic study we made an attempt to access the LYNNE graft from the left upper extremity to perform PCI of the LAD distal to the ROSARIO graft touchdown site. A 90 cm ROSARIO guide was used. Heparin was used for anticoagulation.
Unfortunately, the angulation of the takeoff of the LYNNE graft did not allow selective cannulation from the left radial approach. We decided to assess the patient for a return to the [employer] via the femoral artery approach. The patient has
undergone complex lower extremity revascularization since the time of his (most recent) 2019 cardiac cath procedure. I wanted to see whether we could use the lower extremities for arterial access. A wire was advanced into the distal aorta from the
left radial artery and a 125 cm JR4 diagnostic catheter advanced into the right iliac artery. Limited angiography shows a patent right external iliac stent, a patent left common iliac artery stent and there is good flow to both common femoral
arteries
�
Closure Device: None-the procedure was performed via the left radial artery
�
Radiation (mGy): 1117
DAP (cm2.Gy): 94.1
Fluoroscopy time: 17.8 minutes
Contrast 121 mL Omnipaque
�
CONCLUSIONS
1:�Severe apical hypokinesis with EF 34%
2:�Severe left main and triple-vessel CAD as described. The LYNNE-LAD remains widely patent. The SVG-RPDA remains patent. The SVG-diagonal is severely and diffusely diseased but is patent to the touchdown site
3. Unfavorable angulation of the LYNNE origin precluded any attempts to perform LAD PCI via the LYNNE graft from the left radial artery approach.
4. The patient will return electively for intervention with plan to attempt to treat the new mid LAD lesion through the LYNNE graft and probable attempt to stent the diffusely diseased SVG-diagonal. This intervention will be a high risk procedure
with nor surgical backup
�
�
Copy to: Jono Yadav MD, MARQUIS Klein
�
Sai Mishra MD, [facility], [facility]
== END 2024-09-18 17:30 | disposition home or self-care (01) ==
LOC: CATH 10:53
PROVIDERS: ATTENDING PHYSICIAN Internal Medicine Cardiovascular Disease; FAMILY PHYSICIAN Nurse Practitioner Family; OTHER PHYSICIAN Internal Medicine Cardiovascular Disease
DX: I25.10 Atherosclerotic heart disease of native coronary artery without angina pectoris (principal); R06.09 Other forms of dyspnea; I25.5 Ischemic cardiomyopathy; Z95.1 Presence of aortocoronary bypass graft; Z95.820 Peripheral vascular angioplasty status with implants and grafts; K21.9 Gastro-esophageal reflux disease without esophagitis; Z79.82 Long term (current) use of aspirin; Z79.890 Hormone replacement therapy; Z79.899 Other long term (current) drug therapy; Z79.891 Long term (current) use of opiate analgesic; Z79.02 Long term (current) use of antithrombotics/antiplatelets; E78.2 Mixed hyperlipidemia; E11.9 Type 2 diabetes mellitus without complications
CPT/HCPCS: 82962; 85347; 93459; C1769; C1887; C1894; Q9967

== ENCOUNTER → 2024-09-23 12:44 | Outpatient (REF) | payer OTHER, SELFPAY ==
[2024-09-23 15:47] LABS: % Basophils 0.4 % (0-2); % Eosinophils 3.4 % (0-6); % Immature Granulocytes 0.5 % (0-0.5); % Lymphocytes 10.7 % (20.5-51.1); % Monocytes 9.5 % (1.7-9.3); % Neutrophils 75.5 % (42.2-75.2); Absolute Eosinophils 0.3 10^3/uL (0-0.7); Absolute Lymphocytes 0.9 10^3/uL (1.2-3.4); Absolute Monocytes 0.8 10^3/uL (0.1-0.6); Absolute Neutrophils 6.5 10^3/uL (1.4-6.5); Hematocrit 32.5 % (39.0-52.0); Hemoglobin 10.2 g/dL (13.0-18.0); Mean Corp Hgb Conc. 31.4 g/dL (33.0-37.0); Mean Corpuscular Hgb 24.2 pg (27.0-31.0); Mean Platelet Volume 10.3 fL (7.4-10.4); Nucleated Red Blood Cells % 0 % (-); Platelet Count 203 10^3/uL (130-400); Red Blood Cell Count 4.22 10^6/uL (4.70-6.10); Red Cell Dist. Width 18.9 % (11.5-14.5); White Blood Cell Count 8.5 10^3/uL (4.8-10.8)
[2024-09-23 15:56] LABS: Blood Urea Nitrogen 34 mg/dl (9-20); Carbon Dioxide 28 mmol/L (22-30); Chloride 102 mmol/L (98-107); Glucose 119 mg/dl (70-99); Potassium 3.9 mmol/L (3.5-5.1); Sodium 142 mmol/L (135-145); eGFR > 60.00
== END ==
LOC: HWLAB 12:44
PROVIDERS: ATTENDING PHYSICIAN Internal Medicine Cardiovascular Disease; FAMILY PHYSICIAN Nurse Practitioner Family; OTHER PHYSICIAN Specialist; REFERRING PHYSICIAN Internal Medicine Cardiovascular Disease
DX: I25.10 Atherosclerotic heart disease of native coronary artery without angina pectoris (principal)
CPT/HCPCS: 36415; 80048; 85025

== ENCOUNTER → 2024-09-24 12:48 | Outpatient (REF) | payer OTHER, SELFPAY | LOC: RAD 12:48 | PROVIDERS: ATTENDING PHYSICIAN Surgery Vascular Surgery; FAMILY PHYSICIAN Nurse Practitioner Family | DX: I77.9 Disorder of arteries and arterioles, unspecified (principal) | CPT/HCPCS: 93922; 93925 ==

== ENCOUNTER 2024-09-25 13:31 | Inpatient (IN) | payer OTHER, SELFPAY ==
[2024-09-25] VITALS (16 sets, daily range): BP systolic 65–128; BP diastolic 58–82; BMI 43.7
[2024-09-25] MEDS: LOW STRENGTH ASPIRIN 81 MG PO (07:16)
[2024-09-25] MEDS: PLAVIX 75 MG PO (07:16)
[2024-09-25 07:17] LABS: Glucose - Point of Care 104 mg/dl (70-99)
[2024-09-25 08:54] LABS: ACT-LR - POC 340 Seconds (116-155)
[2024-09-25 09:36] LABS: ACT-LR - POC 213 Seconds (116-155)
[2024-09-25 09:48] LABS: ACT-LR - POC 334 Seconds (116-155)
--- NOTE | 2024-09-25 10:46 | ITS.CL.ANGIO ---
Kinesiologist - Angioplasty
Angioplasty
Procedure Report:
CORONARY ANGIOPLASTY REPORT
Date of Procedure: 09/25/2024
Referring: Jono Yadav MD
�
PROCEDURE SUMMARY:
1. Unsuccessful attempted PCI of 80-90% mid LAD stenosis via LYNNE approach due to inability to cross lesion with multiple guidewires
2. Successful angioplasty and stenting of subtotally occluded saphenous vein graft to diagonal branch using overlapping 3.0 x 38 and 3.0 x 30 Robi drug-eluting stents
�
DESCRIPTION OF PROCEDURE: Chan underwent diagnostic evaluation 1 week ago. The procedure at that time was performed via the left radial artery approach. We found severe triple-vessel [place] coronary disease (including left main coronary disease)
and a patent LYNNE-LAD, patent SVG-RPDA, and patent but subtotally occluded SVG-diagonal bypass grafts. Due to the unfavorable angulation of the ROSARIO takeoff, we were not able to get a coronary wire into the ROSARIO graft from the left radial approach
and made a plan to bring him back for a femoral procedure today to attempt stenting of the LAD lesion via the ROSARIO graft and stenting of the subtotally occluded SVG-diagonal.
Access was obtained via the right femoral artery using a micropuncture needle. We were able to advance the micropuncture guidewire. We were not able to advance the 4 Slovenian micropuncture sheath into the vessel. This is likely due to tremendous
scarring from prior endarterectomy. We were able to pass the dilator into the vessel on multiple occasions but could not pass the sheath and ultimately removed the sheath and frayed guidewire from the vessel. Manual compression for 20 minutes by
me followed. At this point we performed fluoroscopy of the left groin to get a sense of whether left groin access would be an option. The femoral head was very superior and the groin was severely scarred from prior endarterectomy and prolonged
wound infection following his last vascular procedure. I did not feel it would be safe to attempt to access the left groin. At this point I decided to go back into the left radial artery where the diagnostic study had been done 1 week ago and work
harder to access the LYNNE graft from this approach. Left radial artery access was obtained using a micropuncture technique. Heparin was administered to get the ACT greater than 250 and keep ACT greater than 250 for the procedure. A 6 Slovenian 90 cm
ROSARIO guide was used. We worked for quite a while to get the guide into position where we could get a whisper wire into the ROSARIO graft. The whisper was advanced into the mid chest allowing us to bring a 0.014 compatible Rolanda exchange catheter into
the graft and into the mid chest level. At this point the wire was advanced down to the LAD and the exchange catheter advanced around a severely angulated area. We were unable to get the whisper wire through the LAD lesion and the wire appeared to
take a branch adjacent to the vessel although we were also concerned about the possibility of dissection. We attempted to use a Fielder XT wire but this also would not enter the LAD distal to the lesion. Ultimately I opted to abandon attempts for
fear of causing an occlusive dissection at the lesion site.
At this point we decided to treat the subtotally occluded vein graft to the diagonal which had been identified on the prior study 1 week ago. An AR-2 guide catheter was used. A BMW wire would not completely get through the long area of disease.
Similarly, we could not pass through the graft completely with a whisper wire. With some effort and good fortune we were able to get a sdv pilot/navigator/dds operator 50 down to the diagonal branch. Angioplasty with a 2.0 x 30 Euphora restored normal flow into the graft.
The distal area of disease could not be crossed with this balloon and we dilated with a 1.25 sprinter balloon to 15 delmis. A 6 Slovenian guide liner was advanced into the vein graft to enhance backup support and allow us to place from distal to proximal
overlapping 3.0 x 38 and 3.0 x 30 Robi frontier SANDRA-each stent was deployed at 15 delmis in the entire segment postdilated with a 3.0 NC trek to maximum 19 delmis. The final angiographic result was acceptable with VELVET-3 flow into the target vessel with
a focal area where we could not achieve complete expansion of the old stent-the stenosis severity was left at 10-20%..
This was a prolonged interventional procedure requiring multiple guide catheters, guidewires, balloons and fluoroscopy time of 41 minutes
�
Closure Device Used: None-the procedure was performed via the left radial artery
�
Radiation (mGy): 1230
DAP (cm2.Gy): 97.7
Fluoroscopy time: 41.2 minutes
�
CONCLUSIONS: Successful stenting of SVG-diagonal as above. We were unable to treat the high-grade LAD stenosis distal to the ROSARIO graft touchdown site as described above. Continue dual antiplatelet therapy.
�
Copy to: Jono Yadav MD, Ellis Guido NP
�
Sai Mishra MD, [facility], [facility]
�
[2024-09-25 10:47] LABS: ACT-LR - POC > 397 Seconds (116-155)
[2024-09-25 10:47] LABS: ACT-LR - POC > 397 Seconds (116-155)
[2024-09-25 11:45] LABS: Glucose - Point of Care 86 mg/dl (70-99)
--- NOTE | 2024-09-25 12:29 | HPS.HSE ---
Family Physician
-
Family Physician: MARQUIS Klein
Chief Complaint
-
Exertional dyspnea with concern for unstable angina.
History of Present Illness
Patient is a 64 years old male with history of complex coronary artery disease and ischemic cardiomyopathy, cirrhosis with recurrent ascites requiring frequent paracentesis and other multiple conditions who presented today for elective
catheterization given recent worsening of exertional dyspnea. Patient had stenting of venous graft, although unfortunately attempt to treat immune mid LAD lesion through LYNNE graft was not successful. In addition patient was found to be severely
volume overloaded with recurrent ascites and anasarca in bed admitted to medical service with cardiology consultation for overall optimization.
Medical History
Past Medical History
Past Medical History: Reports CAD, CHF, IDDM and Other (Cirrhosis due to alcohol, CKD, PAD)
Past Surgical History: Reports Other (CABG/vascular)
Social History
Tobacco: Non-smoker
Alcohol: Former
Personal:
Living: With Family
Family History
Family History: Not pertinent
Allergies / Home Medications
Allergies reflects when Allergies were last updated in [email or web address].
Home Medications with original date entered in [email or web address]
Allergy/Medication List:
Allergies
Allergy/AdvReac Type Severity Reaction Status Date / Time
clarithromycin [From Biaxin] Allergy Rash Verified 09/25/24 06:30
doxycycline Allergy severe Verified 09/25/24 06:30
diarrhea
and
vomiting
lisinopril Allergy Itching/jeronimo Verified 09/25/24 06:30
h
pregabalin [From Lyrica] Allergy Hives Verified 09/25/24 06:30
Home Medications
aspirin 81 mg tablet,delayed release 81 mg PO DAILY Blood clot prevention/tx 03/08/17
clopidogrel 75 mg tablet 75 mg PO DAILY Blood clot prevention/tx #30 tabs 12/16/23
docusate sodium 100 mg capsule (Colace) 100 mg PO BID Constipation 02/10/24
gabapentin 100 mg capsule 100 mg PO BID Pain 02/10/24
melatonin 5 mg tablet 5 mg PO HS Sleep 02/10/24
methylnaltrexone 150 mg tablet (Relistor) 150 mg PO DAILY constipation 02/10/24
oxycodone-acetaminophen 5 mg-325 mg tablet 1 tab PO BID pain 02/10/24
pantoprazole 40 mg tablet,delayed release (Protonix) 40 mg PO QPM Gastrointestinal Issue 02/10/24
rosuvastatin 20 mg tablet 20 mg PO QPM High Cholesterol 02/10/24
metoprolol succinate 25 mg tablet,extended release 24 hr 37.5 mg (1.5 x 25 mg) PO QPM #30 tabs 02/17/24
torsemide 20 mg tablet 60 mg PO BID Fluid Retention/Swelling 08/04/24
levothyroxine 150 mcg tablet (Synthroid) 150 mcg PO WE 08/25/24
levothyroxine 300 mcg tablet (Synthroid) 300 mcg PO MOTUTHFRSA Thyroid 08/25/24
ferrous sulfate 325 mg (65 mg iron) tablet (Feosol) 325 mg PO QPM 09/18/24
insulin degludec 100 unit/mL (3 mL) subcutaneous pen (Tresiba FlexTouch U-100 insulin) 16 unit SC DAILY 09/18/24
lorazepam 1 mg tablet 1 mg PO DAILY PRN claustrophobia 09/18/24
nitroglycerin 0.4 mg sublingual tablet 0.4 mg sublingual [id number] PRN chest pain #25 tabs 09/18/24
oxycodone 10 mg tablet,crush resistant,extended release 12 hr (OxyContin) 10 mg PO HS 09/18/24
potassium chloride 10 mEq tablet,extended release 10 meq PO BID 09/25/24
Review of Systems
-
A 12 point ROS was completed and negative except as noted: Yes
Physical Exam
Vital Signs
Vital Signs
Temp Pulse Resp BP Pulse Ox
97.9 F 60 18 104/65 97
09/25/24 11:01 09/25/24 11:15 09/25/24 11:01 09/25/24 11:00 09/25/24 11:18
Physical Exam
General: Comfortable, Conversant and Morbidly Obese
HEENT: NormoCephalic, Anicteric, [place] Conjunctivae and No Ptosis
Respiratory: Clear and Wheezes; No Rales or Rhonchi
Cardiac: S1/S2, Regular Rhythm, Peripheral Edema (+2 bilateral lower legs) and JVD; No Murmur, Rub or Gallop
Breast: Deferred by me
GI: Soft, Non Tender, Normal Bowel Sounds, Distended and No Hepatosplenomegaly
Rectal: Deferred by Provider
Genito-urinary: Deferred by me
Musculoskeletal: Edema, Left Lower Extremity (+2) and Edema, Right Lower Extremity (+2); No Edema, Left Upper Extremity or Edema, Right Upper Extremity
Skin: Warm, Dry and Other (+2 edema below knees, open left groin wound healing well, longitudinal incision left medial aspect leg intact); No Rash
Neuro: AO x 3
Psych: Calm
Impression/Plan
-
IMPRESSION:
Unstable angina
Complex CAD
Acute CHF reduced EF.
Ischemic cardiomyopathy
Cirrhosis with recurrent ascites.
Anemia of chronic disease with recent reported positive capsule study
Conditions prior to admission:
Complex CAD status post CABG and multiple PCI's.
Ischemic cardiomyopathy
CHF reduced EF 35-40%.
Status post biventricular AICD.
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
Alcoholic cirrhosis
Recurrent ascites
IDDM.
PAD with history of bilateral iliac stents 11/09 and left CSF enterectomy, left ECONOMIC DEVELOPMENT MANAGER to tibial peroneal trunk bypass 11/09. Status post endovascular procedure, primary repair of the left brachial artery 11/09
Obesity due to excess of calories BMI 43.
Diabetic neuropathy.
Dyslipidemia
Hypothyroidism
Chronic pain with opiate dependence.
GERD
Gout
Anxiety
PLAN:
Unstable angina
Cardiac cath 09/25:
1:�Severe apical hypokinesis with EF 34%
2:�Severe left main and triple-vessel CAD as described. The LYNNE-LAD remains widely patent. The SVG-RPDA remains patent. The SVG-diagonal is severely and diffusely diseased but is patent to the touchdown site
3. Unfavorable angulation of the LYNNE origin precluded any attempts to perform LAD PCI via the LYNNE graft from the left radial artery approach.
4. The patient will return electively for intervention with plan to attempt to treat the new mid LAD lesion through the LYNNE graft and probable attempt to stent the diffusely diseased SVG-diagonal. This intervention will be a high risk procedure
with nor surgical backup
�
Discussed with cardiology.
Given findings no further intervention pending
Continue medical optimization.
Medical therapy: Toprol, statin, DAPT/aspirin and Plavix optimize volume status
Acute on chronic CHF reduced EF.
Anasarca with peripheral edema, recurrent ascites
Initiated on Lasix 40 mg IV twice daily
Follow daily weights and renal function.
If rising creatinine, consider nephrology evaluation.
Supplement potassium
Alcoholic cirrhosis/hepatic steatosis
Recurrent ascites
Most current large-volume paracentesis 09/15 5200 mL
Interventional radiology for therapeutic paracentesis with albumin. Order placed.
Follow LFTs.
GI consultation
Chronic microcytic anemia
Hemoglobin has been stable at 10
Iron deficiency
Recent endoscopy and colonoscopy with no source.
Reported positive capsule study
Continue PPI.
Follow hemoglobin
IDDM 2
Update hemoglobin A1c.
Continue preadmission insulin regimen: Glargine 16 units at bedtime/basal bolus protocol.
Hypothyroidism on replacement.
Chronic pain likely secondary to diabetic neuropathy.
Opiate dependence.
Continue OxyContin/oxycodone. Continue Neurontin
Obstructive sleep apnea
CPAP at bedtime or while asleep
Remains high risk for oversedation with opiates or/and risk for hepatic encephalopathy.
Full code
Mechanical DVT prophylaxis
--- NOTE | 2024-09-25 13:35 | CM ---
Reviewed chart. Met with Mr. Rodriguez to review discharge plans. He states prior to admission he resides with his spouse and two adult children in a two story home with three steps to enter. He states he has a firt floor set-up with bedroom/full
bathroom on the first floor. He states prior to admission he ambulates with a single point cane. He states he sometimes uses a rolling walker if he is having a bad day. He states he has a single point cane, rolling walker and CPAP Machine at home.
He states he has a prescription plan and uses mail order for ninety day supply and [facility] when needed. He states he has had [facility] in the distant past and he has been in [facility], in the past. Will need to see his current
functional level to see if he will have any skilled care needs. Medical work-up in progress. The discharge plan is to return home with his spouse when medically stable.
--- NOTE | 2024-09-25 13:56 | CON.GI ---
Addendum entered and electronically signed by Ale Anthony DO 09/25/24 17:05:
I saw and examined the patient.
The BLOCK CHOPPER HAND or PA's note was reviewed and I agree with the note.
Comment: 64yo with multiple med problems including CAD, ischemic CM, prior PEA arrest, afib, GI bleed 2022 with antral ulcer, cirrhosis- ETOH quit 1 year ago, prior liver biopsy, recurrent ascites with frequent paracentesis, anemia,obesity, ?
gastroparesis, sepsis, IDDM, CKD, vascular bypass, hx of CABG, admitted following elective heart catheterization for medical optimization. He complaints of worsening GERBER, abdominal distension and lower extremity edema. Additionally, recently had a
capsule endoscopy that returned with small amount of heme noted in the stomach, otherwise, no source of bleeding identified in the small bowel. His hemoglobin is stable on admission without signs of active GI bleeding. He follows with Dr. Cole as an
outpatient, recently evaluated by Dr. Osborne but required further cardiac assessment prior to being considered for liver transplantation.
Prior GI Workup:
--07/06/2024 MR elastography: Stage 3-4 fibrosis. Findings consistent with cirrhosis with portal hypertension and splenomegaly along with moderate abdominopelvic ascites. No hepatic steatosis.
--04/[address] Cole random bx neg for microscopic colitis, IH, L sided tics, recall 5yrs due to suboptimal prep
--04/[address] Cole hyperkeratotosis of esophagus, bile reflux, gastritis, old hemoclip seen in antrum, random bx neg for HP. Duodenal bx cannot rule in or out celiac.
--11/17/2023 EGD: Dr Cole 8mm ulcer at GEJ, 5mm ulcer in antrum, prior hemoclip seen in good positioning. No varices seen. Recall 3mo
--2015 Colonoscopy: Dr Donte LARA normal, increase mucosa vascular patter in AC and cecum. 3mm hyperplastic polyp at 15cm from anus. Recall 5-10yrs. Ileitis.
--10/2016 liver bx probable cirrhosis with active hepatitis and fatty changes.
--EGD: 04/2024-Do mucosal changes in esophagus, erythema in antrum, bile gastric fluid, old clip in prepyloric area
--Colonoscopy: 04/2024 Do non bleeding internal hemorrhoids, diverticulosis
VCE: 09/10- prolonged esophageal time, lineal ulceration with heme in stomach, ? jennifer lesion, small bowel, no mass, lesion or polyps, colon normal visualized mucosa
EtOH cirrhosis c/b ascites
-unable to calulate MELD, will obtain labs to calculate for tomorrow
-New ascites-- s/p paracentesis today with removal of 4L of fluid, ascitic fluid neg for SBP, high SAAG, high protein ascites, consistent with cardiac ascites
-continue diuresis per cardiology
-No evidence of HE
-EV: EGD 04/2024 neg for varices, repeat in 1-2 years
-HCC screening with AFP and imaging (US or MRI) every 6mo. CTAP 09/2023 and abd US 01/2024 neg for HCC. Recent US 08/24/24, AFP 1.57 08/24/24; repeat US/MRI and AFP due
#Anemia
#Hx of GI bleed
-Recent VCE with linear ulceration wtih heme in the stomach, posisble jennifer lesion. Overall not impressed by the image from the study and stable hgb
-no plans for inpatient EGD at this time, continue to monitor hemoglobin and can reassess if concerns for active bleeding
Chronic Constipation
-c/w relistor
Addendum entered and electronically signed by MARQUIS Marshall 09/25/24 16:24:
neg SBP
Addendum entered and electronically signed by MARQUIS Marshall 09/25/24 16:23:
para 4 liters pt recommended 25 gram albumin no additional needed.
Original Note:
Consultation
-
Date/Time Consultation Requested: 09/25/24 1215
Date/Time Consultation Performed: 09/25/24 1400
Requesting Provider: Nik Navarro MD
Performing Provider: MARQUIS Mckeon, Betsy Anthony, DO
Reason for Consultation: ascites, cirrhosis , recent abnormal capsule
Medical History
Chief Complaint / HPI
Chief Complaint: increased abdominal girth
History of Present Illness:
Pt is a 64yo with multiple med problems including CAD, ischemic CM, prior PEA arrest, afib, GI bleed 2022 with antral ulcer, cirrhosis- ETOH quit 1 year ago, prior liver biopsy, recurrent ascites with frequent paracentesis, anemia,obesity, ?
gastroparesis, sepsis, IDDM, CKD, vascular bypass, prior CABG presents for elective cath with worsening exertional dyspnea. Cath noted with stenting of venous graft, although unfortunately attempt to treat immune mid LAD lesion through LYNNE graft
was not successful. Pt was noted with volume overload and recurrent ascites and admitted for medical optimization. Asked to see if intractable ascites and recent abnormal capsule with recommended EGD with noted lineal ulceration with heme in
stomach, ? jennifer lesion,
In review with patient and family hx ETOH cirrhosis wth last ETOH 1 year ago. He had recent transplant evaluation but would need cardiac clearance prior to proceeding with current work up with cardiology. He currently admits to some GERD worse
with abdominal fullness, and chronic constipation with use of Relistor as on chronic narcotics with pain management follow. He otherwise denies dysphagia,nausea, vomiting, diarrhea, constipation and minimal rectal bleeding with hemorrhoids. He
does also complain of increased LE edema with fluid in lower abdomen and scrotal area. Labs 09/23 with hbg 10.2 with stable platelet. INR 1.39 on 10.7. He is currently managed on Torsemide per cardiology with increased doses and chronic Plavix
with hx multiple stent vascular and cardiac with recent stenting 09/25.
Past Medical History
Past Medical History: Arrhythmias (afib ), CAD, GERD, Hypercholesterolemia, Hypothyroidism, NIDDM, Renal Failure (CKD) and Other (recurrent pleural effusion, cardiomyopathy, sleep apnea, gout , reflux esophagititis , PUD, WALTON- cirrhosis,
splenomegaly, ? gastroparesis, GI bleed 2022 with antral ulcer, PAD, lymphedema, cardiorenal syndrome,neuropathy, PEA arrest )
Past Surgical History: Cardiac (CABG, pericardial window , ICD, iliac to fem bypass angio and stent), Urological (vastectomy, lithotripsy) and Other (pericardiocentesis - multiple, endarterectomy L [employer]PER[employer]END[employer])
Social History
Tobacco: Former Smoker
Alcohol: Former
Drug: None
Personal:
Living: With Family
Employment: Disabled
Family History
Family History: Other (no family hx colon CA or polyps, no family hx liver disease)
Allergies / Home Medications
Allergy/AdvReac Type Severity Reaction Status Date / Time
clarithromycin [From Biaxin] Allergy Rash Verified 09/25/24 06:30
doxycycline Allergy severe Verified 09/25/24 06:30
diarrhea
and
vomiting
lisinopril Allergy Itching/jeronimo Verified 09/25/24 06:30
h
pregabalin [From Lyrica] Allergy Hives Verified 09/25/24 06:30
�Medication �Instructions �Recorded
aspirin 81 mg tablet,delayed 81 mg PO DAILY Blood clot 03/08/17
release prevention/tx
clopidogrel 75 mg tablet 75 mg PO DAILY Blood clot 12/16/23
prevention/tx #30 tabs
docusate sodium 100 mg capsule 100 mg PO BID Constipation 02/10/24
(Colace)
gabapentin 100 mg capsule 100 mg PO BID Pain 02/10/24
melatonin 5 mg tablet 5 mg PO HS Sleep 02/10/24
methylnaltrexone 150 mg tablet 150 mg PO DAILY constipation 02/10/24
(Relistor)
oxycodone-acetaminophen 5 mg-325 1 tab PO BID pain 02/10/24
mg tablet
pantoprazole 40 mg tablet,delayed 40 mg PO QPM Gastrointestinal Issue 02/10/24
release (Protonix)
rosuvastatin 20 mg tablet 20 mg PO QPM High Cholesterol 02/10/24
metoprolol succinate 25 mg 37.5 mg (1.5 x 25 mg) PO QPM #30 02/17/24
tablet,extended release 24 hr tabs
torsemide 20 mg tablet 60 mg PO BID Fluid 08/04/24
Retention/Swelling
levothyroxine 150 mcg tablet 150 mcg PO WE 08/25/24
(Synthroid)
levothyroxine 300 mcg tablet 300 mcg PO MOTUTHFRSA Thyroid 08/25/24
(Synthroid)
ferrous sulfate 325 mg (65 mg 325 mg PO QPM 09/18/24
iron) tablet (Feosol)
insulin degludec 100 unit/mL (3 16 unit SC DAILY 09/18/24
mL) subcutaneous pen (Tresiba
FlexTouch U-100 insulin)
lorazepam 1 mg tablet 1 mg PO DAILY PRN claustrophobia 09/18/24
nitroglycerin 0.4 mg sublingual 0.4 mg sublingual [id number] PRN 09/18/24
tablet chest pain #25 tabs
oxycodone 10 mg tablet,crush 10 mg PO HS 09/18/24
resistant,extended release 12 hr
(OxyContin)
potassium chloride 10 mEq 10 meq PO BID 09/25/24
tablet,extended release
Review of Systems
-
History Source: Patient and Family
Constitutional: Reports Weight Gain
EENT: Reports No Symptoms
Respiratory: Reports Trouble Breathing
Cardiac: Reports No Symptoms
Abdomen/GI: Reports Abdominal Pain (with distention)
: Reports Other (some difficulty at time with hx prostate issues )
Musculoskeletal: Reports Edema
Skin: Reports No Symptoms
Neurological: Reports Weakness
Hematologic/Lymphatic: Reports Bleeding (occasional hemorrhoidal bleeding)
Vital Signs
Temp Pulse Resp BP Pulse Ox
97.9 F 61 18 110/69 99
09/25/24 11:01 09/25/24 12:45 09/25/24 11:01 09/25/24 12:30 09/25/24 12:45
Physical Exam
Exam
General: Well Developed, Well Nourished and Other (fluid overload with edema to mid abdomen )
HEENT: Normocephalic and Anicteric
Respiratory: Clear
Cardiac: Regular Rhythm
GI: Soft, Tender (mild ) and Distended
Musculoskeletal: No Clubbing, No Cyanosis and Edema (with abdominal wall and scrotal swelling )
Skin: Warm and Dry
Neuro: Awake, Alert and AO x 3
Psych: Calm
Results
Diagnostic Image Results:
08/24/24 Us abdomen
IMPRESSION: Decreased gallbladder wall thickening. This can be seen with acute cholecystitis. Reactive changes due to the ascites is possible as well.
Decreased hypoechoic area within the gallbladder wall.. Now much smaller and cystic.
Mild hepatomegaly. New
Moderate abdominal ascites. Progressed.
Mild splenomegaly. Stable
Nonvisualization of pancreas, proximal IVC and abdominal aorta.
Para 08/04- 8200, 08/25- 5700, 09/15 5600 neg SBP
Prior GI Workup:
--07/06/2024 MR elastography: Stage 3-4 fibrosis. Findings consistent with cirrhosis with portal hypertension and splenomegaly along with moderate abdominopelvic ascites. No hepatic steatosis.
--04/[address] Cole� random bx neg for microscopic colitis, IH, L sided tics, recall 5yrs due to suboptimal prep
--04/[address] Cole� hyperkeratotosis of esophagus, bile reflux, gastritis, old hemoclip seen in antrum, random bx neg for HP. Duodenal bx cannot rule in or out celiac.
--11/17/2023 EGD: Dr Cole 8mm ulcer at GEJ, 5mm ulcer in antrum, prior hemoclip seen in good positioning. No varices seen. Recall 3mo
--2015 Colonoscopy: Dr Donte LARA normal, increase mucosa vascular patter in AC and cecum. 3mm hyperplastic polyp at 15cm from anus. Recall 5-10yrs. Ileitis.
--10/2016 liver bx probable cirrhosis with active hepatitis and fatty changes.
Prior GI Procedures:
EGD: 04/2024-Do mucosal changes in esophagus, erythema in antrum, bile gastric fluid, old clip in prepyloric area
Colonoscopy: 04/2024 Do non bleeding internal hemorrhoids, diverticulosis
capsule: 09/10- prolonged esophageal time, lineal ulceration with heme in stomach, ? jennifer lesion, small bowel, no mass, lesion or polyps, colon normal visualized mucosa
Assessment / Plan
-
Pt is a 64yo with multiple med problems including CAD, ischemic CM, PEA arrest, afib, GI bleeding 2022 with antral ulcer, cirrhosis, recurrent ascites with frequent paracentesis, IDDM, CKD, vascular bypass, prior CABG presents for elective cath
with worsening exertional dyspnea. Cath noted with stenting of venous graft, although unfortunately attempt to treat immune mid LAD lesion through LYNNE graft was not successful. Pt was noted with volume overload and recurrent ascites and admitted
for medical optimization. Asked to see if intractable ascites
-ascites
-cirrhosis
-anemia with recent abnormal capsule with lineal ulceration with heme in stomach, ? jennifer lesion
-volume overload
-hx CAD s/p CABG with PCI with cath completed prior to admission with stent to venous graft and attempt LAD to LYNNE graft not successful
-hx GI bleed 2022 with antral ulcer
-Ischemic cardiomyopathy
-HFrEF
-biventricular AICD.
-prior PEA arrest
-CKD
-IDDM
-PAD with history of prior stenting
-Obesity
-Diabetic neuropathy
-Dyslipidemia
-Hypothyroidism
-Chronic pain with opiate dependence.
-GERD
-Gout
-Anxiety
-Prior ETOH abuse
-sleep apnea
PLAN:
Pt with underlying cirrhosis with decompensation with intractable ascites requiring frequent para, s/p transplant evaluation and awaiting cardiology evaluation in process. He is now noted with volume overload and recent abnormal capsule with ?
linear ulcers, jennifer lesion in stomach
obtain labs with INR in AM to calculate meld and can calculate SAAG to assess if abd fluid driven by underlying liver disease vs cardiac disease
will review with Dr. Anthony for EGD timing IP vs OP with recent stent placement today and chronic Plavix use
agree with paracentesis for today, await fluid analysis to rule out SBP, Pt already written for albumin 25 grams pending tap may need more
diuretic per cardiology and renal
cont to trend hbg
cont PPI daily
cont PO iron
cont relistor with chronic constipation with use of narcotics
OP follow up with Dr. Cole scheduled 12/08 ast 1 PM
family updated
-
-
Thank you for consultation and allowing me to participate in the patient's care. Please call the external relations director GI physician during the after hours with any questions or concerns.
[2024-09-25] MEDS: SYNTHROID PO (14:36)
[2024-09-25 15:55] LABS: Body Fluid WBC 294 /CUMM
[2024-09-25 16:03] LABS: Body Fluid Albumin 2.1 g/dl; Body Fluid LDH 115 U/L; Body Fluid Protein 3.9 g/dl; Body Fluid Second Tech DW
[2024-09-25] MEDS: PERCOCET 5/325 1 TABLET PO (16:48)
[2024-09-25] MEDS: LASIX 40 MG IV (16:50)
[2024-09-25] MEDS: FLEXBUMIN 100 IV ×2 (16:51→18:20)
[2024-09-25 17:06] LABS: Glucose - Point of Care 109 mg/dl (70-99)
[2024-09-25] MEDS: FEOSOL 325 MG PO (17:58)
[2024-09-25] MEDS: CRESTOR 20 MG PO (17:58)
[2024-09-25] MEDS: PROTONIX 40 MG PO (17:59)
[2024-09-25] MEDS: TOPROL XL PO (18:02)
--- NOTE | 2024-09-25 19:31 | PTCARENOTE ---
Pt received post cardiac cath attempted via right femoral artery and done via left radial artery. Radial band removed without problem, pt's hand cool at times. Right femoral site with skin tear in groin crease which caused oozing, no hematoma noted.
Pt with audible wheezes post procedure, voided @500mls after IV lasix, 100% on room air. Pt with ascites, penile edema and 3+ bilateral CANDIDA. Pt had paracentesis in IR dept. with removal of 4000mls fluid, albumin 200mls given to pt. Pt c/o low back
pain helped with percocet. Telemetry shows paced rhythm at a rate of 49-70, rare pairs noted, metoprolol held at 18:00 per for BP 92/61. Bilateral lower legs red, new linear 'crack' on right lateral leg when pt stood up, silicone foam
applied.
[2024-09-25] MEDS: PERCOCET 5/325 PO (21:00)
[2024-09-25] MEDS: KCL 20 MEQ PO (21:10)
[2024-09-25] MEDS: COLACE 100 MG PO (21:10)
[2024-09-25] MEDS: NEURONTIN 100 MG PO (21:11)
[2024-09-25 21:42] LABS: Glucose - Point of Care 138 mg/dl (70-99)
[2024-09-25] MEDS: MELATONIN 5 MG PO (21:53)
[2024-09-25] MEDS: OXYCONTIN (CONTROLLED RELEASE) 10 MG PO (21:53)
[2024-09-26] VITALS (8 sets, daily range): BP systolic 98–113; BP diastolic 60–71; BMI 41.8
[2024-09-26 04:36] LABS: Hemoglobin 10.5 g/dL (13.0-18.0); Mean Corp Hgb Conc. 31.8 g/dL (33.0-37.0); Mean Corpuscular Hgb 25.2 pg (27.0-31.0); Mean Corpuscular Volume 79.3 fL (80.0-94.0); Mean Platelet Volume 9.8 fL (7.4-10.4); Platelet Count 193 10^3/uL (130-400); Red Blood Cell Count 4.16 10^6/uL (4.70-6.10); Red Cell Dist. Width 18.6 % (11.5-14.5); White Blood Cell Count 8.8 10^3/uL (4.8-10.8)
[2024-09-26 04:45] LABS: PT 16.5 Sec (11.4-14.6)
[2024-09-26 05:01] LABS: ALT (SGPT) 11 U/L (0-50); AST (SGOT) 22 U/L (17-59); Albumin 4.1 g/dl (3.5-5.0); Alkaline Phosphatase 61 U/L (38-126); Blood Urea Nitrogen 28 mg/dl (9-20); Calcium 9.3 mg/dl (8.4-10.2); Carbon Dioxide 28 mmol/L (22-30); Chloride 101 mmol/L (98-107); Estimated Creatinine Clearance 68 ml/min; Glucose 110 mg/dl (70-99); HDL Cholesterol 32 mg/dl; LDL Cholesterol, Calculated 42 mg/dl; Potassium 3.8 mmol/L (3.5-5.1); Sodium 144 mmol/L (135-145); Total Bilirubin 1.1 mg/dl (0.2-1.3); Total Cholesterol 97 mg/dl (50-199); Total Protein 6.4 g/dl (6.3-8.2); Triglyceride 119 mg/dl (10-149); Very Low Density Lipoprotein 23 mg/dl (0-30); eGFR 56.83
[2024-09-26] MEDS: SYNTHROID 300 MCG PO (05:44)
[2024-09-26 07:07] LABS: Glucose - Point of Care 103 mg/dl (70-99)
[2024-09-26] MEDS: LANTUS 0.16 UNITS SC (08:23)
[2024-09-26] MEDS: PERCOCET 5/325 1 TABLET PO ×2 (08:24→20:31)
[2024-09-26] MEDS: LASIX 40 MG IV ×2 (08:24→15:34)
[2024-09-26] MEDS: PLAVIX 75 MG PO (08:24)
[2024-09-26] MEDS: KCL 20 MEQ PO ×2 (08:24→15:33)
[2024-09-26] MEDS: COLACE 100 MG PO ×2 (08:24→20:31)
[2024-09-26] MEDS: NEURONTIN 100 MG PO ×2 (08:25→20:31)
[2024-09-26] MEDS: ASPIR LOW (ENTERIC COATED) 81 MG PO (08:25)
--- NOTE | 2024-09-26 08:39 | W.PN.HOSP.TC ---
Today's Communication/Plan
-
see bold
Assessment / Plan
Assessment / Plan
HPI: 64 years old male with history of complex coronary artery disease and ischemic cardiomyopathy, cirrhosis with recurrent ascites requiring frequent paracentesis and other multiple conditions who presented today for elective catheterization given
recent worsening of exertional dyspnea. Patient had stenting of venous graft, although unfortunately attempt to treat immune mid LAD lesion through LYNNE graft was not successful. In addition patient was found to be severely volume overloaded with
recurrent ascites and anasarca in bed admitted to medical service with cardiology consultation for overall optimization.
Unstable angina:
Cardiac cath 09/25
1:�Severe apical hypokinesis with EF 34%
2:�Severe left main and triple-vessel CAD as described. The LYNNE-LAD remains widely patent. The SVG-RPDA remains patent. The SVG-diagonal is severely and diffusely diseased but is patent to the touchdown site
3. Unfavorable angulation of the LYNNE origin precluded any attempts to perform LAD PCI via the LYNNE graft from the left radial artery approach.
4. The patient will return electively for intervention with plan to attempt to treat the new mid LAD lesion through the LYNNE graft and probable attempt to stent the diffusely diseased SVG-diagonal. This intervention will be a high risk procedure
with nor surgical backup
Appreciate cardiology input, continue medical management with Toprol, statin, DAPT/aspirin and Plavix optimize volume status
Acute on chronic CHF reduced EF:
Anasarca with peripheral edema, recurrent ascites:
Continue Lasix 40 mg IV twice daily, monitor creatinine, monitor weights
If rising creatinine, consider nephrology evaluation.
Start potassium chloride 20 mill equivalents p.o. daily 09/26
JAVIER wraps to LE
Alcoholic cirrhosis/hepatic steatosis:
Recurrent ascites:
09/25 status post paracentesis draining 4 L, was given 25 g albumin
Appreciate GI input, SAAG 2.0 with protein 3.9 more indicative of congestive- cardiac ascites
MELD 13 with normal albumin, INR and platelets
GI signed off, recommend following up with his usual GI doctor, Dr. Nette Cole
Iron deficiency anemia:
Hemoglobin has been stable at 10
Recent endoscopy and colonoscopy with no source.
Reported positive capsule study
Continue PPI, monitor hemoglobin
IDDM 2:
Hemoglobin A1c 5.6
Continue preadmission insulin regimen: Glargine 16 units at bedtime/basal bolus protocol.
Hypothyroidism:
Continue levothyroxine
Left nostril epistaxis:
Start Bactroban ointment 09/26
Chronic pain likely secondary to diabetic neuropathy/Opiate dependence:
Continue OxyContin/oxycodone. Continue Neurontin
Add laxatives
Obstructive sleep apnea:
CPAP at bedtime or while asleep
Remains high risk for oversedation with opiates or/and risk for hepatic encephalopathy.
DVT prophylaxis�subcu Lovenox
Full code
Total time spent to see the patient on the floor, examine the patient, review data and lab results, discuss treatment plan with patient, nursing staff around 52 minutes.
Physical Exam
General: Morbidly obese, no acute distress
HEENT: Normocephalic, Atraumatic, EOMI, MMM
Respiratory: Clear to Auscultation bilaterally
Cardiac: Normal S1/S2, Regular Rate and Rhythm
GI: Soft, Nontender, Nondistended, Normal Bowel Sounds
Extremities: No Clubbing, Cyanosis
3+ severe bilateral lower extremity edema
Neuro: Nonfocal/Grossly Intact
Psych: Calm, Cooperative
Anticipated Discharge: > 48 hours
Subjective/Interval History
-
Date of Service: September 26, 2024
Patient denies chest pain, denies shortness of breath. He had some epistaxis of his left nostril. No fever, no vomiting. He does have some right groin pain from the Site.
Objective Data
-
Labs:
Laboratory Results
09/26/24
04:08
WBC 8.8
Hgb 10.5 L
Hct 33.0 L
Plt Count 193
PT 16.5 H
INR 1.30
Sodium 144
Potassium 3.8
Chloride 101
Carbon Dioxide 28
BUN 28 H
Creatinine 1.4 H
Glucose 110 H
Calcium 9.3
Total Bilirubin 1.1
AST 22
ALT 11
Alkaline Phosphatase 61
Vital Signs:
Vital Signs
Temp Pulse Resp BP Pulse Ox
98.5 F 69 18 112/71 93
09/26/24 07:00 09/26/24 04:00 09/26/24 07:00 09/26/24 03:59 09/26/24 07:00
I&O
09/25/24 09/26/24 09/27/24
06:59 06:59 06:59
Intake Total 580 / 580
Output Total 1800 / 1800
Balance -1220 / -1220
--- NOTE | 2024-09-26 08:49 | W.PN.GI.CBS2 ---
Addendum entered and electronically signed by Ale Anthony DO 09/26/24 10:28:
I saw and examined the patient.
The CORPORATE [employer] OFFICER or PA's note was reviewed and I agree with the note.
Comment: Agree with plan as outlined below.
Ascites consistent with cardiac ascites, diuresis per cardiology. No signs of GI bleeding. Follow-up outpatient with Dr. Cole/Dr. Osborne.
GI will sign off, please call with questions.
Original Note:
Today's Communication / Plan
-
s/p para 09/25 for 4 liters with 25 gram albumin given per medical team
SAAG 2.0 with protein 3.9 more indicative of congestive- cardiac ascites
I discussed with Dr. Gonzalez for diuresis per cardiology
MELD 13 with normal albumin, INR and platelets
-No evidence of HE
-EV: EGD 04/2024 neg for varices, repeat in 1-2 years
-HCC screening with AFP and imaging (US or MRI) every 6mo. CTAP 09/2023 and abd US 01/2024 neg for HCC. Recent US 08/24/24, AFP 1.57 08/24/24; repeat US/MRI and AFP due
-Hx of GI bleed
-Recent VCE with linear ulceration wtih heme in the stomach, possible jennifer lesion. Overall not impressed by the image from the study and stable hgb
-no plans for inpatient EGD at this time hbg remains stable and currently with need for further diuresis per cardiology team, OP follow up with Dr. Cole for scheduling -- I sent her message with update of admission
-c/w relistor-reviewed with pt to have family bring in as non formulary
cont to trend hbg
cont PPI daily
cont PO iron
OP follow up with Dr. Cole scheduled 12/08 at 1 PM
family updated 09/25--
Assessment / Plan
-
Pt is a 64yo with multiple med problems including CAD, ischemic CM, PEA arrest, afib, GI bleeding 2022 with antral ulcer, cirrhosis, recurrent ascites with frequent paracentesis, IDDM, CKD, vascular bypass, prior CABG presents for elective cath
with worsening exertional dyspnea and LE edema. Cath noted with stenting of venous graft, although unfortunately attempt to treat immune mid LAD lesion through LYNNE graft was not successful. Pt was noted with volume overload and recurrent ascites
and admitted for medical optimization. Asked to see if intractable ascites and recent abnormal capsule with small amount of heme in stomach with linear ulcer ? jennifer lesion for eventual EGD. He has stable hbg without signs of active GI bleeding.
Follow with Dr. Nette Cole and Dr. Osborne for liver transplant eval but need cardiac clearance prior to proceeding with liver testing.
-EtOH cirrhosis
-intractable ascites-- SAAG 2.0 with protein 3.9 more indicative of congestive issue
-anemia with recent abnormal capsule with lineal ulceration with heme in stomach, ? jennifer lesion
-volume overload- -HFrEF
-hx CAD s/p CABG with PCI with cath completed prior to admission with stent to venous graft and attempt LAD to LYNNE graft not successful
other med problems:
-hx GI bleed 2022 with antral ulcer
-Ischemic cardiomyopathy
-biventricular AICD.
-prior PEA arrest
-CKD
-IDDM
-PAD with history of prior stenting
-Obesity
-Diabetic neuropathy
-Dyslipidemia
-Hypothyroidism
-Chronic pain with opiate dependence
-GERD
-Gout
-Anxiety
-Prior ETOH abuse
-sleep apnea
PLAN:
s/p para 09/25 for 4 liters with 25 gram albumin given per medical team
SAAG 2.0 with protein 3.9 more indicative of congestive- cardiac ascites
I discussed with Dr. Gonzalez for diuresis per cardiology
MELD 13 with normal albumin, INR and platelets
-No evidence of HE
-EV: EGD 04/2024 neg for varices, repeat in 1-2 years
-HCC screening with AFP and imaging (US or MRI) every 6mo. CTAP 09/2023 and abd US 01/2024 neg for HCC. Recent US 08/24/24, AFP 1.57 08/24/24; repeat US/MRI and AFP due
-Hx of GI bleed
-Recent VCE with linear ulceration wtih heme in the stomach, posisble jennifer lesion. Overall not impressed by the image from the study and stable hgb
-no plans for inpatient EGD at this time hbg remains stable and currently with need for further diuresis per cardiology team, OP follow up with Dr. Cole for scheduling -- I sent her message with update of admission
-c/w relistor-reviewed with pt to have family bring in as non formulary
cont to trend hbg
cont PPI daily
cont PO iron
OP follow up with Dr. Cole scheduled 12/08 at 1 PM
family updated 09/25--
Subjective
Subjective
Date of Service: September 26, 2024
cholesterol lowering diet, no stools, still with LE edema but some improved lower abdominal edema and feeling better
Objective
Data Reviewed
Laboratory Data:
Laboratory Results
09/26/24 04:08
09/26/24 04:08
Laboratory Results
PT 16.5 Sec (11.4-14.6) H 09/26/24 04:08
INR 1.30 09/26/24 04:08
Total Bilirubin 1.1 mg/dl (0.2-1.3) 09/26/24 04:08
AST 22 U/L (17-59) 09/26/24 04:08
ALT 11 U/L (0-50) 09/26/24 04:08
Alkaline Phosphatase 61 U/L (38-126) 09/26/24 04:08
Vital Signs and I&O:
Vital Signs
Temp Pulse Resp BP Pulse Ox
98.5 F 69 18 112/71 93
09/26/24 07:00 09/26/24 04:00 09/26/24 07:00 09/26/24 03:59 09/26/24 07:00
I&O
09/25/24 09/26/24 09/27/24
06:59 06:59 06:59
Intake Total 580 / 580
Output Total 1800 / 1800
Balance -1220 / -1220
Physical Exam
Physical Exam
HEENT: Anicteric and Moist mucous membranes
Cardiology: Normal Sinus Rhythm
Pulmonary: Clear
GI: Soft and Distended (mild but improved from 09/25 pre tap)
Extremities: Edema
Neuro: Non Focal
[2024-09-26 08:56] LABS: Glycohemoglobin (HgbA1c) 5.6 % (4.0-5.6)
--- NOTE | 2024-09-26 10:21 | W.PN.CD ---
Today's Communication / Plan
-
IV diuresis
Layer back on HFrEF meds slowly (MRA, SGLT2-I, HF BB, RAAS-i {ARB or ARNI given allergy to JAVIER-i was not angioedema and tolerate ARNI in past})
Good candidate for GLP1 agonist (Ozempic)
54 min spent on pt encounter: Reviewed with Dr. Mishra, , nurse. Extensive review of records, ordering meds, prepare document
Impression / Plan
-
Severe acute on chronic heart failure reduced EF, LVEF in the 30s
- LVEDP 31 on 09/18/2024
- heart failure meds reduced when he had sepsis with low BP and associated AMILCAR
CAD
- See cath report
- New stent 09/25/2024
- No complications
Ascites, gi suspects on basis of heart failure, but suspected some cirrhosis
Good candidate for GLP1 agonist (Ozempic): CAD, HF, DM
CKD with hx of prior AMILCAR
- add HF meds back slowly
Ischemic cardiomyopathy
MDT BiV ICD
Severe PAD
History of pericarditis/recurrent pericardial effusion and pericardial window (2016). No pericardial effusion on echo 02/12/2024.
MDT BiV ICD implanted 08/03/2019 - stable with normal function.
DM
Hx of significant ETOH
Obesity - BMI >40
Subjective: No CP
Physical Exam
Vital Signs/Labs
Vital Signs
Temp Pulse Resp BP Pulse Ox
98.5 F 69 18 112/71 93
09/26/24 07:00 09/26/24 04:00 09/26/24 07:00 09/26/24 03:59 09/26/24 09:32
09/25/24 09/26/24 09/27/24
06:59 06:59 06:59
Actual Weight 126.3 kg 120.8 kg
09/26/24 04:08
09/26/24 04:08
PT 16.5 Sec (11.4-14.6) H 09/26/24 04:08
INR 1.30 09/26/24 04:08
Triglycerides 119 mg/dl (10-149) 09/26/24 04:08
LDL Cholesterol, Calc 42 mg/dl 09/26/24 04:08
VLDL Cholesterol, Calc 23 mg/dl (0-30) 09/26/24 04:08
HDL Cholesterol 32 mg/dl 09/26/24 04:08
Data Reviewed
-
Date of Service: September 26, 2024
[2024-09-26 13:36] LABS: Glucose - Point of Care 123 mg/dl (70-99)
[2024-09-26] MEDS: DESENEX/MITRAZOL/ZEASORB TOPICAL (13:42)
[2024-09-26] MEDS: NON-FORMULARY ITEM 150 MG PO (15:33)
[2024-09-26] MEDS: MIRALAX 17 GRAMS PO (15:33)
[2024-09-26] MEDS: FEOSOL 325 MG PO (17:20)
[2024-09-26] MEDS: PROTONIX 40 MG PO (17:20)
[2024-09-26] MEDS: LOVENOX 40 MG SC (17:21)
[2024-09-26 17:28] LABS: Glucose - Point of Care 137 mg/dl (70-99)
[2024-09-26] MEDS: CRESTOR 20 MG PO (17:30)
[2024-09-26] MEDS: BACTROBAN 2% OINTMENT 1 APPLIC NASAL (20:32)
[2024-09-26] MEDS: DESENEX/MITRAZOL/ZEASORB 1 APPLIC TOPICAL (20:32)
[2024-09-26] MEDS: TOPROL XL 37.5 MG PO (20:33)
[2024-09-26 21:22] LABS: Glucose - Point of Care 112 mg/dl (70-99)
[2024-09-26] MEDS: MELATONIN 5 MG PO (22:29)
[2024-09-26] MEDS: OXYCONTIN (CONTROLLED RELEASE) 10 MG PO (22:29)
[2024-09-27] VITALS (10 sets, daily range): BP systolic 90–115; BP diastolic 60–72; BMI 42.2
--- NOTE | 2024-09-27 00:10 | PTCARENOTE ---
Pt without complaints. helped clean him up prior to bed. Some bleeding present at the penial head. Desenex applied to MASD in the groin. LINE CLEANER on the monitor.
[2024-09-27 05:20] LABS: Blood Urea Nitrogen 25 mg/dl (9-20); Calcium 8.9 mg/dl (8.4-10.2); Carbon Dioxide 28 mmol/L (22-30); Chloride 103 mmol/L (98-107); Estimated Creatinine Clearance 79 ml/min; Glucose 89 mg/dl (70-99); Potassium 3.9 mmol/L (3.5-5.1); Sodium 142 mmol/L (135-145); eGFR > 60.00
[2024-09-27] MEDS: LASIX 40 MG IV ×2 (08:18→16:11)
[2024-09-27] MEDS: FLUSH (NSS) 1 FLUSH IV ×2 (08:19→16:11)
[2024-09-27] MEDS: NEURONTIN 100 MG PO ×2 (08:20→19:20)
[2024-09-27] MEDS: MIRALAX 17 GRAMS PO (08:20)
[2024-09-27] MEDS: ASPIR LOW (ENTERIC COATED) 81 MG PO (08:20)
[2024-09-27] MEDS: FARXIGA 10 MG PO (08:20)
[2024-09-27] MEDS: ALDACTONE 12.5 MG PO (08:21)
[2024-09-27] MEDS: KCL 20 MEQ PO (08:21)
[2024-09-27] MEDS: PLAVIX 75 MG PO (08:21)
[2024-09-27] MEDS: COLACE 100 MG PO ×2 (08:21→19:20)
[2024-09-27] MEDS: PERCOCET 5/325 1 TABLET PO ×2 (08:21→19:20)
[2024-09-27] MEDS: NON-FORMULARY ITEM 150 MG PO (08:22)
[2024-09-27] MEDS: BACTROBAN 2% OINTMENT 1 APPLIC NASAL ×2 (08:23→19:21)
[2024-09-27] MEDS: DESENEX/MITRAZOL/ZEASORB 1 APPLIC TOPICAL ×2 (08:23→19:21)
[2024-09-27] MEDS: LANTUS 0.16 UNITS SC (08:31)
[2024-09-27 08:33] LABS: Glucose - Point of Care 91 mg/dl (70-99)
--- NOTE | 2024-09-27 09:53 | W.PN.CD ---
Today's Communication / Plan
-
Not responding to Lasix 40 mg IV BID
Will add metolazone 5 mg 2 doses (one today and one tomorrow morning)
No additional HF med adjustments until closer to euvolemia
Later once not severely congested he will need:
- titration of Aldactone to goal (at least 25 mg and given ascites and concern for cirrhosis a much higher dose if tolerated)
- Titration of HF BB as tolerated towards goal dose
- He will need initiation of RAAS-I (ARNI or ARB, as he is allergic to JAVIER-I)
- Continue SGLT2-I
Good candidate for GLP1 agonist (Ozempic): CAD, HF, DM
Impression / Plan
-
Severe acute on chronic heart failure reduced EF, LVEF in the 30s
- LVEDP 31 on 09/18/2024
- heart failure meds had been reduced when he had sepsis with low BP and associated AMILCAR
- Not responding to Lasix 40 mg IV BID
- Will add metolazone 5 mg 2 doses (one today and one tomorrow morning)
- No additional HF med adjustments until closer to euvolemia
- Later once not severely congested he will need:
- titration of Aldactone to goal (at least 25 mg and given ascites and concern for cirrhosis a much higher dose if tolerated)
- Titration of HF BB as tolerated towards goal dose
- He will need initiation of RAAS-I (ARNI or ARB, as he is allergic to JAVIER-I)
- Continue SGLT2-I
CAD
- See cath report
- New stent 09/25/2024
- No complications
Ascites, gi suspects on basis of heart failure, but suspected some cirrhosis
Good candidate for GLP1 agonist (Ozempic): CAD, HF, DM
CKD with hx of prior AMILCAR
- add HF meds back slowly
Ischemic cardiomyopathy
MDT BiV ICD
Severe PAD
History of pericarditis/recurrent pericardial effusion and pericardial window (2016). No pericardial effusion on echo 02/12/2024.
MDT BiV ICD implanted 08/03/2019 - stable with normal function.
DM
Hx of significant ETOH
Obesity - BMI >40
Subjective: No CP. His symptom was GERBER and he has not moved enough to know if symptoms have improved
Physical Exam
Vital Signs/Labs
Vital Signs
Temp Pulse Resp BP Pulse Ox
97.9 F 63 20 109/63 95
09/27/24 07:16 09/27/24 09:00 09/27/24 07:16 09/27/24 08:21 09/27/24 08:30
09/26/24 09/27/24 09/28/24
06:59 06:59 06:59
Actual Weight 120.8 kg 122.2 kg
09/26/24 04:08
09/27/24 04:30
PT 16.5 Sec (11.4-14.6) H 09/26/24 04:08
INR 1.30 09/26/24 04:08
Magnesium 2.0 mg/dl (1.6-2.3) 09/27/24 04:30
Triglycerides 119 mg/dl (10-149) 09/26/24 04:08
LDL Cholesterol, Calc 42 mg/dl 09/26/24 04:08
VLDL Cholesterol, Calc 23 mg/dl (0-30) 09/26/24 04:08
HDL Cholesterol 32 mg/dl 09/26/24 04:08
Physical Exam
Constitutional: No acute distress
EENT: Anicteric
Cardiovascular: Rhythm & rate is regular, Pedal edema present and S1S2 is normal
Respiratory: Respiratory effort normal and Lungs clear to auscul.
GI: Soft
Neuro/Psych: Alert and Oriented
Data Reviewed
-
Date of Service: September 27, 2024
[2024-09-27 12:39] LABS: Glucose - Point of Care 134 mg/dl (70-99)
--- NOTE | 2024-09-27 15:19 | W.PN.HOSP.TC ---
Today's Communication/Plan
-
see bold
Assessment / Plan
Assessment / Plan
HPI: 64 years old male with history of complex coronary artery disease and ischemic cardiomyopathy, cirrhosis with recurrent ascites requiring frequent paracentesis and other multiple conditions who presented today for elective catheterization given
recent worsening of exertional dyspnea. Patient had stenting of venous graft, although unfortunately attempt to treat immune mid LAD lesion through LYNNE graft was not successful. In addition patient was found to be severely volume overloaded with
recurrent ascites and anasarca in bed admitted to medical service with cardiology consultation for overall optimization.
Unstable angina:
Cardiac cath 09/25
1:�Severe apical hypokinesis with EF 34%
2:�Severe left main and triple-vessel CAD as described. The LYNNE-LAD remains widely patent. The SVG-RPDA remains patent. The SVG-diagonal is severely and diffusely diseased but is patent to the touchdown site
3. Unfavorable angulation of the LYNNE origin precluded any attempts to perform LAD PCI via the LYNNE graft from the left radial artery approach.
4. The patient will return electively for intervention with plan to attempt to treat the new mid LAD lesion through the LYNNE graft and probable attempt to stent the diffusely diseased SVG-diagonal. This intervention will be a high risk procedure
with nor surgical backup
Appreciate cardiology input, continue medical management with Toprol, statin, DAPT/aspirin and Plavix optimize volume status
Acute on chronic CHF reduced EF:
Anasarca with peripheral edema, recurrent ascites:
Continue Lasix 40 mg IV twice daily, metolazone as needed cardiology, monitor creatinine, monitor weights
If rising creatinine, consider nephrology evaluation.
Continue potassium chloride
JAVIER wraps to LE
Alcoholic cirrhosis/hepatic steatosis:
Recurrent ascites:
09/25 status post paracentesis draining 4 L, was given 25 g albumin
Appreciate GI input, SAAG 2.0 with protein 3.9 more indicative of congestive- cardiac ascites
MELD 13 with normal albumin, INR and platelets
GI signed off, recommend following up with his usual GI doctor, Dr. Nette Cole
Iron deficiency anemia:
Hemoglobin has been stable at 10
Recent endoscopy and colonoscopy with no source.
Reported positive capsule study
Continue PPI, monitor hemoglobin
IDDM 2:
Hemoglobin A1c 5.6
Continue preadmission insulin regimen: Glargine 16 units at bedtime/basal bolus protocol.
Hypothyroidism:
Continue levothyroxine
Left nostril epistaxis:
Started Bactroban ointment 09/26
Chronic pain likely secondary to diabetic neuropathy/Opiate dependence:
Continue OxyContin/oxycodone. Continue Neurontin
Added laxatives
Obstructive sleep apnea:
CPAP at bedtime or while asleep
Remains high risk for oversedation with opiates or/and risk for hepatic encephalopathy.
DVT prophylaxis�subcu Lovenox
Full code
Updated at bedside 09/27
Total time spent to see the patient on the floor, examine the patient, review data and lab results, discuss treatment plan with patient, nursing staff around 42 minutes.
Physical Exam
General: Morbidly obese, no acute distress
HEENT: Normocephalic, Atraumatic, EOMI, MMM
Respiratory: Clear to Auscultation bilaterally
Cardiac: Normal S1/S2, Regular Rate and Rhythm
GI: Soft, Nontender, Nondistended, Normal Bowel Sounds
Extremities: No Clubbing, Cyanosis
3+ severe bilateral lower extremity edema
Neuro: Nonfocal/Grossly Intact
Psych: Calm, Cooperative
Anticipated Discharge: > 48 hours
Subjective/Interval History
-
Date of Service: September 26, 2024
Patient continues to have dyspnea with activity. No shortness of breath at rest. Epistaxis resolved. No abdominal pain. No fever, no vomiting.
Objective Data
-
Labs:
Laboratory Results
09/26/24
04:08
WBC 8.8
Hgb 10.5 L
Hct 33.0 L
Plt Count 193
PT 16.5 H
INR 1.30
Sodium 144
Potassium 3.8
Chloride 101
Carbon Dioxide 28
BUN 28 H
Creatinine 1.4 H
Glucose 110 H
Calcium 9.3
Total Bilirubin 1.1
AST 22
ALT 11
Alkaline Phosphatase 61
Vital Signs:
Vital Signs
Temp Pulse Resp BP Pulse Ox
97.6 F 69 20 112/71 92
09/26/24 12:04 09/26/24 04:00 09/26/24 12:04 09/26/24 03:59 09/26/24 12:04
I&O
09/25/24 09/26/24 09/27/24
06:59 06:59 06:59
Intake Total 580 / 580
Output Total 1800 / 1800
Balance -1220 / -1220
[2024-09-27] MEDS: ZAROXOLYN 5 MG PO (15:21)
--- NOTE | 2024-09-27 17:49 | PTCARENOTE ---
received patient this am monitor shows AV paced, VSS. patients weight increased this am, Dr. Gonzalez aware, Zaroxolyn po given at 1530 as ordered along with IV lasix. patient voided 500cc of urine. patient has +2 anasarca, bilt. legs edematous, georgie
wraps remained on as per patients choice. patient is GERBER but recovers fairly quickly. o2 sat RA 95%. patient uses CPAP for naps. family at bedside.
[2024-09-27 17:56] LABS: Glucose - Point of Care 116 mg/dl (70-99)
[2024-09-27] MEDS: FEOSOL 325 MG PO (17:59)
[2024-09-27] MEDS: CRESTOR 20 MG PO (17:59)
[2024-09-27] MEDS: PROTONIX 40 MG PO (17:59)
[2024-09-27] MEDS: TOPROL XL 37.5 MG PO (17:59)
[2024-09-27] MEDS: LOVENOX 40 MG SC (18:01)
[2024-09-27 21:51] LABS: Glucose - Point of Care 174 mg/dl (70-99)
[2024-09-27] MEDS: MELATONIN 5 MG PO (22:18)
[2024-09-27] MEDS: OXYCONTIN (CONTROLLED RELEASE) 10 MG PO (22:18)
--- NOTE | 2024-09-28 00:32 | PTCARENOTE ---
assumed care of patient at the change of shift. AAOx3. at the bedside. patient's cleansed patient and did b/l groin care-as they do at home. noted new skin tear L groin site. open, pink wound bed. powder and InterDry applied. edema
noted throughout. b/l georgie wraps removed for the night-patient's request. ambulating with the walker-steady. V paced on tele 60s. bp stable. dyspnea on exertion noted. patient wears own CPAP at night. 96% on RA. educated patient to inform RN with any
changes. call gonzalez within reach. makes needs known.
[2024-09-28 03:51] VITALS: BP 93/70
[2024-09-28 04:46] LABS: Blood Urea Nitrogen 25 mg/dl (9-20); Carbon Dioxide 30 mmol/L (22-30); Chloride 101 mmol/L (98-107); Estimated Creatinine Clearance 74 ml/min; Glucose 99 mg/dl (70-99); Magnesium 2.1 mg/dl (1.6-2.3); Potassium 3.6 mmol/L (3.5-5.1); Sodium 140 mmol/L (135-145); eGFR > 60.00
[2024-09-28 06:51] VITALS: BP 108/75
[2024-09-28 06:56] LABS: Glucose - Point of Care 89 mg/dl (70-99)
[2024-09-28] MEDS: FARXIGA 10 MG PO (07:29)
[2024-09-28] MEDS: ALDACTONE 12.5 MG PO (07:30)
[2024-09-28] MEDS: SYNTHROID 300 MCG PO (07:30)
[2024-09-28] MEDS: NEURONTIN 100 MG PO ×2 (07:30→19:47)
[2024-09-28] MEDS: PLAVIX 75 MG PO (07:30)
[2024-09-28] MEDS: COLACE 100 MG PO ×2 (07:30→19:47)
[2024-09-28] MEDS: PERCOCET 5/325 1 TABLET PO ×2 (07:31→19:48)
[2024-09-28] MEDS: KCL 20 MEQ PO (07:32)
[2024-09-28] MEDS: NON-FORMULARY ITEM 150 MG PO (07:33)
[2024-09-28] MEDS: MIRALAX 17 GRAMS PO (07:33)
[2024-09-28] MEDS: ASPIR LOW (ENTERIC COATED) 81 MG PO (07:33)
[2024-09-28] MEDS: ZAROXOLYN 5 MG PO (07:45)
[2024-09-28] MEDS: LANTUS 0.16 UNITS SC (07:46)
--- NOTE | 2024-09-28 07:49 | W.PN.CD ---
Today's Communication / Plan
-
will increase lasix to 80 BID for today
Impression / Plan
-
Severe acute on chronic heart failure reduced EF, LVEF in the 30s
- LVEDP 31 on 09/18/2024
- heart failure meds had been reduced when he had sepsis with low BP and associated AMILCAR
- Had not responded to Lasix 40 mg IV BID, put out ~2L yesterday with lasix 40 BID augmented with metolazone (note that his home dose is torsemide 60 PO BID, which is roughly equivalent to lasix 60 IV BID); I will increase his lasix to 80 BID while
in house with plan to transition to torsemide once closer to euvolemia
- cont. metolazone 5 mg for second dose today
- No additional HF med adjustments until closer to euvolemia
- Later once less congested he will need:
- titration of Aldactone to goal (at least 25 mg and given ascites and concern for cirrhosis a much higher dose if tolerated)
- Titration of HF BB as tolerated towards goal dose
- He will need initiation of RAAS-I (ARNI or ARB, as he is allergic to JAVIER-I)
- Continue SGLT2-I
CAD
- See cath report
- New stent 09/25/2024
- No complications
Ascites, gi suspects on basis of heart failure, but suspected some cirrhosis
Good candidate for GLP1 agonist (Ozempic): CAD, HF, DM
CKD with hx of prior AMILCAR
- Cr slowly improving
- add HF meds back slowly
Ischemic cardiomyopathy
MDT BiV ICD
Severe PAD
History of pericarditis/recurrent pericardial effusion and pericardial window (2016). No pericardial effusion on echo 02/12/2024.
MDT BiV ICD implanted 08/03/2019 - stable with normal function.
DM
Hx of significant ETOH
Obesity - BMI >40
Subjective: No CP. Thinks his breathing is improving but hasn't pushed himself much yet
Physical Exam
Vital Signs/Labs
Vital Signs
Temp Pulse Resp BP Pulse Ox
36.4 C 69 18 108/75 96
09/28/24 07:03 09/28/24 07:45 09/28/24 07:03 09/28/24 07:45 09/28/24 07:03
09/27/24 09/28/24 09/29/24
06:59 06:59 06:59
Actual Weight 122.2 kg
09/26/24 04:08
09/28/24 04:03
PT 16.5 Sec (11.4-14.6) H 09/26/24 04:08
INR 1.30 09/26/24 04:08
Magnesium 2.1 mg/dl (1.6-2.3) 09/28/24 04:03
Triglycerides 119 mg/dl (10-149) 09/26/24 04:08
LDL Cholesterol, Calc 42 mg/dl 09/26/24 04:08
VLDL Cholesterol, Calc 23 mg/dl (0-30) 09/26/24 04:08
HDL Cholesterol 32 mg/dl 09/26/24 04:08
Physical Exam
Constitutional: No acute distress and Comfortable
Cardiovascular: Rhythm & rate is regular, Systolic murmur absent, Diastolic murmur absent and Other (JVP difficult to assess, has 2+ pitting CANDIDA)
Respiratory: Respiratory effort normal, Lungs clear to auscul., Wheeze Absent, Crackles Absent and Rhonchi Absent
Neuro/Psych: AO x 3
Data Reviewed
-
Date of Service: September 28, 2024
EKG: Tracing Personally Visualized and interpreted
Labs: Labs Reviewed by me
[2024-09-28] MEDS: DESENEX/MITRAZOL/ZEASORB 1 APPLIC TOPICAL ×2 (07:53→22:59)
[2024-09-28] MEDS: LASIX 40 MG IV (07:54)
[2024-09-28] MEDS: BACTROBAN 2% OINTMENT NASAL ×2 (07:56→19:47)
--- NOTE | 2024-09-28 09:10 | WOUNDNOTE ---
Addendum entered by Nathalia Mccracken 09/28/24 09:24:
JOESFINA RN note: correction- L groin, not R groin.
Original Note:
R GROIN
[2024-09-28 09:12] VITALS: BMI 42.2
--- NOTE | 2024-09-28 09:12 | WOUNDNOTE ---
[facility] [place] RN note: Patient admitted with complex LAD, CHF. Patient is . does his wound care.
See H&P for complete history.
PMH: Sleep apnea (CPAP at night), CAD, CM, ascites, frequent paracentesis, cirrhosis d/t ETOH, CKD, PAD, bilateral iliac stents, LLE bypass, IDDM, obesity, neuropathy, chronic pain on opiate, gout, anxiety.
Wound Location and type/assessment: Patient admitted with: R lateral calf dry linear abrasion, no drainage. L groin healing full thickness wound. R groin linear dermal healing opening r/t moisture. Toes warm. L pedal pulse heard via portable
Doppler. R PT pulse heard via portable Doppler. Patient is followed by Dr. Anderson. He wears Tubigrip compression stockinet at home.
Appetite: good.
Pressure redistribution devices in place: [employer] Accumax. Air chair cushion. Patient moves self from bed to chair with supervision.
Plan: Protective silicone border foam applied to R calf under Carl wraps. does his groin wound care at home and in hospital by cleansing with cleansing wipe, tucks Interdry Ag cloth in groin folds q hs. Patient uses moisture lotion to dry LE
skin daily. Instructed patient pressure injury prevention measures and to take home his air chair cushion when discharged.
Will confirm orders with Dr. Camarillo and updated RN Gege.
Updated care plan and will follow peripherally as needed. Patient to follow up with Dr. Anderson.
--- NOTE | 2024-09-28 09:15 | WOUNDNOTE ---
[facility] RN note: Patient admitted with complex LAD, CHF. Patient is . does his wound care.
See H&P for complete history.
PMH: Sleep apnea (CPAP at night), CAD, CM, ascites, frequent paracentesis, cirrhosis d/t ETOH, CKD, PAD, bilateral iliac stents, LLE bypass, IDDM, obesity, neuropathy, chronic pain on opiate, gout, anxiety.
Wound Location and type/assessment: Patient admitted with: R lateral calf dry linear abrasion, no drainage. L groin healing full thickness vs deep dermal wound suspect r/t moisture and large abdominal pannus. R groin linear dermal healing opening
r/t moisture. Toes warm. L pedal pulse heard via portable Doppler. R PT pulse heard via portable Doppler. Patient is followed by Dr. Anderson. He wears Tubigrip compression stockinet at home.
Appetite: good.
Pressure redistribution devices in place: [employer] Accumax. Air chair cushion. Patient moves self from bed to chair with supervision.
Plan: Protective silicone border foam applied to R calf under Carl wraps. does his groin wound care at home and in hospital by cleansing with cleansing wipe, tucks Interdry Ag cloth in groin folds q hs. Patient uses moisture lotion to dry LE
skin daily. Instructed patient pressure injury prevention measures and to take home his air chair cushion when discharged.
Will confirm orders with Dr. Camarillo and updated RN Gege.
Updated care plan and will follow peripherally as needed. Patient to follow up with Dr. Anderson.
[2024-09-28 12:00] VITALS: BP 112/79
[2024-09-28 12:05] LABS: Glucose - Point of Care 124 mg/dl (70-99)
--- NOTE | 2024-09-28 12:19 | CM ---
Chart reviewed. Patient is independent of ADLS, lives with his and children in a [address], 3 [facility], ambulates with a SPC or RW. Plan is for the patient to return home. CM to follow
--- NOTE | 2024-09-28 14:24 | PTCARENOTE ---
Received pt @0700 Pt on CPAP machine. AAOx3 V paced on the monitor. No change in weight is am 122.2 kg. Lasix increased to 80 mg IVP BID. b/l lower extremities georgie wrap
--- NOTE | 2024-09-28 15:34 | W.PN.HOSP.TC ---
Today's Communication/Plan
-
Intensify diuresis
Monitor for ascitic fluid reaccumulation
Physical therapy assessed
Assessment / Plan
Assessment / Plan
HPI: 64 years old male with history of complex coronary artery disease and ischemic cardiomyopathy, cirrhosis with recurrent ascites requiring frequent paracentesis and other multiple conditions who presented today for elective catheterization given
recent worsening of exertional dyspnea. Patient had stenting of venous graft, although unfortunately attempt to treat immune mid LAD lesion through LYNNE graft was not successful. In addition patient was found to be severely volume overloaded with
recurrent ascites and anasarca in bed admitted to medical service with cardiology consultation for overall optimization.
IMPRESSION:
Unstable angina
Complex CAD
Acute CHF reduced EF.
Ischemic cardiomyopathy
Cirrhosis with recurrent ascites.
Anemia of chronic disease with recent reported positive capsule study
Conditions prior to admission:
Complex CAD status post CABG and multiple PCI's.
Ischemic cardiomyopathy
CHF reduced EF 35-40%.
Status post biventricular AICD.
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
Alcoholic cirrhosis
Recurrent ascites
IDDM.
PAD with history of bilateral iliac stents 11/09 and left CSF enterectomy, left MEDICAL/SURGERY REGISTERED NURSE to tibial peroneal trunk bypass 11/09. Status post endovascular procedure, primary repair of the left brachial artery 11/09
Obesity due to excess of calories BMI 43.
Diabetic neuropathy.
Dyslipidemia
Hypothyroidism
Chronic pain with opiate dependence.
GERD
Gout
Anxiety
Plan:
Unstable angina:
Cardiac cath 09/25
1:�Severe apical hypokinesis with EF 34%
2:�Severe left main and triple-vessel CAD as described. The LYNNE-LAD remains widely patent. The SVG-RPDA remains patent. The SVG-diagonal is severely and diffusely diseased but is patent to the touchdown site
3. Unfavorable angulation of the LYNNE origin precluded any attempts to perform LAD PCI via the LYNNE graft from the left radial artery approach.
4. The patient will return electively for intervention with plan to attempt to treat the new mid LAD lesion through the LYNNE graft and probable attempt to stent the diffusely diseased SVG-diagonal. This intervention will be a high risk procedure
with nor surgical backup
Appreciate cardiology input, continue medical management with Toprol, statin, DAPT/aspirin and Plavix optimize volume status
Acute on chronic CHF reduced EF:
Anasarca with peripheral edema, recurrent ascites:
Intensified diuresis with increase of Lasix to 60 mg IV twice daily. Metolazone as needed.
If rising creatinine, consider nephrology evaluation.
Continue potassium chloride
JAVIER wraps to LE
Alcoholic cirrhosis/hepatic steatosis:
Recurrent ascites:
09/25 status post paracentesis draining 4 L, was given 25 g albumin
Appreciate GI input, SAAG 2.0 with protein 3.9 more indicative of congestive- cardiac ascites
MELD 13 with normal albumin, INR and platelets
GI signed off, recommend following up with his usual GI doctor, Dr. Nette Cole
Iron deficiency anemia:
Hemoglobin has been stable at 10
Recent endoscopy and colonoscopy with no source.
Reported positive capsule study
Continue PPI, monitor hemoglobin
IDDM 2:
Hemoglobin A1c 5.6
Continue preadmission insulin regimen: Glargine 16 units at bedtime/basal bolus protocol.
Hypothyroidism:
Continue levothyroxine
Left nostril epistaxis:
Started Bactroban ointment 09/26
Chronic pain likely secondary to diabetic neuropathy/Opiate dependence:
Continue OxyContin/oxycodone. Continue Neurontin
Added laxatives
Obstructive sleep apnea:
CPAP at bedtime or while asleep
Remains high risk for oversedation with opiates or/and risk for hepatic encephalopathy.
DVT prophylaxis�subcu Lovenox
Full code
Updated at bedside 09/27
Anticipated Discharge: 24 - 48 hours
Subjective/Interval History
-
Date of Service: September 28, 2024
Objective Data
-
Labs:
Laboratory Results
09/28/24
04:03
Sodium 140
Potassium 3.6
Chloride 101
Carbon Dioxide 30
BUN 25 H
Creatinine 1.3
Glucose 99
Calcium 9.0
Vital Signs:
Vital Signs
Temp Pulse Resp BP Pulse Ox
98.5 F 62 18 108/75 98
09/28/24 12:02 09/28/24 09:00 09/28/24 12:02 09/28/24 07:45 09/28/24 12:02
I&O
09/27/24 09/28/24 09/29/24
06:59 06:59 06:59
Intake Total 480 / 480 500 / 500
Output Total 500 / 500 1750 / 1750 1600 / 1600
Balance -500 / -500 -1270 / -1270 -1100 / -1100
Physical Exam
-
General: No Apparent Distress
HEENT: Normocephalic and Atraumatic
Respiratory: Negative Wheezes or Rales
Cardiac: Regular Rhythm and S1/S2
GI: Soft and Nontender
Genito-urinary: No Costovertebral Tender
Neuro: AO x 3
Psych: Calm
[2024-09-28 16:13] VITALS: BP 119/67
[2024-09-28] MEDS: LASIX 80 MG IV (16:19)
[2024-09-28] MEDS: FEOSOL 325 MG PO (17:29)
[2024-09-28] MEDS: TOPROL XL 37.5 MG PO (17:29)
[2024-09-28] MEDS: PROTONIX 40 MG PO (17:29)
[2024-09-28] MEDS: CRESTOR 20 MG PO (17:29)
[2024-09-28] MEDS: LOVENOX 40 MG SC (17:37)
[2024-09-28 17:49] LABS: Glucose - Point of Care 108 mg/dl (70-99)
[2024-09-28 18:21] VITALS: BMI 42.2
[2024-09-28 19:44] VITALS: BP 114/78
[2024-09-28 22:53] VITALS: BP 104/69
[2024-09-28] MEDS: MELATONIN 5 MG PO (22:58)
[2024-09-28] MEDS: OXYCONTIN (CONTROLLED RELEASE) 10 MG PO (22:58)
[2024-09-28 22:59] LABS: Glucose - Point of Care 117 mg/dl (70-99)
[2024-09-29] VITALS (7 sets, daily range): BP systolic 97–121; BP diastolic 66–106; BMI 41.5
[2024-09-29] MEDS: SYNTHROID 300 MCG PO (04:54)
[2024-09-29 05:03] LABS: % Basophils 0.5 % (0-2); % Eosinophils 4.3 % (0-6); % Immature Granulocytes 0.6 % (0-0.5); % Monocytes 10.1 % (1.7-9.3); % Neutrophils 69.5 % (42.2-75.2); Absolute Eosinophils 0.4 10^3/uL (0-0.7); Absolute Immature Granulocytes 0.1 10^3/uL (0-0.05); Absolute Lymphocytes 1.3 10^3/uL (1.2-3.4); Absolute Monocytes 0.9 10^3/uL (0.1-0.6); Hematocrit 33.5 % (39.0-52.0); Hemoglobin 10.6 g/dL (13.0-18.0); Mean Corp Hgb Conc. 31.6 g/dL (33.0-37.0); Mean Corpuscular Hgb 24.8 pg (27.0-31.0); Mean Corpuscular Volume 78.5 fL (80.0-94.0); Nucleated Red Blood Cells % 0 % (-); Platelet Count 196 10^3/uL (130-400); Red Blood Cell Count 4.27 10^6/uL (4.70-6.10); Red Cell Dist. Width 18.8 % (11.5-14.5); White Blood Cell Count 8.6 10^3/uL (4.8-10.8)
[2024-09-29 05:26] LABS: Blood Urea Nitrogen 25 mg/dl (9-20); Calcium 9.1 mg/dl (8.4-10.2); Carbon Dioxide 31 mmol/L (22-30); Chloride 96 mmol/L (98-107); Estimated Creatinine Clearance 68 ml/min; Glucose 79 mg/dl (70-99); Magnesium 2.1 mg/dl (1.6-2.3); Potassium 3.8 mmol/L (3.5-5.1); Sodium 141 mmol/L (135-145); eGFR 56.83
--- NOTE | 2024-09-29 05:49 | PTCARENOTE ---
Tele remains Vpaced w/ occasional PVCs. Denies any chest discomfort. Patient ambulates w/ RW and standby assist, steady gait. Patient appears GERBER, pulse ox sating 95-98% on RA. Patient aware of POC, call gonzalez within reach.
--- NOTE | 2024-09-29 08:00 | PTCARENOTE ---
Assumed care of pt from prev nsg shift; Pt AAOx3 w/no c/o CP or SOB. Pt does have chronic pain from neuropathy for which pt gets sched PO pain medicine. Pt's VS stable w/HR in the 50's-60's & BP 102/66 this AM. Pt is AV paced w/occas PVC's on
telemetry monitoring. Pt w/call gonzalez within reach & plan of care ongoing.
[2024-09-29 08:46] LABS: Glucose - Point of Care 72 mg/dl (70-99)
[2024-09-29] MEDS: PLAVIX 75 MG PO (09:26)
[2024-09-29] MEDS: FARXIGA 10 MG PO (09:26)
[2024-09-29] MEDS: ASPIR LOW (ENTERIC COATED) 81 MG PO (09:26)
[2024-09-29] MEDS: NON-FORMULARY ITEM 150 MG PO (09:27)
[2024-09-29] MEDS: KCL 20 MEQ PO (09:27)
[2024-09-29] MEDS: MIRALAX PO (09:27)
[2024-09-29] MEDS: NEURONTIN 100 MG PO ×2 (09:27→19:38)
[2024-09-29] MEDS: ALDACTONE 12.5 MG PO (09:27)
[2024-09-29] MEDS: PERCOCET 5/325 1 TABLET PO ×2 (09:27→19:38)
[2024-09-29] MEDS: LASIX 80 MG IV (09:28)
[2024-09-29] MEDS: FLUSH (NSS) 2 FLUSH IV (09:28)
[2024-09-29] MEDS: COLACE PO (09:29)
[2024-09-29] MEDS: DESENEX/MITRAZOL/ZEASORB 1 APPLIC TOPICAL (09:29)
[2024-09-29] MEDS: BACTROBAN 2% OINTMENT NASAL ×2 (09:29→19:39)
[2024-09-29] MEDS: LANTUS 0.16 UNITS SC (09:39)
--- NOTE | 2024-09-29 12:21 | CM ---
Chart reviewed. Patient is independent of ADLS lives with his and [address] [facility], ambulates with a RW and SPC. Plan is for the patient to return home. CM to follow
--- NOTE | 2024-09-29 12:55 | W.PN.CD ---
Today's Communication / Plan
-
back to home torsemide; inc. Aldactone to 25; if doing well tomorrow, add back ARNI and likely discharge in afternoon
Impression / Plan
-
Severe acute on chronic heart failure reduced EF, LVEF in the 30s
- LVEDP 31 on 09/18/2024
- heart failure meds had been reduced when he had sepsis with low BP and associated AMILCAR
- responded well to IV lasix with metolazone augmentation, now back to dry weight with mild AMILCAR; will transition back to home diuretic torsemide 60 BID
- GDMT is metop suc 37.5, aldactone 12.5, dapa 10; will increase lory to 25 tonight; tomorrow if Cr stable will add ARNI
- gvien signficant ascites, going forward would first target maximally tolerated dose of ARNI before pushing other 3 classes
CAD
- See cath report
- New stent 09/25/2024
- No complications
Ascites, gi suspects on basis of heart failure, but suspected some cirrhosis
Good evntual candidate for GLP1 agonist (Ozempic): CAD, HF, DM
CKD with hx of prior AMILCAR - Cr had improved, now mild bump in setting of aggressive diuresis
Ischemic cardiomyopathy
MDT BiV ICD
Severe PAD
History of pericarditis/recurrent pericardial effusion and pericardial window (2016). No pericardial effusion on echo 02/12/2024.
MDT BiV ICD implanted 08/03/2019 - stable with normal function.
DM
Hx of significant ETOH
Obesity - BMI >40
Subjective: No CP. Feels he is back to baseline in terms of his breathing. Does feel that he is already starting to accumulate ascites fluid and may need IR drainage by end of week.
Physical Exam
Vital Signs/Labs
Vital Signs
Temp Pulse Resp BP Pulse Ox
36.6 C 76 20 121/80 97
09/29/24 11:18 09/29/24 12:00 09/29/24 11:18 09/29/24 11:09 09/29/24 11:18
09/28/24 09/29/24 09/30/24
06:59 06:59 06:59
Actual Weight 122.2 kg 120.1 kg
09/29/24 04:50
09/29/24 04:50
PT 16.5 Sec (11.4-14.6) H 09/26/24 04:08
INR 1.30 09/26/24 04:08
Magnesium 2.1 mg/dl (1.6-2.3) 09/29/24 04:50
Triglycerides 119 mg/dl (10-149) 09/26/24 04:08
LDL Cholesterol, Calc 42 mg/dl 09/26/24 04:08
VLDL Cholesterol, Calc 23 mg/dl (0-30) 09/26/24 04:08
HDL Cholesterol 32 mg/dl 09/26/24 04:08
Physical Exam
Constitutional: No acute distress
Cardiovascular: Rhythm & rate is regular, Pedal edema is absent, Systolic murmur absent and Diastolic murmur absent
Respiratory: Respiratory effort normal and Lungs clear to auscul.
Neuro/Psych: AO x 3
Data Reviewed
-
Date of Service: September 29, 2024
Medical Decision Making: Reviewed Test Results
Labs: Labs Reviewed by me
[2024-09-29 13:24] LABS: Glucose - Point of Care 122 mg/dl (70-99)
--- NOTE | 2024-09-29 15:25 | W.PN.HOSP.TC ---
Today's Communication/Plan
-
Transition to torsemide.
Continue Aldactone
Monitor creatinine
Monitor for ascitic fluid reaccumulation.
Assessment / Plan
Assessment / Plan
HPI: 64 years old male with history of complex coronary artery disease and ischemic cardiomyopathy, cirrhosis with recurrent ascites requiring frequent paracentesis and other multiple conditions who presented today for elective catheterization given
recent worsening of exertional dyspnea. Patient had stenting of venous graft, although unfortunately attempt to treat immune mid LAD lesion through LYNNE graft was not successful. In addition patient was found to be severely volume overloaded with
recurrent ascites and anasarca in bed admitted to medical service with cardiology consultation for overall optimization.
IMPRESSION:
Unstable angina
Complex CAD
Acute CHF reduced EF.
Ischemic cardiomyopathy
Cirrhosis with recurrent ascites.
Anemia of chronic disease with recent reported positive capsule study
Conditions prior to admission:
Complex CAD status post CABG and multiple PCI's.
Ischemic cardiomyopathy
CHF reduced EF 35-40%.
Status post biventricular AICD.
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
Alcoholic cirrhosis
Recurrent ascites
IDDM.
PAD with history of bilateral iliac stents 11/09 and left CSF enterectomy, left GIFT PACKER to tibial peroneal trunk bypass 11/09. Status post endovascular procedure, primary repair of the left brachial artery 11/09
Obesity due to excess of calories BMI 43.
Diabetic neuropathy.
Dyslipidemia
Hypothyroidism
Chronic pain with opiate dependence.
GERD
Gout
Anxiety
Plan:
Unstable angina:
Cardiac cath 09/25
1:�Severe apical hypokinesis with EF 34%
2:�Severe left main and triple-vessel CAD as described. The LYNNE-LAD remains widely patent. The SVG-RPDA remains patent. The SVG-diagonal is severely and diffusely diseased but is patent to the touchdown site
3. Unfavorable angulation of the LYNNE origin precluded any attempts to perform LAD PCI via the LYNNE graft from the left radial artery approach.
4. The patient will return electively for intervention with plan to attempt to treat the new mid LAD lesion through the LYNNE graft and probable attempt to stent the diffusely diseased SVG-diagonal. This intervention will be a high risk procedure
with nor surgical backup
Appreciate cardiology input, continue medical management with Toprol, statin, DAPT/aspirin and Plavix optimize volume status
Acute on chronic CHF reduced EF:
Anasarca with peripheral edema, recurrent ascites:
Intensified diuresis with increase of Lasix to 60 mg IV twice daily. Metolazone as needed.
Weight is down to 120 kg
Noted bump in creatinine 1.4
Transition to preadmission dose torsemide.
Continue Aldactone, dose increased to 25 g daily
Consideration of ARNI reintroduction if renal function tolerates.
Alcoholic cirrhosis/hepatic steatosis:
Recurrent ascites:
09/25 status post paracentesis draining 4 L, was given 25 g albumin
Appreciate GI input, SAAG 2.0 with protein 3.9 more indicative of congestive- cardiac ascites
MELD 13 with normal albumin, INR and platelets
GI signed off, recommend following up with his usual GI doctor, Dr. Nette Cole
Iron deficiency anemia:
Hemoglobin has been stable at 10
Recent endoscopy and colonoscopy with no source.
Reported positive capsule study
Continue PPI, monitor hemoglobin
IDDM 2:
Hemoglobin A1c 5.6
Continue preadmission insulin regimen: Glargine 16 units at bedtime/basal bolus protocol.
Hypothyroidism:
Continue levothyroxine
Left nostril epistaxis:
Started Bactroban ointment 09/26
Chronic pain likely secondary to diabetic neuropathy/Opiate dependence:
Continue OxyContin/oxycodone. Continue Neurontin
Added laxatives
Obstructive sleep apnea:
CPAP at bedtime or while asleep
Remains high risk for oversedation with opiates or/and risk for hepatic encephalopathy.
DVT prophylaxis�subcu Lovenox
Full code
Updated at bedside 09/27
Anticipated Discharge: 24 - 48 hours
Subjective/Interval History
-
Date of Service: September 29, 2024
Objective Data
-
Labs:
Laboratory Results
09/29/24
04:50
WBC 8.6
Hgb 10.6 L
Hct 33.5 L
Plt Count 196
Sodium 141
Potassium 3.8
Chloride 96 L
Carbon Dioxide 31 H
BUN 25 H
Creatinine 1.4 H
Glucose 79
Calcium 9.1
Vital Signs:
Vital Signs
Temp Pulse Resp BP Pulse Ox
97.8 F 76 20 121/80 97
09/29/24 11:18 09/29/24 12:00 09/29/24 11:18 09/29/24 11:09 09/29/24 11:18
I&O
09/28/24 09/29/24 09/30/24
06:59 06:59 06:59
Intake Total 480 / 480 740 / 740
Output Total 1750 / 1750 4350 / 4350
Balance -1270 / -1270 -3610 / -3610
Physical Exam
-
General: No Apparent Distress
HEENT: Normocephalic and Atraumatic
Respiratory: Negative Wheezes or Rales
Cardiac: Regular Rhythm and S1/S2
GI: Soft and Nontender
Genito-urinary: No Costovertebral Tender
Neuro: AO x 3
Psych: Calm
[2024-09-29] MEDS: PROTONIX 40 MG PO (17:38)
[2024-09-29] MEDS: LOVENOX 40 MG SC (17:38)
[2024-09-29] MEDS: FEOSOL 325 MG PO (17:39)
[2024-09-29] MEDS: TOPROL XL 37.5 MG PO (17:39)
[2024-09-29] MEDS: DEMADEX 60 MG PO (17:39)
[2024-09-29] MEDS: CRESTOR 20 MG PO (17:39)
[2024-09-29 17:45] LABS: Glucose - Point of Care 119 mg/dl (70-99)
[2024-09-29] MEDS: COLACE 100 MG PO (19:38)
[2024-09-29 20:59] LABS: Glucose - Point of Care 132 mg/dl (70-99)
[2024-09-29] MEDS: OXYCONTIN (CONTROLLED RELEASE) 10 MG PO (22:16)
[2024-09-29] MEDS: MELATONIN 5 MG PO (22:16)
[2024-09-30] VITALS (10 sets, daily range): BP systolic 62–113; BP diastolic 50–76; BMI 40.8; BMI 38.6
[2024-09-30] MEDS: BACTROBAN 2% OINTMENT NASAL ×2 (00:43→07:51)
[2024-09-30] MEDS: DESENEX/MITRAZOL/ZEASORB 1 APPLIC TOPICAL ×3 (04:51→19:51)
[2024-09-30 05:49] LABS: Blood Urea Nitrogen 25 mg/dl (9-20); Calcium 9.4 mg/dl (8.4-10.2); Carbon Dioxide 33 mmol/L (22-30); Chloride 93 mmol/L (98-107); Estimated Creatinine Clearance 63 ml/min; Glucose 93 mg/dl (70-99); Potassium 3.5 mmol/L (3.5-5.1); Sodium 138 mmol/L (135-145); eGFR 52.31
--- NOTE | 2024-09-30 06:02 | PTCARENOTE ---
Rec'd pt at change of shift. Pt on TELE monitor in V paced rhythm with occasional PVC's. VSS and pt AAO*3. Pt aware and agreeable to POC. Pt resting with call gonzalez in reach.
[2024-09-30] MEDS: SYNTHROID 150 MCG PO (06:44)
--- NOTE | 2024-09-30 07:53 | W.PN.CD ---
Addendum entered and electronically signed by Jono Yadav MD 10/12/24 07:06:
as requested by a query. Previously noted HTN is no longer valid diagnosis diagnosis
Original Note:
Today's Communication / Plan
-
weight down to 118 but still feels abd getting larger
On torsemide 60mg BID ( he had been on a lower dose about 2 weeks ago)
monitor renal function
Continue to assess need for paracentesis.
Impression / Plan
-
Severe acute on chronic heart failure reduced EF, LVEF in the 30s
- LVEDP 31 on 09/18/2024
- heart failure meds had been reduced when he had sepsis with low BP and associated AMILCAR
- responded well to IV lasix with metolazone augmentation, now back to dry weight with mild AMILCAR; now on torsemide 60 BID
- GDMT is metop suc 37.5, aldactone 12.5, dapa 10; will increase lory to 25 tonight; tomorrow if Cr stable will add ARNI
- gvien signficant ascites, going forward would first target maximally tolerated dose of ARNI before pushing other 3 classes
CAD
- See cath report
- New stent 09/25/2024
- No complications
Ascites, gi suspects on basis of heart failure, but suspected some cirrhosis
Good evntual candidate for GLP1 agonist (Ozempic): CAD, HF, DM
CKD with hx of prior AMILCAR - Cr had improved, now mild bump in setting of aggressive diuresis
Ischemic cardiomyopathy
MDT BiV ICD
Severe PAD
History of pericarditis/recurrent pericardial effusion and pericardial window (2016). No pericardial effusion on echo 02/12/2024.
MDT BiV ICD implanted 08/03/2019 - stable with normal function.
DM
Hx of significant ETOH
Obesity - BMI >40
Subjective: No CP. Feels he is back to baseline in terms of his breathing. Does feel that he is already starting to accumulate ascites fluid and may need IR drainage by end of week. weight trending down
Physical Exam
Vital Signs/Labs
Vital Signs
Temp Pulse Resp BP Pulse Ox
98.3 F 63 20 98/57 97
09/30/24 07:35 09/30/24 07:38 09/30/24 07:35 09/30/24 07:38 09/30/24 07:35
09/29/24 09/30/24 10/01/24
06:59 06:59 06:59
Actual Weight 120.1 kg 118 kg
09/29/24 04:50
09/30/24 04:35
PT 16.5 Sec (11.4-14.6) H 09/26/24 04:08
INR 1.30 09/26/24 04:08
Magnesium 2.1 mg/dl (1.6-2.3) 09/29/24 04:50
Triglycerides 119 mg/dl (10-149) 09/26/24 04:08
LDL Cholesterol, Calc 42 mg/dl 09/26/24 04:08
VLDL Cholesterol, Calc 23 mg/dl (0-30) 09/26/24 04:08
HDL Cholesterol 32 mg/dl 09/26/24 04:08
Physical Exam
Constitutional: No acute distress
Cardiovascular: Rhythm & rate is regular
Respiratory: Wheeze Absent and Rhonchi Absent
GI: Distention present
Neuro/Psych: Alert
Other: Other (mild edema. ( near baseline))
Data Reviewed
-
Date of Service: September 30, 2024
Medical Decision Making: Reviewed Test Results
EKG: Report Reviewed by me
Echo: Report Reviewed by me
X-Ray/CT/US/MRI/NUC/PET: Report Reviewed by me
Labs: Labs Reviewed by me
--- NOTE | 2024-09-30 08:15 | PTCARENOTE ---
Assumed care of pt from prev nsg shift; Pt AAOx3 w/no c/o CP or SOB. Pt does have chronic pain from neuropathy for which pt gets sched PO pain medicine. Pt's VS stable w/HR in the 60's & BP 98/57 this AM. Pt is AV paced w/occas PVC's on telemetry
monitoring. Pt w/call gonzalez within reach & plan of care ongoing.
[2024-09-30 08:30] LABS: Glucose - Point of Care 78 mg/dl (70-99)
[2024-09-30] MEDS: FARXIGA 10 MG PO (08:57)
[2024-09-30] MEDS: PERCOCET 5/325 1 TABLET PO ×2 (08:57→19:51)
[2024-09-30] MEDS: ASPIR LOW (ENTERIC COATED) 81 MG PO (08:57)
[2024-09-30] MEDS: DEMADEX 60 MG PO ×2 (08:58→17:40)
[2024-09-30] MEDS: KCL 20 MEQ PO (08:58)
[2024-09-30] MEDS: PLAVIX 75 MG PO (08:58)
[2024-09-30] MEDS: COLACE 100 MG PO ×2 (08:59→19:51)
[2024-09-30] MEDS: NEURONTIN 100 MG PO ×2 (08:59→19:51)
[2024-09-30] MEDS: ALDACTONE 25 MG PO (08:59)
[2024-09-30] MEDS: NON-FORMULARY ITEM 1 MG PO (08:59)
[2024-09-30] MEDS: MIRALAX PO (09:00)
[2024-09-30] MEDS: LANTUS 0.16 UNITS SC (09:02)
--- NOTE | 2024-09-30 10:10 | PTCARENOTE ---
Pt taken via stretcher to IR for paracentesis. IV Albumin rec'd from pharmacy for pt post procedure.
[2024-09-30 11:35] LABS: Body Fluid Mononuclear 89.1 %; Body Fluid Polymorphonuclear 10.9 %; Body Fluid WBC 420 /CUMM
[2024-09-30] MEDS: FLEXBUMIN 100 IV (12:03)
[2024-09-30] MEDS: FLUSH (NSS) 2 FLUSH IV (12:03)
[2024-09-30 12:22] LABS: Body Fluid Albumin 2.4 g/dl; Body Fluid Protein 3.9 g/dl
[2024-09-30 12:38] LABS: Body Fluid Second Tech AMA
[2024-09-30 12:45] LABS: Glucose - Point of Care 114 mg/dl (70-99)
--- NOTE | 2024-09-30 13:19 | CM ---
Chart reviewed. Patient is independent of ADLS, lives with his and 2 children in a [address], 3 [facility], ambulates with a SPC and RW. Plan is for the patient to return home. CM to follow
--- NOTE | 2024-09-30 13:59 | W.PN.HOSP.TC ---
Today's Communication/Plan
-
Observe creatinine on torsemide.
Large-volume paracentesis with albumin
Assessment / Plan
Assessment / Plan
HPI: 64 years old male with history of complex coronary artery disease and ischemic cardiomyopathy, cirrhosis with recurrent ascites requiring frequent paracentesis and other multiple conditions who presented today for elective catheterization given
recent worsening of exertional dyspnea. Patient had stenting of venous graft, although unfortunately attempt to treat immune mid LAD lesion through LYNNE graft was not successful. In addition patient was found to be severely volume overloaded with
recurrent ascites and anasarca in bed admitted to medical service with cardiology consultation for overall optimization.
IMPRESSION:
Unstable angina
Complex CAD
Acute CHF reduced EF.
Ischemic cardiomyopathy
Cirrhosis with recurrent ascites.
Anemia of chronic disease with recent reported positive capsule study
Conditions prior to admission:
Complex CAD status post CABG and multiple PCI's.
Ischemic cardiomyopathy
CHF reduced EF 35-40%.
Status post biventricular AICD.
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
Alcoholic cirrhosis
Recurrent ascites
IDDM.
PAD with history of bilateral iliac stents 11/09 and left CSF enterectomy, left FILM SPOOLER to tibial peroneal trunk bypass 11/09. Status post endovascular procedure, primary repair of the left brachial artery 11/09
Obesity due to excess of calories BMI 43.
Diabetic neuropathy.
Dyslipidemia
Hypothyroidism
Chronic pain with opiate dependence.
GERD
Gout
Anxiety
Plan:
Unstable angina:
Cardiac cath 09/25
1:�Severe apical hypokinesis with EF 34%
2:�Severe left main and triple-vessel CAD as described. The LYNNE-LAD remains widely patent. The SVG-RPDA remains patent. The SVG-diagonal is severely and diffusely diseased but is patent to the touchdown site
3. Unfavorable angulation of the LYNNE origin precluded any attempts to perform LAD PCI via the LYNNE graft from the left radial artery approach.
4. The patient will return electively for intervention with plan to attempt to treat the new mid LAD lesion through the LYNNE graft and probable attempt to stent the diffusely diseased SVG-diagonal. This intervention will be a high risk procedure
with nor surgical backup
Appreciate cardiology input, continue medical management with Toprol, statin, DAPT/aspirin and Plavix optimize volume status
Acute on chronic CHF reduced EF:
Anasarca with peripheral edema, recurrent ascites:
Intensified diuresis with increase of Lasix to 60 mg IV twice daily. Metolazone as needed.
Weight is down to 120 kg
Noted bump in creatinine 1.4
Transition to preadmission dose torsemide.
Continue Aldactone, dose increased to 25 g daily
Consideration of ARNI reintroduction if renal function tolerates.
Alcoholic cirrhosis/hepatic steatosis:
Recurrent ascites:
09/25 status post paracentesis draining 4 L, was given 25 g albumin
09/30 large-volume paracentesis 4600 mL
Appreciate GI input, SAAG 2.0 with protein 3.9 more indicative of congestive- cardiac ascites
MELD 13 with normal albumin, INR and platelets
GI signed off, recommend following up with his usual GI doctor, Dr. Nette Cole
Iron deficiency anemia:
Hemoglobin has been stable at 10
Recent endoscopy and colonoscopy with no source.
Reported positive capsule study
Continue PPI, monitor hemoglobin
IDDM 2:
Hemoglobin A1c 5.6
Continue preadmission insulin regimen: Glargine 16 units at bedtime/basal bolus protocol.
Hypothyroidism:
Continue levothyroxine
Left nostril epistaxis:
Started Bactroban ointment 09/26
Chronic pain likely secondary to diabetic neuropathy/Opiate dependence:
Continue OxyContin/oxycodone. Continue Neurontin
Added laxatives
Obstructive sleep apnea:
CPAP at bedtime or while asleep
Remains high risk for oversedation with opiates or/and risk for hepatic encephalopathy.
DVT prophylaxis�subcu Lovenox
Full code
Updated at bedside 09/27
Anticipated Discharge: 24 - 48 hours
Subjective/Interval History
-
Date of Service: September 30, 2024
Objective Data
-
Labs:
Laboratory Results
09/30/24
04:35
Sodium 138
Potassium 3.5
Chloride 93 L
Carbon Dioxide 33 H
BUN 25 H
Creatinine 1.5 H
Glucose 93
Calcium 9.4
Vital Signs:
Vital Signs
Temp Pulse Resp BP Pulse Ox
97.5 F 64 20 113/76 97
09/30/24 11:23 09/30/24 13:00 09/30/24 11:23 09/30/24 11:25 09/30/24 11:25
I&O
09/29/24 09/30/24 10/01/24
06:59 06:59 06:59
Intake Total 740 / 740 1200 / 1200 1340 / 1340
Output Total 4350 / 4350 3000 / 3000 1100 / 1100
Balance -3610 / -3610 -1800 / -1800 240 / 240
Physical Exam
-
General: No Apparent Distress
HEENT: Normocephalic and Atraumatic
Respiratory: Negative Wheezes or Rales
Cardiac: Regular Rhythm and S1/S2
GI: Soft and Nontender
Genito-urinary: No Costovertebral Tender
Neuro: AO x 3
Psych: Calm
[2024-09-30] MEDS: TOPROL XL 37.5 MG PO (17:38)
[2024-09-30] MEDS: FEOSOL 325 MG PO (17:38)
[2024-09-30] MEDS: CRESTOR 20 MG PO (17:40)
[2024-09-30] MEDS: LOVENOX 40 MG SC (17:41)
[2024-09-30] MEDS: PROTONIX 40 MG PO (17:41)
[2024-09-30 17:47] LABS: Glucose - Point of Care 139 mg/dl (70-99)
[2024-09-30] MEDS: BACTROBAN 2% OINTMENT 1 APPLIC NASAL (19:51)
[2024-09-30 21:14] LABS: Glucose - Point of Care 185 mg/dl (70-99)
--- NOTE | 2024-09-30 22:09 | PTCARENOTE ---
Rec'd pt at change of shift. Pt in VPaced rhythm with VSS. Pt AAO*3 and denies any pain or discomfort. Pt agreed to fluid restriction and monitoring. Pt updated and agreeable to plan of care and resting with call gonzalez in reach.
[2024-09-30] MEDS: MELATONIN 5 MG PO (22:22)
[2024-09-30] MEDS: OXYCONTIN (CONTROLLED RELEASE) 10 MG PO (22:23)
[2024-10-01 03:00] VITALS: BP 104/64
[2024-10-01 04:08] VITALS: BP 104/64
[2024-10-01 04:14] VITALS: BMI 37.8
[2024-10-01 04:40] LABS: % Basophils 0.6 % (0-2); % Eosinophils 3.9 % (0-6); % Immature Granulocytes 0.5 % (0-0.5); % Lymphocytes 14.6 % (20.5-51.1); % Monocytes 11.6 % (1.7-9.3); % Neutrophils 68.8 % (42.2-75.2); Absolute Basophils 0.1 10^3/uL (0-0.2); Absolute Eosinophils 0.3 10^3/uL (0-0.7); Absolute Lymphocytes 1.2 10^3/uL (1.2-3.4); Absolute Neutrophils 5.7 10^3/uL (1.4-6.5); Hematocrit 33.7 % (39.0-52.0); Hemoglobin 10.7 g/dL (13.0-18.0); Mean Corp Hgb Conc. 31.8 g/dL (33.0-37.0); Mean Corpuscular Hgb 24.8 pg (27.0-31.0); Mean Platelet Volume 9.8 fL (7.4-10.4); Nucleated Red Blood Cells % 0 % (-); Platelet Count 184 10^3/uL (130-400); Red Blood Cell Count 4.32 10^6/uL (4.70-6.10); Red Cell Dist. Width 18.3 % (11.5-14.5); White Blood Cell Count 8.2 10^3/uL (4.8-10.8)
[2024-10-01] MEDS: SYNTHROID 300 MCG PO (04:56)
[2024-10-01 05:02] LABS: Blood Urea Nitrogen 25 mg/dl (9-20); Calcium 9.3 mg/dl (8.4-10.2); Carbon Dioxide 34 mmol/L (22-30); Chloride 92 mmol/L (98-107); Estimated Creatinine Clearance 60 ml/min; Glucose 103 mg/dl (70-99); Potassium 3.4 mmol/L (3.5-5.1); Sodium 140 mmol/L (135-145); eGFR 52.31
[2024-10-01 07:13] VITALS: BP 88/63
[2024-10-01 07:14] VITALS: BP 91/60
[2024-10-01 07:21] LABS: Glucose - Point of Care 105 mg/dl (70-99)
--- NOTE | 2024-10-01 07:40 | W.PN.CD ---
Today's Communication / Plan
-
home today on current regimen with close outpatient follow up; will not initiate ARNI inpatient given mild AMILCAR
Impression / Plan
-
Severe acute on chronic heart failure reduced EF, LVEF in the 30s
- LVEDP 31 on 09/18/2024
- heart failure meds had been reduced when he had sepsis with low BP and associated AMILCAR
- responded well to IV lasix with metolazone augmentation, now back to dry weight with mild AMILCAR; now on torsemide 60 BID
- GDMT is metop suc 37.5, aldactone 25, dapa 10
- will hold off on ARNI initiation today given mild AMILCAR
- given significant ascites, going forward would first target maximally tolerated dose of spironolactone before pushing other classes
CAD
- See cath report
- New stent 09/25/2024
- No complications
Ascites, gi suspects on basis of heart failure, but suspected some cirrhosis
- s/p paracentesis 09/30
Good eventual candidate for GLP1 agonist (Ozempic): CAD, HF, DM
CKD with hx of prior AMILCAR - Cr had improved, now mild bump in setting of aggressive diuresis
Ischemic cardiomyopathy
MDT BiV ICD
Severe PAD
History of pericarditis/recurrent pericardial effusion and pericardial window (2016). No pericardial effusion on echo 02/12/2024.
MDT BiV ICD implanted 08/03/2019 - stable with normal function.
DM
Hx of significant ETOH
Obesity - BMI >40
Subjective: Feeling well
Physical Exam
Vital Signs/Labs
Vital Signs
Temp Pulse Resp BP Pulse Ox
36.9 C 67 20 104/64 98
10/01/24 07:10 10/01/24 03:00 10/01/24 07:10 10/01/24 03:00 10/01/24 07:10
09/30/24 10/01/24 10/02/24
06:59 06:59 06:59
Actual Weight 118 kg 109.3 kg
10/01/24 04:17
10/01/24 04:17
PT 16.5 Sec (11.4-14.6) H 09/26/24 04:08
INR 1.30 09/26/24 04:08
Magnesium 2.1 mg/dl (1.6-2.3) 09/29/24 04:50
Triglycerides 119 mg/dl (10-149) 09/26/24 04:08
LDL Cholesterol, Calc 42 mg/dl 09/26/24 04:08
VLDL Cholesterol, Calc 23 mg/dl (0-30) 09/26/24 04:08
HDL Cholesterol 32 mg/dl 09/26/24 04:08
Physical Exam
Constitutional: No acute distress
Cardiovascular: Rhythm & rate is regular, Pedal edema is absent, JVD pressure is normal, Systolic murmur absent and Diastolic murmur absent
Respiratory: Respiratory effort normal, Lungs clear to auscul. and Wheeze Absent
Neuro/Psych: AO x 3
Data Reviewed
-
Date of Service: October 01, 2024
Medical Decision Making: Reviewed Test Results
Labs: Labs Reviewed by me
[2024-10-01] MEDS: COLACE 100 MG PO (08:03)
[2024-10-01] MEDS: FARXIGA 10 MG PO (08:03)
[2024-10-01] MEDS: PERCOCET 5/325 1 TABLET PO (08:04)
[2024-10-01] MEDS: ASPIR LOW (ENTERIC COATED) 81 MG PO (08:04)
[2024-10-01] MEDS: KCL 20 MEQ PO (08:04)
[2024-10-01] MEDS: PLAVIX 75 MG PO (08:08)
[2024-10-01] MEDS: ALDACTONE 25 MG PO (08:08)
[2024-10-01] MEDS: NON-FORMULARY ITEM 150 MG PO (08:09)
[2024-10-01] MEDS: LANTUS 0.16 UNITS SC (08:09)
[2024-10-01] MEDS: NEURONTIN 100 MG PO (08:11)
[2024-10-01] MEDS: DEMADEX 60 MG PO (08:17)
[2024-10-01] MEDS: BACTROBAN 2% OINTMENT NASAL (08:25)
[2024-10-01] MEDS: MIRALAX PO (08:25)
[2024-10-01] MEDS: DESENEX/MITRAZOL/ZEASORB 1 APPLIC TOPICAL (08:26)
--- NOTE | 2024-10-01 11:08 | CM ---
Chart reviewed. is at bedside. Patient is independent of ADLS, lives his , 2 children, in a [address], 3 [facility] ambulates with a SPC and RW. Patient with a supportive . Plan is for the patient to return home. CM to follow
[2024-10-01 11:15] VITALS: BP 112/66
--- NOTE | 2024-10-01 12:37 | W.DS.TRANS ---
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
-
Discharge Instructions:
Discharge Diagnosis/Procedures Angioplasty with stent to vein graft to diagonal
artery
CHF
CAD
Cirrhosis
AMILCAR
Diet Low Cholesterol,2 Gram Sodium
Driving Restrictions No driving for 24 hours
Instructions:
Stand-Alone Forms: DC Instructions- Cath/EP Lab
Changes to Home Medications: Yes
Discharge Medications:
DC Medications w/original date entered in [facility]
aspirin 81 mg tablet,delayed release 81 mg PO DAILY Blood clot prevention/tx 03/08/17
clopidogrel 75 mg tablet 75 mg PO DAILY Blood clot prevention/tx #30 tabs 12/16/23
docusate sodium 100 mg capsule (Colace) 100 mg PO BID Constipation 02/10/24
gabapentin 100 mg capsule 100 mg PO BID Pain 02/10/24
melatonin 5 mg tablet 5 mg PO HS Sleep 02/10/24
methylnaltrexone 150 mg tablet (Relistor) 150 mg PO DAILY constipation 02/10/24
oxycodone-acetaminophen 5 mg-325 mg tablet 1 tab PO TID pain 02/10/24
pantoprazole 40 mg tablet,delayed release (Protonix) 40 mg PO QPM Gastrointestinal Issue 02/10/24
rosuvastatin 20 mg tablet 20 mg PO QPM High Cholesterol 02/10/24
metoprolol succinate 25 mg tablet,extended release 24 hr 37.5 mg (1.5 x 25 mg) PO QPM #30 tabs 02/17/24
torsemide 20 mg tablet 60 mg PO BID Fluid Retention/Swelling 08/04/24
levothyroxine 150 mcg tablet (Synthroid) 150 mcg PO WE Thyroid 08/25/24
levothyroxine 300 mcg tablet (Synthroid) 300 mcg PO MOTUTHFRSA Thyroid 08/25/24
ferrous sulfate 325 mg (65 mg iron) tablet (Feosol) 325 mg PO QPM Supplement 09/18/24
insulin degludec 100 unit/mL (3 mL) subcutaneous pen (Tresiba FlexTouch U-100 insulin) 16 unit SC DAILY Diabetes 09/18/24
lorazepam 1 mg tablet 1 mg PO DAILY PRN claustrophobia 09/18/24
nitroglycerin 0.4 mg sublingual tablet 0.4 mg sublingual [id number] PRN chest pain #25 tabs 09/18/24
oxycodone 10 mg tablet,crush resistant,extended release 12 hr (OxyContin) 10 mg PO HS Pain 09/18/24
potassium chloride 10 mEq tablet,extended release 10 meq PO BID 09/25/24
dapagliflozin propanediol 10 mg tablet 10 mg PO DAILY #30 tabs 10/01/24
spironolactone 25 mg tablet 25 mg PO DAILY #30 tabs 10/01/24
Home Medication Changes
Aldactone and Farxiga initiated.
Pending Results: No
[2024-10-01 12:45] LABS: Glucose - Point of Care 129 mg/dl (70-99)
[2024-10-01] MEDS: AFLURIA (36 mos+) 2024-2025 FORMULA 0.5 ML IM (12:52)
--- NOTE | 2024-10-01 14:53 | PTCARENOTE ---
Pt was discharged to home with . IV and Tele monitor removed. Discharge instructions given. Pt and verbalized understanding. Pt was escorted in w/c by .
--- NOTE | 2024-10-02 15:17 | PN.CDI ---
CDI
- -
CDI:
Physician Documentation Request
Admit Date: 09/25/24 13:31
Dear Doctor Leif,
Patient admitted with acute on chronic systolic CHF.
09/18/24 Scanned H&P (outpatient procedure) 'PMH: Essential hypertension.'
Home med's include Metoprolol.
Please update the status of the documented essential hypertension for previous outpatient visit in your note:
Essential hypertension is still a valid diagnosis
Essential hypertension is no longer a valid diagnosis.
Other
Use of terms such as suspected, likely, concern for, or probable (associated with a specific diagnosis that is being evaluated, monitored, or treated as if it exists) are acceptable and can be coded in the inpatient setting, when documented at the
time of discharge.
Thank you,
Katarzyna HERNANDEZ,RN,CCDS
CDI Specialist
Available via [place] text
Please use your independent medical judgment in providing your response.
== END 2024-10-01 15:39 | disposition home or self-care (01) | DRG 322 ==
LOC: IVU 13:31
PROVIDERS: Family Medicine; Internal Medicine Cardiovascular Disease; Nurse Practitioner Adult Health; Nurse Practitioner Family; Physician Assistant; Radiology Diagnostic Radiology; Radiology Vascular & Interventional Radiology; ADMITTING PHYSICIAN Internal Medicine; CONSULT PHYSICIAN Internal Medicine; FAMILY PHYSICIAN Nurse Practitioner Family
PROC: 027035Z Dilation of Coronary Artery, One Artery with Two Drug-eluting Intraluminal Devices, Percutaneous Approach (ICD-10-PCS; 2024-09-25)
PROC: 0W9G3ZX Drainage of Peritoneal Cavity, Percutaneous Approach, Diagnostic (ICD-10-PCS; 2024-09-25)
PROC: 02JY3ZZ Inspection of Great Vessel, Percutaneous Approach (ICD-10-PCS; 2024-09-25)
PROC: 5A09357 Assistance with Respiratory Ventilation, Less than 24 Consecutive Hours, Continuous Positive Airway Pressure (ICD-10-PCS; 2024-09-26)
PROC: 3E02340 Introduction of Influenza Vaccine into Muscle, Percutaneous Approach (ICD-10-PCS; 2024-10-01)
DX: I50.23 Acute on chronic systolic (congestive) heart failure (principal); Z68.41 Body mass index [BMI] 40.0-44.9, adult; F11.20 Opioid dependence, uncomplicated; K76.6 Portal hypertension; N17.9 Acute kidney failure, unspecified; I25.700 Atherosclerosis of coronary artery bypass graft(s), unspecified, with unstable angina pectoris; I25.110 Atherosclerotic heart disease of native coronary artery with unstable angina pectoris; I25.5 Ischemic cardiomyopathy; K70.31 Alcoholic cirrhosis of liver with ascites; E11.43 Type 2 diabetes mellitus with diabetic autonomic (poly)neuropathy; N18.2 Chronic kidney disease, stage 2 (mild); E11.51 Type 2 diabetes mellitus with diabetic peripheral angiopathy without gangrene; D63.8 Anemia in other chronic diseases classified elsewhere; E11.22 Type 2 diabetes mellitus with diabetic chronic kidney disease; E03.9 Hypothyroidism, unspecified; G89.29 Other chronic pain; E78.00 Pure hypercholesterolemia, unspecified; K21.9 Gastro-esophageal reflux disease without esophagitis; M10.9 Gout, unspecified; F40.240 Claustrophobia; K76.0 Fatty (change of) liver, not elsewhere classified; D50.9 Iron deficiency anemia, unspecified; G47.33 Obstructive sleep apnea (adult) (pediatric); R04.0 Epistaxis; F10.11 Alcohol abuse, in remission; K31.84 Gastroparesis; I48.91 Unspecified atrial fibrillation; E66.01 Morbid (severe) obesity due to excess calories; I50.810 Right heart failure, unspecified; R16.1 Splenomegaly, not elsewhere classified; K59.09 Other constipation; Z88.1 Allergy status to other antibiotic agents; Z88.8 Allergy status to other drugs, medicaments and biological substances; Z79.82 Long term (current) use of aspirin; Z79.02 Long term (current) use of antithrombotics/antiplatelets; Z79.890 Hormone replacement therapy; Z79.4 Long term (current) use of insulin; Z79.84 Long term (current) use of oral hypoglycemic drugs; Z95.810 Presence of automatic (implantable) cardiac defibrillator; Z23 Encounter for immunization; Z86.74 Personal history of sudden cardiac arrest; Z87.19 Personal history of other diseases of the digestive system; Z87.891 Personal history of nicotine dependence
CPT/HCPCS: 49083; 80048; 80053; 80061; 82042; 82962; 83036; 83615; 83735; 84157; 85025; 85027; 85347; 85610; 87015; 87070; 87205; 89051; 90686; 93005; C1725; C1769; C1874; C1887; C1894; C9604; G0008; P9047; Q9967

== ENCOUNTER → 2024-10-05 10:44 | Outpatient (REF) | payer OTHER, SELFPAY ==
[2024-10-05 15:20] LABS: Blood Urea Nitrogen 35 mg/dl (9-20); Calcium 9.2 mg/dl (8.4-10.2); Carbon Dioxide 34 mmol/L (22-30); Chloride 94 mmol/L (98-107); Glucose 100 mg/dl (70-99); Iron 56 ug/dl (49-181); Potassium 3.6 mmol/L (3.5-5.1); Sodium 141 mmol/L (135-145); eGFR 52.31
[2024-10-05 15:31] LABS: Percent Saturation 15 % (20-50); Total Iron Binding Capacity 373 ug/dl (261-462)
[2024-10-05 15:56] LABS: Ferritin 35.8 ng/ml (17.9-464.0)
[2024-10-05 16:06] LABS: % Basophils 0.3 % (0-2); % Eosinophils 3.3 % (0-6); % Immature Granulocytes 0.5 % (0-0.5); % Monocytes 9.5 % (1.7-9.3); % Neutrophils 75.2 % (42.2-75.2); Absolute Eosinophils 0.3 10^3/uL (0-0.7); Absolute Immature Granulocytes 0.1 10^3/uL (0-0.05); Absolute Monocytes 0.9 10^3/uL (0.1-0.6); Absolute Neutrophils 6.9 10^3/uL (1.4-6.5); Hematocrit 34.7 % (39.0-52.0); Hemoglobin 10.6 g/dL (13.0-18.0); Mean Corp Hgb Conc. 30.7 g/dL (33.0-37.0); Mean Corpuscular Hgb 24.7 pg (27.0-31.0); Mean Corpuscular Volume 80.6 fL (80.0-94.0); Mean Platelet Volume 10.4 fL (7.4-10.4); Nucleated Red Blood Cells % 0 % (-); Platelet Count 186 10^3/uL (130-400); Red Blood Cell Count 4.33 10^6/uL (4.70-6.10); Red Cell Dist. Width 18.4 % (11.5-14.5); White Blood Cell Count 9.2 10^3/uL (4.8-10.8)
== END ==
LOC: HWLAB 10:44
PROVIDERS: ATTENDING PHYSICIAN Internal Medicine Cardiovascular Disease; FAMILY PHYSICIAN Nurse Practitioner Family
DX: I50.9 Heart failure, unspecified (principal); I42.9 Cardiomyopathy, unspecified; D50.9 Iron deficiency anemia, unspecified
CPT/HCPCS: 36415; 80048; 82728; 83540; 83550; 85025

== ENCOUNTER → 2024-10-13 07:15 | Outpatient (REF) | payer OTHER, SELFPAY ==
[2024-10-13 07:29] VITALS: BP 112/81; BP_SYST 65
[2024-10-13 08:37] VITALS: BP 97/68
[2024-10-13 10:11] LABS: Body Fluid Mononuclear 90.5 %; Body Fluid Polymorphonuclear 9.5 %; Body Fluid WBC 602 /CUMM
[2024-10-13 10:15] LABS: Body Fluid Second Tech SS
== END ==
LOC: RADI 07:15
PROVIDERS: Physician Assistant Surgical; ATTENDING PHYSICIAN Internal Medicine Gastroenterology
DX: R18.8 Other ascites (principal)
CPT/HCPCS: 49083; 87015; 87070; 87205; 89051

== ENCOUNTER 2024-10-13 08:51 | Outpatient (RCR) | payer OTHER, SELFPAY ==
[2024-10-13 09:17] VITALS: BP 109/58
[2024-10-13] MEDS: FLEXBUMIN 50 IV (09:20)
[2024-10-13 09:25] VITALS: BP 109/58
[2024-10-13] MEDS: FLEXBUMIN 100 IV (10:19)
[2024-10-13 10:20] VITALS: BP 94/51
[2024-10-13 12:59] VITALS: BP 93/52
== END 2024-10-17 23:59 | disposition home or self-care (01) ==
LOC: OID 08:51
PROVIDERS: ATTENDING PHYSICIAN Physician Assistant; FAMILY PHYSICIAN Nurse Practitioner Family
DX: K74.60 Unspecified cirrhosis of liver (principal)
CPT/HCPCS: 96365; 96366; P9047

== ENCOUNTER → 2024-10-27 07:06 | Outpatient (REF) | payer OTHER, SELFPAY ==
[2024-10-27 07:20] VITALS: BP 102/72; BP_SYST 64
[2024-10-27 08:15] VITALS: BP 96/69
[2024-10-27 09:53] LABS: Body Fluid Mononuclear 91.3 %; Body Fluid Polymorphonuclear 8.7 %; Body Fluid WBC 623 /CUMM
[2024-10-27 10:17] LABS: Body Fluid Second Tech AMA
== END ==
LOC: RADI 07:06
PROVIDERS: ATTENDING PHYSICIAN Internal Medicine Gastroenterology
DX: R18.8 Other ascites (principal)
CPT/HCPCS: 49083; 87015; 87070; 87205; 89051

== ENCOUNTER → 2024-11-05 09:22 | Outpatient (REF) | payer OTHER, SELFPAY ==
[2024-11-05 10:21] LABS: Blood Urea Nitrogen 40 mg/dl (9-20); Calcium 9.4 mg/dl (8.4-10.2); Carbon Dioxide 33 mmol/L (22-30); Chloride 97 mmol/L (98-107); Glucose 103 mg/dl (70-99); Potassium 3.9 mmol/L (3.5-5.1); Sodium 138 mmol/L (135-145); eGFR 48.41
== END ==
LOC: REG 09:22
PROVIDERS: ATTENDING PHYSICIAN Nurse Practitioner; FAMILY PHYSICIAN Nurse Practitioner Family; OTHER PHYSICIAN Internal Medicine Cardiovascular Disease; OTHER PHYSICIAN Specialist
DX: I50.20 Unspecified systolic (congestive) heart failure (principal)
CPT/HCPCS: 36415; 80048

== ENCOUNTER → 2024-11-09 07:14 | Outpatient (REF) | payer OTHER, SELFPAY ==
[2024-11-09 07:30] VITALS: BP 100/60; BP_SYST 61
[2024-11-09 08:30] VITALS: BP 94/60; BP_SYST 58
[2024-11-09 09:12] VITALS: BP 94/60
[2024-11-09 10:37] LABS: Body Fluid Mononuclear 88.9 %; Body Fluid Polymorphonuclear 11.1 %; Body Fluid WBC 649 /CUMM
[2024-11-09 10:40] LABS: Body Fluid Second Tech CS
== END ==
LOC: RADI 07:14
PROVIDERS: ATTENDING PHYSICIAN Internal Medicine Gastroenterology; FAMILY PHYSICIAN Nurse Practitioner Family
DX: R18.8 Other ascites (principal)
CPT/HCPCS: 49083; 87015; 87070; 87205; 89051

== ENCOUNTER 2024-11-09 09:21 | Outpatient (RCR) | payer OTHER, SELFPAY ==
[2024-11-09] MEDS: FLEXBUMIN 100 IV (09:53)
[2024-11-09 09:57] VITALS: BP 100/64
[2024-11-09 11:45] VITALS: BP 96/58
== END 2024-11-10 10:19 | disposition home or self-care (01) ==
LOC: OID 09:21
PROVIDERS: ATTENDING PHYSICIAN Physician Assistant; FAMILY PHYSICIAN Nurse Practitioner Family
DX: K74.60 Unspecified cirrhosis of liver (principal)
CPT/HCPCS: 96365; 96366; P9047

== ENCOUNTER → 2024-11-23 07:20 | Outpatient (REF) | payer OTHER, SELFPAY ==
[2024-11-23 07:40] VITALS: BP 93/66; BP_SYST 62
[2024-11-23 08:42] VITALS: BP 97/62; BP_SYST 57
[2024-11-23 09:07] VITALS: BP 97/62
[2024-11-23 10:41] LABS: Body Fluid Mononuclear 90.9 %; Body Fluid Polymorphonuclear 9.1 %; Body Fluid WBC 626 /CUMM
[2024-11-23 11:16] LABS: Body Fluid Second Tech AMA
== END ==
LOC: RADI 07:20
PROVIDERS: ATTENDING PHYSICIAN Internal Medicine Gastroenterology; FAMILY PHYSICIAN Nurse Practitioner Family
DX: R18.8 Other ascites (principal)
CPT/HCPCS: 49083; 87015; 87070; 87205; 89051

== ENCOUNTER → 2024-12-07 07:32 | Outpatient (REF) | payer OTHER, SELFPAY ==
[2024-12-07 07:45] VITALS: BP 98/69; BP_SYST 63
[2024-12-07 09:05] VITALS: BP 90/62; BP_SYST 60
[2024-12-07 10:28] LABS: Body Fluid Mononuclear 87.4 %; Body Fluid Polymorphonuclear 12.6 %; Body Fluid WBC 547 /CUMM
[2024-12-07 13:07] LABS: Body Fluid Second Tech CMB
== END ==
LOC: RADI 07:32
PROVIDERS: ATTENDING PHYSICIAN Internal Medicine Gastroenterology; FAMILY PHYSICIAN Nurse Practitioner Family
DX: R18.8 Other ascites (principal)
CPT/HCPCS: 49083; 87015; 87070; 87205; 89051

== ENCOUNTER 2024-12-07 09:26 | Outpatient (RCR) | payer OTHER, SELFPAY ==
[2024-11-23 09:25] VITALS: BP 103/69
[2024-11-23] MEDS: FLEXBUMIN 100 IV (09:27)
[2024-11-23 09:28] VITALS: BP 103/69
[2024-11-23 11:15] VITALS: BP 95/52
[2024-12-07 09:50] VITALS: BP 100/61
[2024-12-07] MEDS: FLEXBUMIN 100 IV (09:53)
[2024-12-07 09:58] VITALS: BP 100/61
[2024-12-07 11:35] VITALS: BP 93/55
== END 2024-12-08 09:41 | disposition home or self-care (01) ==
LOC: OID 09:26
PROVIDERS: ATTENDING PHYSICIAN Physician Assistant; FAMILY PHYSICIAN Nurse Practitioner Family
DX: K74.60 Unspecified cirrhosis of liver (principal)
CPT/HCPCS: 49083; 87015; 87070; 87205; 89051; 96365; 96366; P9047

== ENCOUNTER → 2024-12-09 12:17 | Outpatient (REF) | payer OTHER, SELFPAY ==
[2024-12-09 16:14] LABS: Hematocrit 39.5 % (39.0-52.0); Hemoglobin 12.2 g/dL (13.0-18.0); Mean Corp Hgb Conc. 30.9 g/dL (33.0-37.0); Mean Corpuscular Hgb 25.8 pg (27.0-31.0); Mean Corpuscular Volume 83.7 fL (80.0-94.0); Mean Platelet Volume 10.3 fL (7.4-10.4); Platelet Count 158 10^3/uL (130-400); Red Blood Cell Count 4.72 10^6/uL (4.70-6.10); Red Cell Dist. Width 17.2 % (11.5-14.5); White Blood Cell Count 8.6 10^3/uL (4.8-10.8)
[2024-12-09 16:22] LABS: ALT (SGPT) 10 U/L (0-50); AST (SGOT) 21 U/L (17-59); Albumin 4.1 g/dl (3.5-5.0); Alkaline Phosphatase 70 U/L (38-126); Blood Urea Nitrogen 37 mg/dl (9-20); Calcium 8.9 mg/dl (8.4-10.2); Carbon Dioxide 31 mmol/L (22-30); Chloride 96 mmol/L (98-107); Glucose 98 mg/dl (70-99); HDL Cholesterol 39 mg/dl; LDL Cholesterol, Calculated 46 mg/dl; Potassium 4.5 mmol/L (3.5-5.1); Sodium 137 mmol/L (135-145); Total Bilirubin 0.7 mg/dl (0.2-1.3); Total Cholesterol 98 mg/dl (50-199); Total Protein 6.6 g/dl (6.3-8.2); Triglyceride 66 mg/dl (10-149); Very Low Density Lipoprotein 13 mg/dl (0-30); eGFR 48.41
[2024-12-09 16:24] LABS: INR 1.22; PT 15.7 Sec (11.4-14.6)
[2024-12-09 16:25] LABS: APTT 30.5 Sec (23.4-35.0)
[2024-12-09 16:39] LABS: Free T4 1.36 ng/dl (0.78-2.19)
[2024-12-09 16:53] LABS: PSA, Total - Screen 0.38 ng/ml (0.0-4.0)
[2024-12-10 08:32] LABS: Glycohemoglobin (HgbA1c) 5.7 % (4.0-5.6)
== END ==
LOC: HWLAB 12:17
PROVIDERS: ATTENDING PHYSICIAN Physician Assistant; FAMILY PHYSICIAN Nurse Practitioner Family; OTHER PHYSICIAN Internal Medicine Cardiovascular Disease; OTHER PHYSICIAN Specialist; REFERRING PHYSICIAN Internal Medicine Gastroenterology
DX: E11.65 Type 2 diabetes mellitus with hyperglycemia (principal); E03.9 Hypothyroidism, unspecified; I50.20 Unspecified systolic (congestive) heart failure; I25.10 Atherosclerotic heart disease of native coronary artery without angina pectoris; N17.9 Acute kidney failure, unspecified; Z95.810 Presence of automatic (implantable) cardiac defibrillator; R18.8 Other ascites; K74.60 Unspecified cirrhosis of liver; Z12.5 Encounter for screening for malignant neoplasm of prostate
CPT/HCPCS: 36415; 80053; 80061; 82105; 83036; 84439; 84443; 85027; 85610; 85730; G0103

== ENCOUNTER → 2024-12-18 10:50 | Outpatient (REF) | payer OTHER, SELFPAY | LOC: HWRAD 10:50 | PROVIDERS: ATTENDING PHYSICIAN Internal Medicine Gastroenterology; FAMILY PHYSICIAN Nurse Practitioner Family; REFERRING PHYSICIAN Specialist | DX: K74.60 Unspecified cirrhosis of liver (principal) | CPT/HCPCS: 76700 ==

== ENCOUNTER → 2024-12-21 07:36 | Outpatient (REF) | payer OTHER, SELFPAY ==
[2024-12-21 07:53] VITALS: BP 97/69; BP_SYST 60
[2024-12-21 08:30] VITALS: BP 95/60
[2024-12-21 11:38] LABS: Body Fluid Mononuclear 86.7 %; Body Fluid Polymorphonuclear 13.3 %; Body Fluid WBC 587 /CUMM
[2024-12-21 12:14] LABS: Body Fluid Second Tech AMA
== END ==
LOC: RADI 07:36
PROVIDERS: ATTENDING PHYSICIAN Internal Medicine Gastroenterology; FAMILY PHYSICIAN Nurse Practitioner Family
DX: R18.8 Other ascites (principal)
CPT/HCPCS: 49083; 87015; 87070; 87205; 89051

== ENCOUNTER → 2025-01-04 07:14 | Outpatient (REF) | payer OTHER, SELFPAY ==
[2025-01-04 07:40] VITALS: BP 96/65; BP_SYST 61
[2025-01-04 08:22] VITALS: BP 98/65; BP_SYST 56
[2025-01-04 08:52] VITALS: BP 98/65
[2025-01-04 09:05] LABS: Body Fluid WBC 530 /CUMM
[2025-01-04 09:10] LABS: Body Fluid Second Tech CMB
== END ==
LOC: RADI 07:14
PROVIDERS: ATTENDING PHYSICIAN Internal Medicine Gastroenterology; FAMILY PHYSICIAN Nurse Practitioner Family
DX: R18.8 Other ascites (principal)
CPT/HCPCS: 49083; 87015; 87070; 87205; 89051

== ENCOUNTER 2025-01-04 09:03 | Outpatient (RCR) | payer OTHER, SELFPAY ==
[2024-12-21 09:07] VITALS: BP 106/63
[2024-12-21] MEDS: FLEXBUMIN 100 IV (09:14)
[2024-12-21 09:17] VITALS: BP 106/63
[2024-12-21 10:47] VITALS: BP 90/50
[2025-01-04 09:00] VITALS: BP 100/63
[2025-01-04] MEDS: FLEXBUMIN 100 IV (09:14)
[2025-01-04 09:16] VITALS: BP 100/63
[2025-01-04 11:07] VITALS: BP 94/48
== END 2025-01-15 23:59 | disposition home or self-care (01) ==
LOC: OID 09:03
PROVIDERS: ATTENDING PHYSICIAN Physician Assistant; FAMILY PHYSICIAN Nurse Practitioner Family
DX: K74.60 Unspecified cirrhosis of liver (principal)
CPT/HCPCS: 49083; 87015; 87070; 87205; 89051; 96365; 96366; P9047

== ENCOUNTER → 2025-01-18 07:12 | Outpatient (REF) | payer OTHER, SELFPAY ==
[2025-01-18 08:00] VITALS: BP 89/62; BP_SYST 60
[2025-01-18 10:52] LABS: Body Fluid Mononuclear 89.3 %; Body Fluid Polymorphonuclear 10.7 %; Body Fluid WBC 597 /CUMM
[2025-01-18 11:03] LABS: Body Fluid Second Tech EM
== END ==
LOC: RADI 07:12
PROVIDERS: ATTENDING PHYSICIAN Internal Medicine Gastroenterology; FAMILY PHYSICIAN Nurse Practitioner Family
DX: R18.8 Other ascites (principal)
CPT/HCPCS: 49083; 87015; 87070; 87205; 89051

== ENCOUNTER → 2025-02-01 07:14 | Outpatient (REF) | payer OTHER, SELFPAY ==
[2025-02-01 07:25] VITALS: BP 105/69; BP_SYST 55
[2025-02-01 08:27] VITALS: BP 100/67; BP_SYST 52
[2025-02-01 08:30] VITALS: BP 100/67; BP_SYST 52
[2025-02-01 08:59] VITALS: BP 100/67
[2025-02-01 11:46] LABS: Body Fluid WBC 617 /CUMM
[2025-02-01 11:47] LABS: Body Fluid Mononuclear 91.9 %; Body Fluid Polymorphonuclear 8.1 %
[2025-02-01 12:13] LABS: Body Fluid Second Tech RLT
== END ==
LOC: RADI 07:14
PROVIDERS: ATTENDING PHYSICIAN Internal Medicine Gastroenterology; FAMILY PHYSICIAN Nurse Practitioner Family
DX: R18.8 Other ascites (principal)
CPT/HCPCS: 49083; 87015; 87070; 87205; 89051

== ENCOUNTER → 2025-02-08 15:23 | Outpatient (REF) | payer OTHER, SELFPAY ==
[2025-02-08 16:15] LABS: Blood Urea Nitrogen 29 mg/dl (9-20); Calcium 9.6 mg/dl (8.4-10.2); Carbon Dioxide 33 mmol/L (22-30); Chloride 99 mmol/L (98-107); Glucose 100 mg/dl (70-99); Potassium 3.8 mmol/L (3.5-5.1); Sodium 142 mmol/L (135-145); eGFR 48.41
== END ==
LOC: REG 15:23
PROVIDERS: ATTENDING PHYSICIAN Nurse Practitioner Family; FAMILY PHYSICIAN Internal Medicine Advanced Heart Failure and Transplant Cardiology; OTHER PHYSICIAN Internal Medicine Gastroenterology; REFERRING PHYSICIAN Internal Medicine Cardiovascular Disease
DX: I10 Essential (primary) hypertension (principal); I50.20 Unspecified systolic (congestive) heart failure; I25.5 Ischemic cardiomyopathy; I48.0 Paroxysmal atrial fibrillation
CPT/HCPCS: 36415; 80048

== ENCOUNTER → 2025-02-15 07:14 | Outpatient (REF) | payer OTHER, SELFPAY ==
[2025-02-15 07:35] VITALS: BP 101/68; BP_SYST 54
[2025-02-15 09:00] VITALS: BP 94/68
[2025-02-15 10:31] LABS: Body Fluid Mononuclear 89.2 %; Body Fluid Polymorphonuclear 10.8 %; Body Fluid WBC 614 /CUMM
[2025-02-15 10:34] LABS: Body Fluid Second Tech AMA
== END ==
LOC: RADI 07:14
PROVIDERS: ATTENDING PHYSICIAN Internal Medicine Gastroenterology; FAMILY PHYSICIAN Nurse Practitioner Family
DX: R18.8 Other ascites (principal)
CPT/HCPCS: 49083; 87015; 87070; 87205; 89051

== ENCOUNTER 2025-02-15 09:19 | Outpatient (RCR) | payer OTHER, SELFPAY ==
[2025-01-18 09:19] VITALS: BP 103/66
[2025-01-18] MEDS: FLEXBUMIN 100 IV (09:19)
[2025-01-18 11:05] VITALS: BP 101/64
[2025-02-01 09:05] VITALS: BP 101/65
[2025-02-01] MEDS: FLEXBUMIN 100 IV (09:13)
[2025-02-01 09:14] VITALS: BP 101/65
[2025-02-01 10:55] VITALS: BP 91/52
[2025-02-15] MEDS: FLEXBUMIN 100 IV (09:39)
[2025-02-15 09:41] VITALS: BP 94/54
[2025-02-15 11:11] VITALS: BP 91/48
== END 2025-02-15 15:34 | disposition home or self-care (01) ==
LOC: OID 09:19
PROVIDERS: ATTENDING PHYSICIAN Physician Assistant; FAMILY PHYSICIAN Nurse Practitioner Family
DX: K74.60 Unspecified cirrhosis of liver (principal)
CPT/HCPCS: 49083; 87015; 87070; 87205; 89051; 96365; 96366; P9047

== ENCOUNTER → 2025-02-24 12:59 | Outpatient (REF) | payer OTHER, SELFPAY ==
[2025-02-24 13:35] LABS: % Basophils 0.3 % (0-2); % Eosinophils 2.5 % (0-6); % Immature Granulocytes 0.8 % (0-0.5); % Lymphocytes 10.3 % (20.5-51.1); % Monocytes 10.3 % (1.7-9.3); % Neutrophils 75.8 % (42.2-75.2); Absolute Eosinophils 0.2 10^3/uL (0-0.7); Absolute Immature Granulocytes 0.1 10^3/uL (0-0.05); Absolute Lymphocytes 0.9 10^3/uL (1.2-3.4); Absolute Monocytes 0.9 10^3/uL (0.1-0.6); Absolute Neutrophils 6.5 10^3/uL (1.4-6.5); Hematocrit 42.6 % (39.0-52.0); Hemoglobin 13.5 g/dL (13.0-18.0); Mean Corp Hgb Conc. 31.7 g/dL (33.0-37.0); Mean Corpuscular Hgb 26.7 pg (27.0-31.0); Mean Corpuscular Volume 84.2 fL (80.0-94.0); Mean Platelet Volume 9.6 fL (7.4-10.4); Nucleated Red Blood Cells % 0 % (-); Platelet Count 162 10^3/uL (130-400); Red Blood Cell Count 5.06 10^6/uL (4.70-6.10); Red Cell Dist. Width 16.8 % (11.5-14.5); White Blood Cell Count 8.6 10^3/uL (4.8-10.8)
[2025-02-24 13:58] LABS: ALT (SGPT) 15 U/L (0-50); AST (SGOT) 24 U/L (17-59); Albumin 4.6 g/dl (3.5-5.0); Alkaline Phosphatase 84 U/L (38-126); Blood Urea Nitrogen 31 mg/dl (9-20); Calcium 9.6 mg/dl (8.4-10.2); Carbon Dioxide 32 mmol/L (22-30); Chloride 99 mmol/L (98-107); Glucose 130 mg/dl (70-99); Magnesium 2.4 mg/dl (1.6-2.3); Potassium 3.8 mmol/L (3.5-5.1); Sodium 141 mmol/L (135-145); Total Bilirubin 1.2 mg/dl (0.2-1.3); Total Protein 7.2 g/dl (6.3-8.2); eGFR 48.41
== END ==
LOC: REG 12:59
PROVIDERS: ATTENDING PHYSICIAN Internal Medicine Advanced Heart Failure and Transplant Cardiology; FAMILY PHYSICIAN Nurse Practitioner Family
DX: I10 Essential (primary) hypertension (principal); I50.20 Unspecified systolic (congestive) heart failure; I25.5 Ischemic cardiomyopathy; I48.0 Paroxysmal atrial fibrillation
CPT/HCPCS: 36415; 80053; 83735; 85025

== ENCOUNTER → 2025-03-01 07:18 | Outpatient (REF) | payer OTHER, SELFPAY ==
[2025-03-01 07:35] VITALS: BP 109/68; BP_SYST 55
[2025-03-01 08:34] VITALS: BP 105/66; BP_SYST 55
[2025-03-01 08:58] VITALS: BP 100/70
[2025-03-01 11:49] LABS: Body Fluid Mononuclear 91.9 %; Body Fluid Polymorphonuclear 8.1 %; Body Fluid WBC 784 /CUMM
[2025-03-01 12:00] LABS: Body Fluid Second Tech EF
== END ==
LOC: RADI 07:18
PROVIDERS: ATTENDING PHYSICIAN Internal Medicine Gastroenterology; FAMILY PHYSICIAN Nurse Practitioner Family
DX: R18.8 Other ascites (principal)
CPT/HCPCS: 49083; 87015; 87070; 87205; 89051; P9047

== ENCOUNTER → 2025-03-11 10:54 | Outpatient (REF) | payer OTHER, SELFPAY ==
[2025-03-11 12:53] LABS: ALT (SGPT) 12 U/L (0-50); AST (SGOT) 20 U/L (17-59); Albumin 4.3 g/dl (3.5-5.0); Alkaline Phosphatase 71 U/L (38-126); Blood Urea Nitrogen 33 mg/dl (9-20); Calcium 9.8 mg/dl (8.4-10.2); Carbon Dioxide 32 mmol/L (22-30); Chloride 98 mmol/L (98-107); Glucose 105 mg/dl (70-99); Magnesium 2.3 mg/dl (1.6-2.3); Potassium 4.5 mmol/L (3.5-5.1); Sodium 141 mmol/L (135-145); Total Protein 7.1 g/dl (6.3-8.2); eGFR 48.41
== END ==
LOC: HWLAB 10:54
PROVIDERS: ATTENDING PHYSICIAN Internal Medicine Advanced Heart Failure and Transplant Cardiology; FAMILY PHYSICIAN Nurse Practitioner Family; OTHER PHYSICIAN Specialist; REFERRING PHYSICIAN Internal Medicine Cardiovascular Disease
DX: I50.20 Unspecified systolic (congestive) heart failure (principal)
CPT/HCPCS: 36415; 80053; 83735

== ENCOUNTER → 2025-03-15 07:17 | Outpatient (REF) | payer OTHER, SELFPAY ==
[2025-03-15 07:35] VITALS: BP 93/60; BP_SYST 55
[2025-03-15 08:15] VITALS: BP 92/65; BP_SYST 55
[2025-03-15 08:26] VITALS: BP 92/65
[2025-03-15 11:17] LABS: Body Fluid Mononuclear 92.8 %; Body Fluid Polymorphonuclear 7.2 %; Body Fluid WBC 807 /CUMM
[2025-03-15 11:33] LABS: Body Fluid Second Tech HB
== END ==
LOC: RADI 07:17
PROVIDERS: ATTENDING PHYSICIAN Internal Medicine Gastroenterology; FAMILY PHYSICIAN Nurse Practitioner Family
DX: R18.8 Other ascites (principal)
CPT/HCPCS: 49083; 87015; 87070; 87205; 89051

== ENCOUNTER 2025-03-15 08:35 | Outpatient (RCR) | payer OTHER, SELFPAY ==
[2025-03-01 09:23] VITALS: BP 114/70
[2025-03-01 09:30] VITALS: BP 114/70
[2025-03-01] MEDS: FLEXBUMIN 100 IV (09:30)
[2025-03-01 11:23] VITALS: BP 99/63
[2025-03-15 08:45] VITALS: BP 104/63
[2025-03-15] MEDS: FLEXBUMIN 50 IV (08:59)
[2025-03-15 09:00] VITALS: BP 104/63
[2025-03-15 10:00] VITALS: BP 99/54
== END 2025-03-15 14:50 | disposition home or self-care (01) ==
LOC: OID 08:35
PROVIDERS: ATTENDING PHYSICIAN Physician Assistant; FAMILY PHYSICIAN Nurse Practitioner Family
DX: K74.60 Unspecified cirrhosis of liver (principal)
CPT/HCPCS: 96365; 96366; P9047

== ENCOUNTER → 2025-03-29 07:27 | Outpatient (REF) | payer OTHER, SELFPAY ==
[2025-03-29 07:46] VITALS: BP 101/66; BP_SYST 56
[2025-03-29 08:56] VITALS: BP 102/70; BP_SYST 55
[2025-03-29 09:47] VITALS: BP 102/70
[2025-03-29 11:33] LABS: Body Fluid WBC 913 /CUMM
[2025-03-29 12:05] LABS: Body Fluid Second Tech EF
== END ==
LOC: RADI 07:27
PROVIDERS: ATTENDING PHYSICIAN Internal Medicine Gastroenterology; FAMILY PHYSICIAN Nurse Practitioner Family
DX: R18.8 Other ascites (principal)
CPT/HCPCS: 49083; 87015; 87070; 87205; 89051

== ENCOUNTER 2025-03-29 09:42 | Outpatient (RCR) | payer OTHER, SELFPAY ==
[2025-03-29] MEDS: FLEXBUMIN 50 IV (10:09)
[2025-03-29 10:10] VITALS: BP 98/65
[2025-03-29 11:20] VITALS: BP 106/54
== END 2025-04-17 23:59 | disposition home or self-care (01) ==
LOC: OID 09:42
PROVIDERS: ATTENDING PHYSICIAN Physician Assistant; FAMILY PHYSICIAN Nurse Practitioner Family
DX: K74.60 Unspecified cirrhosis of liver (principal)
CPT/HCPCS: 96365; 96366; P9047

== ENCOUNTER → 2025-04-13 07:19 | Outpatient (REF) | payer OTHER, SELFPAY ==
[2025-04-13 07:30] VITALS: BP 92/63; BP_SYST 53
== END ==
LOC: RADI 07:19
PROVIDERS: ATTENDING PHYSICIAN Internal Medicine Gastroenterology; FAMILY PHYSICIAN Nurse Practitioner Family
DX: R18.8 Other ascites (principal); Z53.8 Procedure and treatment not carried out for other reasons
CPT/HCPCS: 76705

== ENCOUNTER → 2025-04-26 07:09 | Outpatient (REF) | payer OTHER, SELFPAY ==
[2025-04-26 07:30] VITALS: BP 93/57; BP_SYST 59
[2025-04-26 08:22] VITALS: BP 97/63; BP_SYST 52
[2025-04-26 08:47] VITALS: BP 97/63
[2025-04-26 10:55] LABS: Body Fluid Mononuclear 92.7 %; Body Fluid Polymorphonuclear 7.3 %; Body Fluid WBC 941 /CUMM
[2025-04-26 11:05] LABS: Body Fluid Second Tech CMB
[2025-04-26 14:42] LABS: % Basophils 0.4 % (0-2); % Eosinophils 2.8 % (0-6); % Immature Granulocytes 0.6 % (0-0.5); % Lymphocytes 9.3 % (20.5-51.1); % Neutrophils 75.9 % (42.2-75.2); Absolute Eosinophils 0.3 10^3/uL (0-0.7); Absolute Immature Granulocytes 0.1 10^3/uL (0-0.05); Absolute Lymphocytes 0.8 10^3/uL (1.2-3.4); Absolute Neutrophils 6.8 10^3/uL (1.4-6.5); Hematocrit 42.9 % (39.0-52.0); Hemoglobin 13.8 g/dL (13.0-18.0); Mean Corp Hgb Conc. 32.2 g/dL (33.0-37.0); Mean Corpuscular Hgb 27.4 pg (27.0-31.0); Mean Corpuscular Volume 85.1 fL (80.0-94.0); Mean Platelet Volume 10.1 fL (7.4-10.4); Nucleated Red Blood Cells % 0 % (-); Platelet Count 153 10^3/uL (130-400); Red Blood Cell Count 5.04 10^6/uL (4.70-6.10); Red Cell Dist. Width 16.4 % (11.5-14.5); White Blood Cell Count 8.9 10^3/uL (4.8-10.8)
[2025-04-26 15:13] LABS: ALT (SGPT) 11 U/L (0-50); AST (SGOT) 19 U/L (17-59); Albumin 4.8 g/dl (3.5-5.0); Alkaline Phosphatase 73 U/L (38-126); Blood Urea Nitrogen 38 mg/dl (9-20); Calcium 9.8 mg/dl (8.4-10.2); Carbon Dioxide 30 mmol/L (22-30); Chloride 102 mmol/L (98-107); Glucose 114 mg/dl (70-99); Potassium 4.4 mmol/L (3.5-5.1); Sodium 143 mmol/L (135-145); Total Bilirubin 1.2 mg/dl (0.2-1.3); Total Protein 7.8 g/dl (6.3-8.2); eGFR 45.02
[2025-04-26 20:22] LABS: Rubella Positive
== END ==
LOC: RADI 07:09
PROVIDERS: Nurse Practitioner Family; ATTENDING PHYSICIAN Internal Medicine Gastroenterology
DX: R18.8 Other ascites (principal); R60.0 Localized edema; M25.572 Pain in left ankle and joints of left foot; M79.672 Pain in left foot
CPT/HCPCS: 36415; 49083; 73610; 73630; 80053; 85025; 86735; 86762; 86765; 87015; 87070; 87205; 89051; 93971

== ENCOUNTER → 2025-05-10 07:29 | Outpatient (REF) | payer OTHER, SELFPAY ==
[2025-05-10 07:47] VITALS: BP 95/65; BP_SYST 58
[2025-05-10 08:24] VITALS: BP 91/59
[2025-05-10 10:06] LABS: Body Fluid Mononuclear 90.3 %; Body Fluid Polymorphonuclear 9.7 %; Body Fluid WBC 599 /CUMM
[2025-05-10 10:09] LABS: Body Fluid Second Tech BGK
== END ==
LOC: RADI 07:29
PROVIDERS: ATTENDING PHYSICIAN Internal Medicine Gastroenterology; FAMILY PHYSICIAN Nurse Practitioner Family
DX: R18.8 Other ascites (principal)
CPT/HCPCS: 49083; 87015; 87070; 87205; 89051

== ENCOUNTER 2025-05-10 09:17 | Outpatient (RCR) | payer OTHER, SELFPAY ==
[2025-04-26 09:00] VITALS: BP 102/66
[2025-04-26] MEDS: FLEXBUMIN 50 IV (09:00)
[2025-04-26 09:52] VITALS: BP 93/59
[2025-05-10 09:15] VITALS: BP 99/60
[2025-05-10 09:30] VITALS: BP 99/60
[2025-05-10] MEDS: FLEXBUMIN 50 IV (09:31)
[2025-05-10 10:20] VITALS: BP 95/54
== END 2025-05-17 23:59 | disposition home or self-care (01) ==
LOC: OID 09:17
PROVIDERS: ATTENDING PHYSICIAN Physician Assistant; FAMILY PHYSICIAN Nurse Practitioner Family
DX: K74.60 Unspecified cirrhosis of liver (principal)
CPT/HCPCS: 96365; P9047

== ENCOUNTER → 2025-05-24 07:16 | Outpatient (REF) | payer OTHER, SELFPAY ==
[2025-05-24 07:40] VITALS: BP 103/65; BP_SYST 54
[2025-05-24 08:53] VITALS: BP 102/67
[2025-05-24 10:25] LABS: Body Fluid Second Tech EM
== END ==
LOC: RADI 07:16
PROVIDERS: ATTENDING PHYSICIAN Internal Medicine Gastroenterology; FAMILY PHYSICIAN Nurse Practitioner Family
DX: R18.8 Other ascites (principal)
CPT/HCPCS: 49083; 87015; 87070; 87205; 89051

== ENCOUNTER 2025-05-24 08:42 | Outpatient (RCR) | payer OTHER, SELFPAY ==
[2025-05-24 09:00] VITALS: BP 112/61
[2025-05-24] MEDS: FLEXBUMIN 50 IV (09:06)
[2025-05-24 09:10] VITALS: BP 112/61
[2025-05-24 10:00] VITALS: BP 101/57
== END 2025-06-17 23:59 | disposition home or self-care (01) ==
LOC: OID 08:42
PROVIDERS: ATTENDING PHYSICIAN Physician Assistant; FAMILY PHYSICIAN Nurse Practitioner Family
DX: K74.60 Unspecified cirrhosis of liver (principal)
CPT/HCPCS: 49083; 87015; 87070; 87205; 89051; 96365; P9047

== ENCOUNTER → 2025-06-07 07:25 | Outpatient (REF) | payer OTHER, SELFPAY | LOC: RADI 07:25 | PROVIDERS: ATTENDING PHYSICIAN Internal Medicine Gastroenterology; FAMILY PHYSICIAN Nurse Practitioner Family | DX: R18.8 Other ascites (principal); Z53.8 Procedure and treatment not carried out for other reasons | CPT/HCPCS: 76705 ==

== ENCOUNTER → 2025-06-21 07:34 | Outpatient (REF) | payer OTHER, SELFPAY ==
[2025-06-21 07:48] VITALS: BP 100/60; BP_SYST 61
[2025-06-21 08:19] VITALS: BP 92/69; BP_SYST 61
[2025-06-21 09:06] VITALS: BP 92/69
[2025-06-21 10:12] LABS: Body Fluid Second Tech AMA
[2025-06-21 16:14] LABS: Hematocrit 41.0 % (39.0-52.0); Hemoglobin 13.0 g/dL (13.0-18.0); Mean Corp Hgb Conc. 31.7 g/dL (33.0-37.0); Mean Corpuscular Volume 83.5 fL (80.0-94.0); Nucleated Red Blood Cells % 0 % (-); Platelet Count 124 10^3/uL (130-400); Red Cell Dist. Width 15.8 % (11.5-14.5)
[2025-06-21 16:22] LABS: INR 1.35; PT 17.0 Sec (11.4-14.6)
[2025-06-21 16:23] LABS: APTT 28.8 Sec (23.4-35.0)
[2025-06-21 16:44] LABS: ALT (SGPT) 10 U/L (0-50); AST (SGOT) 18 U/L (17-59); Albumin 4.9 g/dl (3.5-5.0); Alkaline Phosphatase 72 U/L (38-126); Blood Urea Nitrogen 41 mg/dl (9-20); Calcium 9.5 mg/dl (8.4-10.2); Carbon Dioxide 30 mmol/L (22-30); Chloride 99 mmol/L (98-107); Glucose 115 mg/dl (70-99); Potassium 4.3 mmol/L (3.5-5.1); Sodium 139 mmol/L (135-145); Total Protein 7.6 g/dl (6.3-8.2); eGFR 39.39
[2025-06-21 17:01] LABS: Ammonia < 9 umol/L (9-30)
[2025-06-21 17:09] LABS: TSH 2.84 uIU/ml (0.47-4.68)
[2025-06-21 18:50] LABS: AFP Male/Tumor Marker 2.45 ng/ml
[2025-06-22 07:51] LABS: Glycohemoglobin (HgbA1c) 6.4 % (4.0-5.6)
== END ==
LOC: RADI 07:34
PROVIDERS: ATTENDING PHYSICIAN Internal Medicine Gastroenterology; FAMILY PHYSICIAN Nurse Practitioner Family; OTHER PHYSICIAN Internal Medicine Transplant Hepatology; OTHER PHYSICIAN Physician Assistant
DX: R18.8 Other ascites (principal)
CPT/HCPCS: 36415; 49083; 80053; 82105; 82140; 83036; 84439; 84443; 85025; 85610; 85730; 89051

== ENCOUNTER 2025-06-21 08:49 | Outpatient (RCR) | payer OTHER, SELFPAY ==
[2025-06-21 09:00] VITALS: BP 106/56
[2025-06-21] MEDS: FLEXBUMIN 50 IV (09:28)
[2025-06-21 09:33] VITALS: BP 106/56
[2025-06-21 10:28] VITALS: BP 102/55
== END 2025-07-16 10:55 | disposition home or self-care (01) ==
LOC: OID 08:49
PROVIDERS: ATTENDING PHYSICIAN Physician Assistant; FAMILY PHYSICIAN Nurse Practitioner Family
DX: K74.60 Unspecified cirrhosis of liver (principal)
CPT/HCPCS: 96365; P9047

== ENCOUNTER → 2025-07-01 06:59 | Outpatient (REF) | payer OTHER, SELFPAY | LOC: RAD 06:59 | PROVIDERS: ATTENDING PHYSICIAN Surgery Vascular Surgery; FAMILY PHYSICIAN Nurse Practitioner Family | DX: I77.9 Disorder of arteries and arterioles, unspecified (principal) | CPT/HCPCS: 93922; 93925 ==

== ENCOUNTER 2025-07-01 15:22 | Inpatient (IN) | payer OTHER, SELFPAY ==
[2025-07-01] VITALS (12 sets, daily range): BP systolic 95–107; BP diastolic 51–71; BMI 37.3; BMI 36.5
[2025-07-01 09:28] LABS: Hematocrit 45.1 % (39.0-52.0); Hemoglobin 14.4 g/dL (13.0-18.0); Mean Corp Hgb Conc. 31.9 g/dL (33.0-37.0); Mean Corpuscular Volume 83.1 fL (80.0-94.0); Nucleated Red Blood Cells % 0 % (-); Platelet Count 150 10^3/uL (130-400); Red Cell Dist. Width 15.8 % (11.5-14.5)
[2025-07-01 09:48] LABS: ALT (SGPT) 13 U/L (0-50); AST (SGOT) 25 U/L (17-59); Albumin 5.4 g/dl (3.5-5.0); Alkaline Phosphatase 78 U/L (38-126); Blood Urea Nitrogen 45 mg/dl (9-20); Calcium 9.5 mg/dl (8.4-10.2); Carbon Dioxide 29 mmol/L (22-30); Chloride 101 mmol/L (98-107); Glucose 129 mg/dl (70-99); Potassium 4.5 mmol/L (3.5-5.1); Sodium 141 mmol/L (135-145); Total Protein 8.8 g/dl (6.3-8.2); eGFR 39.39
--- NOTE | 2025-07-01 10:39 | ED.GENMED ---
History of Present Illness
General
Chief Complaint: Skin Problem
Source: patient and spouse
Exam Limitations: none
Time Seen by Provider: 07/01/25 10:29
Nursing documentation reviewed up to this point in time: agreed with
History of Present Illness
History of Present Illness:
Note:
CHIEF COMPLAINT(S)
Abdominal discomfort and erythema.
HISTORY OF PRESENT ILLNESS
The patient is a 64-year-old male with a history of consultation for liver transplantation. The patient reports experiencing abdominal discomfort, describing it as a crushing pain. The discomfort originates in the lower abdomen and has been present
from approximately 9 PM to the configuration engineer, suggesting a duration of several hours.
The patient notes bilateral lower abdominal erythema, with associated distress. He denies any recent use of corticosteroids such as prednisone. There is a notable increase in his white blood cell count, raising suspicion for an infection. Physical
examination revealed cellulitis or inflammation of the skin in the abdominal area.
The patient has been under medical follow-up for pre-existing liver conditions and cardiovascular concerns and has been previously evaluated for liver transplantation needs. His follow-up includes care from both a nude model and a financial accountant.
The patient anticipates staying in the hospital overnight for further observation and management.
PAST MEDICAL AND SURGICAL HISTORY
The patient has been evaluated for liver transplantation and has consultations related to cardiac and hepatological conditions.
SOCIAL DETERMINANTS AFFECTING HEALTH
The patient has ongoing medical consultation for liver and cardiac conditions, indicating significant engagement with healthcare services for chronic and potentially debilitating conditions.
PHYSICAL EXAM
General: Alert, no acute distress.
Skin: Warm, dry with erythema noted on the bilateral lower abdomen.
Abdomen: Soft, with erythema and tenderness noted on the lower abdomen.
PROBLEM LIST
Acute problems:
- Abdominal pain
- Erythema and cellulitis of the lower abdomen
- Elevated white blood cell count, concerning for infection
Chronic problems:
- Evaluation for liver transplantation
- Cardiac condition follow-up
PLAN
- Hospital admission for monitoring and management of potential abdominal infection
- Review of laboratory findings, including evaluation of possible fluid accumulation and infection markers
- Coordination with gastroenterology for further assessment
DIFFERENTIAL DIAGNOSIS
The Differential Diagnosis includes, in no particular order and is not limited to:
- Abdominal cellulitis
- Peritonitis
- Hepatic abscess
- Appendicitis
- Diverticulitis
- Bowel obstruction
- Acute abdomen secondary to liver disease
- Urinary tract infection
- Inflammatory bowel disease
- Inguinal hernia
CARE-UPDATE
07/01/25 - 13:12
Interventional radiology consult ordered for paracentesis to differentiate between abdominal cellulitis and spontaneous bacterial peritonitis. Initiate IV Zocin post-procedure. Admission coordinated with hospitalist team. Gastroenterology
consultation completed.
Disposition:
SUMMARY OF ENCOUNTER
The patient, a 64-year-old male, presented with abdominal discomfort characterized by a crushing pain, originating in the lower abdomen. The abdominal pain was associated with erythema in the bilateral lower abdominal area and accompanied by an
elevated white blood cell count, raising suspicion for an infection. A physical examination suggested cellulitis in the abdominal area. Given his past medical history, including liver transplantation evaluation, chronic liver conditions, and
cardiovascular concerns, an interventional radiology consult was ordered for paracentesis to differentiate between abdominal cellulitis and spontaneous bacterial peritonitis. IV piperacillin/tazobactam (Zosyn) was initiated post-procedure. The
patient anticipates an overnight hospital stay for further evaluation and management.
DISPOSITION
Admit to hospitalist.
ASSESSMENT
The patient shows signs consistent with abdominal cellulitis and possible spontaneous bacterial peritonitis, in the context of alcoholic cirrhosis.
MANAGEMENT OF THE PATIENTS CARE WAS DISCUSSED WITH
Gastroenterology consultation was completed, and a discussion with the hospitalist team was initiated for admission and ongoing management.
PLAN
The patient will be admitted for monitoring and management of potential abdominal infection, with further evaluation through laboratory findings and coordination with the gastroenterology team for comprehensive care.
INDEPENDENT REVIEW OF LABS AND INTERPRETATION OF TESTS
My independent review of CBC indicates an elevated white blood cell count, suggestive of an infection.
MEDICATION RECONCILIATION
IV administration of piperacillin/tazobactam (Zosyn) was initiated following the paracentesis procedure for suspected infection.
MEDICAL DECISION MAKING
-Complexity of Data Reviewed: Chronic conditions affecting care including evaluation for liver transplantation and existing cardiac conditions. Differential diagnosis includes abdominal cellulitis, spontaneous bacterial peritonitis, hepatic abscess,
appendicitis, diverticulitis, bowel obstruction, acute abdomen secondary to liver disease, urinary tract infection, inflammatory bowel disease, and inguinal hernia.
-Data:
Category 1: The patients previous medical records regarding liver and cardiac evaluations were reviewed.
Category 3: Discussion of management with the hospitalist and gastroenterology teams was conducted.
-Risk: The decision was made to admit the patient to ensure proper monitoring and management due to his complex medical background and elevated risk associated with his presenting symptoms.
DIAGNOSIS
- Abdominal cellulitis (L03.313)
- Spontaneous bacterial peritonitis (K65.2)
- Alcoholic cirrhosis of liver (K70.30)
Past History
Past History
ED Past Medical History: CAD, CHF, GERD, HTN, Hypercholesterolemia, IDDM, Renal failure and Hypothyroidism
ED Past Surgical History: Cardiac (CABG, pericardial window)
Social History
Tobacco: Non-smoker
Alcohol: None
Drug: None
Personal:
Living: with family
Employment: Employed
Family History
Family History: CAD
Phy Exam
Physical Exam
Physical Exam:
.
Course
Orders/Labs/Results
Orders:
Orders
07/01/25 09:13
Complete Blood Count/With Diff Urgent
Comprehensive Metabolic Panel Urgent
Blood Culture Urgent
[facility]LIN Source: Blood/Venous
Specimen Description:
07/01/25 10:53
Consult Interventional Radiology [IRAD CONSULT] Urgent
Consulting Provider: Joseph Santiago
Was physician already notified: Yes
Procedure being ordered, including laterality if applicable: paracentesis
Acknowledgement that appropriate orders are entered: Yes
07/01/25 10:54
Body Fluid Albumin Routine
Fluid Source: Peritoneal (Ascites)
Body Fluid Amylase Routine
Fluid Source: Peritoneal (Ascites)
Body Fluid Cell Count Routine
What is the Body Fluid: peritoneal fluid
Comment: post procedure
Body Fluid LDH Routine
Fluid Source: Peritoneal (Ascites)
Body Fluid Protein Routine
Fluid Source: Peritoneal (Ascites)
Fluid Culture with Gram Stain Routine
MERLIN Source: Peritoneal Fluid
Specimen Description:
Comment: Post Procedure
07/01/25 14:30
Piperacillin/Tazo 3.375 Gram [Zosyn] 3.375 gram in 50 ml IV NOW
Abnormal Lab Results
07/01/25
09:13
WBC 16.6 H 10^3/uL
(4.8-10.8)
MCH 26.5 L pg
(27.0-31.0)
MCHC 31.9 L g/dL
(33.0-37.0)
RDW 15.8 H %
(11.5-14.5)
Abs Immat Gran (auto) 0.1 H 10^3/uL
(0-0.05)
Absolute Neuts (auto) 14.1 H 10^3/uL
(1.4-6.5)
Absolute Lymphs (auto) 0.9 L 10^3/uL
(1.2-3.4)
Absolute Monos (auto) 1.4 H 10^3/uL
(0.1-0.6)
Neutrophils % 84.9 H %
(42.2-75.2)
Lymphocytes % 5.1 L %
(20.5-51.1)
BUN 45 H mg/dl
(9-20)
Creatinine 1.9 H mg/dL
(0.7-1.3)
Glucose 129 H mg/dl
(70-99)
Total Bilirubin 1.6 H mg/dl
(0.2-1.3)
Total Protein 8.8 H g/dl
(6.3-8.2)
Albumin 5.4 H g/dl
(3.5-5.0)
07/01/25 09:13
07/01/25 09:13
Vital Signs
Initial and Last Documented VS:
Initial Vital Signs
Temp Pulse Resp BP Pulse Ox
99.2 F 60 18 100/67 97
07/01/25 08:56 07/01/25 08:56 07/01/25 08:56 07/01/25 08:56 07/01/25 08:56
Last Documented Vital Signs
Temp Pulse Resp BP Pulse Ox
99.2 F 58 18 101/66 93
07/01/25 08:56 07/01/25 12:15 07/01/25 08:56 07/01/25 12:00 07/01/25 12:15
*Pulse Oximetry
SaO2: 97
Oxygen Mode of Delivery: Room air
Patient hypoxic: no
*Critical Care Note
Total Time (30-74mins, 75-104mins- exclusive of procedures): Not Applicable
ED Attending Note
-
Portions of this chart may have been created with voice recognition software.� Occasional wrong word or��sound alike� substitutions may have occurred due to the inherent limitations of voice recognition software.
Discharge Plan
Departure
Patient Disposition: Admit
Date of Disposition: 07/01/25
Time of Disposition: 13:12
Admit to: Med/Surg
Presentation/result/management discussed w/ accepting MD/DO: Hospitalist
Patient with high blood pressure during this ER visit?: No
Condition: Fair
Discharge Problem:
Abdominal wall cellulitis, Peritonitis, spontaneous bacterial, Alcoholic cirrhosis
Prescriptions:
No Action
aspirin 81 MG tablet,delayed release (DR/EC)
81 mg PO DAILY
docusate sodium [Colace] 100 mg Capsule
100 mg PO BID
gabapentin 100 mg Capsule
100 mg PO BID
rosuvastatin 20 mg Tablet
20 mg PO QPM
Relistor 150 mg Tablet
150 mg PO DAILY
pantoprazole [Protonix] 40 mg tablet,delayed release (DR/EC)
40 mg PO QPM
melatonin 5 mg tablet
5 mg PO HS
torsemide 20 mg tablet
80 mg PO BID
levothyroxine [Synthroid] 150 mcg Tablet
200 mcg PO Q48H
levothyroxine [Synthroid] 300 mcg tablet
300 mcg PO Q48H
lorazepam 1 mg Tablet
1 mg PO DAILYPRN PRN (Reason: testing-claustrophobia)
insulin degludec [Tresiba FlexTouch U-100] 100 unit/mL (3 mL) Insulin Pen
16 unit SC DAILY
nitroglycerin 0.4 mg tablet, sublingual
0.4 mg sublingual [id number] PRN (Reason: chest pain) Qty: 25 2RF
oxycodone 10 mg Tablet, Oral Only
10 mg PO TID
dapagliflozin propanediol [Farxiga] 10 mg Tablet
10 mg PO DAILY
metoprolol succinate 25 mg tablet extended release 24 hr
37.5 mg PO QPM
spironolactone 25 mg tablet
50 mg PO DAILY
albuterol sulfate [Ventolin HFA] 90 mcg/actuation Hfa Aerosol Inhaler
2 puff INHALATION R Q6HPRN PRN (Reason: SOB)
ferrous sulfate 325 mg (65 mg iron) Tablet
325 mg PO DAILY
polyethylene glycol 3350 [Miralax] 17 gram Powder In Packet
17 g PO DAILY
omega-3 acid ethyl esters [Lovaza] 1 gram Capsule
1 cap PO BID
clopidogrel 75 MG tablet
75 mg PO DAILY Qty: 30 0RF
Referrals:
René Guido CRNP [Family Provider, Family Practice]
Interventions
Interventions:
*Risk Screen - Suicide Last Done: 07/01/25 09:00
*General Assessment Last Done: 07/01/25 09:00
*Neglect/Abuse Screening Last Done: 07/01/25 10:28
*ED- Fall Risk Assessment Last Done: 07/01/25 10:28
*ED COVID-19 Vaccine History Last Done: 07/01/25 09:00
Discharge Date and Time
Print Language: BURKINAN
[2025-07-01] MEDS: ZOSYN 50 IV (13:55)
--- NOTE | 2025-07-01 14:02 | HPS.HSE ---
Family Physician
-
Family Physician: MARQUIS Klein
Chief Complaint
-
Chills and Abdominal Rash
History of Present Illness
Patient is a 64 y/o male past medical history of ASCVD, CHF, Alcoholic Cirrhosis with Recurrent Ascites, DM, and CKD who presents with chills, and abdominal rash. Patient reports yesterday morning he noticed some mild redness of his lower abdomen.
Last night he developed increased fatigue, but notes he woke up several time throughout the night with abdominal pain and needed to urgently urinate. He reports he has significant chills throughout the night. This morning it was noted that the
redness on his lower abdomen was much prompting him to come to the emergency department for evaluation.
Medical History
Past Medical History
Past Medical History: Reports Other
Additional Past Medical History:
Peripheral Arterial Disease
Coronary Artery Disease
Ischemic Cardiomyopathy
Chronic HFrEF
Alcoholic Cirrhosis
Recurrent Ascites
Diabetes Mellitus with Diabetic Neuropathy
CKD Stage III
Hypothyroidism
Chronic Pain with Opioid Dependence
Anxiety
Gout
Past Surgical History: Reports Other
Additional Past Surgical History:
CABG
Pericardial Window
Right External Iliac Artery to Right Profunda Femoral Artery Bypass
Left Common Femoral Artery to Tibioperoneal Trunk Bypass
Social History
Tobacco: Non-smoker
Alcohol: Former
Personal:
Living: With Family
Family History
Family History: Not pertinent
Allergies / Home Medications
Allergies reflects when Allergies were last updated in [email or web address].
Home Medications with original date entered in [email or web address]
Allergy/Medication List:
Allergies
Allergy/AdvReac Type Severity Reaction Status Date / Time
clarithromycin (From Biaxin) Allergy Rash Verified 07/01/25 09:12
doxycycline Allergy severe Verified 07/01/25 09:12
diarrhea
and
vomiting
lisinopril Allergy Itching/jeronimo Verified 07/01/25 09:12
h
pregabalin (From Lyrica) Allergy Hives Verified 07/01/25 09:12
Home Medications
aspirin 81 mg tablet,delayed release 81 mg PO DAILY Blood clot prevention/tx 03/08/17
clopidogrel 75 mg tablet 75 mg PO DAILY Blood clot prevention/tx #30 tabs 12/16/23
docusate sodium 100 mg capsule (Colace) 100 mg PO BID Constipation 02/10/24
gabapentin 100 mg capsule 100 mg PO BID Pain 02/10/24
melatonin 5 mg tablet 5 mg PO HS Sleep 02/10/24
methylnaltrexone 150 mg tablet (Relistor) 150 mg PO DAILY constipation 02/10/24
pantoprazole 40 mg tablet,delayed release (Protonix) 40 mg PO QPM Gastrointestinal Issue 02/10/24
rosuvastatin 20 mg tablet 20 mg PO QPM High Cholesterol 02/10/24
torsemide 20 mg tablet 80 mg PO BID Fluid Retention/Swelling 08/04/24
levothyroxine 150 mcg tablet (Synthroid) 200 mcg PO Q48H Thyroid 08/25/24
levothyroxine 300 mcg tablet (Synthroid) 300 mcg PO Q48H Thyroid 08/25/24
insulin degludec 100 unit/mL (3 mL) subcutaneous pen (Tresiba FlexTouch U-100 insulin) 16 unit SC DAILY Diabetes 09/18/24
lorazepam 1 mg tablet 1 mg PO DAILYPRN PRN testing-claustrophobia 09/18/24
nitroglycerin 0.4 mg sublingual tablet 0.4 mg sublingual [id number] PRN chest pain #25 tabs 09/18/24
dapagliflozin propanediol 10 mg tablet (Farxiga) 10 mg PO DAILY 10/27/24
metoprolol succinate 25 mg tablet,extended release 24 hr 37.5 mg PO QPM 10/27/24
oxycodone 10 mg tablet,oral ONLY (not feeding tubes) 10 mg PO TID 11/09/24
spironolactone 25 mg tablet 50 mg PO DAILY 02/01/25
albuterol sulfate 90 mcg/actuation aerosol inhaler (Ventolin HFA) 2 puff inhalation R Q6HPRN PRN SOB 02/15/25
ferrous sulfate 325 mg (65 mg iron) tablet 325 mg PO DAILY 07/01/25
omega-3 acid ethyl esters 1 gram capsule (Lovaza) 1 cap PO BID 07/01/25
polyethylene glycol 3350 17 gram oral powder packet (Miralax) 17 g PO DAILY 07/01/25
Review of Systems
-
A 12 point ROS was completed and negative except as noted: Yes
Constitutional: Reports Chills
Physical Exam
Vital Signs
Vital Signs
Temp Pulse Resp BP Pulse Ox
99.2 F 57 18 102/62 96
07/01/25 08:56 07/01/25 13:00 07/01/25 08:56 07/01/25 13:00 07/01/25 13:56
Physical Exam
General: Comfortable and Conversant
HEENT: Anicteric and Moist mucous membranes
Respiratory: Clear and Non Labored Respirations
Cardiac: S1/S2 and Regular Rhythm
GI: Soft and Non Tender
Rectal: Deferred by Provider
Musculoskeletal: No Clubbing and No Cyanosis
Skin: Warm, Dry and Other (Moderate erythema across lower abdomen with increased warmth to touch)
Neuro: Awake, Alert, Oriented and Nonfocal/grossly intact
Psych: Calm
Laboratory Results
-
07/01/25 09:13
07/01/25 09:13
Laboratory Results
Total Bilirubin 1.6 mg/dl (0.2-1.3) H 07/01/25 09:13
AST 25 U/L (17-59) 07/01/25 09:13
ALT 13 U/L (0-50) 07/01/25 09:13
Alkaline Phosphatase 78 U/L (38-126) 07/01/25 09:13
Data Reviewed
-
Lab Data: Labs Reviewed by me
Old Records: Reviewed
Impression/Plan
-
Lower Abdominal Wall Cellulitis
-Continue Ancef
-Check Blood Cultures
Peripheral Arterial Disease s/p Stents and Bypass Procedures
Coronary Artery Disease s/p CABG
-Continue aspirin and clopidogrel
-Continue rosuvastatin
Chronic HFrEF
-Hold Farxiga, Spironolactone and Torsemide as BP running on the low side
-Monitor Daily Weights
Hypertension
-Hold metoprolol due to low blood pressure
Alcoholic Cirrhosis with Recurrent Ascites
-Abd US 07/01 without drainable fluid
-Hold torsemide and spironolactone as blood is running on the low side
Diabetes Mellitus with Diabetic Neuropathy
-HgbA1c Jun 2025: 6.5
-Continue Gabapentin
-Continue Tresiba as decreased dose during hospitalization
-Monitor sugars and continue coverage insulin
CKD Stage III
-Creatinine at baseline
Hypothyroidism
-Continue levothyroxine
Chronic Pain with Opioid Dependence
-Continue oxycodone as prior to admission
Chronic Constipation
-Continue Relistor and MiraLAX
DVT proph: SCDs
Code Status: Full Code
--- NOTE | 2025-07-01 16:19 | W.PN.UPDATE ---
Update Note
Progress Note Update
This is an addendum to H&P written by INNA Chris
I saw and examined the patient.
The SUPERVISOR [employer]'s note was reviewed and I agree with the note.
Comment:
Mr. Oliver Rodriguez is a 64 yo man with hx CAD s/p CABG 2012, PAD s/p bypass, HF, AICD 2019, HTN, HLD, former tobacco use, alcoholic cirrhosis receiving serial paracenteses presents to the ER with redness and pain along lower abdomen.
Triage vitals stable.
Labs with WBC 16.6, Hg 14.4, PLT 150, Na 141, K+ 4.5, Cr baseline 1.9
On exam patient is awake, alert in no distress. Lower abdomen with erythema, area of bruising from prior injection. No LE swelling.
Abdominal US
IMPRESSION:
Trace volume of ascites not sufficient for percutaneous drainage.
Lower abdominal wall cellulitis
-admit to medicine
-IV Cefazolin
-follow up cultures
-hold [employer] diuretics for now
chronic HFrEF
-EF 35-40% 02/08
-hold diuretics for now as SBP low, in setting of infection
-lower dose Metop XL with hold parameters
Remainder of plan per [employer] note
[2025-07-01 17:31] LABS: Glucose - Point of Care 95 mg/dl (70-99)
[2025-07-01] MEDS: NOVOLOG FLEXPEN-MODERATE RESISTANCE SC (17:57)
--- NOTE | 2025-07-01 18:01 | PHANOTE ---
Addendum entered by Kamille Javed 07/01/25 18:03:
[facility] records show relistor 150mg daily for the last two years
Original Note:
med rec note- reached out to spouse to verify Relistor dose, left message for her to call back
--- NOTE | 2025-07-01 18:26 | PTCARENOTE ---
Pt received from the ED via stretcher. Ambulated to unit bed with minial assistance. Ordered blood cultures obtained. Health history obtained patient and at bedside. Pt's own Relistor sent to pharmacy for barcode.
[2025-07-01] MEDS: ROXICODONE 10 MG PO ×2 (18:32→21:58)
[2025-07-01] MEDS: CRESTOR 20 MG PO (18:33)
[2025-07-01] MEDS: TOPROL XL 12.5 MG PO (18:34)
[2025-07-01] MEDS: PROTONIX 40 MG PO (18:34)
[2025-07-01 19:54] LABS: Urine Character Clear (Clear)
[2025-07-01 20:04] LABS: Urine Red Blood Cell 0-2 /HPF (0-2); Urine Squamous Cell 0-2 /LPF (Few); Urine White Cell 0-2 /HPF (0-5)
[2025-07-01] MEDS: ANCEF 10 IV (20:06)
[2025-07-01] MEDS: NEURONTIN 100 MG PO (20:07)
[2025-07-01] MEDS: COLACE 100 MG PO (20:07)
[2025-07-01 21:49] LABS: Glucose - Point of Care 199 mg/dl (70-99)
[2025-07-01] MEDS: MELATONIN 5 MG PO (21:58)
[2025-07-02] VITALS (7 sets, daily range): BP systolic 87–131; BP diastolic 49–85; BMI 37.0
[2025-07-02] MEDS: ANCEF 10 IV ×3 (04:05→19:54)
[2025-07-02] MEDS: SYNTHROID 300 MCG PO (05:06)
[2025-07-02 07:23] LABS: Glucose - Point of Care 114 mg/dl (70-99)
[2025-07-02] MEDS: NOVOLOG FLEXPEN-MODERATE RESISTANCE SC ×2 (07:48→17:28)
[2025-07-02] MEDS: ASPIR LOW (ENTERIC COATED) 81 MG PO (07:49)
[2025-07-02] MEDS: COLACE 100 MG PO ×2 (07:49→19:54)
[2025-07-02] MEDS: FEOSOL 325 MG PO (07:49)
[2025-07-02] MEDS: PLAVIX 75 MG PO (07:49)
[2025-07-02] MEDS: ROXICODONE 10 MG PO ×3 (07:49→21:08)
[2025-07-02] MEDS: NEURONTIN 100 MG PO ×2 (07:50→19:54)
[2025-07-02] MEDS: NON-FORMULARY ITEM 150 MG PO (07:50)
[2025-07-02] MEDS: LANTUS 0.1 UNITS SC (07:53)
[2025-07-02] MEDS: MIRALAX 17 GRAMS PO (07:56)
[2025-07-02 08:30] LABS: Hematocrit 41.4 % (39.0-52.0); Hemoglobin 13.2 g/dL (13.0-18.0); Mean Corp Hgb Conc. 31.9 g/dL (33.0-37.0); Mean Corpuscular Volume 84.0 fL (80.0-94.0); Platelet Count 134 10^3/uL (130-400); Red Cell Dist. Width 15.9 % (11.5-14.5)
[2025-07-02 09:13] LABS: Blood Urea Nitrogen 41 mg/dl (9-20); Calcium 8.8 mg/dl (8.4-10.2); Carbon Dioxide 29 mmol/L (22-30); Chloride 100 mmol/L (98-107); Estimated Creatinine Clearance 53 ml/min; Glucose 110 mg/dl (70-99); Potassium 4.0 mmol/L (3.5-5.1); Sodium 139 mmol/L (135-145); eGFR 45.02
[2025-07-02 09:59] LABS: Hepatitis C Antibody Negative (Negative)
--- NOTE | 2025-07-02 10:40 | W.PN.HOSP.TC ---
Today's Communication/Plan
-
IV Cefazolin
holding diuretics, anticipate resuming tomorrow versus earlier if patient has any symptoms of bloating or shortness of breath (discussed with patient)
Assessment / Plan
Assessment / Plan
Mr. Oliver Rodriguez is a 64 yo man with hx CAD s/p CABG 2012, PAD s/p bypass, HF, AICD 2018, HTN, HLD, former tobacco use, alcoholic cirrhosis receiving serial paracenteses presents to the ER with redness and pain along lower abdomen.
Abdominal US
IMPRESSION:
Trace volume of ascites not sufficient for percutaneous drainage.
Lower abdominal wall cellulitis
-admit to medicine
-IV Cefazolin (day 2)
-follow up cultures
chronic HFrEF
-EF 35-40% 02/08
-hold diuretics for now as SBP low, in setting of infection
-lower dose Metop XL with hold parameters
-*anticipate resuming diuretics on 07/03
Essential HTN
-lower dose Metop as below
-SBP low normal
Alcoholic Cirrhosis with Recurrent Ascites
-Abd US 07/01 without drainable fluid
-Hold torsemide and spironolactone for today, anticipate resuming tomorrow
Diabetes Mellitus with Diabetic Neuropathy
-HgbA1c Jun 2025: 6.5
-Continue Gabapentin
-Continue Tresiba as decreased dose during hospitalization
-Monitor sugars and continue coverage insulin
CKD Stage III
-Creatinine at baseline
Hypothyroidism
-Continue levothyroxine
Chronic Pain with Opioid Dependence
-Continue oxycodone as prior to admission
Chronic Constipation
-Continue Relistor and MiraLAX
DVT proph: hep subQ
Code Status: Full Code
Anticipated Discharge: 24 - 48 hours
Subjective/Interval History
-
Date of Service: July 02, 2025
feels okay
no fevers overnight
denies feeling short of breath or bloated
Objective Data
-
Labs:
Laboratory Results
07/02/25
08:09
WBC 11.2 H
Hgb 13.2
Hct 41.4
Plt Count 134
Sodium 139
Potassium 4.0
Chloride 100
Carbon Dioxide 29
BUN 41 H
Creatinine 1.7 H
Glucose 110 H
Calcium 8.8
Vital Signs:
Vital Signs
Temp Pulse Resp BP Pulse Ox
98.2 F 58 18 101/57 99
07/02/25 07:00 07/02/25 07:00 07/02/25 07:00 07/02/25 07:00 07/02/25 07:00
I&O
07/01/25 07/02/25 07/03/25
06:59 06:59 06:59
Intake Total 260 / 260
Balance 260 / 260
Review of Systems
-
History Source: Patient
All other systems: Reviewed and negative
Physical Exam
-
General: No Apparent Distress
HEENT: Normocephalic and Atraumatic
Respiratory: Negative Wheezes or Rales
Cardiac: Regular Rhythm and S1/S2
GI: Soft and Nontender
Genito-urinary: No Costovertebral Tender
Skin: Other (lower abdominal erythema improving; bruising from injection sites )
Neuro: AO x 3
Psych: Calm
Data Reviewed
-
Diagnostic Radiology: Report Reviewed by me
Labs: Labs Reviewed by me
[2025-07-02 12:12] LABS: Glucose - Point of Care 181 mg/dl (70-99)
[2025-07-02] MEDS: NOVOLOG FLEXPEN-MODERATE RESISTANCE 1 UNITS SC (12:16)
--- NOTE | 2025-07-02 14:36 | PN.CDI ---
CDI
- -
CDI:
Physician Documentation Request
Admit Date: 07/01/25 15:22
Dear Doctor Sarah,
Please review the following and provide your response in the progress notes.
Clinical Indicators:
Pt admitted with abdominal wall cellulitis /Hx of diabetes with neuropathy
Documented per H&P, ' Peripheral Arterial Disease..Diabetes Mellitus with Diabetic [id number] Jun 2025: 6.5...'
Please provide the suspected etiology of the documented Abdominal wall cellulitis:
Multifactorial due to Diabetes /PAD
Due to Diabetes only
Due to PAD only
Other ( please specify)
Use of terms such as suspected, likely, concern for, or probable (associated with a specific diagnosis that is being evaluated, monitored, or treated as if it exists) are acceptable and can be coded in the inpatient setting, when documented at the
time of discharge.
Thank you,
Fay Bright RN
CDI Specialist
[facility]
Please use your independent medical judgment in providing your response.
--- NOTE | 2025-07-02 15:53 | CM ---
Chart reviewed. IA completed. Lives with spouse and son in 2 story home which has 2 steps at the entrance.Has rolling walker, SPC and Hurrycane. Has a hx of HH for PT and OT and VN. Has also been at [facility] for an extended stay , 2-months after
vascular surgery. Confirmed PCP, RX,, insurance and drug coverage. Has wound on buttocks
Plan: Home with no needs.
[2025-07-02 16:59] LABS: Glucose - Point of Care 120 mg/dl (70-99)
[2025-07-02] MEDS: CRESTOR 20 MG PO (17:23)
[2025-07-02] MEDS: TOPROL XL 12.5 MG PO (17:23)
[2025-07-02] MEDS: PROTONIX 40 MG PO (17:23)
[2025-07-02] MEDS: MELATONIN 5 MG PO (21:08)
[2025-07-02 21:24] LABS: Glucose - Point of Care 174 mg/dl (70-99)
[2025-07-03 03:15] VITALS: BP 135/89
[2025-07-03] MEDS: ANCEF 10 IV ×2 (03:24→11:21)
[2025-07-03 05:48] VITALS: BMI 37.6
[2025-07-03] MEDS: SYNTHROID 200 MCG PO (05:48)
[2025-07-03 07:00] VITALS: BP 107/64
--- NOTE | 2025-07-03 07:07 | W.PN.HOSP.TC ---
Today's Communication/Plan
-
IV abx cefazolin transitioned to Augmentin
Possible discharge tomorrow if pt remains stable/cont to improve
Home Torsemide Spironolactone resumed with holding parameters
Home Farxiga resumed
Assessment / Plan
Assessment / Plan
Physical Exam
General: No Apparent Distress appears comfortable at this time, obese
HEENT: Normocephalic and Atraumatic
Respiratory: Negative Wheezes or Rales
Cardiac: Regular Rhythm and S1/S2
GI: Soft and Nontender
Genito-urinary: No Costovertebral Tender
Skin: lower abdominal erythema improving; bruising from injection sites
Neuro: AO x 3 conversant coherent
Psych: Calm
64M with hx CAD s/p CABG 2012, PAD s/p bypass, HF, AICD 2018, HTN, HLD, former tobacco use, alcoholic cirrhosis receiving serial paracenteses presents to the ER with redness and pain along lower abdomen, cellulitis.
Abdominal US
IMPRESSION:
Trace volume of ascites not sufficient for percutaneous drainage.
Lower abdominal wall cellulitis
- improved on IV Cefazolin transitioned to Augmentin with probiotics to promote gut health
- Blood Cultures NGTD
chronic HFrEF
-EF 35-40% 02/08
-initial diuretics held for relatively low SBP, in setting of infection
-lower dose Metop XL with hold parameters
-07/03 home Torsemide 80 mg BID resumed with holding parameters
-Home Spironolactone resumed with holding parameters
-home Farxiga resumed
Hx Essential HTN
-lower dose Metop as below
-SBP low normal
Alcoholic Cirrhosis with Recurrent Ascites
-Abd US 07/01 without drainable fluid
-Torsemide and Spironolactone resumed with holding parameters
Diabetes Mellitus with Diabetic Neuropathy
-HgbA1c Jun 2025: 6.5
-Continue Gabapentin
-Continue Tresiba at decreased dose during hospitalization
-cont home Farxiga
-Monitor sugars and continue coverage insulin
CKD Stage III
-Creatinine at baseline
Hypothyroidism
-Continue levothyroxine
Chronic Pain with Opioid Dependence
-Continue oxycodone as prior to admission
Chronic Constipation
-Continue Relistor and MiraLAX
DVT proph: hep subQ
Code Status: Full Code
I spent a total of 45 minutes with the patient or on the floor. More than 50% of this time involved counseling and coordination of care.
Anticipated Discharge: Within 24 hours
Subjective/Interval History
-
Date of Service: July 03, 2025
No acute distress, sitting up comfortably in bed. Abd cellulitis notably improved. Denies new acute issues at this time.
Objective Data
-
Labs:
Laboratory Results
07/03/25
06:41
WBC Pending
Hgb Pending
Hct Pending
Plt Count Pending
Sodium Pending
Potassium Pending
Chloride Pending
Carbon Dioxide Pending
BUN Pending
Creatinine Pending
Glucose Pending
Calcium Pending
Vital Signs:
Vital Signs
Temp Pulse Resp BP Pulse Ox
97.8 F 68 18 135/89 98
07/03/25 03:15 07/03/25 03:15 07/03/25 03:15 07/03/25 03:15 07/03/25 03:15
I&O
07/02/25 07/03/25 07/04/25
06:59 06:59 06:59
Intake Total 260 / 260 1680 / 1680
Balance 260 / 260 1680 / 1680
[2025-07-03 07:19] LABS: Glucose - Point of Care 140 mg/dl (70-99)
[2025-07-03 07:53] LABS: Hematocrit 39.8 % (39.0-52.0); Hemoglobin 12.7 g/dL (13.0-18.0); Mean Corp Hgb Conc. 31.9 g/dL (33.0-37.0); Mean Corpuscular Volume 82.6 fL (80.0-94.0); Nucleated Red Blood Cells % 0 % (-); Platelet Count 123 10^3/uL (130-400); Red Cell Dist. Width 15.6 % (11.5-14.5)
[2025-07-03] MEDS: NOVOLOG FLEXPEN-MODERATE RESISTANCE SC ×2 (07:53→11:57)
[2025-07-03] MEDS: COLACE 100 MG PO ×2 (08:38→20:05)
[2025-07-03] MEDS: LANTUS 0.1 UNITS SC (08:38)
[2025-07-03] MEDS: FEOSOL 325 MG PO (08:38)
[2025-07-03] MEDS: ASPIR LOW (ENTERIC COATED) 81 MG PO (08:38)
[2025-07-03] MEDS: NON-FORMULARY ITEM 450 MG PO (08:39)
[2025-07-03] MEDS: NEURONTIN 100 MG PO ×2 (08:40→20:05)
[2025-07-03] MEDS: MIRALAX PO ×2 (08:40→08:49)
[2025-07-03] MEDS: ROXICODONE 10 MG PO ×3 (08:41→22:28)
[2025-07-03] MEDS: PLAVIX 75 MG PO (08:41)
[2025-07-03 08:44] LABS: Blood Urea Nitrogen 38 mg/dl (9-20); Calcium 8.7 mg/dl (8.4-10.2); Carbon Dioxide 25 mmol/L (22-30); Chloride 101 mmol/L (98-107); Estimated Creatinine Clearance 64 ml/min; Glucose 108 mg/dl (70-99); Potassium 4.0 mmol/L (3.5-5.1); Sodium 135 mmol/L (135-145); eGFR 56.83
[2025-07-03 11:00] VITALS: BP 105/58
[2025-07-03 11:52] LABS: Glucose - Point of Care 140 mg/dl (70-99)
[2025-07-03 15:00] VITALS: BP 116/70
[2025-07-03 16:53] LABS: Glucose - Point of Care 190 mg/dl (70-99)
[2025-07-03] MEDS: TOPROL XL 12.5 MG PO (17:02)
[2025-07-03] MEDS: NOVOLOG FLEXPEN-MODERATE RESISTANCE 1 UNITS SC (17:02)
[2025-07-03] MEDS: CRESTOR 20 MG PO (17:02)
[2025-07-03] MEDS: PROTONIX 40 MG PO (17:02)
[2025-07-03 19:24] VITALS: BP 104/68
[2025-07-03] MEDS: DEMADEX 80 MG PO (20:05)
[2025-07-03] MEDS: AUGMENTIN 875 MG/125 MG 1 TABLET PO (20:05)
[2025-07-03] MEDS: FLORASTOR 250 MG PO (20:08)
[2025-07-03 21:14] LABS: Glucose - Point of Care 160 mg/dl (70-99)
[2025-07-03] MEDS: MELATONIN 5 MG PO (22:28)
[2025-07-03 22:56] VITALS: BP 126/85
[2025-07-04 03:16] VITALS: BP 121/80
[2025-07-04 06:00] VITALS: BMI 37.7
[2025-07-04] MEDS: SYNTHROID 300 MCG PO (06:05)
[2025-07-04 06:52] LABS: Hematocrit 37.8 % (39.0-52.0); Hemoglobin 12.4 g/dL (13.0-18.0); Mean Corp Hgb Conc. 32.8 g/dL (33.0-37.0); Mean Corpuscular Volume 81.1 fL (80.0-94.0); Platelet Count 125 10^3/uL (130-400); Red Cell Dist. Width 15.4 % (11.5-14.5)
[2025-07-04 07:21] LABS: ALT (SGPT) < 10 U/L (0-50); AST (SGOT) 17 U/L (17-59); Albumin 4.1 g/dl (3.5-5.0); Alkaline Phosphatase 72 U/L (38-126); Blood Urea Nitrogen 32 mg/dl (9-20); Calcium 8.8 mg/dl (8.4-10.2); Carbon Dioxide 25 mmol/L (22-30); Chloride 104 mmol/L (98-107); Estimated Creatinine Clearance 64 ml/min; Glucose 126 mg/dl (70-99); Magnesium 2.4 mg/dl (1.6-2.3); Potassium 3.7 mmol/L (3.5-5.1); Sodium 136 mmol/L (135-145); Total Protein 6.8 g/dl (6.3-8.2); eGFR 56.83
[2025-07-04 08:05] LABS: Glucose - Point of Care 116 mg/dl (70-99)
[2025-07-04] MEDS: NOVOLOG FLEXPEN-MODERATE RESISTANCE SC (08:18)
[2025-07-04] MEDS: ROXICODONE 10 MG PO (08:19)
[2025-07-04] MEDS: AUGMENTIN 875 MG/125 MG 1 TABLET PO (08:20)
[2025-07-04] MEDS: COLACE 100 MG PO (08:20)
[2025-07-04] MEDS: ALDACTONE 25 MG PO (08:20)
[2025-07-04] MEDS: DEMADEX 80 MG PO (08:20)
[2025-07-04] MEDS: ASPIR LOW (ENTERIC COATED) 81 MG PO (08:20)
[2025-07-04] MEDS: NON-FORMULARY ITEM 450 MG PO (08:21)
[2025-07-04] MEDS: FEOSOL 325 MG PO (08:21)
[2025-07-04] MEDS: FLORASTOR 250 MG PO (08:21)
[2025-07-04] MEDS: FARXIGA 10 MG PO (08:21)
[2025-07-04] MEDS: MIRALAX PO (08:22)
[2025-07-04] MEDS: PLAVIX 75 MG PO (08:22)
[2025-07-04] MEDS: NEURONTIN 100 MG PO (08:22)
[2025-07-04 08:38] VITALS: BP 103/66
[2025-07-04] MEDS: LANTUS 0.1 UNITS SC (08:40)
--- NOTE | 2025-07-04 09:51 | W.PN.HOSP.TC ---
Addendum entered and electronically signed by Caitie Sheriff MD 07/05/25 13:20:
# Abdominal wall cellulitis, multifactorial due to Diabetes
Original Note:
Today's Communication/Plan
-
see A/P
Assessment / Plan
Assessment / Plan
64 yo M with hx CAD s/p CABG 2012, PAD s/p bypass, HF, AICD 2018, HTN, HLD, former tobacco use, alcoholic cirrhosis receiving serial paracenteses presented to the ER with redness and pain along lower abdomen, cellulitis.
Abdominal US: Trace volume of ascites not sufficient for percutaneous drainage.
A/P:
# Lower abdominal wall cellulitis
improved on IV Cefazolin, was transitioned to Augmentin with probiotics to promote gut health, plan to DC on Keflex due to rash noted on top of head
Blood Cultures NGTD
# Mild Rash on top of head
could be sun related since the rash is on the bold area without hair, informed pt to wear a hat and apply sunscreen when outdoor
Will change current Augmentin to Keflex
# Chronic HFrEF
EF 35-40% on 02/08
initial diuretics held for relatively low SBP, in setting of infection
lower dose Metop XL with hold parameters
07/03 home Torsemide 80 mg BID resumed with holding parameters
Home Spironolactone resumed with holding parameters
home Farxiga resumed
# Hx Essential HTN
lower dose Metop as below
SBP low normal
# Alcoholic Cirrhosis with Recurrent Ascites
Abd US 07/01 without drainable fluid
Torsemide and Spironolactone resumed with holding parameters
# Diabetes Mellitus with Diabetic Neuropathy
HgbA1c Jun 2025: 6.5
Continue Gabapentin
Continue Tresiba at decreased dose during hospitalization
cont home Farxiga
Monitor sugars and continue coverage insulin
# CKD Stage III
Creatinine at baseline
# Hypothyroidism
Continue levothyroxine
# Chronic Pain with Opioid Dependence
Continue oxycodone as prior to admission
# Chronic Constipation
Continue Relistor and MiraLAX
DVT proph: hep subQ
Code Status: Full Code
Anticipated Discharge: Today
Subjective/Interval History
-
Date of Service: July 04, 2025
Objective Data
-
Labs:
Laboratory Results
07/04/25
06:31
WBC 9.3
Hgb 12.4 L
Hct 37.8 L
Plt Count 125 L
Sodium 136
Potassium 3.7
Chloride 104
Carbon Dioxide 25
BUN 32 H
Creatinine 1.4 H
Glucose 126 H
Calcium 8.8
Total Bilirubin 0.9
AST 17
ALT < 10
Alkaline Phosphatase 72
Vital Signs:
Vital Signs
Temp Pulse Resp BP Pulse Ox
36.5 C 59 18 103/66 98
07/04/25 08:38 07/04/25 08:38 07/04/25 08:38 07/04/25 08:38 07/04/25 08:38
I&O
07/03/25 07/04/25 07/05/25
06:59 06:59 06:59
Intake Total 1680 / 1680 1660 / 1660
Balance 1680 / 1680 1660 / 1660
Review of Systems
-
History Source: Patient
All other systems: Reviewed and negative
Physical Exam
-
General: Well Developed, Well Nourished, No Apparent Distress, Comfortable and Conversant
HEENT: Normocephalic and Atraumatic
Respiratory: Clear to Auscultation and Non Labored Respirations; Negative Wheezes, Rales or Accessory Resp Muscle Use
Cardiac: Regular Rhythm and S1/S2
GI: Soft and Nontender
Skin: Other (lower abdominal erythema resolved )
Neuro: Awake, Alert and Oriented
Psych: Calm and Intact Judgement/Insight
Data Reviewed
-
Labs: Labs Reviewed by me
[2025-07-04 11:00] VITALS: BP 106/64
[2025-07-04 11:54] LABS: Glucose - Point of Care 159 mg/dl (70-99)
[2025-07-04] MEDS: NOVOLOG FLEXPEN-MODERATE RESISTANCE 1 UNITS SC (12:01)
--- NOTE | 2025-07-04 14:16 | W.DCSUMMARY ---
Discharge Summary
Discharge Data
Date of Admission: 07/01/25
Date of Discharge: 07/04/25
Total time spent discharging patient (in min): 40
-
Pending Results: No
Hospital Course
Principal Diagnosis:
Lower abdominal wall cellulitis
Chronic Diagnoses:�
Essential Hypertension
Alcoholic Cirrhosis with Recurrent Ascites on scheduled paracentesis
Diabetes Mellitus with Diabetic Neuropathy
CKD Stage III
Hypothyroidism, on levothyroxine
Chronic Pain with Opioid Dependence
Chronic constipation, continue Relistor and MiraLAX
Chronic heart failure with reduced EF 35-40%
Consultations:�
None
Procedures:�
None
Clinical course:�
This is a 64-year-old male with past medical history as stated above, who presented with redness and pain along his lower abdomen. He was admitted for lower abdominal cellulitis.
Problem 1:
Lower abdominal wall cellulitis.
He received IV cefazolin while in the hospital. Antibiotic was changed to Augmentin. He complained of rash on his scalp, although doubt this was antibiotic allergy, Augmentin was nonetheless changed to oral Keflex which he can continue for 10 more
days following discharge (total 14 days).
He has been informed to continue sun protection with sunscreen and wear a hat when outdoors to prevent heat rash.
As for the rest of his medical problems, they were stable during his hospital stay.
Discharge Plan
-
Patient Disposition: Home (Routine Discharge)
Discharge Diagnosis/Procedures: Lower abdominal wall cellulitis;
Chronic HFrEF;
Alcoholic Cirrhosis with Recurrent Ascites;
Diabetes Mellitus with Diabetic Neuropathy
Condition: Fair
Diet: As tolerated, Low Fat, Low Cholesterol, Low Sodium, Diabetic, Carb Controlled and Restrict fluids to 48 oz
Activity: As tolerated
Driving Restrictions: As prior to admission
Referrals:
René Guido CRNP [Family Provider, Family Practice] - in less than 1 week
Additional Discharge Medication Instructions: Your Toprol dose was decreased from 37.5 mg to 12.5 mg daily due to low blood pressure.
Your spironolactone dose was decreased from 50 mg to 25 mg due to low blood pressure.
Your insulin Tresiba was decreased from 16 units to 10 units.
We have added Keflex 500 mg every 6 hours for your cellulitis, continue for 10 more days
Prescriptions:
New
spironolactone 25 mg Tablet
25 mg PO DAILY Qty: 30 0RF
metoprolol succinate 25 mg Tablet Extended Release 24 Hr
12.5 mg PO QPM Qty: 30 0RF
cephalexin 500 mg capsule
500 mg PO Q6H 10 Days Qty: 40 0RF
Probiotic 15 billion cell capsule, sprinkle
1 cap PO DAILY Qty: 30 0RF
Continued
aspirin 81 MG tablet,delayed release (DR/EC)
81 mg PO DAILY
docusate sodium [Colace] 100 mg Capsule
100 mg PO BID
gabapentin 100 mg Capsule
100 mg PO BID
rosuvastatin 20 mg Tablet
20 mg PO QPM
Relistor 150 mg Tablet
150 mg PO DAILY
pantoprazole [Protonix] 40 mg tablet,delayed release (DR/EC)
40 mg PO QPM
melatonin 5 mg tablet
5 mg PO HS
torsemide 20 mg tablet
80 mg PO BID
levothyroxine [Synthroid] 150 mcg Tablet
200 mcg PO Q48H
levothyroxine [Synthroid] 300 mcg tablet
300 mcg PO Q48H
lorazepam 1 mg Tablet
1 mg PO DAILYPRN PRN (Reason: testing-claustrophobia)
nitroglycerin 0.4 mg tablet, sublingual
0.4 mg sublingual [id number] PRN (Reason: chest pain) Qty: 25 2RF
oxycodone 10 mg Tablet, Oral Only
10 mg PO TID
dapagliflozin propanediol [Farxiga] 10 mg Tablet
10 mg PO DAILY
albuterol sulfate [Ventolin HFA] 90 mcg/actuation Hfa Aerosol Inhaler
2 puff INHALATION R Q6HPRN PRN (Reason: SOB)
ferrous sulfate 325 mg (65 mg iron) Tablet
325 mg PO DAILY
polyethylene glycol 3350 [Miralax] 17 gram Powder In Packet
17 g PO DAILY
omega-3 acid ethyl esters [Lovaza] 1 gram Capsule
1 cap PO BID
clopidogrel 75 MG tablet
75 mg PO DAILY Qty: 30 0RF
Changed
insulin degludec [Tresiba FlexTouch U-100] 100 unit/mL (3 mL) Insulin Pen
10 unit SC DAILY Qty: 0 0RF
Discontinued
metoprolol succinate 25 mg tablet extended release 24 hr
37.5 mg PO QPM
spironolactone 25 mg tablet
50 mg PO DAILY
Discharge Orders:
Discharge Patient (As Directed); Ordered 07/04/25
Ordered By: Caitie Sheriff
Discharge Date and Time
Discharge Date/Time: 07/04/25 13:07
Print Language: AZERI
--- NOTE | 2025-07-05 12:56 | PN.CDI ---
CDI
- -
CDI:
Physician Documentation Request
Admit Date: 07/01/25 15:22
Dear Doctor,
Please review the following and provide your response in the progress notes.
Clinical Indicators:
Pt admitted with abdominal wall cellulitis /Hx of diabetes with neuropathy
Documented per H&P, ' Peripheral Arterial Disease..Diabetes Mellitus with Diabetic [id number] Jun 2025: 6.5...'
Please provide the suspected etiology of the documented Abdominal wall cellulitis:
Multifactorial due to Diabetes /PAD
Due to Diabetes only
Due to PAD only
Other ( please specify)
Use of terms such as suspected, likely, concern for, or probable (associated with a specific diagnosis that is being evaluated, monitored, or treated as if it exists) are acceptable and can be coded in the inpatient setting, when documented at the
time of discharge.
Thank you,
Fay Bright RN
CDI Specialist
[place] [facility]
Please use your independent medical judgment in providing your response.
== END 2025-07-04 13:07 | disposition home or self-care (01) | DRG 638 ==
LOC: 4 WEST ACU 15:22
PROVIDERS: Internal Medicine; Physician Assistant Medical; ADMITTING PHYSICIAN Student in an Organized Health Care Education/Training Program; ATTENDING PHYSICIAN Internal Medicine; EMERGENCY PHYSICIAN Emergency Medicine; FAMILY PHYSICIAN Nurse Practitioner Family
DX: E11.628 Type 2 diabetes mellitus with other skin complications (principal); L03.311 Cellulitis of abdominal wall; F11.20 Opioid dependence, uncomplicated; I50.22 Chronic systolic (congestive) heart failure; I13.0 Hypertensive heart and chronic kidney disease with heart failure and stage 1 through stage 4 chronic kidney disease, or unspecified chronic kidney disease; N18.30 Chronic kidney disease, stage 3 unspecified; K70.31 Alcoholic cirrhosis of liver with ascites; E03.9 Hypothyroidism, unspecified; G89.29 Other chronic pain; K59.09 Other constipation; E11.22 Type 2 diabetes mellitus with diabetic chronic kidney disease; M10.9 Gout, unspecified; E78.00 Pure hypercholesterolemia, unspecified; E11.40 Type 2 diabetes mellitus with diabetic neuropathy, unspecified; I25.5 Ischemic cardiomyopathy; I25.10 Atherosclerotic heart disease of native coronary artery without angina pectoris; F40.240 Claustrophobia; Z79.899 Other long term (current) drug therapy; Z79.4 Long term (current) use of insulin; Z87.891 Personal history of nicotine dependence; Z95.1 Presence of aortocoronary bypass graft; Z95.820 Peripheral vascular angioplasty status with implants and grafts; Z79.890 Hormone replacement therapy
CPT/HCPCS: 76705; 80048; 80053; 81003; 81015; 82962; 83735; 84100; 85025; 85027; 86803; 87040; 96365; 99285

== ENCOUNTER → 2025-07-12 14:40 | Outpatient (REF) | payer OTHER, SELFPAY ==
[2025-07-12 16:01] LABS: Albumin 5.0 g/dl (3.5-5.0); Blood Urea Nitrogen 31 mg/dl (9-20); Calcium 9.5 mg/dl (8.4-10.2); Carbon Dioxide 34 mmol/L (22-30); Chloride 96 mmol/L (98-107); Glucose 107 mg/dl (70-99); Potassium 4.0 mmol/L (3.5-5.1); Sodium 140 mmol/L (135-145); eGFR 45.02
== END ==
LOC: REG 14:40
PROVIDERS: ATTENDING PHYSICIAN Internal Medicine Cardiovascular Disease; FAMILY PHYSICIAN Nurse Practitioner Family
DX: I50.9 Heart failure, unspecified (principal)
CPT/HCPCS: 36415; 80069

== ENCOUNTER → 2025-07-16 07:30 | Outpatient (REF) | payer OTHER, SELFPAY ==
[2025-07-16 07:40] VITALS: BP 108/67; BP_SYST 61
== END ==
LOC: RADI 07:30
PROVIDERS: ATTENDING PHYSICIAN Internal Medicine Gastroenterology; FAMILY PHYSICIAN Nurse Practitioner Family
DX: R18.8 Other ascites (principal); Z53.8 Procedure and treatment not carried out for other reasons
CPT/HCPCS: 76705

== ENCOUNTER → 2025-08-03 12:18 | Outpatient (REF) | payer OTHER, SELFPAY | LOC: HWRAD 12:18 | PROVIDERS: ATTENDING PHYSICIAN Nurse Practitioner Family | DX: R05.1 Acute cough (principal) | CPT/HCPCS: 71046 ==

== ENCOUNTER → 2025-08-05 10:14 | Outpatient (REF) | payer OTHER, SELFPAY ==
[2025-08-05 13:15] LABS: Albumin 4.7 g/dl (3.5-5.0); Blood Urea Nitrogen 38 mg/dl (9-20); Calcium 9.5 mg/dl (8.4-10.2); Carbon Dioxide 28 mmol/L (22-30); Chloride 100 mmol/L (98-107); Glucose 111 mg/dl (70-99); Potassium 4.2 mmol/L (3.5-5.1); Sodium 139 mmol/L (135-145); eGFR 45.02
== END ==
LOC: HWLAB 10:14
PROVIDERS: ATTENDING PHYSICIAN Internal Medicine Cardiovascular Disease; FAMILY PHYSICIAN Nurse Practitioner Family
DX: I50.9 Heart failure, unspecified (principal)
CPT/HCPCS: 36415; 80069

== ENCOUNTER → 2025-08-12 07:31 | Outpatient (REF) | payer OTHER, SELFPAY ==
[2025-08-12 10:05] LABS: Blood Urea Nitrogen 51 mg/dl (9-20); Calcium 10.0 mg/dl (8.4-10.2); Carbon Dioxide 31 mmol/L (22-30); Chloride 95 mmol/L (98-107); Glucose 119 mg/dl (70-99); Potassium 4.4 mmol/L (3.5-5.1); Sodium 139 mmol/L (135-145); eGFR 39.15
== END ==
LOC: RADI 07:31
PROVIDERS: ATTENDING PHYSICIAN Internal Medicine Gastroenterology; FAMILY PHYSICIAN Nurse Practitioner Family; REFERRING PHYSICIAN Internal Medicine Advanced Heart Failure and Transplant Cardiology
DX: R18.8 Other ascites (principal); Z53.8 Procedure and treatment not carried out for other reasons
CPT/HCPCS: 36415; 76705; 80048; 84443

== ENCOUNTER → 2025-09-06 11:55 | Outpatient (REF) | payer OTHER, SELFPAY ==
[2025-09-06 15:51] LABS: Albumin 4.6 g/dl (3.5-5.0); Blood Urea Nitrogen 39 mg/dl (9-20); Calcium 9.4 mg/dl (8.4-10.2); Carbon Dioxide 32 mmol/L (22-30); Chloride 98 mmol/L (98-107); Glucose 125 mg/dl (70-99); Potassium 3.9 mmol/L (3.5-5.1); Sodium 141 mmol/L (135-145); eGFR 44.74
== END ==
LOC: HWLAB 11:55
PROVIDERS: ATTENDING PHYSICIAN Internal Medicine Cardiovascular Disease; FAMILY PHYSICIAN Nurse Practitioner Family
DX: I50.9 Heart failure, unspecified (principal)
CPT/HCPCS: 36415; 80069

== ENCOUNTER → 2025-09-10 12:35 | Outpatient (REF) | payer OTHER, SELFPAY ==
[2025-09-10 14:15] LABS: Glycohemoglobin (HgbA1c) 6.5 % (4.0-5.9)
[2025-09-10 14:23] LABS: ALT (SGPT) 13 U/L (0-50); AST (SGOT) 20 U/L (17-59); Albumin 5.0 g/dl (3.5-5.0); Alkaline Phosphatase 93 U/L (38-126); Blood Urea Nitrogen 34 mg/dl (9-20); Calcium 9.7 mg/dl (8.4-10.2); Carbon Dioxide 33 mmol/L (22-30); Chloride 97 mmol/L (98-107); Glucose 105 mg/dl (70-99); Potassium 4.5 mmol/L (3.5-5.1); Sodium 140 mmol/L (135-145); Total Protein 8.3 g/dl (6.3-8.2); eGFR 44.74
[2025-09-10 14:50] LABS: TSH 0.85 uIU/ml (0.47-4.68)
== END ==
LOC: REG 12:35
PROVIDERS: ATTENDING PHYSICIAN Nurse Practitioner Family; FAMILY PHYSICIAN Nurse Practitioner Family
DX: E11.65 Type 2 diabetes mellitus with hyperglycemia (principal); E03.9 Hypothyroidism, unspecified; Z79.4 Long term (current) use of insulin
CPT/HCPCS: 36415; 80053; 83036; 84439; 84443

== ENCOUNTER → 2025-10-05 10:25 | Outpatient (REF) | payer OTHER, SELFPAY ==
[2025-10-05 12:08] LABS: Hematocrit 46.2 % (39.0-52.0); Hemoglobin 14.6 g/dL (13.0-18.0); Mean Corp Hgb Conc. 31.6 g/dL (33.0-37.0); Mean Corpuscular Volume 86.2 fL (80.0-94.0); Nucleated Red Blood Cells % 0 % (-); Platelet Count 165 10^3/uL (130-400); Red Cell Dist. Width 15.8 % (11.5-14.5)
[2025-10-05 12:16] LABS: INR 1.11; PT 14.6 Sec (11.4-14.6)
[2025-10-05 12:17] LABS: APTT 30.6 Sec (23.4-35.0)
[2025-10-05 13:46] LABS: ALT (SGPT) 21 U/L (0-50); AST (SGOT) 26 U/L (17-59); Albumin 4.8 g/dl (3.5-5.0); Alkaline Phosphatase 102 U/L (38-126); Blood Urea Nitrogen 42 mg/dl (9-20); Calcium 9.5 mg/dl (8.4-10.2); Carbon Dioxide 34 mmol/L (22-30); Chloride 94 mmol/L (98-107); Glucose 126 mg/dl (70-99); Potassium 3.8 mmol/L (3.5-5.1); Sodium 135 mmol/L (135-145); Total Protein 8.4 g/dl (6.3-8.2); eGFR 41.77
[2025-10-05 14:22] LABS: AFP Male/Tumor Marker 2.41 ng/ml
== END ==
LOC: HWLAB 10:25
PROVIDERS: ATTENDING PHYSICIAN Specialist; FAMILY PHYSICIAN Nurse Practitioner Family
DX: N18.31 Chronic kidney disease, stage 3a (principal); K74.60 Unspecified cirrhosis of liver
CPT/HCPCS: 36415; 80053; 80076; 82105; 82570; 84156; 85025; 85610; 85730

== ENCOUNTER 2025-10-28 13:31 | Emergency (ER) | payer OTHER, SELFPAY ==
[2025-10-28 13:35] VITALS: BP 102/61
--- NOTE | 2025-10-28 14:21 | ED.GENMED ---
History of Present Illness
General
Chief Complaint: Fall
Source: patient and family
Exam Limitations: none
Time Seen by Provider: 10/28/25 14:12
Nursing documentation reviewed up to this point in time: agreed with
History of Present Illness
History of Present Illness:
Patient is a 65-year-old male with past medical history of hypertension alcoholic cirrhosis diabetes chronic kidney disease, chronic pain, CABG ischemic cardiomyopathy AICD presented to the ER for evaluation of fall. Patient was walking up a step
and fell. patient reports he banged his left hand and did hit his face at the end. He complains of left hand pain some right wrist pain and right shoulder pain. Patient is on plavix. Patient denies any. Patient complains of abrasions to
bilateral legs but no leg pain.
Past History
Past History
ED Past Medical History: CAD, CHF, GERD, HTN, Hypercholesterolemia, IDDM, Renal failure and Hypothyroidism
ED Past Surgical History: Cardiac (CABG, pericardial window)
Social History
Tobacco: Non-smoker
Alcohol: None
Drug: None
Personal:
Living: with family
Employment: Employed
Family History
Family History: CAD
Phy Exam
General Physical Exam
General Presentation: no apparent distress
General age: appears stated age
General Skin: warm and dry
General Habitus: normal
General Mental: alert
Neurological Exam
Neurological Exam: alert and oriented x3
Musculoskeletal Exam
Musculoskeletal Exam: other (Left dorsal hand with obvious hematoma tender. Right shoulder mildly tender however good range of motion right wrist mildly tender no swelling. No obvious head injury. Abrasions to bilateral lower extremities no bony
tenderness no bony C-spine tenderness.)
Skin Exam
Skin Exam: normal color and warm/dry
Psychiatric Exam
Psychiatric Exam: normal mood/affect
Course
Orders/Labs/Results
Orders:
Orders
10/28/25 14:21
CT Cervical Spine W/o Iv Contr Urgent
Comment:
Reason For Exam: trauma
CT Head W/o Iv Contrast Urgent
Comment:
Reason For Exam: trauma
10/28/25 14:22
Hand, Left 3 View [CR Hand - Left Min 3 Views] Urgent
Comment:
Reason For Exam: trauma
Shoulder, Right, Trauma [CR Shoulder, Trauma - Right] Urgent
Comment:
Reason For Exam: trauma
Wrist, Right 3 Views [CR Wrist - Right Min 3 Views] Urgent
Comment:
Reason For Exam: trauma
Vital Signs
Initial and Last Documented VS:
Initial Vital Signs
Temp Pulse Resp BP Pulse Ox
98.0 F 70 16 102/61 95
10/28/25 13:35 10/28/25 13:35 10/28/25 13:35 10/28/25 13:35 10/28/25 13:35
Last Documented Vital Signs
Temp Pulse Resp BP Pulse Ox
98.0 F 70 16 102/61 95
10/28/25 13:35 10/28/25 13:35 10/28/25 13:35 10/28/25 13:35 10/28/25 14:22
MDM/Problems Addressed
Differential Diagnosis Includes:
Not limited to contusion versus fracture versus head injury
MDM/Problems Addressed:
65 yr old male presented for mechanical fall.. Patient landed predominantly on his left hand but did not hit his head complaining of left hand pain shoulder pain. He is on Plavix. Patient is an obvious hematoma to the dorsal left hand however
x-rays are negative. Head and cervical spine CAT scan were done also negative shoulder and wrist right upper extremity negative. Symptoms are consistent with contusion discussed the importance of ice elevation as he is on blood thinners return
precautions reviewed.
Chronic conditions affecting care:
CAD on Plavix
*Radiology
Radiology exam reviewed: radiology read reviewed
*Pulse Oximetry
SaO2: 95
Oxygen Mode of Delivery: Room air
Patient hypoxic: no
*Critical Care Note
Total Time (30-74mins, 75-104mins- exclusive of procedures): Not Applicable
ED Attending Note
-
Portions of this chart may have been created with voice recognition software.� Occasional wrong word or��sound alike� substitutions may have occurred due to the inherent limitations of voice recognition software.
Discharge Plan
Departure
Patient Disposition: Home (Routine Discharge)
Date of Disposition: 10/28/25
Time of Disposition: 16:15
Patient with high blood pressure during this ER visit?: No
Condition: Fair
Covid-19: Not Applicable
Discharge Problem:
Fall, Hematoma, Contusion, Head injury
Instructions: Head Injury in Adults (DC), Contusion (DC)
Prescriptions:
No Action
aspirin 81 MG tablet,delayed release (DR/EC)
81 mg PO DAILY
docusate sodium [Colace] 100 mg Capsule
100 mg PO BID
gabapentin 100 mg Capsule
100 mg PO BID
rosuvastatin 20 mg Tablet
20 mg PO QPM
Relistor 150 mg Tablet
150 mg PO DAILY
pantoprazole [Protonix] 40 mg tablet,delayed release (DR/EC)
40 mg PO QPM
melatonin 5 mg tablet
5 mg PO HS
torsemide 20 mg tablet
80 mg PO BID
levothyroxine [Synthroid] 150 mcg Tablet
200 mcg PO Q48H
levothyroxine [Synthroid] 300 mcg tablet
300 mcg PO Q48H
lorazepam 1 mg Tablet
1 mg PO DAILYPRN PRN (Reason: testing-claustrophobia)
nitroglycerin 0.4 mg tablet, sublingual
0.4 mg sublingual [id number] PRN (Reason: chest pain) Qty: 25 2RF
oxycodone 10 mg Tablet, Oral Only
10 mg PO TID
dapagliflozin propanediol [Farxiga] 10 mg Tablet
10 mg PO DAILY
albuterol sulfate [Ventolin HFA] 90 mcg/actuation Hfa Aerosol Inhaler
2 puff INHALATION R Q6HPRN PRN (Reason: SOB)
spironolactone 25 mg tablet
50 mg PO DAILY
ferrous sulfate 325 mg (65 mg iron) Tablet
325 mg PO DAILY
metoprolol succinate 25 mg Tablet Extended Release 24 Hr
12.5 mg PO QPM Qty: 30 0RF
insulin degludec [Tresiba FlexTouch U-100] 100 unit/mL (3 mL) Insulin Pen
10 unit SC DAILY Qty: 0 0RF
clopidogrel 75 MG tablet
75 mg PO DAILY Qty: 30 0RF
Referrals:
René Guido CRNP [Family Provider, Family Practice]
Activity Restrictions/Additional Instructions:
As discussed please ice the affected areas for the next 24 hours 20 minutes at a time several times a day keep elevated as much as possible. See PCP in the next 2 days for re-evaluation and return if any woresning of symptoms
Interventions
Interventions:
*Risk Screen - Suicide Last Done: 10/28/25 13:35
*General Assessment Last Done: 10/28/25 13:35
*Neglect/Abuse Screening Last Done: 10/28/25 13:35
[facility] Risk Assessment Tool Last Done: 10/28/25 15:00
*Nursing Disposition Last Done: 10/28/25 16:48
ED-Musculoskeletal Assessment Last Done: 10/28/25 16:46
ED- Neurological Assessment Last Done: 10/28/25 14:30
ED-Skin Assessment Last Done: 10/28/25 16:47
Discharge Date and Time
Discharge Date/Time: 10/28/25 16:49
Print Language: CITIZEN OF [place]
== END 2025-10-28 16:49 | disposition home or self-care (01) ==
LOC: EMR 13:31
PROVIDERS: EMERGENCY PHYSICIAN Emergency Medicine; FAMILY PHYSICIAN Nurse Practitioner Family
DX: S00.83XA Contusion of other part of head, initial encounter (principal); S60.222A Contusion of left hand, initial encounter; S80.812A Abrasion, left lower leg, initial encounter; S80.811A Abrasion, right lower leg, initial encounter; W10.9XXA Fall (on) (from) unspecified stairs and steps, initial encounter; E03.9 Hypothyroidism, unspecified; I13.0 Hypertensive heart and chronic kidney disease with heart failure and stage 1 through stage 4 chronic kidney disease, or unspecified chronic kidney disease; E11.22 Type 2 diabetes mellitus with diabetic chronic kidney disease; N18.9 Chronic kidney disease, unspecified; E78.00 Pure hypercholesterolemia, unspecified; I25.10 Atherosclerotic heart disease of native coronary artery without angina pectoris; K70.30 Alcoholic cirrhosis of liver without ascites; Z79.02 Long term (current) use of antithrombotics/antiplatelets; Z95.1 Presence of aortocoronary bypass graft; Z95.810 Presence of automatic (implantable) cardiac defibrillator
CPT/HCPCS: 99284; 70450; 72125; 73030; 73110; 73130